=== PATIENT | male | born 1980 | race Caucasian/White ===

== ENCOUNTER 2019-09-18 11:02 | Emergency (ER) | payer BC, SELFPAY ==
[2019-09-18 11:04] VITALS: BP 137/79; PULSE 79; PULSE 89; RESP 17; RESP 18; TEMP 36.8; O2SAT 100; O2SAT 98; BMI 27.1
--- NOTE | 2019-09-18 11:06 | NURSING ---
NO OLD EKGS
--- NOTE | 2019-09-18 11:18 | EKG12_ITS ---
Test Reason : PALPS Blood Pressure : / mmHG Vent. Rate : 079 BPM Atrial Rate : 079 BPM P-R Int : 146 ms QRS Dur : 092 ms QT Int : 360 ms P-R-T Axes : 058 043 031 degrees QTc Int : 412 ms Normal sinus rhythm with sinus arrhythmia Normal ECG Reconfirmed by DEONNA HERNANDEZ, GERRY ([id number]), publishing editor ASIA CALLAWAY ([id number] on 09/20/2019 9:38:52 AM Referred By: ELVIA Confirmed By:GERRY YING MD
--- NOTE | 2019-09-18 11:18 | ED.VIS.GEN ---
History of Present Illness Chief Complaint: Palpitations Informant: Patient Onset: Today Narrative: Patient presents to the emergency department with near syncopal-like feelings. Patient states that he started Lexapro 3 days ago. He states that today he had an energy drink followed by 3 cups of coffee. States he was sitting at work when he began to feel like he may pass out. States he felt discomfort in his chest. He went to the bathroom and states his eyes were dilated. He felt very shaky. He ate a sandwich and felt a little better. He does note that he has had some occasional muscle cramps in his feet and hamstrings. He is unsure if this is the caffeine, stress, the Lexapro, or other. Lexapro was started by Dr. Rodriguez his PCP. He notes he wore a Holter monitor in the past and was diagnosed with a sinus arrhythmia. Past Medical History - Allergies and Home Meds Allergies/Adverse Reactions: Allergies No Known Allergies Allergy (Verified 09/18/19 11:03) Primary Care Physician: Tejinder Rodriguez MD [Primary Care Provider] - Smoking Status: Never smoker Review of Systems General: Denies: Chills, Fever, Sweats Eyes: Denies: Visual changes - bilaterally, Diplopia ENT: Denies: Rhinorrhea, Sore throat Cardiovascular: Reports: Palpitations, - - Near syncopal. Denies: Chest pain Respiratory: Denies: Dyspnea, Cough, Dyspnea on exertion Gastrointestinal: Denies: Abdominal pain, Nausea, Vomiting, Diarrhea, Melena, Hematochezia Genitourinary: Denies: Dysuria, Hematuria, Frequency Musculoskeletal: Denies: Back pain, Extremity Pain Skin: Denies: Rash, Wounds Neurological: Denies: Headache, Weakness, Numbness Psych: Reports: Anxiety Physical Exam Vital Signs/Narrative: Vital Signs Temp Pulse Resp BP Pulse Ox 09/18/19 11:04 98.2 F 79 18 137/79 H 98 Inital Vital Signs reviewed: Yes General: Well nourished, Well developed, No Acute Distress Head: Normocephalic, Atraumatic Eyes: Perrl, EOMI ENT: Moist mucous membranes, No rhinorrhea Neck: Supple, Nontender Cardiovascular: Regular rate, Regular rhythm, No murmurs Respiratory: No distress, CTA bilaterally, Chest nontender Abdomen: Soft, Nontender, Nondistended, Normal bowel sounds Back: Nontender, Normal Inspection Extremities: Nontender, No edema Skin: Normal color, No rash Neurological: Alert, Oriented x3, Cranial nerves II-XII grossly intact, Normal Strength, Normal Sensation Psychological: - - Patient is mildly anxious Diagnostic/Tx/Re-eval - Medical Decision Making Patient had an increase in his symptoms but no abnormal findings on the monitor were noted. His EKG is a sinus rhythm with sinus arrhythmia at a rate of 79. Chest x-ray shows a normal mediastinal silhouette. Basic labs including magnesium and troponin were normal. Patient will be discharged home with supportive care avoidance of caffeine will be stressed. Would also suggest that he continue the Lexapro but if he continues to have symptoms would talk to his doctor about discontinuing it. Patient is being discharged under pandemic conditions under declared global, national and state disaster activation, with limited medical resources, patient, community understands this. Results discussed in layman terms to patient satisfaction all questions answered in layman's terms. Patient understands importance of follow-up care as directed. The patient has been instructed to return to the ED immediately if new symptoms, problems, or questions occur. We mutually agreed with the plan of disposition. The patient understands that they may call or return any questions or concerns at any time. ED Disposition - Plan for ED Patient: Disposition: Home or Assisted Living Diagnosis: Near syncope, Medication side effect Instructions: ED Near-Fainting Uncertain Cause, ED Palpitations Referrals: Tejinder Rodriguez MD [Primary Care Provider] - 3-5 Days if not improving
--- NOTE | 2019-09-18 11:29 | RAD_ITS ---
STUDY: X-RAY CHEST REASON FOR EXAM: Male, 39 years old. PT C/O PALPITATIONS AND FEELING LIKE HE WAS GOING TO PASS OUT [employer]. PT STATES and quot;I DON''T KNOW IF I AM HAVING TOO MUCH CAFFEINE OR IF I HAD A PANIC ATTACK and quot; TECHNIQUE: Single AP portable view of the chest. COMPARISON: None. FINDINGS: The lungs are clear and expanded. There is no demonstrated pleural abnormality. Normal size heart. Normal mediastinum and neto. Normal visualized pulmonary arteries. Normal visualized aortic arch and descending thoracic aorta. Normal visualized thoracic spine. Normal visualized ribs, clavicles, and shoulders. There is no demonstrated abnormality of the visualized soft tissue structures of the upper abdomen. RAD/Chest 1 View (Portable) IMPRESSION: Normal x-ray examination of the chest. Electronically Signed: Lake Hackett MD at 12:11 EDT Tel , Service support ,
[2019-09-18 11:35] LABS: Absolute Neutrophil Count 4.7 X10^3/uL (2.0-7.7); Basophil# 0.05 X10^3/uL; Basophil% 0.8 % (0-1); Eosinophil# 0.11 X10^3/uL; Eosinophils% 1.7 % (0-5); Hematocrit 43.8 % (40-54); Hemoglobin 15.4 g/dL (13.0-16.5); Lymphocyte % 18.1 % (19-41); Mean Corp Hgb Conc 35.2 g/dL (32-36); Mean Corpuscular Hgb 31.5 pg (27.0-32.0); Mean Corpuscular Volume 89.6 fL (80-94); Mean Platelet Vol. 9.7 fl (6.2-12.0); Monocyte# 0.59 X10^3/uL; Monocyte% 8.9 % (0-10); NRBC Flagged by Analyzer 0 % (0-5); Neutrophil # 4.66 X10^3/uL (2.7-7.7); Platelet Count 221 K/mm3 (150-450); RBC Distribution Width CV 12.3 % (11.6-14.6); RBC Distribution Width SD 40.7 fl (35.1-43.9); Red Blood Count 4.89 M/mm3 (4.6-6.2); White Blood Count 6.6 K/mm3 (4.4-11.0)
[2019-09-18 11:59] LABS: Anion Gap 3 (5-15); BUN 13 mg/dL (7-18); BUN/Creat Ratio 12.4 RATIO (10-20); Calcium,Total 9.2 mg/dL (8.5-10.1); Chloride 108 mmol/L (98-107); Creatinine, Serum 1.05 mg/dL (0.70-1.30); EST Glomerular Filtration Rate 85 mL/min (>60); Est Glom Filt Rate - Afr Amer 102 mL/min (>60); Estimated Creatinine Clearance 99.46 ml/min; Glucose 117 mg/dL (74-106); Magnesium 1.9 mg/dL (1.6-2.6); Potassium 4.1 mmol/L (3.5-5.1); Sodium Level 139 mmol/L (136-145)
[2019-09-18 12:24] VITALS: BP 132/74; PULSE 78; RESP 16; O2SAT 98
== END 2019-09-18 12:26 | disposition home or self-care (01) ==
PROVIDERS: Emergency Provider Emergency Medicine; PCP Family Medicine
DX: R55 Syncope and collapse (principal); T43.225A Adverse effect of selective serotonin reuptake inhibitors, initial encounter; Y92.9 Unspecified place or not applicable; R00.2 Palpitations; F41.9 Anxiety disorder, unspecified; Z79.899 Other long term (current) drug therapy
CPT/HCPCS: 71045; 80048; 83735; 84484; 85025; 93005; 99284; A4216

== ENCOUNTER → 2020-10-03 16:01 | Outpatient (CLI) | payer BC, SELFPAY ==
--- NOTE | 2020-10-03 16:05 | RAD_ITS ---
INDICATION: SHORTNESS OF BREATH EXAMINATION/TECHNIQUE: X-RAY - XR Chest 2 Views COMPARISON: 09/18/2019. FINDINGS: The lungs are clear. The cardiomediastinal silhouette is unremarkable. No pleural effusion or pneumothorax. No acute osseous abnormalities. RAD/Chest PA and Lateral IMPRESSION: No acute radiographic abnormalities. Electronically Signed: Baudilio Card MD at 20:05 EDT Tel , Service support ,
== END ==
LOC: MTLAB 16:03 → LAB.FUTURE 16:36
PROVIDERS: PCP Family Medicine; Referring Provider Family Medicine; Visit Provider Family Medicine
DX: R06.02 Shortness of breath (principal); F10.20 Alcohol dependence, uncomplicated; F32.9 Major depressive disorder, single episode, unspecified; F41.9 Anxiety disorder, unspecified
CPT/HCPCS: 71046

== ENCOUNTER → 2020-10-04 07:13 | Outpatient (CLI) | payer BC, SELFPAY ==
[2020-10-04 07:41] LABS: Absolute Lymphocyte Count 1.56 X10^3/uL (0.83-4.51); Absolute Neutrophil Count 4.3 X10^3/uL (2.0-7.7); Basophil# 0.05 X10^3/uL; Basophil% 0.7 % (0-1); Eosinophil# 0.29 X10^3/uL; Eosinophils% 4.1 % (0-5); Hematocrit 44.8 % (40-54); Hemoglobin 15.5 g/dL (13.0-16.5); Lymphocyte # 1.56 X10^3/ul (0.83-4.51); Lymphocyte % 22.1 % (19-41); Mean Corp Hgb Conc 34.6 g/dL (32-36); Mean Corpuscular Hgb 31.4 pg (27.0-32.0); Mean Corpuscular Volume 90.7 fL (80-94); Mean Platelet Vol. 10.4 fl (6.2-12.0); Monocyte# 0.85 X10^3/uL; Monocyte% 12.1 % (0-10); NRBC Flagged by Analyzer 0 % (0-5); Neutrophil # 4.27 X10^3/uL (2.7-7.7); Neutrophil % 60.6 % (47-70); Platelet Count 227 K/mm3 (150-450); RBC Distribution Width CV 12.1 % (11.6-14.6); RBC Distribution Width SD 40.1 fl (35.1-43.9); Red Blood Count 4.94 M/mm3 (4.6-6.2); White Blood Count 7.1 K/mm3 (4.4-11.0)
[2020-10-04 08:20] LABS: ALB/GLOB Ratio 1.2 RATIO (0.9-2.4); AST(SGOT) 23 U/L (15-37); Alanine Aminotransfer ALT/SGPT 41 U/L (16-61); Albumin, Serum 4.1 g/dL (3.2-5.0); Alkaline Phosphatase 76 U/L (45-117); Anion Gap 4 (5-15); BUN 8 mg/dL (7-18); BUN/Creat Ratio 7.5 RATIO (10-20); Calcium,Total 9.3 mg/dL (8.5-10.1); Chloride 107 mmol/L (98-107); Creatinine, Serum 1.06 mg/dL (0.70-1.30); EST Glomerular Filtration Rate 83 mL/min (>60); Est Glom Filt Rate - Afr Amer 101 mL/min (>60); Globulin 3.5 g/dL (2.2-4.2); Glucose 100 mg/dL (74-106); Potassium 4.5 mmol/L (3.5-5.1); Protein, Total 7.6 g/dL (6.4-8.2); Sodium Level 140 mmol/L (136-145); Thyroid Stim Hormone (TSH) 2.82 uIU/mL (0.358-3.74)
[2020-10-06 09:39] LABS: Vitamin B12 423 pg/mL (211-911)
[2020-10-11 07:26] LABS: Vitamin B1, Thiamine 140.5 nmol/L (66.5-200.0)
== END ==
PROVIDERS: PCP Family Medicine; Referring Provider Family Medicine; Visit Provider Family Medicine
DX: F10.20 Alcohol dependence, uncomplicated (principal); R06.02 Shortness of breath; F32.9 Major depressive disorder, single episode, unspecified; F41.9 Anxiety disorder, unspecified
CPT/HCPCS: 36415; 80053; 82607; 82746; 84425; 84443; 85025

== ENCOUNTER 2020-10-06 08:09 | Emergency (ER) | payer BC, SELFPAY ==
[2020-10-06 08:12] VITALS: BP 153/94; PULSE 62; RESP 14; TEMP 35.7; O2SAT 99; BMI 28.7
--- NOTE | 2020-10-06 09:58 | ED.VIS.GEN ---
History of Present Illness Chief Complaint: Anxiety Informant: Patient Narrative: 51-year-old male with history of anxiety presenting for worsening anxiety over the last month. He states he has a few anxiety attacks a day. He recently saw Dr. To and had lab work drawn which he states was normal. He states he also had a normal EKG and chest x-ray. He started on Zoloft but he does not know the dose of it. He supposed to increase from half a pill this week to 1 whole pill next week. He has been doing this for 3 days. He is also started on propanolol which he states is 80 mg daily he believes. He states he has been on Zoloft before but has been off it for some time. Today he felt as if he was having a panic attack while he was at work. He did call his primary care physician and obtain his lab work and imaging. He then felt he needed to be seen in the ED. Patient does admit to drinking 6-10 beers per day and sometimes whiskey. He states that his primary care physician told him to wean down slowly. He states at this point he has trouble even drinking it due to anxiety. He states that he does not eat much secondary to anxiety. 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 He denies chest pain. He states that when he has anxiety he does feel somewhat short of breath but this has been going on for over a month. Past Medical History - Allergies and Home Meds Allergies/Adverse Reactions: Allergies No Known Allergies Allergy (Verified 10/06/20 08:12) Primary Care Physician: Hi To MD [Primary Care Provider] - Past Medical History: - - Anxiety Surgical History: noncontributory Lives: Spouse/ Significant Other Smoking Status: Former smoker Alcohol: Heavy - 6-10 beers per day Drugs: None Review of Systems General: Denies: Chills, Fever, Sweats Eyes: Denies: Visual changes - bilaterally, Diplopia ENT: Denies: Rhinorrhea, Sore throat Cardiovascular: Reports: Heart racing. Denies: Chest pain, Palpitations Respiratory: Reports: Dyspnea. Denies: Cough, Sputum Gastrointestinal: Denies: Abdominal pain, Nausea, Vomiting Genitourinary: Denies: Dysuria, Hematuria Musculoskeletal: Denies: Myalgias, Arthralgias Skin: Denies: Rash, Abscess Neurological: Denies: Headache, Weakness Psych: Reports: Anxiety. Denies: Depression, Suicidal thoughts, Suicidal ideations Endocrine: Denies: Polyuria, Polydipsia Physical Exam Vital Signs/Narrative: Vital Signs Temp Pulse Resp BP Pulse Ox 10/06/20 08:12 96.2 F L 62 14 153/94 H 99 Inital Vital Signs reviewed: Yes General: Well nourished, No Acute Distress Head: Normocephalic, Atraumatic Eyes: Perrl, EOMI ENT: Moist mucous membranes, No rhinorrhea Cardiovascular: Regular rate, Regular rhythm Respiratory: No distress, CTA bilaterally Abdomen: Soft, Nontender, Nondistended Extremities: Nontender, No edema Skin: Normal color, No rash. Negative for: Cyanosis, Diaphoresis Neurological: Alert, Oriented x3, Cranial nerves II-XII grossly intact Psychological: Normal affect, Normal Mood Diagnostic/Tx/Re-eval - Medical Decision Making 40-year-old male with history of anxiety which has been worsening over the last month. He started on Zoloft outpatient and is taking half doses currently for this week and will go to full dose next week. Patient is still having some breakthrough anxiety. He did call his primary care office today however his physician was out. He then came to the emergency room for evaluation. He states that he just had lab work drawn and I did review this it was drawn at [place] and it was all normal including CBC, CMP, TSH. He had a chest x-ray which showed no acute cardiopulmonary process. I did also speak with the office of his primary care and they stated that he had a normal EKG done in office. After discussion with the on-call physician he recommended giving Xanax 0.5 mg twice daily as needed to help him with breakthrough anxiety until his medication is more therapeutic. I also scheduled him an appointment at 10:10 AM tomorrow. He is given return precautions. Patient stable for discharge at this time. Impression: 1. Anxiety ED Disposition - Plan for ED Patient: Disposition: Home or Assisted Living Instructions: ED Panic Attack Prescriptions: ALPRAZolam [Xanax] 0.5 mg PO BID #12 tab Prescription Printed Referrals: Hi To MD [Primary Care Provider] -
[2020-10-06] MEDS: ALPRAZolam 0.5 MG Tablet PO (10:49)
== END 2020-10-06 10:51 | disposition home or self-care (01) ==
PROVIDERS: Emergency Provider Student in an Organized Health Care Education/Training Program; PCP Family Medicine
DX: F41.9 Anxiety disorder, unspecified (principal); Z79.899 Other long term (current) drug therapy; Z87.891 Personal history of nicotine dependence
CPT/HCPCS: 99283

== ENCOUNTER → 2021-01-02 | Outpatient (CLI) | payer OTHER, SELFPAY ==
[2021-01-06 21:31] LABS: Fats, Neutral Normal (.); Fats, Total Normal (.)
== END | disposition home or self-care (01) ==
PROVIDERS: PCP Family Medicine; Referring Provider Family Medicine; Visit Provider Family Medicine
DX: R19.7 Diarrhea, unspecified (principal)
CPT/HCPCS: 82705; 83630; 87177; 87209; 87493; 87506

== ENCOUNTER 2021-04-05 19:30 | Inpatient (IN) | payer OTHER, SELFPAY ==
[2021-04-05 19:30] VITALS: BP 126/97; PULSE 113; RESP 18; TEMP 35.8; O2SAT 97; BMI 29.4
--- NOTE | 2021-04-05 20:09 | EX.ED.DYSGE1 ---
HPI History of Present Illness Chief Complaint: ETOH Intox Informant: patient Narrative Narrative: 40-year-old male presents the emergency department requesting detox from alcohol. He tells me that he drinks between 3 and 6 25 ounce beers per day. He states he usually has these after work. However lately he has started drinking in the mornings. Patient states when he is not drinking he feels anxious and shaky. In the past 2 years this has become his pattern. He states that the last hour or so of the night he typically gets into an argument with his and he does not remember this in the morning. He denies any legal issues. He denies any alcohol related issues at work. He is treated for anxiety depression through his PCP and is on sertraline and buspirone. Patient states that he spoke with a counselor couple days ago and they recommended he come here for inpatient detox. Patient states that he has been drinking this evening. There is a family history of alcoholism in his father. [facility] Medical History Alcohol abuse Anxiety Depression Panic attacks Home Medications buspirone 10 mg PO DAILY 04/05/21 [History Last Taken 04/05/21] sertraline 100 mg PO DAILY 04/05/21 [History Last Taken 04/05/21] Allergy/AdvReac Type Severity Reaction Status Date / Time No Known Allergies Allergy Verified 04/05/21 19:32 Social History (Updated 04/05/21 @ 20:[address] Joshua Smith DO) Smoking Status: Former smoker alcohol intake: current alcohol intake frequency: 3 or more drinks per day [facility] ED Constitutional Constitutional ED: Denies chills or weight loss Eyes Eyes: Denies change in vision or diplopia ENT ENT ED: Denies ear pain, rhinorrhea or sore throat Cardiovascular Cardiovascular: Denies chest pain, orthopnea, palpitations or racing heartbeat Respiratory/Chest Respiratory/Chest: Denies cough, dyspnea or orthopnea Gastrointestinal Gastrointestinal: Denies abdominal pain, diarrhea, nausea or vomiting Genitourinary Genitourinary ED: Denies dysuria, hematuria or urinary frequency Musculoskeletal Musculoskeletal: Denies arthralgias or myalgias Integumentary Denies abscess or rash Neurologic Neurologic: Denies headache(s) or weakness Psychiatric Psychiatric: Reports anxiety; Denies depression, suicidal ideation or suicidal thoughts Endocrine Endocrinology: Denies polydipsia, polyphagia or polyuria Allergic/Immunologic Allergic/Immunologic ED: Denies mouth swelling, tongue swelling or urticaria EXAM Physical Exam Const Vital Signs: 04/05/21 19:30 Temperature 96.4 F L Temperature Source Temporal Pulse Rate 113 H Respiratory Rate 18 Blood Pressure 126/97 H Blood Pressure Mean 106 Pulse Ox 97 Oxygen Delivery Method Room Air Positive well nourished and well developed General Appearance ED: well developed HEENT Reports normocephalic, head/scalp atraumatic, TM's clear and moist mucous membranes Negative for trauma Tympanic Membrane ED: Yes TM's clear Eyes PERRL and EOMs intact bilaterally Neck no lymphadenopathy, supple and no JVD Resp normal respiratory effort and clear to auscultation bilaterally Cardio regular rate and no murmurs Rate: tachycardic GI normal to inspection, nondistended, normoactive bowel sounds and non-tender Palpation: soft Back/Spine no CVA tenderness and normal ROM Extremity normal to inspection General Extremety ED: Negative for edema General Extremity: Negative for edema Neuro oriented x3 and CN's II-XII intact bilaterally Sensorium / Orientation: alert Motor Exam: strength 5/5 throughout Psych Psych Narrative: Patient does have a bit of inappropriate affect smiling when discussing serious topics. He does appear under the influence of alcohol Mood & Affect: Negative for depressed or tearful Skin no rashes or lesions noted and no wounds MDM MDM MDM Narrative Medical decision making narrative: We will obtain medical screening labs. If the patient agrees to the rules of the program that I will speak with the hospitalist regarding admission Discharge Plan Dx/Rx/DC Orders Clinical Impression: Alcohol intoxication, Alcohol abuse Disposition Disposition: Acute Care [facility]
[2021-04-05 21:54] LABS: Absolute Neutrophil Count 4.1 X10^3/uL (2.0-7.7); Basophil# 0.05 X10^3/uL; Basophil% 0.7 % (0-1); Eosinophils% 4.2 % (0-5); Hematocrit 42.3 % (40-54); Hemoglobin 15.2 g/dL (13.0-16.5); Lymphocyte % 26.6 % (19-41); Mean Corp Hgb Conc 35.9 g/dL (32-36); Mean Corpuscular Hgb 31.4 pg (27.0-32.0); Mean Corpuscular Volume 87.4 fL (80-94); Mean Platelet Vol. 9.7 fl (6.2-12.0); Monocyte# 0.71 X10^3/uL; NRBC Flagged by Analyzer 0 % (0-5); Neutrophil # 4.12 X10^3/uL (2.7-7.7); Neutrophil % 57.8 % (47-70); Platelet Count 207 K/mm3 (150-450); RBC Distribution Width CV 12.4 % (11.6-14.6); RBC Distribution Width SD 39.2 fl (35.1-43.9); Red Blood Count 4.84 M/mm3 (4.6-6.2); White Blood Count 7.1 K/mm3 (4.4-11.0)
[2021-04-05 22:00] LABS: International Normalized Ratio 0.9; Prothrombin Time (Protime)PT. 11.6 SECONDS (11.7-14.9)
[2021-04-05 22:07] LABS: AST(SGOT) 28 U/L (15-37); Alanine Aminotransfer ALT/SGPT 41 U/L (16-61); Albumin, Serum 3.9 g/dL (3.2-5.0); Alkaline Phosphatase 109 U/L (45-117); Anion Gap 9 (5-15); BUN 15 mg/dL (7-18); Calcium,Total 8.6 mg/dL (8.5-10.1); Chloride 109 mmol/L (98-107); EST Glomerular Filtration Rate 89 mL/min (>60); Est Glom Filt Rate - Afr Amer 107 mL/min (>60); Estimated Creatinine Clearance 103.42 ml/min; Globulin 3.8 g/dL (2.2-4.2); Glucose 111 mg/dL (74-106); Potassium 3.8 mmol/L (3.5-5.1); Protein, Total 7.7 g/dL (6.4-8.2); Sodium Level 141 mmol/L (136-145)
--- NOTE | 2021-04-05 22:08 | HP.PCM.HOS_ITS ---
HPI - General General Date of Admission: 04/05/21 Date of Service: 04/05/21 Chief Complaint: EtOH abuse, requesting detoxification HPI Narrative The patient is a 40 y/o M w/ PMHx: Former tobacco use, Anxiety and Depression/Panic attacks, EtOH abuse drinking routinely 3-6-25 ounce beers daily with last prior to presentation who presents to the [facility] ED on 04/05/21 w/ noted acute EtOH withdrawal with tremors, agitation, tactile disturbances with self attempts to reduce his beer intake prompting ED presentation. He notes currently feeling improved as drank a beer prior to arrival. He notes difficulties with his spouse and marriage secondary to his EtOH intake and desire to obtain sober status. He did present to [facility] who referred him to the ED for evaluation and treatment. Work-up in the ED included T 96.4, heart rate 113, BP 126/97, respiratory rate 18, 97% on room air, CBC with WC 7.1, hemoglobin 15.2, platelet 207 without marked shift, coags with PT 11.6, INR 0.9, CMP with chloride 109, glucose 111 otherwise not marked appearing, ethyl alcohol level pending upon admission. [facility] Medical History (Updated 04/05/21 @ 22:[address] Marley Gusman MD) Alcohol abuse Anxiety Depression Former tobacco use Panic attacks Home Medications buspirone 10 mg PO DAILY 04/05/21 [History Last Taken 04/05/21] sertraline 100 mg PO DAILY 04/05/21 [History Last Taken 04/05/21] Allergy/AdvReac Type Severity Reaction Status Date / Time No Known Allergies Allergy Verified 04/05/21 19:32 Family History (Updated 04/05/21 @ 22:[address] Marley Gusman MD) Mother Anxiety and depression Father Diabetes Surgical History (Updated 04/05/21 @ 22:[address] Marley Gusman MD) History of facial surgery Social History (Updated 04/05/21 @ 22:[address] Marley Gusman MD) household members: spouse and family Smoking Status: Former smoker how long ago did patient quit smoking: Smoked 3-5 years in his 30s, 1 ppd. alcohol intake: current alcohol intake frequency: 3 or more drinks per day details: 3-6, 25 ounce beers daily. substance use type: does not use ROS ROS Narrative Admission Review of Systems: CONSTITUTIONAL: No weight loss, fever, chills, + weakness or fatigue. HEENT: Eyes: No visual loss, blurred vision, double vision or yellow sclerae. Ears, Nose, Throat: No hearing loss, sneezing, congestion, runny nose or sore throat. SKIN: No rash or itching, lesions, wounds. CARDIOVASCULAR: No chest pain, chest pressure or chest discomfort, palpitations, edema, orthopnea, syncopal events. RESPIRATORY: No shortness of breath, cough or sputum, wheezing, hemoptysis. GASTROINTESTINAL: No anorexia, nausea, vomiting or diarrhea, abdominal pain, melena, BRBPR. GENITOURINARY: No dysuria, frequency, urgency or retention. NEUROLOGICAL: + Tremors, tactile disturbances, agitation. No headache, dizziness, syncope, paralysis, ataxia, numbness or tingling in the extremities, focal weakness, change in bowel or bladder control, seizure. MUSCULOSKELETAL: No muscle, back pain, joint pain or stiffness. HEMATOLOGIC: No anemia, bleeding or bruising. LYMPHATICS: No enlarged nodes. No history of splenectomy. PSYCHIATRIC: + history of depression or anxiety. ENDOCRINOLOGIC: No reports of sweating, cold or heat intolerance. No polyuria or polydipsia. ALLERGIES: No history of asthma, hives, eczema or rhinitis. Vital Signs Vital Signs Vital Signs: 04/05/21 19:30 Temperature 96.4 F L Temperature Source Temporal Pulse Rate 113 H Respiratory Rate 18 Blood Pressure 126/97 H Blood Pressure Mean 106 Pulse Ox 97 Oxygen Delivery Method Room Air Weight Weight: 205 lb Body Mass Index (BMI) 29.4 Physical Exam Narrative Physical Examination: General: Awake, alert, oriented x 3 and cooperative, seated upright in the ED bed, fatigued appearing. Skin: Normal color, normal turgor, no icterus, no cyanosis. HEENT: AT/NC, EOMI, PERRLA, mildly dry MM, no carotid bruits or JVD noted. Lungs: Mildly diminished, greater bases, appropriate effort, no rales, ronchi or wheezing. Heart: Tachycardic with regular rhythm; no gallop, rub audible. Abdomen: Soft, NTTP, ND, normal BS, no marked HSM. Extremities: No cyanosis, clubbing, or edema. Neurological: Patient awake, alert, oriented as noted, cognitive function intact although patient mildly fatigued and sedate; pupils equally reactive to light and accommodation, cranial nerves II-XII grossly normal, moving all 4 extremities, no focal deficits, strength appears mildly global decreased, patient mildly sedate, recent beer intake thus tremors have subsided currently. Psychiatric: Affect appears mildly flat, no acute evidence of depressive or anxiety feelings. Results Lab / Micro Data Result Diagrams: 04/05/21 21:15 04/05/21 21:15 Labs: Laboratory Results - last 24 hr 04/05/21 21:15: WBC 7.1, RBC 4.84, Hgb 15.2, Hct 42.3, MCV 87.4, MCH 31.4, MCHC 35.9, RDW Std Deviation 39.2, RDW Coeff of Shweta 12.4, Plt Count 207, MPV 9.7, Immature Gran % (Auto) 0.700, Neut % (Auto) 57.8, Lymph % (Auto) 26.6, Granite % (Auto) 10.0, Eos % (Auto) 4.2, Baso % (Auto) 0.7, Absolute Neuts (auto) 4.1, Absolute Lymphs (auto) 1.90, Nucleated RBC % 0 04/05/21 21:15: PT 11.6 L, INR 0.9 04/05/21 21:15: Sodium 141, Potassium 3.8, Chloride 109 H, Carbon Dioxide 23.0, Anion Gap 9, BUN 15, Creatinine 1.00, Estim Creat Clear Calc 103.42, Est GFR (MDRD) Af Amer 107, Est GFR (MDRD) Non-Af 89, BUN/Creatinine Ratio 15.0, Glucose 111 H, Calcium 8.6, Total Bilirubin 0.30, AST 28, ALT 41, Alkaline Phosphatase 109, Total Protein 7.7, Albumin 3.9, Globulin 3.8, Albumin/Globulin Ratio 1.0 Assessment & Plan Assessment/Plan (1) Alcohol abuse: PLAN: The patient is a 40 y/o M w/ PMHx: Former tobacco use, Anxiety and Depression/Panic attacks, EtOH abuse drinking routinely 3-6-25 ounce beers daily with last prior to presentation who presents to the [facility] ED on 04/05/21 w/ noted acute EtOH withdrawal with tremors, agitation, tactile disturbances with self attempts to reduce his beer intake prompting ED presentation. 1. EtOH Abuse with impending Acute EtOH Withdrawal: Will admit to [facility], routine labs obtained in the ED upon presentation, pending alcohol level upon presentation. Given interest in sobriety, will initiate and continue on protocol with taper course of Phenobarbital, scheduled gabapentin for seizure prophylaxis, as needed Catapres, Bentyl, Vistaril, IV fluids, IV antiemetics, Tylenol as needed for pain. Will consult Case management for assistance for transition to next level of rehabilitation care. Mag, phos pending. Maintain on CIWA protocol concurrently. 2. Anxiety and depression/panic attack history: We will continue patient home buspirone and sertraline regimen. 3. Former tobacco use: Encourage continued tobacco cessation. 4. DVT prophylaxis: Low risk, encourage ambulation. Charges/Coding Visit Charges Inpatient E&M: 01871 Init Hosp L2
[2021-04-05 22:34] LABS: Magnesium 2.2 mg/dL (1.6-2.6); Phosphorus 4.2 mg/dL (2.5-4.9)
[2021-04-05 23:00] VITALS: BP 126/97; PULSE 113; RESP 18; TEMP 35.8; O2SAT 97
[2021-04-05 23:09] LABS: Amphetamine Urine VISTA NEGATIVE (<1000 ng/mL); Barbiturate Urine VISTA NEGATIVE (< 200 ng/mL); Benzodiazepine Urine VISTA NEGATIVE (< 200 ng/mL); Cocaine Urine VISTA NEGATIVE (< 300 ng/mL); Ecstacy Urine VISTA NEGATIVE (< 500 ng/mL); Methadone Urine VISTA NEGATIVE (< 300 ng/mL); PCP Urine VISTA NEGATIVE (< 25 ng/mL); THC Urine VISTA NEGATIVE (< 50 ng/mL); Vista UDS pH Range 5
[2021-04-05 23:22] VITALS: PULSE 80; BMI 29.9
[2021-04-05 23:39] VITALS: BP 129/76; PULSE 76; RESP 16; TEMP 36.6; O2SAT 99
[2021-04-06] MEDS: 0.9% Saline Lock 10 ML Syringe IV (00:18)
[2021-04-06] MEDS: Lactated Ringers 1,000 ML 125 ML IV (00:18)
[2021-04-06 00:38] VITALS: O2SAT 99
[2021-04-06 03:57] VITALS: BP 129/68; PULSE 93; RESP 16; TEMP 36.8; O2SAT 99
[2021-04-06] MEDS: hydrOXYzine PAM 25 MG Capsule 50 MG PO ×3 (04:06→20:07)
--- NOTE | 2021-04-06 07:36 | PCS.PANDOC ---
PANDEMIC DOCUMENTATION INITIATED: Date: 01/26/2021 Time: 190
[2021-04-06 08:10] VITALS: BP 141/91; PULSE 91; RESP 18; TEMP 36.6; O2SAT 99
[2021-04-06] MEDS: busPIRone 5 MG Tablet 10 MG PO (08:10)
[2021-04-06] MEDS: Folic Acid 1 MG Tablet PO (08:11)
[2021-04-06] MEDS: Thiamine Hydrochloride 100 MG Tablet PO (08:11)
[2021-04-06] MEDS: Sertraline 100 MG Tablet PO (08:11)
[2021-04-06 11:28] VITALS: BP 141/91; PULSE 90; RESP 18; TEMP 37.2; O2SAT 98
[2021-04-06] MEDS: Phenobarbital 32.4 MG Tablet 64.8 MG PO ×3 (11:31→20:07)
--- NOTE | 2021-04-06 12:58 | PN.HOSP_ITS ---
Subjective Subjective Patient seen and examined. He has been managed for acute alcohol withdrawal. He had no active complaints and review of systems otherwise negative. Objective Data Objective Data Vital Signs: Vital Signs Temp Pulse Resp BP Pulse Ox 99.0 F 90 18 141/91 H 98 04/06/21 11:28 04/06/21 11:28 04/06/21 11:28 04/06/21 11:28 04/06/21 11:28 Oxygen Delivery Method Room Air Weight: 208 lb 12.444 oz Body Mass Index (BMI) 29.9 Intake & Output: Intake and Output for Last 24 Hours 04/04/21 04/05/21 04/06/21 23:59 23:59 23:59 Intake Total 983.33 / 983.33 Balance 983.33 / 983.33 Lab / Micro Data Result Diagrams: 04/05/21 21:15 04/05/21 21:15 Labs: Laboratory Results - last 24 hr 04/05/21 21:15: WBC 7.1, RBC 4.84, Hgb 15.2, Hct 42.3, MCV 87.4, MCH 31.4, MCHC 35.9, RDW Std Deviation 39.2, RDW Coeff of Shweta 12.4, Plt Count 207, MPV 9.7, Immature Gran % (Auto) 0.700, Neut % (Auto) 57.8, Lymph % (Auto) 26.6, Dundy % (Auto) 10.0, Eos % (Auto) 4.2, Baso % (Auto) 0.7, Absolute Neuts (auto) 4.1, Absolute Lymphs (auto) 1.90, Nucleated RBC % 0 04/05/21 21:15: PT 11.6 L, INR 0.9 04/05/21 21:15: Sodium 141, Potassium 3.8, Chloride 109 H, Carbon Dioxide 23.0, Anion Gap 9, BUN 15, Creatinine 1.00, Estim Creat Clear Calc 103.42, Est GFR (MDRD) Af Amer 107, Est GFR (MDRD) Non-Af 89, BUN/Creatinine Ratio 15.0, Glucose 111 H, Calcium 8.6, Total Bilirubin 0.30, AST 28, ALT 41, Alkaline Phosphatase 109, Total Protein 7.7, Albumin 3.9, Globulin 3.8, Albumin/Globulin Ratio 1.0 04/05/21 21:15: Ethyl Alcohol 197.0 04/05/21 21:15: Phosphorus 4.2, Magnesium 2.2 04/05/21 22:35: Urine Opiates Screen NEGATIVE, Urine Methadone Screen NEGATIVE, Ur Barbiturates Screen NEGATIVE, Ur Phencyclidine Scrn NEGATIVE, Ur Amphetamines Screen NEGATIVE, U Methamphetamin-MDMA NEGATIVE, U Benzodiazepines Scrn NEGATIVE, Urine Cocaine Screen NEGATIVE, U Cannabinoids Screen NEGATIVE, Ur Drug Screen Comment Physical Exam Const alert, oriented x3 and no apparent distress Exam Limitations: no limitations HEENT head/scalp atraumatic and moist oral mucous membranes Head and Scalp: normocephalic Eyes PERRL and EOMs intact bilaterally Neck no lymphadenopathy Resp normal respiratory effort, no retractions, no use of accessory muscles and clear to auscultation bilaterally Cardio regular rate, regular rhythm, S1 normal heart sound, S2 normal heart sound and no murmurs GI normal to inspection, nondistended, normoactive bowel sounds, soft to palpation, non-tender and non-distended Extremity normal to inspection, full ROM and no clubbing, cyanosis or edema Peripheral Pulses: Yes pulses 2+ throughout Skin no rashes or lesions noted Neuro oriented x3, CN's II-XII intact bilaterally and moves all extremities Sensorium / Orientation: awake and alert Psych affect normal Assessment & Plan Assessment/Plan (1) Alcohol intoxication: (2) Alcohol withdrawal: PLAN: #Acute alcohol withdrawal * on alcohol withdrawal protocol with phenobarbital * monitor CIWA score * multivite, folic acid and thiamine #Depression: on buspirone and sertraline DVT prophylaxis: low risk, encourage to ambulate. Charges/Coding Visit Charges Inpatient E&M: 09643 Subs Hosp L2
--- NOTE | 2021-04-06 14:37 | ADDICTION ---
TW met with Pt to complete ASAM, AUDIT, MSE, and SUZETTE. Pt was agreeable, pleasant, and answered all questions asked. Pt was previously engaged with [facility] and want to return to his therapist there. Pt reported feelings/symptoms of anxiety and wanting to work on that as well as his substance abuse in recovery. Pt stated he has an appointment on Tuesday04/08/21 at 2:30PM with his therapist. TW reported she would work with nursing staff to determine d/c date and time and if it was after scheduled appointment, TW will reschedule. No transportation needs noted. D/c Plan will be finalized once appt time is finalized.
[2021-04-06 15:49] VITALS: BP 117/63; PULSE 91; RESP 18; TEMP 37.2; O2SAT 99
[2021-04-06] MEDS: Gabapentin 300 MG Capsule PO (15:53)
[2021-04-06 19:57] VITALS: BP 133/85; PULSE 76; RESP 16; TEMP 36.6; O2SAT 100
[2021-04-07] VITALS: BP 122/81; PULSE 70; RESP 16; TEMP 36.5; O2SAT 97
[2021-04-07] MEDS: Phenobarbital 32.4 MG Tablet 64.8 MG PO ×7 (00:06→23:27)
[2021-04-07] MEDS: hydrOXYzine PAM 25 MG Capsule 50 MG PO ×4 (00:06→16:57)
[2021-04-07] MEDS: 0.9% Saline Lock 10 ML Syringe IV (00:06)
[2021-04-07 04:39] VITALS: BP 113/76; PULSE 68; RESP 16; TEMP 36.7; O2SAT 99
[2021-04-07 08:38] VITALS: BP 122/84; PULSE 73; RESP 18; TEMP 36.4; O2SAT 99
[2021-04-07] MEDS: Folic Acid 1 MG Tablet PO (08:43)
[2021-04-07] MEDS: busPIRone 5 MG Tablet 10 MG PO (08:43)
[2021-04-07] MEDS: Thiamine Hydrochloride 100 MG Tablet PO (08:43)
[2021-04-07] MEDS: Sertraline 100 MG Tablet PO (08:44)
[2021-04-07 12:49] VITALS: BP 127/68; PULSE 93; RESP 18; O2SAT 99
[2021-04-07] MEDS: Gabapentin 300 MG Capsule PO (12:53)
[2021-04-07 16:54] VITALS: BP 112/60; PULSE 75; RESP 18; TEMP 36.3; O2SAT 99
[2021-04-07 19:25] VITALS: BP 123/78; PULSE 78; RESP 18; TEMP 36.9; O2SAT 96
--- NOTE | 2021-04-07 19:42 | PCM.PN.HOSP ---
Subjective Subjective Patient was seen and examined today, he denies any anxiety or nervousness at this time, he denies any sedation with his present medications. Patient states he plans to do an outpatient detox program when he is released from the hospital. Objective Data Objective Data Vital Signs: Vital Signs Temp Pulse Resp BP Pulse Ox 98.5 F 78 18 123/78 H 96 04/07/21 19:25 04/07/21 19:25 04/07/21 19:25 04/07/21 19:25 04/07/21 19:25 Oxygen Delivery Method Room Air Weight: 94.7 kg Body Mass Index (BMI) 29.9 Intake & Output: Intake and Output for Last 24 Hours 04/05/21 04/06/21 04/07/21 23:59 23:59 23:59 Intake Total 983.33 / 983.33 Balance 983.33 / 983.33 Lab / Micro Data Result Diagrams: 04/05/21 21:15 04/05/21 21:15 Physical Exam Const alert, oriented x3, no apparent distress and healthy appearing General Appearance: cooperative, well kempt and well developed Orientation / Consciousness: awake, oriented to person, oriented to place and oriented to time HEENT normocephalic, head/scalp atraumatic and moist oral mucous membranes Head and Scalp: normocephalic Eyes PERRL, EOMs intact bilaterally and conjunctivae normal Neck nuchal rigidity, supple, no JVD, thyroid normal and no carotid bruits General: trachea midline Resp normal respiratory effort, no retractions, no use of accessory muscles and clear to auscultation bilaterally Auscultation: Negative for rales, rhonchi or wheezes Cardio regular rate, regular rhythm, no murmurs, no rub and no gallops GI normal to inspection, nondistended, normoactive bowel sounds, soft to palpation, non-tender and non-distended Extremity no clubbing, cyanosis or edema Skin no rashes or lesions noted General Skin Exam: no breakdown Neuro oriented x3, CN's II-XII intact bilaterally, no focal motor deficits and no sensory deficits noted Sensorium / Orientation: awake and alert Speech: speech normal Psych thought process normal and affect normal Assessment & Plan Assessment/Plan (1) Alcohol withdrawal: PLAN: 1. Acute alcohol withdrawal-patient is remain on his present medications #2 chronic alcoholism Charges/Coding Visit Charges Inpatient E&M: 33588 Subs Hosp L2
[2021-04-08] MEDS: Phenobarbital 32.4 MG Tablet 64.8 MG PO ×5 (03:48→19:46)
[2021-04-08 03:51] VITALS: BP 126/64; PULSE 70; RESP 18; TEMP 36.6; O2SAT 98
[2021-04-08 07:58] VITALS: O2SAT 95
[2021-04-08 08:00] VITALS: BP 116/75; PULSE 70; RESP 14; TEMP 36.6; O2SAT 98
[2021-04-08] MEDS: Gabapentin 300 MG Capsule PO ×2 (09:17→16:44)
[2021-04-08] MEDS: Dicyclomine 10 MG Capsule 20 MG PO (09:18)
[2021-04-08] MEDS: Sertraline 100 MG Tablet PO (09:18)
[2021-04-08] MEDS: Thiamine Hydrochloride 100 MG Tablet PO (09:18)
[2021-04-08] MEDS: busPIRone 5 MG Tablet 10 MG PO (09:18)
[2021-04-08] MEDS: Folic Acid 1 MG Tablet PO (09:18)
[2021-04-08] MEDS: hydrOXYzine PAM 25 MG Capsule 50 MG PO ×2 (12:19→19:50)
[2021-04-08 16:41] VITALS: BP 112/69; PULSE 72; RESP 14; TEMP 36.8; O2SAT 98
--- NOTE | 2021-04-08 18:19 | PCM.PN.HOSP ---
Subjective Subjective Patient was seen and examined today, he has a little bit of anxiety but for the most part he is doing well, he does not complain of any muscle pain, nausea, or headache. Patient will be following up with 180 as an outpatient when he is discharged from the hospital. Patient continues to be on a phenobarb taper. Objective Data Objective Data Vital Signs: Vital Signs Temp Pulse Resp BP Pulse Ox 98.3 F 72 14 112/69 98 04/08/21 16:41 04/08/21 16:41 04/08/21 16:41 04/08/21 16:41 04/08/21 16:41 Oxygen Delivery Method Room Air Weight: 94.7 kg Body Mass Index (BMI) 29.9 Intake & Output: Intake and Output for Last 24 Hours 04/06/21 04/07/21 04/08/21 23:59 23:59 23:59 Intake Total 983.33 / 983.33 Balance 983.33 / 983.33 Lab / Micro Data Result Diagrams: 04/05/21 21:15 04/05/21 21:15 Physical Exam Const alert, oriented x3, no apparent distress and healthy appearing General Appearance: cooperative, well kempt and well developed Orientation / Consciousness: awake, oriented to person, oriented to place and oriented to time HEENT normocephalic, head/scalp atraumatic and moist oral mucous membranes Head and Scalp: normocephalic Eyes PERRL, EOMs intact bilaterally and conjunctivae normal Neck nuchal rigidity, supple, no JVD, thyroid normal and no carotid bruits General: trachea midline Resp normal respiratory effort and clear to auscultation bilaterally Auscultation: Negative for rales, rhonchi or wheezes Cardio regular rate, regular rhythm, S1 normal heart sound, S2 normal heart sound, no murmurs, no rub and no gallops GI normal to inspection, nondistended, normoactive bowel sounds, soft to palpation, non-tender and non-distended Extremity normal to inspection and no clubbing, cyanosis or edema Skin no rashes or lesions noted, no wounds and skin turgor normal General Skin Exam: no breakdown Neuro oriented x3, CN's II-XII intact bilaterally, no focal motor deficits and no sensory deficits noted Sensorium / Orientation: awake and alert Speech: speech normal Psych thought process normal and affect normal Assessment & Plan Assessment/Plan (1) Alcohol withdrawal: PLAN: 1. Acute alcohol withdrawal-patient is remain on his present medications, I will review his phenobarb taper and I may decide to cut down on his phenobarbital dosage further. #2 chronic alcoholism Charges/Coding Visit Charges Inpatient E&M: 42893 Subs Hosp L2
[2021-04-08 19:51] VITALS: BP 127/64; PULSE 95; RESP 18; TEMP 36.7; O2SAT 98
[2021-04-09] MEDS: Phenobarbital 32.4 MG Tablet 64.8 MG PO ×3 (01:37→15:20)
[2021-04-09 01:40] VITALS: BP 113/56; PULSE 71; RESP 18; TEMP 36.6; O2SAT 99
[2021-04-09 08:50] VITALS: O2SAT 98
[2021-04-09] MEDS: Thiamine Hydrochloride 100 MG Tablet PO (09:08)
[2021-04-09] MEDS: Folic Acid 1 MG Tablet PO (09:09)
[2021-04-09] MEDS: hydrOXYzine PAM 25 MG Capsule 50 MG PO ×2 (09:09→15:20)
[2021-04-09 10:43] VITALS: BP 111/70; PULSE 84; RESP 14; TEMP 36.6; O2SAT 98
[2021-04-09] MEDS: busPIRone 5 MG Tablet 10 MG PO (10:54)
[2021-04-09] MEDS: Sertraline 100 MG Tablet PO (10:54)
[2021-04-09] MEDS: Gabapentin 300 MG Capsule PO ×2 (10:54→18:53)
--- NOTE | 2021-04-09 14:51 | PCM.DC ---
Discharge Instructions Diet Discharge Diet: No restrictions Activity Discharge Activity: Return to Normal Activity Weight Bearing Status: Full weight bearing Follow Up Care Test Results: Test results from this visit will be discussed in further detail at your follow-up appointment, if applicable. Discharge Plan Admission Admit Date/Time: 04/05/21 22:08 Primary Reason for Your Visit: alcohol detox Attending Provider: Tejinder Ruiz Primary Care Provider: Hi To Instructions Additional Instructions / Restrictions: Follow-up with 180 as an outpatient Discharge Orders/Prescriptions Prescriptions: Continued sertraline 100 mg tablet 100 mg PO DAILY RF: 0 buspirone 10 mg tablet 10 mg PO DAILY RF: 0 Referrals / Follow Up: Hi To MD [Primary Care Provider] - Disposition Disposition (needs filled in before D/C Order can be placed): Home, Self Care
[2021-04-09 15:16] VITALS: BP 122/79; PULSE 74; RESP 14; TEMP 36.6; O2SAT 97
[2021-04-09] MEDS: Ondansetron 8 MG Tablet PO (15:25)
--- NOTE | 2021-04-09 18:59 | DS.PCM_ITS ---
Providers Date of Admission: 04/05/21 Date of Discharge: 04/09/21 Primary Care Physician: Dr. Hi To MD Reason For Visit: ETOH DETOX Diagnosis Discharge Diagnosis (1) Alcohol withdrawal: Status: Acute Code(s): F10.239 - Alcohol dependence with withdrawal, unspecified Plan: 1. Acute alcohol withdrawal #2 chronic alcoholism #3 chronic anxiety Medications at Discharge Home Medications buspirone 10 mg PO DAILY 04/05/21 sertraline 100 mg PO DAILY 04/05/21 Hospital Course Operations None Procedures None Summary of Care Provided Minutes Spent on Discharge: 31 Hospital Course: This 40-year-old white male was seen in the emergency room requesting services for detox from alcoholism. Patient admitted to drinking between 3 and 6 24 ounce beers per day. Labs performed in the emergency room showed his ethyl alcohol level be 197. Patient's tox screen was otherwise negative. Patient was admitted to [place] [address], orders were placed using the [facility] detox order set, he was seen in consultation by viscose department worker, patient had no serious alcohol withdrawal symptoms during his hospital stay. On 04/08/2021, patient was seen and examined: On examination he appeared in good health and spirits. Vital signs as documented. Skin warm and dry and without overt rashes. Neck without JVD, neck was supple, trachea midline, thyroid was normal. Lungs clear bilaterally, normal air movement was noted. Heart exam notable for regular rhythm, normal sounds and absence of murmurs, rubs or gallops. Abdomen unremarkable and without evidence of organomegaly, masses, or abdominal aortic enlargement. Bowel sounds are present, abdomen is not distended. Extremities nonedematous, no cyanosis was noted, no clubbing was noted. Neuro: Cranial nerves II through XII are grossly intact, no focal motor deficits were noted, sensation to light touch and pinprick intact, motor exam 5/5 throughout. Psych: Patient is alert and oriented x3, he does not appear anxious or depressed, he does not appear agitated. Patient was discharged to home on 04/08/2021, he was to follow-up with 180 as an outpatient Weight / BMI Weight Weight: 94.7 kg Body Mass Index (BMI) 29.9 ABG / Lab / Microbiology Data Result Diagrams: 04/05/21 21:15 04/05/21 21:15 D/C Instructions Discharge Diet: No restrictions Weight Bearing Status: Full weight bearing Meaningful Use Info Meaningful Use Diagnoses (Choose all that apply): None applicable Discharge Plan Admission Admit Date/Time: 04/05/21 22:08 Primary Reason for Your Visit: alcohol detox Attending Provider: Tejinder Ruiz Primary Care Provider: Hi To Instructions Additional Instructions / Restrictions: Follow-up with 180 as an outpatient Discharge Orders/Prescriptions Prescriptions: Continued sertraline 100 mg tablet 100 mg PO DAILY RF: 0 buspirone 10 mg tablet 10 mg PO DAILY RF: 0 Referrals / Follow Up: Hi To MD [Primary Care Provider] - Disposition Disposition (needs filled in before D/C Order can be placed): Home, Self Care Charges/Coding Visit Charges Inpatient E&M: 87516 Disch Hosp
== END 2021-04-09 19:40 | disposition home or self-care (01) | DRG 897 ==
LOC: ED 20:19 → MS3 04-06 02:05
PROVIDERS: Admitting Provider Family Medicine; Emergency Provider Emergency Medicine; PCP Family Medicine; Visit Provider Internal Medicine
DX: F10.229 Alcohol dependence with intoxication, unspecified (principal); F10.239 Alcohol dependence with withdrawal, unspecified; F41.0 Panic disorder [episodic paroxysmal anxiety]; F32.A Depression, unspecified; F41.9 Anxiety disorder, unspecified; Z79.899 Other long term (current) drug therapy; Z87.891 Personal history of nicotine dependence
CPT/HCPCS: 80053; 80307; 82077; 83735; 84100; 85025; 85610; 99284; J7120; A4216

== ENCOUNTER 2021-06-03 15:36 | Emergency (ER) | payer OTHER, SELFPAY ==
[2021-06-03 15:37] VITALS: BP 159/96; PULSE 123; RESP 16; TEMP 36.4; O2SAT 97; BMI 31.2
[2021-06-03 15:48] LABS: Bacteria 0 SEEN /hpf (None Seen); Mucous, Urine 0 SEEN /hpf (<or=2+); Red Blood Cells-Urine 0 SEEN /hpf (0-5); Squamous Epithelial Cells - UA 0 SEEN /hpf (0-5); White Blood Cells 0 SEEN /hpf (0-5)
[2021-06-03 15:53] LABS: Color, Urine Yellow (Yellow); Glucose, Dipstick Normal (Normal); Ketone-Dipstick Negative (Negative); Leukocyte Esterase-Dipstick Negative /ul (Negative); Nitrite-Dipstick Negative (Negative); Occult Blood-Urine Negative /ul (Negative); Protein-Dipstick Negative (Negative); Specific Gravity, Urine 1.015 (1.002-1.030); Urine Bilirubin Dipstick Negative (Negative); Urine Clarity Clear (Clear); Urine Urobilinogen Normal (Normal)
--- NOTE | 2021-06-03 16:09 | US_ITS ---
STUDY: ABDOMINAL ULTRASOUND - RIGHT UPPER QUADRANT REASON FOR VISIT: Male, 40 years old PAIN TECHNIQUE: Ultrasound evaluation of the right upper quadrant was performed with real-time and static rolon-scale imaging. TECHNICAL QUALITY: Adequate. COMPARISON: None. FINDINGS: Liver: The liver measures 15.8 cm. There is normal echogenicity of the liver. The bile ducts are within normal limits. There is hepatic color flow. The direction of portal flow is hepatopetal. There is no demonstrated mass lesion. Gallbladder: There is a contracted gallbladder. The gallbladder wall measures 2 mm. There is a negative sonographic Brewer''s sign. There is no pericholecystic fluid. There are gallbladder polyps. Common Bile Duct (C.B.D.): The common bile duct measures 5 mm. Pancreas: Normal size of the head, body and tail of the pancreas. There is normal echogenicity of the pancreas. There is no demonstrated pancreatic mass or cyst. Right Kidney: Normal size of the right kidney. The right kidney measures 11.3 cm. Normal renal cortex. The right cortex measures 1.5 cm. There is no demonstrated renal mass or cyst. There is no right hydronephrosis. US/Gallbladder IMPRESSION: Cholesterolosis. Electronically Signed: Lake Hackett MD at 17:09 EST Tel , Service support ,
--- NOTE | 2021-06-03 16:10 | EDS_ITS ---
HPI HPI - GI History of Present Illness Chief Complaint: Abd Pain Informant: patient Abdominal Pain/Flank Pain Onset: Days Context: Gradual Onset Timing: Intermittent Quality: Aching Location: RUQ Current Severity: Mild Maximum Severity: Mild Worsened by: Nothing Relieved by: Nothing; Not Relieved By Antacids, Food and Remaining Still Nausea/Vomiting/Emesis GI Symptom: Negative for Nausea Diarrhea/Melena/Hematochezia GI Symptom: Negative for Diarrhea Associated Symptoms Associated Symptoms: Negative for Dysuria, Frequency and Hematuria Narrative Narrative: 32-year-old male drinks alcohol daily. He went through alcohol detox in March. States he did have an intermittent right upper quadrant abdominal pain last several days worse today. Denies any nausea, vomiting or diarrhea. No melena or fever. No prior abdominal surgeries. Has never had pancreatitis. He has no history of hepatitis. He still has his gallbladder and his appendix. States he is urinating and moving his bowels normally. He is never had any abdominal surgeries. Patient he denies any history of ulcer, nor any pancreatitis nor any alcoholic hepatitis.. Prior similar symptoms: No Recent Illness/Hospitalization: No PFSH PFSH Medical History Alcohol abuse Alcohol abuse Anxiety Asthma Chronic pain Depression Former smoker Former tobacco use Irregular heart beat Kidney stones Panic attacks Home Medications buspirone 10 mg PO DAILY 04/05/21 [History Last Taken 04/05/21 05:30] sertraline 100 mg PO DAILY 04/05/21 [History Last Taken 04/05/21 05:30] hydroxyzine HCl 50 mg PO DAILY 06/03/21 [History Last Taken Unknown] Allergy/AdvReac Type Severity Reaction Status Date / Time No Known Allergies Allergy Verified 06/03/21 15:37 Family History Mother Anxiety and depression Father Diabetes Surgical History History of facial surgery Social History household members: spouse and family Smoking Status: Former smoker how long ago did patient quit smoking: Smoked 3-5 years in his 30s, 1 ppd. alcohol intake: current alcohol intake frequency: 3 or more drinks per day details: 3-6, 25 ounce beers daily. substance use type: does not use ROS ROS ED ROS Narrative Denies any recent illness. Review of Systems ROS Unobtainable: Denies due to encephalopathy Constitutional Constitutional ED: Denies fever(s) ENT ENT ED: Denies ear pain Cardiovascular Cardiovascular: Denies chest pain or racing heartbeat Respiratory/Chest Respiratory/Chest: Denies cough or dyspnea Gastrointestinal Gastrointestinal: Reports abdominal pain; Denies constipation, diarrhea, melena, nausea or vomiting Genitourinary Genitourinary ED: Denies dysuria or hematuria Musculoskeletal Musculoskeletal: Denies myalgias Integumentary Denies rash Neurologic Neurologic: Denies headache(s) Psychiatric Psychiatric: Denies depression Endocrine Endocrinology: Denies polyuria Hematologic/Lymphatic Hematologic/Lymphatic: Denies easy bruising Allergic/Immunologic Allergic/Immunologic ED: Denies urticaria EXAM Physical Exam Narrative Exam Narrative: 40-year-old male no acute distress vital signs stable afebrile. H EENT exam unremarkable. Neck nontender no JVD. No lymphadenopathy. Lungs clear to auscultation bilaterally. Heart regular rhythm rate about 120 no murmur. Abdomen soft nondistended normal bowel sounds minimal right upper quadr ant tenderness. No Brewer sign. No right lower quadrant or McBurney's point tenderness. No left-sided tenderness. No obstruction. Normal bowel sounds soft. No mass. No pulsatile mass. Moving all 4 extremities. Nontender no edema. Back nontender. Neurologically is awake alert. Const Vital Signs: 06/03/21 15:37 Temperature 97.5 F L Temperature Source Temporal Pulse Rate 123 H Respiratory Rate 16 Blood Pressure 159/96 H Blood Pressure Mean 117 Pulse Ox 97 Oxygen Delivery Method Room Air Positive well nourished and well developed; Negative for obese, cachectic, contractures or unkempt General Appearance ED: well developed and NAD; Negative for unkempt, cachectic or contractures Nutritional Appearance: Negative for cachectic or obese Psych Appearance: Negative for unkempt MDM MDM MDM Narrative Medical decision making narrative: 40-year-old male history of alcohol abuse. No prior abdominal surgeries. Complaining of right upper quadrant discomfort. Exam benign. Will undergo labs and a ultrasound of his right upper quadrant gallbladder and liver. Currently does not need any medications. Patient states he was feeling anxious and was given a milligram of Ativan p.o. He was also given a GI cocktail Protonix for his discomfort. Repeat exam patient is doing well at 5:45 PM. Abdomen is benign. He and I went over all his test results. He will be discharged home with outpatient follow-up with his primary care physician. Lab Data Attestation: I reviewed the patient's lab results. Lab results narrative: Urinalysis is normal. Chemistries unremarkable. Glucose 122. Liver enzymes normal. Lipase normal 134. CBC shows a white count of 7. Hemoglobin 14. Ultrasound of his gallbladder shows no acute process that was contracted. Read by the radiologist. Labs: Laboratory Results - last 24 hr 06/03/21 06/03/21 06/03/21 15:42 16:10 16:10 WBC Cancelled Corrected WBC Cancelled RBC Cancelled Hgb Cancelled Hct Cancelled MCV Cancelled MCH Cancelled MCHC Cancelled RDW Std Deviation Cancelled RDW Coeff of Shweta Cancelled Plt Count Cancelled MPV Cancelled Immature Gran % (Auto) Cancelled Neut % (Auto) Cancelled Lymph % (Auto) Cancelled [place] % (Auto) Cancelled Eos % (Auto) Cancelled Baso % (Auto) Cancelled Absolute Neuts (auto) Cancelled Absolute Lymphs (auto) Cancelled Total Counted Cancelled Neutrophils % (Manual) Cancelled Band Neutrophils % Cancelled Lymphocytes % (Manual) Cancelled Monocytes % (Manual) Cancelled Eosinophils % (Manual) Cancelled Basophils % (Manual) Cancelled Metamyelocytes % Cancelled Myelocytes % Cancelled Promyelocytes % Cancelled Blast Cells % Cancelled Plasma Cell % (Manual) Cancelled Other Cells % Cancelled Nucleated RBC % Cancelled Nucleated RBCs/100 WBC Cancelled Differential Comment Cancelled Diff Path Review Cancelled Hypersegmented Neuts Cancelled Atypical Lymphocytes Cancelled Reactive Lymphocytes Cancelled Smudge Cells Cancelled Toxic Granulation Cancelled Toxic Vacuolation Cancelled Dohle Bodies Cancelled Noemi Rods Cancelled Platelet Estimate Cancelled Plt Morphology Comment Cancelled RBC Morphology Cancelled Polychromasia Cancelled Hypochromasia Cancelled Poikilocytosis Cancelled Basophilic Stippling Cancelled Anisocytosis Cancelled Microcytosis Cancelled Macrocytosis Cancelled Spherocytes Cancelled Sickle Cells Cancelled Target Cells Cancelled Tear Drop Cells Cancelled Ovalocytes Cancelled Stomatocytes Cancelled Garcia-Sausal Bodies Cancelled [place] Cells Cancelled Bite Cells Cancelled Crenated Cell Cancelled Acanthocytes (Spur) Cancelled Rouleaux Cancelled Schistocytes Cancelled Sodium 140 Potassium 4.2 Chloride 109 H Carbon Dioxide 24.0 Anion Gap 7 BUN 19 H Creatinine 0.99 Estim Creat Clear Calc 104.46 Est GFR (MDRD) Af Amer 108 Est GFR (MDRD) Non-Af 89 BUN/Creatinine Ratio 19.1 Glucose 122 H Calcium 9.1 Total Bilirubin 0.50 AST 26 ALT 38 Alkaline Phosphatase 83 Total Protein 7.9 Albumin 3.9 Globulin 4.0 Albumin/Globulin Ratio 1.0 Lipase 134 Urine Color Yellow Urine Clarity Clear Urine pH 6.0 Ur Specific [place] 1.015 Urine Protein Negative Urine Glucose (UA) Normal Urine Ketones Negative Urine Occult Blood Negative Urine Nitrite Negative Urine Bilirubin Negative Urine Urobilinogen Normal Ur Leukocyte Esterase Negative Urine RBC 0 SEEN Urine WBC 0 SEEN Ur Squamous Epith Cells 0 SEEN Urine Bacteria 0 SEEN Urine Mucus 0 SEEN 06/03/21 16:10 WBC 7.7 Corrected WBC RBC 4.84 Hgb 14.7 Hct 41.5 MCV 85.7 MCH 30.4 MCHC 35.4 RDW Std Deviation 38.2 RDW Coeff of Shweta 12.3 Plt Count 257 MPV 9.7 Immature Gran % (Auto) 1.000 H Neut % (Auto) 70.3 H Lymph % (Auto) 17.5 L [place] % (Auto) 8.4 Eos % (Auto) 2.0 Baso % (Auto) 0.8 Absolute Neuts (auto) 5.4 Absolute Lymphs (auto) 1.34 Total Counted Neutrophils % (Manual) Band Neutrophils % Lymphocytes % (Manual) Monocytes % (Manual) Eosinophils % (Manual) Basophils % (Manual) Metamyelocytes % Myelocytes % Promyelocytes % Blast Cells % Plasma Cell % (Manual) Other Cells % Nucleated RBC % 0 Nucleated RBCs/100 WBC Differential Comment Diff Path Review Hypersegmented Neuts Atypical Lymphocytes Reactive Lymphocytes Smudge Cells Toxic Granulation Toxic Vacuolation Dohle Bodies Noemi Rods Platelet Estimate Plt Morphology Comment RBC Morphology Polychromasia Hypochromasia Poikilocytosis Basophilic Stippling Anisocytosis Microcytosis Macrocytosis Spherocytes Sickle Cells Target Cells Tear Drop Cells Ovalocytes Stomatocytes Garcia-Sausal Bodies [place] Cells Bite Cells Crenated Cell Acanthocytes (Spur) Rouleaux Schistocytes Sodium Potassium Chloride Carbon Dioxide Anion Gap BUN Creatinine Estim Creat Clear Calc Est GFR (MDRD) Af Amer Est GFR (MDRD) Non-Af BUN/Creatinine Ratio Glucose Calcium Total Bilirubin AST ALT Alkaline Phosphatase Total Protein Albumin Globulin Albumin/Globulin Ratio Lipase Urine Color Urine Clarity Urine pH Ur Specific [place] Urine Protein Urine Glucose (UA) Urine Ketones Urine Occult Blood Urine Nitrite Urine Bilirubin Urine Urobilinogen Ur Leukocyte Esterase Urine RBC Urine WBC Ur Squamous Epith Cells Urine Bacteria Urine Mucus Radiography Diagnostic Testing: Clinical Impression(s) from Imaging Studies Gallbladder Ultrasound 06/03/21 16:09 IMPRESSION: Cholesterolosis. Electronically Signed: [place] MD at 17:09 EST Tel , Service support , Discharge Plan Triage Chief Complaint: Abd Pain ED Provider: Fernando Li Dx/Rx/DC Orders Clinical Impression: Abdominal pain in male Instructions: Abdominal Pain Prescriptions: No Action sertraline 100 mg tablet 100 mg PO DAILY RF: 0 buspirone 10 mg tablet 10 mg PO DAILY RF: 0 hydroxyzine HCl 50 mg tablet 50 mg PO DAILY RF: 0 Primary Care Provider: Hi To Referrals: Hi To MD [Primary Care Provider] - 1-2 Weeks Activity Restrictions/Additional Instructions: Labs and ultrasound today for gallbladder were unremarkable. Renal no specific cause for her discomfort. This could potentially still be her gallbladder if it continues to have the pain you may need something called a HIDA scan which they can do as an outpatient. Follow-up with your primary care physician if not improving for further evaluation. Disposition Disposition: Home, Self Care
[2021-06-03] MEDS: Pantoprazole Sodium 40 MG Tablet PO (16:21)
[2021-06-03] MEDS: LORazepam 1 MG Tablet PO (16:21)
[2021-06-03] MEDS: Mag Hydrox/Al Hydrox/Simeth 30 ML UDC PO (16:22)
[2021-06-03 16:27] LABS: Absolute Lymphocyte Count 1.34 X10^3/uL (0.83-4.51); Absolute Neutrophil Count 5.4 X10^3/uL (2.0-7.7); Basophil# 0.06 X10^3/uL; Basophil% 0.8 % (0-1); Eosinophil# 0.15 X10^3/uL; Hematocrit 41.5 % (40-54); Hemoglobin 14.7 g/dL (13.0-16.5); Lymphocyte # 1.34 X10^3/ul (0.83-4.51); Lymphocyte % 17.5 % (19-41); Mean Corp Hgb Conc 35.4 g/dL (32-36); Mean Corpuscular Hgb 30.4 pg (27.0-32.0); Mean Corpuscular Volume 85.7 fL (80-94); Mean Platelet Vol. 9.7 fl (6.2-12.0); Monocyte# 0.64 X10^3/uL; Monocyte% 8.4 % (0-10); NRBC Flagged by Analyzer 0 % (0-5); Neutrophil # 5.39 X10^3/uL (2.7-7.7); Neutrophil % 70.3 % (47-70); Platelet Count 257 K/mm3 (150-450); RBC Distribution Width CV 12.3 % (11.6-14.6); RBC Distribution Width SD 38.2 fl (35.1-43.9); Red Blood Count 4.84 M/mm3 (4.6-6.2); White Blood Count 7.7 K/mm3 (4.4-11.0)
[2021-06-03 17:15] LABS: AST(SGOT) 26 U/L (15-37); Alanine Aminotransfer ALT/SGPT 38 U/L (16-61); Albumin, Serum 3.9 g/dL (3.2-5.0); Alkaline Phosphatase 83 U/L (45-117); Anion Gap 7 (5-15); BUN 19 mg/dL (7-18); BUN/Creat Ratio 19.1 RATIO (10-20); Calcium,Total 9.1 mg/dL (8.5-10.1); Chloride 109 mmol/L (98-107); Creatinine, Serum 0.99 mg/dL (0.70-1.30); EST Glomerular Filtration Rate 89 mL/min (>60); Est Glom Filt Rate - Afr Amer 108 mL/min (>60); Estimated Creatinine Clearance 104.46 ml/min; Glucose 122 mg/dL (74-106); Lipase 134 U/L (73-393); Potassium 4.2 mmol/L (3.5-5.1); Protein, Total 7.9 g/dL (6.4-8.2); Sodium Level 140 mmol/L (136-145)
== END 2021-06-03 18:01 | disposition home or self-care (01) ==
PROVIDERS: Emergency Provider Emergency Medicine; PCP Family Medicine
DX: R10.11 Right upper quadrant pain (principal); G89.29 Other chronic pain; J45.909 Unspecified asthma, uncomplicated; F10.11 Alcohol abuse, in remission; F32.A Depression, unspecified; F41.9 Anxiety disorder, unspecified; Z79.899 Other long term (current) drug therapy; Z87.891 Personal history of nicotine dependence
CPT/HCPCS: 76705; 80053; 81001; 83690; 85025; 99284

== ENCOUNTER 2021-06-17 21:02 | Inpatient (IN) | payer OTHER, SELFPAY ==
[2021-06-17 21:02] VITALS: BP 133/97; PULSE 88; RESP 18; TEMP 36.3; O2SAT 98; BMI 31.2
[2021-06-17 21:20] VITALS: RESP 20
--- NOTE | 2021-06-17 21:33 | EX.ED.SAOD ---
HPI History of Present Illness Chief Complaint: Substance Abuse Informant: patient Onset/Context/Timing Onset: Month(s) Context: Gradual Onset Timing: Continuous Current Severity: Mild Maximum Severity: Mild Narrative Narrative: 32-year-old male history of alcohol abuse, depression and kidney stones. States the only time he 0 been detox was in March of last year. He started drinking heavily again and drinks 3 to 7, 24 ounce beers a day. Denies any recent illness. He is just requesting to go through detox again. Denies any drug use. Prior similar symptoms: Yes Recent Illness/Hospitalization: No PFSH PFS Medical History Alcohol abuse Alcohol abuse Anxiety Asthma Chronic pain Depression Former smoker Former tobacco use Irregular heart beat Kidney stones Panic attacks Home Medications sertraline 150 mg PO DAILY 04/05/21 [History Last Taken 04/05/21 05:30] hydroxyzine HCl 50 mg PO DAILY 06/03/21 [History Last Taken Unknown] Allergy/AdvReac Type Severity Reaction Status Date / Time No Known Allergies Allergy Verified 06/03/21 15:37 Family History Mother Anxiety and depression Father Diabetes Surgical History History of facial surgery Social History household members: spouse and family Smoking Status: Former smoker how long ago did patient quit smoking: Smoked 3-5 years in his 30s, 1 ppd. alcohol intake: current alcohol intake frequency: 3 or more drinks per day details: 3-6, 25 ounce beers daily. substance use type: does not use ROS ROS ED ROS Narrative Denies. Review of Systems ROS Unobtainable: Denies due to encephalopathy Constitutional Constitutional ED: Denies fever(s) Eyes Eyes: Denies change in vision ENT ENT ED: Denies ear pain Cardiovascular Cardiovascular: Denies chest pain Respiratory/Chest Respiratory/Chest: Denies cough or dyspnea Gastrointestinal Gastrointestinal: Denies abdominal pain, diarrhea, nausea or vomiting Genitourinary Genitourinary ED: Denies dysuria Musculoskeletal Musculoskeletal: Denies myalgias Integumentary Denies rash Neurologic Neurologic: Denies headache(s) Psychiatric Psychiatric: Denies depression Endocrine Endocrinology: Denies polyuria Hematologic/Lymphatic Hematologic/Lymphatic: Denies easy bruising Allergic/Immunologic Allergic/Immunologic ED: Denies urticaria EXAM Physical Exam Narrative Exam Narrative: 32-year-old male no acute distress vital signs stable afebrile. Exam benign. Lungs clear. Heart regular rhythm. Abdomen soft nontender. He is awake and alert no focal motor deficits. Cooperative. Const Vital Signs: 06/17/21 21:02 06/17/21 21:20 Temperature 97.4 F L Temperature Source Temporal Pulse Rate 88 Respiratory Rate 18 20 H Blood Pressure 133/97 H Blood Pressure Mean 109 Pulse Ox 98 Positive well nourished and well developed; Negative for obese, cachectic, contractures or unkempt General Appearance ED: well developed and NAD; Negative for unkempt, cachectic, contractures or pallor Nutritional Appearance: Negative for cachectic or obese HEENT Reports moist mucous membranes atraumatic; Negative for trauma or tenderness Eyes PERRL and EOMs intact bilaterally Neck no lymphadenopathy, supple and no JVD Thyroid: Negative for tender Lymph Lymphatic: no lymphadenopathy noted; Negative for lymphadenopathy Chest Wall inspection of chest normal and palpation of chest normal Resp normal respiratory effort and clear to auscultation bilaterally Auscultation: Negative for rales, rhonchi, wheezes or other Cardio regular rate, regular rhythm, S1 normal heart sound, S2 normal heart sound and no murmurs GI soft to palpation, non-tender, non-distended and no masses Inspection: Negative for abdominal distention Palpation: Negative for tender, guarding or rigid Back/Spine no CVA tenderness General Back: Negative for CVA tenderness Extremity General Extremety ED: Negative for edema or tenderness General Extremity: Negative for edema Neuro oriented x3 Sensorium / Orientation: alert, oriented to person, oriented to place and oriented to time; Negative for confused, lethargic or stuporous Motor Exam: strength 5/5 throughout Psych mental status grossly normal and thought process normal Appearance: Negative for unkempt Skin General Skin Exam: Negative for jaundice or pallor Lesions: no lesions Rashes: no rashes MDM MDM MDM Narrative Medical decision making narrative: 40-year-old male history of alcohol abuse requesting detox. Exam benign. Of already spoken to the hospitalist he will be admitted for detox. Discharge Plan Triage Chief Complaint: Substance Abuse ED Provider: Fernando Li Dx/Rx/DC Orders Clinical Impression: Alcohol abuse, Admitted to alcohol detoxification center Prescriptions: No Action sertraline 100 mg tablet 150 mg PO DAILY RF: 0 hydroxyzine HCl 50 mg tablet 50 mg PO DAILY RF: 0 Primary Care Provider: Hi To Referrals: Hi To MD [Primary Care Provider] - Disposition Disposition: Acute Care Hospital [facility]
--- NOTE | 2021-06-17 21:38 | HP.PCM.HOS_ITS ---
HPI - General HPI Narrative GARTH MENG, is a 40 M with a significant history of former smoker; panic attacks; depression, and anxiety on SSRI and hydroxyzine; and alcoholism who presents to the emergency department to help with detoxification from alcohol. Reportedly he drinks about 3 to 7 of 24 ounces of beer per day. Last time he drank was about an hour ago. He has been drinking heavily for the past 2 years. He denies any aixa withdrawal symptoms at this time. Last time he went through detoxification was in March 2021 and that was at our hospital ([facility] Medical History Alcohol abuse Alcohol abuse Anxiety Asthma Chronic pain Depression Former smoker Former tobacco use Irregular heart beat Kidney stones Panic attacks Home Medications sertraline 150 mg PO DAILY 04/05/21 [History Last Taken 04/05/21 05:30] hydroxyzine HCl 50 mg PO DAILY 06/03/21 [History Last Taken Unknown] Allergy/AdvReac Type Severity Reaction Status Date / Time No Known Allergies Allergy Verified 06/03/21 15:37 Family History Mother Anxiety and depression Father Diabetes Surgical History History of facial surgery Social History household members: spouse and family Smoking Status: Former smoker how long ago did patient quit smoking: Smoked 3-5 years in his 30s, 1 ppd. alcohol intake: current alcohol intake frequency: 3 or more drinks per day details: 3-6, 25 ounce beers daily. substance use type: does not use ROS ROS Narrative Constitutional: Denies fever, chills, fatigue, anorexia and change in weight Eyes: Denies blurry vision, change in eye color, change in vision, discharge from eye(s), double vision, erythema, eye pain, loss of vision or other HEENT: Denies abnormal hearing, dysphagia, ear pain, epistaxis, headache(s), hearing loss, nasal congestion, nasal discharge, post nasal drip, sinus pressure, sore throat or other Cardiovascular: Denies chest pain or palpitations. Denies dyspnea on exertion, orthopnea and paroxysmal nocturnal dyspnea Respiratory/Chest: Denies cough, excessive phlegm production, shortness of breath with exertion and wheezing Gastrointestinal: Denies abdominal pain, coffee ground emesis, constipation, diarrhea, dyspepsia, hematemesis, hematochezia, loose stools, melena, nausea, vomiting or other Genitourinary: Denies burning urination, difficulty urinating, dysuria, hematuria, nocturia, urinary frequency, urinary hesitancy, urinary incontinence, urinary urgency or other Musculoskeletal: Denies arthralgias, back pain, joint pain, joint stiffness, joint swelling, myalgias, neck pain or other Neurologic: Denies abnormal gait, abnormal speech, confusion, disequilibrium, dizziness, focal weakness, headache(s), numbness, paresthesias, seizure-like activity, seizures, syncope, tingling, tremor(s) or other Psychiatric: Denies anxiety, depression, homicidal ideation, suicidal ideation or other Endocrinology: Denies change in body appearance, cold intolerance, excessive sweating, heat intolerance, polydipsia, polyuria or other Hematologic/Lymphatic: Denies anemia, easy bleeding, easy bruising, lymphadenopathy or other Integumentary: Denies rashes Allergic/Immunologic: Denies rhinitis, hives, eczema, asthma or other Vital Signs Vital Signs Vital Signs: 06/17/21 21:02 06/17/21 21:20 Temperature 97.4 F L Temperature Source Temporal Pulse Rate 88 Respiratory Rate 18 20 H Blood Pressure 133/97 H Blood Pressure Mean 109 Pulse Ox 98 Weight Weight: 98.883 kg Body Mass Index (BMI) 31.2 Physical Exam Narrative Physical exam: General: Well-nourished, well-developed. Head: Normocephalic, atraumatic, no tenderness Eyes: PERRLA, EOMI ENT, no trauma, moist mucous membranes, no rhinorrhea Neck: Nontender, full range of motion, no spinal tenderness, deformities, step- off CVS: Regular rate and rhythm. S1-S2 present. No murmur, gallop or rub. Respiratory : clear to auscultation bilaterally, chest wall nontender, no wheezing Abdomen: Soft, nontender, nondistended, normal bowel sounds, no masses : Deferred Back: Nontender, no CVA tenderness, no midline spinal tenderness, deformities, step-offs Extremities: Nontender full range of motion, no trauma Skin: Normal color, no trauma, abrasions Neuro: Alert, oriented, cranial nerves II through XII grossly intact. Psychiatry: Normal mood. Normal affect. Not depressed. Not anxious. Assessment & Plan Assessment/Plan (1) Desire for detoxification: (2) Alcohol abuse: (3) Admitted to alcohol detoxification center: PLAN: Alcohol dependence and desire for detoxification Patient be started on phenobarbital and other adjunctive medications: Gabapentin as needed; dicyclomine as needed; Vistaril as needed; Imodium as needed; trazodone as needed; Zofran as needed; scheduled thiamine; and schedule folic acid. Monitor CIWA score Elevated blood pressure diagnosis of hypertension Trend blood pressures at this time. DVT prophylaxis Low risk Encourage to ambulate Charges/Coding Visit Charges Inpatient E&M: 80900 Init Hosp L2
[2021-06-17 21:39] VITALS: BP 133/97; PULSE 88; RESP 20; TEMP 36.3; O2SAT 98
--- NOTE | 2021-06-17 22:01 | CM.ED ---
SOCIAL WORK Reason for Consult: Substance abuse-requesting detox from alcohol Patient admitted to [facility] for alcohol detox. Treatment Navigator updated. Addiction Therapist, Agueda galo assessment tomorrow. Plan: [facility]rea, NOTE SPECIALIST, HAND CLERICAL VERIFIER
--- NOTE | 2021-06-17 22:27 | ED.RN ---
Blood in urine in lab waiting orders.
[2021-06-17 22:44] VITALS: BMI 30.3
[2021-06-17 23:02] VITALS: PULSE 79; RESP 18; O2SAT 99
[2021-06-17 23:13] VITALS: BP 123/76; PULSE 80; RESP 18; TEMP 36.4; O2SAT 99
[2021-06-17] MEDS: Phenobarbital 32.4 MG Tablet PO (23:22)
[2021-06-18 02:00] VITALS: BP 111/71; PULSE 93; RESP 14; TEMP 36.4; O2SAT 98
[2021-06-18] MEDS: Phenobarbital 32.4 MG Tablet PO ×6 (03:13→23:33)
[2021-06-18 06:26] VITALS: BP 112/79; PULSE 83; RESP 16; TEMP 36.8; O2SAT 96
[2021-06-18] MEDS: Ondansetron 8 MG Tablet PO (06:32)
[2021-06-18] MEDS: Sertraline 50 MG Tablet 150 MG PO (07:49)
[2021-06-18] MEDS: hydrOXYzine PAM 25 MG Capsule 50 MG PO ×2 (07:49→13:43)
[2021-06-18] MEDS: Folic Acid 1 MG Tablet PO (07:49)
[2021-06-18] MEDS: Thiamine Hydrochloride 100 MG Tablet PO (07:49)
[2021-06-18 07:51] VITALS: BP 131/74; PULSE 94; RESP 16; TEMP 36.8; O2SAT 96; O2SAT 97
--- NOTE | 2021-06-18 11:22 | PCM.PN.HOSP ---
Subjective Subjective Follow-up for acute alcohol withdrawal: Patient was seen and examined. He complains of feeling anxious and tremulous. He was medicated this morning. No acute events overnight. Objective Data Objective Data Vital Signs: Vital Signs Temp Pulse Resp BP Pulse Ox 98.3 F 94 16 131/74 H 97 06/18/21 07:51 06/18/21 07:51 06/18/21 07:51 06/18/21 07:51 06/18/21 07:51 Oxygen Delivery Method Room Air Weight: 95.9 kg Body Mass Index (BMI) 30.3 Intake & Output: Intake and Output for Last 24 Hours 06/16/21 06/17/21 06/18/21 23:59 23:59 23:59 Intake Total 240 / 240 Balance 240 / 240 Physical Exam Narrative Physical exam: General: Alert, Oriented x3, Cooperative, No apparent distress, Well developed HEENT: Atraumatic Oral: Moist Mucosa Neck: Supple Lungs: Clear to auscultation Cardiovascular: HS I+II, regular, no murmurs Abdomen: Bowel Sounds Present, Soft, Non Tender Extremities: No edema Assessment & Plan Assessment/Plan (1) Desire for detoxification: (2) Alcohol abuse: (3) Admitted to alcohol detoxification center: PLAN: 1. Acute alcohol withdrawal, improving Last CIWA score was 4 Continue on phenobarb taper and alcohol withdrawal protocol Continue on folic acid, multivitamin, thiamine 2. Elevated blood pressure without diagnosis of hypertension Blood pressures are controlled Continue to monitor 3. DVT prophylaxis?Lovenox, encourage ambulates Charges/Coding Visit Charges Inpatient E&M: 79819 Subs Hosp L2
[2021-06-18 13:35] VITALS: BP 119/73; PULSE 89; RESP 16; TEMP 36.7; O2SAT 96
[2021-06-18] MEDS: Gabapentin 300 MG Capsule PO (13:43)
--- NOTE | 2021-06-18 16:01 | ADDICTION ---
This underwriter mortgage loan met with PT to conduct ASAM, MSE, AUDIT assessments and to plan for d/c. PT A+Ox4 and participated actively. All assessments completed, faxed to [facility] and placed in PT's chart. PT plans to f/u with individual counselor at [facility] for follow-up counseling services. PT did not indicate a need for transportation post d/c from [facility].
[2021-06-18 18:39] VITALS: BP 139/76; PULSE 88; RESP 18; TEMP 36.6; O2SAT 95
--- NOTE | 2021-06-18 19:47 | PCS.PANDOC ---
PANDEMIC DOCUMENTATION INITIATED: Date: 01/26/2021 Time: 190
[2021-06-18 20:35] VITALS: BP 137/75; PULSE 84; RESP 18; TEMP 36.1; O2SAT 99
[2021-06-19 03:29] VITALS: BP 132/88; PULSE 65; RESP 18; TEMP 36.5; O2SAT 100
[2021-06-19] MEDS: Phenobarbital 32.4 MG Tablet PO ×6 (03:32→22:48)
[2021-06-19] MEDS: Folic Acid 1 MG Tablet PO (07:18)
[2021-06-19] MEDS: Thiamine Hydrochloride 100 MG Tablet PO (07:18)
--- NOTE | 2021-06-19 08:27 | NURSING ---
AWAKE, RESTING IN BED, DENIES NEEDS
[2021-06-19] MEDS: hydrOXYzine PAM 25 MG Capsule 50 MG PO ×2 (08:51→22:55)
[2021-06-19 08:59] VITALS: BP 131/76; PULSE 88; RESP 16; TEMP 36.4; O2SAT 97
[2021-06-19 09:52] VITALS: O2SAT 97
[2021-06-19] MEDS: Sertraline 50 MG Tablet 150 MG PO (10:23)
--- NOTE | 2021-06-19 11:24 | ADDICTION ---
This worker met with pt to discuss discharge planning and relapse prevention.
--- NOTE | 2021-06-19 11:52 | PCM.PN.HOSP ---
Subjective Subjective Follow-up for acute alcohol withdrawal: Patient was seen and examined. He denies any new complaints. No acute events overnight. Objective Data Objective Data Vital Signs: Vital Signs Temp Pulse Resp BP Pulse Ox 97.6 F L 88 16 131/76 H 97 06/19/21 08:59 06/19/21 08:59 06/19/21 08:59 06/19/21 08:59 06/19/21 09:52 Oxygen Delivery Method Room Air Weight: 95.9 kg Body Mass Index (BMI) 30.3 Intake & Output: Intake and Output for Last 24 Hours 06/17/21 06/18/21 06/19/21 23:59 23:59 23:59 Intake Total 2189 Balance 2189 Physical Exam Narrative Physical exam: General: Alert, Oriented x3, Cooperative, No apparent distress, Well developed HEENT: Atraumatic Oral: Moist Mucosa Neck: Supple Lungs: Clear to auscultation Cardiovascular: HS I+II, regular, no murmurs Abdomen: Bowel Sounds Present, Soft, Non Tender Extremities: No edema Assessment & Plan Assessment/Plan (1) Desire for detoxification: (2) Alcohol abuse: (3) Admitted to alcohol detoxification center: PLAN: 1. Acute alcohol withdrawal, improving Last CIWA score was 0 Continue on phenobarb taper and alcohol withdrawal protocol Continue on folic acid, multivitamin, thiamine 2. Elevated blood pressure without diagnosis of hypertension Blood pressures are controlled Continue to monitor 3. DVT prophylaxis?Lovenox, encourage ambulates Charges/Coding Visit Charges Inpatient E&M: 51460 Subs Hosp L2
[2021-06-19 13:33] VITALS: BP 143/74; PULSE 91; RESP 16; TEMP 36.6; O2SAT 97
[2021-06-19 22:57] VITALS: BP 127/68; PULSE 77; RESP 16; TEMP 36.6; O2SAT 99
[2021-06-20] MEDS: Phenobarbital 32.4 MG Tablet PO ×4 (03:37→18:34)
[2021-06-20 03:41] VITALS: BP 113/72; PULSE 68; RESP 16; TEMP 36.4; O2SAT 98
[2021-06-20 08:40] VITALS: BP 123/68; PULSE 79; RESP 16; TEMP 36.6; O2SAT 100
[2021-06-20] MEDS: Thiamine Hydrochloride 100 MG Tablet PO (08:47)
[2021-06-20] MEDS: hydrOXYzine PAM 25 MG Capsule 50 MG PO ×2 (08:47→19:41)
[2021-06-20] MEDS: Folic Acid 1 MG Tablet PO (08:47)
[2021-06-20] MEDS: Sertraline 50 MG Tablet 150 MG PO (08:48)
--- NOTE | 2021-06-20 10:08 | PCM.PN.HOSP ---
Subjective Subjective Follow-up for acute alcohol withdrawal: Patient was seen and examined. He complains of slight anxiety. No acute events overnight. Rest of ROS is negative Objective Data Objective Data Vital Signs: Vital Signs Temp Pulse Resp BP Pulse Ox 97.9 F 79 16 123/68 H 100 06/20/21 08:40 06/20/21 08:40 06/20/21 08:40 06/20/21 08:40 06/20/21 08:40 Oxygen Delivery Method Room Air Weight: 95.9 kg Body Mass Index (BMI) 30.3 Intake & Output: Intake and Output for Last 24 Hours 06/18/21 06/19/21 06/20/21 23:59 23:59 23:59 Intake Total 2189 Balance 2189 Physical Exam Narrative Physical exam: General: Alert, Oriented x3, Cooperative, No apparent distress, Well developed HEENT: Atraumatic Oral: Moist Mucosa Neck: Supple Lungs: Clear to auscultation Cardiovascular: HS I+II, regular, no murmurs Abdomen: Bowel Sounds Present, Soft, Non Tender Extremities: No edema Assessment & Plan Assessment/Plan (1) Desire for detoxification: (2) Alcohol abuse: (3) Admitted to alcohol detoxification center: PLAN: 1. Acute alcohol withdrawal, improving Last CIWA score was 5 Continue on phenobarb taper and alcohol withdrawal protocol Continue on folic acid, multivitamin, thiamine 2. Elevated blood pressure without diagnosis of hypertension Blood pressures are controlled Continue to monitor 3. DVT prophylaxis?Lovenox, encourage ambulation Charges/Coding Visit Charges Inpatient E&M: 65632 Subs Hosp L2
[2021-06-20 12:35] VITALS: BP 134/75; PULSE 98; RESP 16; TEMP 36.6; O2SAT 100
[2021-06-20] MEDS: Gabapentin 300 MG Capsule PO (12:36)
[2021-06-20 18:33] VITALS: BP 137/74; PULSE 87; RESP 14; TEMP 36.8; O2SAT 98
[2021-06-20 20:15] VITALS: BP 129/78; PULSE 81; RESP 16; TEMP 36.8; O2SAT 96
[2021-06-21] MEDS: Phenobarbital 32.4 MG Tablet PO ×3 (01:23→12:27)
[2021-06-21 02:15] VITALS: BP 136/85; PULSE 87; RESP 16; TEMP 36.8; O2SAT 97
[2021-06-21] MEDS: hydrOXYzine PAM 25 MG Capsule 50 MG PO (06:55)
[2021-06-21 09:09] VITALS: O2SAT 97
[2021-06-21 09:27] VITALS: BP 137/85; PULSE 72; RESP 16; TEMP 37.1; O2SAT 99
[2021-06-21] MEDS: Folic Acid 1 MG Tablet PO (09:40)
[2021-06-21] MEDS: Thiamine Hydrochloride 100 MG Tablet PO (09:40)
[2021-06-21] MEDS: Sertraline 50 MG Tablet 150 MG PO (09:40)
--- NOTE | 2021-06-21 10:02 | ADDICTION ---
TW checked in with pt to offer supportive counseling and assess needs. PT stated he would f/u with Ami upon release and TW encouraged him to reach out to peer support, Jamir, if needed before appt. Nursing staff alerted TW that pt would be released today.
--- NOTE | 2021-06-21 10:17 | PCM.DC ---
Discharge Instructions Diet Discharge Diet: No restrictions Activity Discharge Activity: Return to Normal Activity Follow Up Care Test Results: Test results from this visit will be discussed in further detail at your follow-up appointment, if applicable. Discharge Plan Admission Admit Date/Time: 06/17/21 21:33 Primary Reason for Your Visit: Acute acute alcohol withdrawal, last CIWA score was 0, continue on phenobar Attending Provider: Stella Harper Primary Care Provider: Hi To Instructions Additional Instructions / Restrictions: You are strongly advised to avoid alcohol or use of any illicit drug. Avoid smoking. Follow-up with your outpatient rehab program as scheduled. Discharge Orders/Prescriptions Prescriptions: Continued sertraline 100 mg tablet 150 mg PO DAILY RF: 0 hydroxyzine HCl 50 mg tablet 50 mg PO DAILY PRN PRN (Reason: Anxiety) RF: 0 Referrals / Follow Up: Hi To MD [Primary Care Provider] - Within 2 Weeks Disposition Disposition (needs filled in before D/C Order can be placed): Home, Self Care
--- NOTE | 2021-06-21 10:17 | PCM.DC.SUM ---
Providers Date of Admission: 06/17/21 Date of Discharge: 06/21/21 Primary Care Physician: Dr. Hi To MD Reason For Visit: DESIRE FOR ALCOHOL DETOXIFICATION Diagnosis Discharge Diagnosis (1) Desire for detoxification: Status: Acute (2) Alcohol abuse: Status: Acute Code(s): F10.10 - Alcohol abuse, uncomplicated (3) Admitted to alcohol detoxification center: Status: Acute Medications at Discharge Home Medications sertraline 150 mg PO DAILY 04/05/21 hydroxyzine HCl 50 mg PO DAILY PRN PRN 06/03/21 Hospital Course Operations None Procedures None Summary of Care Provided Minutes Spent on Discharge: 25 Hospital Course: 40-year-old male with past medical history of anxiety/depression who comes to the hospital requesting medical stabilization from acute alcohol withdrawal. Patient admits to drinking 3 to 724 ounce beers a day. This has been ongoing for over 2 years. He has a history of alcohol detox. He was admitted to the [facility] floor emanation the phenobarbital withdrawal protocol. Patient continued to improve. There were no acute hospital events. He was seen by the venetian blind worker. He will follow-up with 180 in the outpatient. Physical Exam Narrative Physical exam: General: Alert, Oriented x3, Cooperative, No apparent distress, Well developed HEENT: Atraumatic Oral: Moist Mucosa Neck: Supple Lungs: Clear to auscultation Cardiovascular: HS I+II, regular, no murmurs Abdomen: Bowel Sounds Present, Soft, Non Tender Extremities: No edema Weight / BMI Weight Weight: 95.9 kg Body Mass Index (BMI) 30.3 D/C Instructions Discharge Diet: No restrictions Meaningful Use Info Meaningful Use Diagnoses (Choose all that apply): None applicable Discharge Plan Admission Admit Date/Time: 06/17/21 21:33 Primary Reason for Your Visit: Acute acute alcohol withdrawal, last CIWA score was 0, continue on phenobar Attending Provider: Stella Harper Primary Care Provider: Hi To Instructions Additional Instructions / Restrictions: You are strongly advised to avoid alcohol or use of any illicit drug. Avoid smoking. Follow-up with your outpatient rehab program as scheduled. Discharge Orders/Prescriptions Prescriptions: Continued sertraline 100 mg tablet 150 mg PO DAILY RF: 0 hydroxyzine HCl 50 mg tablet 50 mg PO DAILY PRN PRN (Reason: Anxiety) RF: 0 Referrals / Follow Up: Hi To MD [Primary Care Provider] - Within 2 Weeks Disposition Disposition (needs filled in before D/C Order can be placed): Home, Self Care Charges/Coding Visit Charges Inpatient E&M: 36518 Disch Hosp
[2021-06-21 12:20] VITALS: BP 119/73; PULSE 85; RESP 16; TEMP 36.7; O2SAT 96
[2021-06-21] MEDS: Gabapentin 300 MG Capsule PO (12:27)
== END 2021-06-21 13:12 | disposition home or self-care (01) | DRG 897 ==
LOC: ED 21:51 → MS2 21:53
PROVIDERS: Admitting Provider Hospitalist; Emergency Provider Emergency Medicine; PCP Family Medicine; Visit Provider Internal Medicine
DX: F10.239 Alcohol dependence with withdrawal, unspecified (principal); F32.A Depression, unspecified; F41.9 Anxiety disorder, unspecified; R03.0 Elevated blood-pressure reading, without diagnosis of hypertension; Z87.442 Personal history of urinary calculi; Z87.891 Personal history of nicotine dependence; Y90.9 Presence of alcohol in blood, level not specified
CPT/HCPCS: 99284; A4216

== ENCOUNTER → 2022-03-04 | Outpatient (CLI) | payer OTHER, SELFPAY ==
--- NOTE | 2022-03-04 09:30 | US_ITS ---
STUDY: ABDOMINAL ULTRASOUND - RIGHT UPPER QUADRANT REASON FOR VISIT: Male, 41 years old PAIN RUQ, -- VOMITED LAST NIGHT BILE AND coffee-ground. TECHNIQUE: Ultrasound evaluation of the right upper quadrant was performed with real-time and static rolon-scale imaging. TECHNICAL QUALITY: Adequate. COMPARISON: 06/03/2021 FINDINGS: Liver: The liver measures 16.2 cm. There is normal echogenicity of the liver. The bile ducts are within normal limits. There is hepatic color flow. The direction of portal flow is hepatopetal. There is no demonstrated mass lesion. Gallbladder: Normal distended gallbladder. The gallbladder wall measures 1.6 mm. There is a negative sonographic Brewer''s sign. There is no pericholecystic fluid. There is a stable 4.2 mm gallbladder polyp. Common Bile Duct (C.B.D.): The common bile duct measures 4.4 mm. Pancreas: Normal size of the head, body and tail of the pancreas. There is normal echogenicity of the pancreas. There is no demonstrated pancreatic mass or cyst. Right Kidney: Normal size of the right kidney. The right kidney measures 11.2 cm in length. Normal renal cortex. There is no demonstrated renal mass or cyst. There is no right hydronephrosis. US/Abdomen Limited IMPRESSION: Stable gallbladder polyp. Electronically Signed: Milady Boggs MD at 11:54 EDT ,
== END | disposition home or self-care (01) ==
PROVIDERS: PCP Family Medicine; Referring Provider Family Medicine; Visit Provider Family Medicine
DX: R10.11 Right upper quadrant pain (principal)
CPT/HCPCS: 76705

== ENCOUNTER → 2024-03-06 | Outpatient (CLI) | payer OTHER, SELFPAY ==
--- NOTE | 2024-03-06 07:49 | US_ITS ---
STUDY: ABDOMINAL ULTRASOUND - RIGHT UPPER QUADRANT REASON FOR VISIT: Male, 43 years old . 2 week history of right upper quadrant pain. TECHNIQUE: Ultrasound evaluation of the right upper quadrant was performed with real-time and static rolon-scale imaging. TECHNICAL QUALITY: Adequate. COMPARISON: Comparison is made with prior study March 04, 2022. FINDINGS: Liver: The liver measures 15.1 cm. There is normal echogenicity of the liver. The bile ducts are within normal limits. There is hepatic color flow. The direction of portal flow is hepatopetal. There is no demonstrated mass lesion. Gallbladder: Normal distended gallbladder. The gallbladder wall measures 2.1 mm. There is a negative sonographic Brewer''s sign. There is no pericholecystic fluid. There are no gallstones. 2 gallbladder polyps are seen. The larger measures 4 mm x 4 mm x 4 mm. Small amount of sludge is seen in the gallbladder lumen. Common Bile Duct (C.B.D.): The common bile duct measures 4.4 mm. Pancreas: Normal size of the head, body and tail of the pancreas. There is normal echogenicity of the pancreas. There is no demonstrated pancreatic mass or cyst. Right Kidney: Normal size of the right kidney. The right kidney measures 11.1 cm x 5.6 x 5.3 cm. Normal renal cortex. The right cortex measures 1.3 cm. There is no demonstrated renal mass or cyst. There is no right hydronephrosis. US/Abdomen Limited IMPRESSION: There are 2 small gallbladder polyps and sludge in the gallbladder lumen. Electronically Signed: Jf Hernandez MD at 11:11 EDT ,
== END | disposition home or self-care (01) ==
LOC: US 07:48
PROVIDERS: PCP Family Medicine; Referring Provider Family Medicine; Visit Provider Family Medicine
DX: R10.11 Right upper quadrant pain (principal)
CPT/HCPCS: 76705

== ENCOUNTER 2024-05-22 07:07 | Day surgery (SDC) | payer OTHER, SELFPAY ==
[2024-05-22] VITALS (7 sets, daily range): BP systolic 103–119; BP diastolic 72–79; PULSE 76–94; RESP 16; TEMP 36.1–37.3; O2SAT 98–100; BMI 28.5
--- NOTE | 2024-05-22 07:45 | PRE.ANES_ITS ---
ASA Classification* ASA Classification ASA Classification: 2 Assessment & Plan Anesthesia* Anesthesia Assessment Anesthesia Assessment: Discussed sedation and/or anesthesia options, risks, benefits, and alternatives with patient/parents/legal guardian/POA. Questions invited. The patient/parents/legal guardian/POA seems to understand and agrees to proceed with anesthesia plan. Reviewed the physical assessment, medical history, allergy history and patient home medications list prior to surgery/procedure/anesthetic and documented any changes. Performed airway and anesthesia risk assessments. Anesthesia Type Anesthesia Type: MAC History Source History Obtained from:: Patient and Chart Anesthesia Focused Assessment* Temperature: 97 F Pulse Rate: 87 Blood Pressure: 116/79 Respiratory Rate: 16 Pulse Ox: 99 Oxygen Delivery Method: Room Air Airway Assessment Mouth opens: >3 cm Mallampati Score: I Teeth Condition: Intact Neck Range of motion (ROM): Full ROM Focused Labs Anesthesia Preop lab: CBC WBC 7.7 K/mm3 (4.4-11.0) 06/03/21 16:10 RBC 4.84 M/mm3 (4.6-6.2) 06/03/21 16:10 Hgb 14.7 g/dL (13.0-16.5) 06/03/21 16:10 Hct 41.5 % (40-54) 06/03/21 16:10 Plt Count 257 K/mm3 (150-450) 06/03/21 16:10 CHEMISTRY Potassium 4.2 mmol/L (3.5-5.1) 06/03/21 16:10 Sodium 140 mmol/L (136-145) 06/03/21 16:10 Magnesium 2.2 mg/dL (1.6-2.6) 04/05/21 21:15 Phosphorus 4.2 mg/dL (2.5-4.9) 04/05/21 21:15 BUN 19 mg/dL (7-18) H 06/03/21 16:10 Creatinine 0.99 mg/dL (0.70-1.30) 06/03/21 16:10 Glucose 122 mg/dL (74-106) H 06/03/21 16:10 TSH 2.82 uIU/mL (0.358-3.74) 10/04/20 07:22 COAG PT 11.6 SECONDS (11.7-14.9) L 04/05/21 21:15 Pre-Assessment Diagnosis/Proposed Procedure Planned Operative Procedure(s): EGD Anesthesia History 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 When Was Last Pacemaker Check QUESTION #4 FULL TEXT: You/Your Family Experience fever (hyperthermia) with Anesthesia Last Oral Intake Last Oral intake: Last Oral Intake NPO since 00:00 05/22/24 07:24 Meds taken in AM with sips of water? 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 Female No 05/17/24 10:46 HX of Motion Sickness No 05/17/24 10:46 HX of N/V After Surgery No 05/17/24 10:46 Non-Smoker Yes 05/17/24 10:46 Duration of Surgery greater No 05/17/24 10:46 than 60 minutes Number of Risk Factors 1 05/17/24 10:46 PONV Score Low Risk 05/17/24 10:46 Height & Weight Height & Weight: Anesthesia: Height & Weight Height 5 ft 10 in 05/22/24 07:24 Weight: 90.265 kg 05/22/24 07:24 Body Mass Index (BMI) 28.5 05/22/24 07:24 Respiratory Assessment Respiratory Assessment - 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 Has anyone observed you stop No 05/17/24 10:46 breathing during sleep? STOP Results Negative 05/17/24 10:46 QUESTION #5 FULL TEXT : Do you snore loudly (louder than talking or can be h eard through closed doors)? 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 Specify any problems Hx of Preganancy in last 3 N/A 05/17/24 10:46 Months Nurse Filling Out Transfusion [id number] 05/17/24 10:46 & Questions: Date: 05/17/24 05/17/24 10:46 Time: 10:50 05/17/24 10:46 Patient unable to answer at this time (ie. 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: /Reproductive Hx- open hearth furnace operator helper Hx Now Gestational Age (in weeks): EDC: Hx Hx Para Hx Section SAB PFSH Medical History Back pain Smoker Hemorrhoids Acid reflux Abdominal pain Chronic pain Kidney stones Former smoker Asthma Irregular heart beat Former tobacco use Alcohol abuse Alcohol abuse Panic attacks Depression Anxiety Home Medications ?Medication ?Instructions ?Recorded ?Last Taken ?Type omeprazole 20 mg capsule,delayed 20 mg PO QDAY 04/18/24 Unknown History release Allergy/AdvReac Type Severity Reaction Status Date / Time No Known Allergies Allergy Verified 05/22/24 07:23 Family History Mother Anxiety and depression Father Diabetes Surgical History History of facial surgery Social History household members: spouse and family Smoking Status: Current every day smoker tobacco type: cigarettes how long ago did patient quit smoking: Smoked 3-5 years in his 30s, 1 ppd. alcohol intake: former year quit: 1 details: 3-6, 25 ounce beers daily. substance use type: does not use Review of Systems (Anesthesia) ROS Narrative System reviewed and no additional complaints, except as documented.
--- NOTE | 2024-05-22 08:00 | EGD_PTH ---
PATIENT: GARTH MENG LOC: EN U#:[id number] AGE/SX: 43/M ROOM: RE05/22/[address]: Dr. Herman Simms MD : 1980 BED: DIS: 05/22/2024 SPEC #: [id number] RECD: 05/22/24 11:14 STATUS: JULEE BRIANNA #: [id number] ASHLEY: 05/22/24 08:[address]: Herman Simms DEPT: SURGICAL PATHOLOGY RECD BY: Nathaly Valencia ENTERED: 05/22/24 12:09 SP TYPE: EGD BIOPSY RUI DR: Dr. Hi To MD Tissues: Gastric mucous membrane Procedures: Surgery Specimen Level IV HEADER OPERATION: EGD biopsy PRE-OP DIAGNOSIS: Abdominal pain TISSUE SUBMITTED: Gastric antrum biopsy MICROSCOPIC DIAGNOSIS Gastric antrum, biopsy: Chronic gastritis. See comment. Chau 05/23/2024 COMMENT The results of immunohistochemistry for Helicobacter pylori will be reported separately ([id number]). MICROSCOPIC DESCRIPTION Slides are reviewed. GROSS DESCRIPTION Received in fixative is one container labeled with the patient's name and designated Gastric antrum biopsy. The specimen consists of two irregular fragments of light jenkins soft tissue that in aggregate measure 0.6 x 0.3 x 0.1 cm. The specimen is totally submitted in one cassette. 05/22/2024 TC:3 CPT:27725
--- NOTE | 2024-05-22 08:00 | IMM_PTH ---
PATIENT: GARTH MENG LOC: [facility] U#:[id number] AGE/SX: 43/M ROOM: RE05/22/[address]: Dr. Herman Simms MD : 1980 BED: DIS: 05/22/2024 SPEC #: [id number] RECD: 05/22/24 11:54 STATUS: JULEE REQ #: [id number] ASHLEY: 05/22/24 08:[address]: Herman Simms DEPT: IMMUNOHISTOCHEMISTRY RECD BY: Maldonado Yanes ENTERED: 05/22/24 11:55 SP TYPE: IMMUNO OTHR DR: Dr. Hi To MD Tissues: Gastric mucous membrane Procedures: H Pylori (initial) PHYSICIAN & INSTITUTION [place] [address] SPECIMEN INFORMATION: Tissue Source: Gastric antrum biopsy Clinical Info: Abdominal pain Specimen Number: [id number] CPT code: 90683 METHODOLOGY: Deparaffinized sections of prefer/formalin-fixed tissue or PAP/DQ stained slides are incubated with monoclonal/polyclonal antibodies/oligonucleotide probes. Localization is made via biotin free immunoperoxidase method. Appropriate controls are performed and reacted as expected. Results on target cell population are indicated in the following table: RESULTS: ANTIBODY / CLONE RESULT H Pylori (polyclonal) negative These tests were developed and their performance characteristics determined by [facility]. They may not have been cleared or approved by the U.S. Food and Drug Administration. The FDA has determined that such clearance or approval is not necessary. The above immunohistochemical/dualISH markers are ordered and reviewed by the Pathologist. INTERPRETATION: Gastric antrum, biopsy: Negative for Helicobacter pylori organisms. 05/23/2024
--- NOTE | 2024-05-22 08:12 | HP.PCM_ITS ---
History and Physical Date of Admission: 05/22/24 Intake Vital Signs 06/17/2221:44 04/18/2414:58 Height 5 ft 10 in 5 ft 10 in Weight: 192 lb BMI 27.5 BP 132/72 H Blood Pressure Location Rt brachial Position Sitting Respiration 18 Pulse 80 Pulse Source Monitor Temp 97.9 F Temp Source Temporal Pulse Oximetry (%) 100 Oxygen Delivery Method room air Intake Visit Reasons: DYSPEPSIA Chief Complaint: Dyspepsia Is patient in pain?: Yes (intermitted RUQ pain) Allergies No Known Allergies Allergy (Verified 04/18/24 14:59) Medications ?Medication ?Instructions ?Recorded ?Confirmed ?Type omeprazole 20 mg capsule,delayed 20 mg PO QDAY 04/18/24 04/18/24 History release [facility] Medical History (Updated 04/18/24 @ 15:[address] Herman Simms MD) Hemorrhoids Acid reflux Abdominal pain Chronic pain Kidney stones Former smoker Asthma Irregular heart beat Former tobacco use Alcohol abuse Alcohol abuse Panic attacks Depression Anxiety Surgical History History of facial surgery Family History Mother Anxiety and depressionFather Diabetes Social History (Updated 04/18/24 @ 14:58 by Kimberly Yanes LPN) household members: spouse and family Smoking Status: Former smoker how long ago did patient quit smoking: Smoked 3-5 years in his 30s, 1 ppd. alcohol intake: former year quit: 1 details: 3-6, 25 ounce beers daily. substance use type: does not use HPI HPI HPI: Patient is a 43-year-old male here for epigastric pain. He says the pain also radiates under his right ribs. Patient does have an ultrasound that shows sludge and polyps in his gallbladder. The patient is here because he believes he has a stomach ulcer. He was started on a PPI by his primary care physician which did help and when he ran out his pain came back. Patient does not descri be nausea or vomiting and says that it does not always happen after eating and sometimes the eating makes it feel better. He says has been going on for about a year. ROS General General: No weight change, appetite, fatigue, colon cancer, breast cancer or weakness HEENT HEENT: No difficulty swallowing, eye injury, eye surgery, swollen glands or hoarseness Endo Endocrine: No thyroid disease, diabetes mellitus, thyroid cancer, Hair loss, heat intolerance or cold intolerance Skin Skin: No rash or changing moles Musc Musculoskeletal: No back problems, arthritis, rheumatoid arthritis, gout or joint pain Cardio Cardiovascular: No murmur, pacemaker, heart disease, atrial fibrillation, high blood pressure, heart attack, heart stent, palpitations, shortness of breat with exertion or chest pain Psych Psychiatric: Yes anxiety; No depression or hearing voices Resp Respiratory: No shortness of breath, No sleep apnea, No cough, No COPD, No asthma, No emphysema and No wheezing Gastro Gastrointestinal: Yes abdominal pain, No nausea or vomiting, No diarrhea, No constipation, No blood in stool, Yes acid reflux, Yes hemorrhoids, No ulcers, No gallbladder problem and No black,tarry stools Angel Hematologic: No blood thinners, No blood disorders, No bleeding, No anemia and No blood clots Neuro Neurologic: No numbness, No tingling and No weakness Exam Const General: cooperative Orientation: alert and oriented x3 HENMT Head: normal to inspection Neck Neck: normal visual inspection and full ROM Chest Chest palpation & inspection: normal inspection of the chest Resp Effort & Inspection: normal respiratory effort Auscultation: clear to auscultation bilaterally Cardio Rate: regular rate Rhythm: regular rhythm GI Inspection: non-distended Palpation: soft and nontender Skin General: no rashes or lesions noted Neuro General: patient alert and patient oriented x3 Extrem General: full ROM Psych Appearance: grossly normal Mental Status: mental status grossly normal Assessment and Plan Assessment and Plan (1) Abdominal pain: Status: Acute Qualifiers: Abdominal location: epigastric Qualified Code(s): R10.13 - Epigastric pain Plan: Patient is having epigastric pain which may be due to ulcer or gastritis. I will perform an EGD to evaluate. If EGD is normal I would recommend laparoscopic cholecystectomy. I explained endoscopy in detail to the patient. I explained the risks including but not limited to stroke or heart attack with anesthesia, perforation of the GI tract, bleeding, infection. I explained that any of these could necessitate further emergency surgery. The patient understands and all questions were answered sufficiently. The patient wishes to proceed with procedure. Herman Simms MD Pager: [facility] [address] [place] [address], [address] [place] [address] Office: I have examined the patient and the H&P has been reviewed. There are no clinical changes since date of exam.
--- NOTE | 2024-05-22 08:29 | OP.CCLET_ITS ---
05/22/2024 Hi To [address] [place] [address] Re : Upper GI endoscopy procedure for Isra Tang Dear Dr. To This procedure was performed on Wednesday, May 22, 2024. My impressions and recommendations are as follows: Impressions : - Normal esophagus. - Normal stomach. - Normal examined duodenum. - Biopsies were taken with a cold forceps for Helicobacter pylori testing. Recommendations : - Discharge patient to home. - Resume previous diet. - Continue present medications. - Return to my office at appointment to be scheduled. My findings are described in the full procedure note, which is enclosed. If I can be of further assistance, please feel free to contact me at Doctor phone number(s): , Work: . Sincerely, Herman Simms MD 05/22/2024 8:29:11 AM This report has been signed electronically.
--- NOTE | 2024-05-22 08:29 | OP.EGD_ITS ---
Patient Name: Isra Tang Procedure Date: 05/22/2024 8:15 AM Date of : 1980 Age: 43 Procedure: Upper GI endoscopy Indications: Epigastric abdominal pain Providers: Herman Simms MD Referring MD: Hi To Medicines: Propofol per Anesthesia Patient Profile: This is a 43 year old male. Refer to note in patient chart for documentation of history and physical. Complications: No immediate complications. Estimated blood loss: Minimal. Procedure: Pre-Anesthesia Assessment: - Prior to the procedure, a History and Physical was performed, and patient medications and allergies were reviewed. The patient's tolerance of previous anesthesia was also reviewed. The risks and benefits of the procedure and the sedation options and risks were discussed with the patient. All questions were answered, and informed consent was obtained. Prior Anticoagulants: The patient has taken no anticoagulant or antiplatelet agents. After reviewing the risks and benefits, the patient was deemed in satisfactory condition to undergo the procedure. After obtaining informed consent, the endoscope was passed under direct vision. Throughout the procedure, the patient's blood pressure, pulse, and oxygen saturations were monitored continuously. The Endoscope was introduced through the mouth, and advanced to the third part of duodenum. The upper GI endoscopy was accomplished without difficulty. The patient tolerated the procedure well. Scope In: 8:20:40 AM Scope Out: 8:23:08 AM Total Procedure Duration Time 0 hours 2 minutes 28 seconds Findings: The esophagus was normal. The stomach was normal. The examined duodenum was normal. Biopsies were taken with a cold forceps in the gastric antrum for Helicobacter pylori testing. Impression: - Normal esophagus. - Normal stomach. - Normal examined duodenum. - Biopsies were taken with a cold forceps for Helicobacter pylori testing. Recommendation: - Discharge patient to home. - Resume previous diet. - Continue present medications. - Return to my office at appointment to be scheduled. Procedure Code(s): --- Professional --- 95790, Esophagogastroduodenoscopy, flexible, transoral; with biopsy, single or multiple Diagnosis Code(s): --- Professional --- R10.13, Epigastric pain CPT copyright 2021 [employer]. All rights reserved. The codes documented in this report are preliminary and upon information coder review may be revised to meet current compliance requirements. Herman Simms MD 05/22/2024 8:29:11 AM This report has been signed electronically. Number of Addenda: 0 Note Initiated On: 05/22/2024 8:15 AM
--- NOTE | 2024-05-22 09:14 | PCM.POST.ANE ---
Anesthesia: Postop Eval I Current Vital Signs Temperature: 99.1 F Pulse Rate: 76 Blood Pressure: 119/78 Respiratory Rate: 16 Pulse Ox: 99 Assessment Airway patent: Yes Spontaneous unlabored respirations: Yes nausea: No Vomiting: No Anesthesia Complication: No Fluid Hydration Crystalloid volume administer (ml): 10 Total IV fluid infused: 10 Progress Note Anesthesia document: Postop Eval 1 completed: Yes
--- NOTE | 2024-05-22 09:15 | PCM.POSTANE2 ---
Anesthesia Postop Eval I Sum Postop Eval Completion status Anesthesia document: Postop Eval 1 completed: Yes Anesthesia Postop Eval I Summary Anesthesia Postop Eval I Summary: Anesthesia Postop Eval I: Assessment Summary Airway patent Yes 05/22/24 09:15 Spontaneous unlabored Yes 05/22/24 09:15 respirations Mental status nausea No 05/22/24 09:15 Vomiting No 05/22/24 09:15 Anesthesia Postop Eval I: Fluid Summary Crystalloid volume administer 10 05/22/24 09:15 (ml) Colloids volume administered ( ml) Blood Product volume administered (ml) Total IV fluid infused 10 05/22/24 09:15 Anesthesia Postop Eval I: Summary Notes Anesthesia Complication No 05/22/24 09:15 Anesthesia Complication Comment: Post-operative progress note Anesthesia: Postop Eval II Evaluation Mental status: Awake Pain Level: 0 nausea: No Vomiting: No
== END 2024-05-22 08:53 | disposition home or self-care (01) ==
LOC: EN 07:08 → AC 07:09
PROVIDERS: PCP Family Medicine; Referring Provider Family Medicine; Visit Provider Surgery
PROC: 0DJ08ZZ Inspection of Upper Intestinal Tract, Via Natural or Artificial Opening Endoscopic (ICD-10-PCS; CPT 43235; principal; 2024-05-22 07:55)
DX: K29.50 Unspecified chronic gastritis without bleeding (principal); Z87.891 Personal history of nicotine dependence; Z79.899 Other long term (current) drug therapy; K21.9 Gastro-esophageal reflux disease without esophagitis; J45.909 Unspecified asthma, uncomplicated
CPT/HCPCS: 43239; 88305; 88342; A4216

== ENCOUNTER 2025-02-25 10:34 | Day surgery (SDC) | payer OTHER, SELFPAY ==
--- NOTE | 2025-02-19 16:26 | PAT.ANE_ITS ---
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 When Was Last Pacemaker Check QUESTION #4 FULL TEXT: You/Your Family Experience fever (hyperthermia) with Anesthesia Last Oral Intake Last Oral intake: Last Oral Intake NPO since Meds taken in AM with sips of water? 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 - environmental scientists: PONV - environmental scientists Female No 02/19/25 14:10 HX of Motion Sickness No 02/19/25 14:10 HX of N/V After Surgery No 02/19/25 14:10 Non-Smoker Yes 02/19/25 14:10 Duration of Surgery greater Yes 02/19/25 14:10 than 60 minutes Number of Risk Factors 2 02/19/25 14:10 PONV Score Moderate Risk 02/19/25 14:10 Height & Weight Height & Weight: Anesthesia: Height & Weight Height 5 ft 10 in 02/15/25 13:05 Respiratory Assessment Respiratory Assessment - environmental scientists: Respiratory Tract Infection Hx - environmental scientists Hx Respiratory Tract Infection No 02/19/25 14:10 STOP Sleep Apnea STOP Sleep Apnea - environmental scientists: STOP Sleep Apnea - environmental scientists Hx Hypertension No 02/19/25 14:10 Hx Sleep Apnea No 02/19/25 14:10 CPAP BIPAP Do you snore loudly (louder Yes 02/19/25 14:10 than talking or can be heard Do you often feel tired/ No 02/19/25 14:10 fatigued/ sleepy during daytime? Has anyone observed you stop Yes 02/19/25 14:10 breathing during sleep? STOP Results Positive 02/19/25 14:10 QUESTION #5 FULL TEXT : Do you snore loudly (louder than talking or can be heard through closed doors)? 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 Specify any problems Hx of Preganancy in last 3 N/A 02/19/25 14:10 Months Nurse Filling Out Transfusion [email or web address] 02/19/25 14:10 & Questions: Date: 02/19/25 02/19/25 14:10 Time: 14:12 02/19/25 14:10 Patient unable to answer at this time (ie. confused, unrespo /Reproduction History /Reproductive History - environmental scientists: /Reproductive Hx- environmental scientists Hx Now Gestational Age (in weeks): EDC: Hx Hx Para Hx Section SAB Active Medications Active Medications: Current Medications Generic Name Dose Route Start Last Admin Trade Name Freq PRN Reason Stop Dose Admin Indocyanine Green 3.75 mg/ N/A 1.5 mls @ 999 mls/hr 02/25/25 12:00 IV 02/25/25 12:01 PREOP ONE [facility] Medical History Back pain Smoker Hemorrhoids Acid reflux Abdominal pain Chronic pain Kidney stones Former smoker Asthma Irregular heart beat Former tobacco use Alcohol abuse Alcohol abuse Panic attacks Depression Anxiety Home Medications ?Medication ?Instructions ?Recorded ?Last Taken ?Type NK 02/19/25 Unknown History Allergy/AdvReac Type Severity Reaction Status Date / Time No Known Allergies Allergy Verified 02/19/25 14:09 Family History Mother Anxiety and depression Father Diabetes Surgical History History of facial surgery Social History (Updated 02/15/25 @ 13:05 by Ella C Siders) household members: spouse and family Smoking Status: Current every day smoker tobacco type: smokeless tobacco how long ago did patient quit smoking: Smoked 3-5 years in his 30s, 1 ppd. alcohol intake: former year quit: 1 details: 3-6, 25 ounce beers daily. substance use type: does not use Audit: Pertinent Findings Pertinent Findings EKG Perinent findings: 09/18/2019. Normal sinus rhythm with sinus arrhythmia. Recommendation Anesthesia Recommendation Anesthesia recommendation: OPTIMIZED for anesthesia
[2025-02-25] VITALS (10 sets, daily range): BP systolic 113–126; BP diastolic 67–107; PULSE 53–77; RESP 16–18; TEMP 36.3–36.7; O2SAT 98–100; BMI 27.8
[2025-02-25] MEDS: INDOCYANINE GREEN 3.75 MG in Syringe 1.5 ML 999 MG IV (11:21)
[2025-02-25] MEDS: Lactated Ringers 1,000 ML 15 ML IV (11:21)
--- NOTE | 2025-02-25 11:25 | PCM.PRE.AN2 ---
ASA Classification* ASA Classification ASA Classification: 2 Assessment & Plan Anesthesia* Anesthesia Assessment Anesthesia Assessment: Discussed sedation and/or anesthesia options, risks, benefits, and alternatives with patient/parents/legal guardian/POA. Questions invited. The patient/parents/legal guardian/POA seems to understand and agrees to proceed with anesthesia plan. Reviewed the physical assessment, medical history, allergy history and patient home medications list prior to surgery/procedure/anesthetic and documented any changes. Performed airway and anesthesia risk assessments. Anesthesia Type Anesthesia Type: General Anesthesia Focused Assessment* Temperature: 97.3 F Pulse Rate: 53 Blood Pressure: 116/67 Respiratory Rate: 16 Pulse Ox: 99 Airway Assessment Mouth opens: >3 cm Mallampati Score: II Labs Anesthesia Preop lab: CBC WBC 7.7 K/mm3 (4.4-11.0) 06/03/21 16:10 06/03/21 RBC 4.84 M/mm3 (4.6-6.2) 06/03/21 16:10 06/03/21 Hgb 14.7 g/dL (13.0-16.5) 06/03/21 16:10 06/03/21 Hct 41.5 % (40-54) 06/03/21 16:10 06/03/21 Plt Count 257 K/mm3 (150-450) 06/03/21 16:10 06/03/21 CHEMISTRY Potassium 4.2 mmol/L (3.5-5.1) 06/03/21 16:10 06/03/21 Sodium 140 mmol/L (136-145) 06/03/21 16:10 06/03/21 Magnesium 2.2 mg/dL (1.6-2.6) 04/05/21 21:15 04/05/21 Phosphorus 4.2 mg/dL (2.5-4.9) 04/05/21 21:15 04/05/21 BUN 19 mg/dL (7-18) H 06/03/21 16:10 06/03/21 Creatinine 0.99 mg/dL (0.70-1.30) 06/03/21 16:10 06/03/21 Glucose 122 mg/dL (74-106) H 06/03/21 16:10 06/03/21 TSH 2.82 uIU/mL (0.358-3.74) 10/04/20 07:22 10/04/20 COAG PT 11.6 SECONDS (11.7-14.9) L 04/05/21 21:15 04/05/21 Pre-Assessment Diagnosis/Proposed Procedure Planned Operative Procedure(s): ROBOTIC CHOLECYSTECTOMY Anesthesia History 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 When Was Last Pacemaker Check QUESTION #4 FULL TEXT: You/Your Family Experience fever (hyperthermia) with Anesthesia Last Oral Intake Last Oral intake: Last Oral Intake NPO since 22:00 02/25/25 11:14 Meds taken in AM with sips of water? 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 Female No 02/19/25 14:10 HX of Motion Sickness No 02/19/25 14:10 HX of N/V After Surgery No 02/19/25 14:10 Non-Smoker Yes 02/19/25 14:10 Duration of Surgery greater Yes 02/19/25 14:10 than 60 minutes Number of Risk Factors 2 02/19/25 14:10 PONV Score Moderate Risk 02/19/25 14:10 Height & Weight Height & Weight: Anesthesia: Height & Weight Height 5 ft 10 in 02/25/25 11:14 Weight: 87.8 kg 02/25/25 11:14 Body Mass Index (BMI) 27.8 02/25/25 11:14 Respiratory Assessment Respiratory Assessment - folding machine operator: Respiratory Tract Infection Hx - folding machine operator Hx Respiratory Tract Infection No 02/19/25 14:10 STOP Sleep Apnea STOP Sleep Apnea - folding machine operator: STOP Sleep Apnea - folding machine operator Hx Hypertension No 02/19/25 14:10 Hx Sleep Apnea No 02/19/25 14:10 CPAP BIPAP Do you snore loudly (louder Yes 02/19/25 14:10 than talking or can be heard Do you often feel tired/ No 02/19/25 14:10 fatigued/ sleepy during daytime? Has anyone observed you stop Yes 02/19/25 14:10 breathing during sleep? STOP Results Positive 02/19/25 14:10 QUESTION #5 FULL TEXT : Do you snore loudly (louder than talking or can be heard through closed doors)? 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 Specify any problems Hx of Preganancy in last 3 N/A 02/19/25 14:10 Months Nurse Filling Out Transfusion [email or web address] 02/19/25 14:10 & Questions: Date: 02/19/25 02/19/25 14:10 Time: 14:12 02/19/25 14:10 Patient unable to answer at this time (ie. confused, unrespo /Reproduction History /Reproductive History - folding machine operator: /Reproductive Hx- folding machine operator Hx Now Gestational Age (in weeks): EDC: Hx Hx Para Hx Section SAB Active Medications Active Medications: Current Medications Generic Name Dose Route Start Last Admin Trade Name Freq PRN Reason Stop Dose Admin Indocyanine Green 3.75 mg/ N/A 1.5 mls @ 999 mls/hr 02/25/25 12:00 02/25/25 11:21 IV 02/25/25 12:01 999 mls/hr PREOP ONE Administration Cefotetan Disodium 2 gm/ 100 mls @ 200 mls/hr 02/25/25 12:45 Sodium Chloride IV 02/25/25 13:14 INTRAOP ONE Lactated Ringer's 1,000 mls @ 15 mls/hr 02/25/25 11:15 02/25/25 11:21 IV 15 mls/hr .Q48H VIVIANA Administration PFSH Medical History Back pain Smoker Hemorrhoids Acid reflux Abdominal pain Chronic pain Kidney stones Former smoker Asthma Irregular heart beat Former tobacco use Alcohol abuse Panic attacks Depression Anxiety Home Medications ?Medication ?Instructions ?Recorded ?Last Taken ?Type NK 02/19/25 Unknown History Allergy/AdvReac Type Severity Reaction Status Date / Time No Known Allergies Allergy Verified 02/25/25 11:13 Family History Mother Anxiety and depression Father Diabetes Surgical History History of facial surgery Social History household members: spouse and family Smoking Status: Current every day smoker tobacco type: smokeless tobacco how long ago did patient quit smoking: Smoked 3-5 years in his 30s, 1 ppd. alcohol intake: former year quit: 1 details: 3-6, 25 ounce beers daily. substance use type: does not use Review of Systems (Anesthesia) ROS Narrative System reviewed and no additional complaints, except as documented.
--- NOTE | 2025-02-25 11:26 | EKG12_ITS ---
Test Reason : PREOP Blood Pressure : */* mmHG Vent. Rate : 61 BPM Atrial Rate : 61 BPM P-R Int : 160 ms QRS Dur : 90 ms QT Int : 384 ms P-R-T Axes : 53 25 38 degrees QTcB Int : 386 ms Normal sinus rhythm with sinus arrhythmia Normal ECG When compared with ECG of 18-Sep-2019 11:19, No significant change was found Confirmed by Mason Smiley ([id number]), non linear editor ENMANUEL ACHARYA ([id number]) on 02/26/2025 5:48:55 AM Referred By: Herman Simms Confirmed By: Mason Smiley
--- NOTE | 2025-02-25 11:54 | HP.PCM_ITS ---
History and Physical Date of Admission: 02/25/25 Intake Vital Signs 05/22/2407:24 02/15/2513:05 Height 5 ft 10 in 5 ft 10 in Weight: 198 lb BMI 28.4 BP 138/84 H Blood Pressure Location Rt brachial Position Sitting Respiration 18 Intake Visit Reasons: Gallbladder problems Chief Complaint: gallbladder problems Drum Maker Required: No Is patient in pain?: No Allergies No Known Allergies Allergy (Verified 02/15/25 13:05) Have you fallen in the past year?: No PFSH Medical History Back pain Smoker Hemorrhoids Acid reflux Abdominal pain Chronic pain Kidney stones Former smoker Asthma Irregular heart beat Former tobacco use Alcohol abuse Alcohol abuse Panic attacks Depression Anxiety Surgical History History of facial surgery Family History Mother Anxiety and depressionFather Diabetes Social History (Updated 02/15/25 @ 13:05 by Ella France) household members: spouse and family Smoking Status: Former smoker (Patient did not smoke today.) how long ago did patient quit smoking: Smoked 3-5 years in his 30s, 1 ppd. alcohol intake: former year quit: 1 details: 3-6, 25 ounce beers daily. substance use type: does not use HPI HPI HPI: Patient is a 44-year-old male here with right upper quadrant pain. He reports the pain is dull but is constant. He said that the pain he was having before has improved but he still has aching in the right upper quadrant that does not go away. He would like his gallbladder removed as there is sludge in it. Current symptoms: Denies constipation Associated symptoms: Denies constipation or diarrhea ROS General General: No weight change, appetite, fatigue, colon cancer, breast cancer or weakness HEENT HEENT: No difficulty swallowing, eye injury, eye surgery, swollen glands or hoarseness Endo Endocrine: No thyroid disease, diabetes mellitus, thyroid cancer, Hair loss, heat intolerance or cold intolerance Skin Skin: No rash or changing moles Musc Musculoskeletal: No back problems, arthritis, rheumatoid arthritis, gout or joint pain Cardio Cardiovascular: No murmur, pacemaker, heart disease, atrial fibrillation, high blood pressure, heart attack, heart stent, palpitations, shortness of breath with exertion or chest pain Psych Psychiatric: Yes anxiety; No depression or hearing voices Resp Respiratory: No shortness of breath, No sleep apnea, No cough, No COPD, No asthma, No emphysema and No wheezing Gastro Gastrointestinal: Yes abdominal pain, No nausea or vomiting, No diarrhea, No constipation, No blood in stool, Yes acid reflux, Yes hemorrhoids, No ulcers, No gallbladder problem and No black,tarry stools Angel Hematologic: No blood thinners, No blood disorders, No bleeding, No anemia and No blood clots Neuro Neurologic: No numbness, No tingling and No weakness Exam Const General: cooperative Orientation: alert and oriented x3 HENMT Head: normal to inspection Neck Neck: normal visual inspection and full ROM Chest Chest palpation & inspection: normal inspection of the chest Resp Effort & Inspection: normal respiratory effort Auscultation: clear to auscultation bilaterally Cardio Rate: regular rate Rhythm: regular rhythm GI Inspection: non-distended Palpation: soft and nontender Skin General: no rashes or lesions noted Neuro General: patient alert and patient oriented x3 Extrem General: full ROM Psych Appearance: grossly normal Mental Status: mental status grossly normal Assessment and Plan Assessment and Plan (1) Gallbladder sludge: Status: Acute (2) Abdominal pain: Status: Acute Qualifiers: Abdominal location: right upper quadrant Qualified Code(s): R10.11 - Right upper quadrant pain Plan The patient is still having right upper quadrant pain despite PPIs. The patient had an ultrasound of his gallbladder that showed polyps as well as sludge. I discussed robotic assisted laparoscopic cholecystectomy with him. I discussed the procedure in detail with the patient. I discussed the risks, benefits, and alternatives of the procedure. I discussed the risks including but not limited to bleeding, infection, injury to surrounding organs such as the liver, bile duct, bowels. I did discuss the possibility of having to convert to an open procedure as well as the possibility that if any injuries occurred this may necessitate further surgery at a tertiary care center. Herman Simms MD Pager: [facility] [address] [place] [address], [address] [place] [address] Office: I have examined the patient and the H&P has been reviewed. There are no clinical changes since date of exam.
[2025-02-25] MEDS: Midazolam 2 MG/2 ML Syringe IV (12:39)
--- NOTE | 2025-02-25 12:45 | GALL_PTH ---
PATIENT: GARTH MENG LOC: [facility] [place] U#:[id number] AGE/SX: 44/M ROOM: RE02/25/[address]: Dr. Herman Simms MD : 1980 BED: DIS: 02/25/2025 SPEC #: [id number] RECD: 02/25/25 15:14 STATUS: JULEE REED #: [id number] ASHLEY: 02/25/25 12:[address]: Herman Simms DEPT: SURGICAL PATHOLOGY RECD BY: Maldonado Yanes ENTERED: 02/26/25 14:11 SP TYPE: ELOY FABIAN DR: Dr. Hi To MD Tissues: A - Gallbladder, NOS Procedures: Surgery Specimen Level III HEADER OPERATION: Laparoscopic robotic cholecystectomy PRE-OP DIAGNOSIS: Gallbladder sludge, abdominal pain TISSUE SUBMITTED: A- Gallbladder MICROSCOPIC DIAGNOSIS A. Gallbladder, laparoscopic robotic cholecystectomy: - Polypoid cholesterolosis. MICROSCOPIC DESCRIPTION Slides are reviewed. GROSS DESCRIPTION A. Received in formalin labeled with the patient's name and date of . Designated as gallbladder is a 7.9 x 3.0 x 2.9 cm green, shaggy and distended gallbladder with attached patent cystic duct (inked black, shaved). A lymph node is not present. Opening reveals dark green tenacious bile devoid of choleliths. The mucosa is dark green and granular with a maximum wall thickness of 0.2 cm; there are approximately 5 cholesterol polyps, 0.1 cm to 0.2 cm. Cholesterolosis is present. Machine Filler sections are submitted in 1 cassette. [place] 02/26/2025 CPT:[id number]
[2025-02-25] MEDS: fentaNYL 100 MCG/2 ML Ampul IV (12:46)
[2025-02-25] MEDS: Lidocaine 1% (5 ml sdv) 5 ML Vial IV (12:46)
[2025-02-25] MEDS: Lactated Ringers 1,000 ML 1000 ML IV (13:15)
[2025-02-25] MEDS: Ketorolac 30 MG/ML Syringe IV (13:35)
--- NOTE | 2025-02-25 13:35 | PCM.OPRPT ---
Operative Report (Standard) Operative Information Date of Procedure: 02/25/25 Pre-Operative Diagnosis: Gallbladder sludge Post-Operative Diagnosis: Same Surgery/Procedure Performed: Robotic assisted laparoscopic cholecystectomy security delivery specialist: Yes Consumer Lending Manager: Stacy Tesfaye Tasks completed by machine operator assistant: Opening & closing Type of Anesthesia: General/Regional RN Documented Start/Stop Times: Operation Date: 02/25/25 12:45 Case Time Into Pre-Op 02/25/25 11:00 Out of Pre-Op 02/25/25 12:32 Anesthesia Start 02/25/25 12:39 Into Room 02/25/25 12:39 Procedure Start 02/25/25 12:57 Procedure Start Time: 12:57 Procedure Stop Time: 13:40 Select all DRAINS/GRAFTS/IMPLANTS that apply: None Estimated Blood Loss: 5 Specimen collected: Yes Description of specimen(s) removed: Gallbladder Description of surgery: Patient was brought back to the operating room and general anesthesia was induced. The abdomen was prepped and draped in usual sterile fashion. A midline incision was made superior to the umbilicus and the fascia was grasped and elevated. Veress needle was placed into the abdomen and a drop test was performed. The abdomen was then insufflated to 15 mmHg. The needle was removed and a port was placed. The camera was placed through the port and it was inspected for injuries and there were none from entry. Next under direct visualization an 8 mm port was placed in the right upper quadrant and two 8 mm ports in the left upper quadrant and the patient was placed in steep reverse Trendelenburg. The robot was docked. The gallbladder was grasped and retracted cephalad. The fundus was grasped and retracted laterally. The peritoneum was stripped from the gallbladder. The cystic duct was identified with the assistance of ICG. It was dissected free. The cystic artery was dissected free as well. Clips were placed on both and they were divided. Next the gallbladder was taken off of the gallbladder fossa using electrocautery hook. There was good hemostasis and no leaking bile. Next the gallbladder was placed into a bag and removed. The robot was undocked and the ports were removed and the air was allowed to desufflate from the abdomen. The incisions were injected with local anesthetic and closed with interrupted 4-0 Monocryl sutures. Steri-Strips and bandages were applied. Patient was awoken and taken to PACU in stable condition and tolerated the procedure well. Surgical Findings: None Complications Complications: No Admit VTE Documentation VTE Mechan Device Prophylaxis: SCD's
--- NOTE | 2025-02-25 13:38 | DCINST_ITS ---
Discharge Instructions Procedure Gallbladder Diet Discharge Diet: Light diet - advance as tolerated Activity Discharge Activity: May Not Drive (for 2-3 days or while taking narcotic pain medications.) and - (Do not drive, work heavy equipment or sign legal documents for 24 hours.) May shower in (days): 1 Lifting Restrictions: 20 lbs for 2 weeks Additional Activity Instructions:: Pain medication may cause nausea. You should typically eat light foods as you take your pain medications. Pain medication may also cause constipation. If this is a problem for you, please discuss with your doctor. Alternate ibuprofen and Tylenol for pain control, oxycodone for breakthrough pain Dressing / Incision Call your doctor if your incision/area has: Continuous Slow Oozing, Sudden Increased Bleeding, Increased Pain/ Swelling, Increased Redness and Foul Smelling Discharge Call your doctor if you observe: Fever of 101 or Higher Suture Line Care: Avoid Pulling/Pushing and Avoid Pinching/Bending Remove Dressing in: 2 days Cleanse incision/area with: Soap & Water Additional Dressing/Incision Instructions:: Leave operative bandaids on for 2 days. When you remove dressing, leave Steri-Strips on until your follow-up appointment, or until the Steri-Strips fall off on their own. Follow Up Care Please Follow Up With: Herman Simms MD When: Please call to schedule 2 week follow up appointment. [phone] Test Results: Test results from this visit will be discussed in further detail at your follow- up appointment, if applicable. Discharge Plan Admission Attending Provider: Herman Simms Primary Care Provider: Hi To Instructions Print Language: Icelandic Discharge Orders/Prescriptions Prescriptions: New oxycodone 5 mg Tablet 5 - 10 mg PO Q4H PRN PRN (Reason: Pain Score 4-10) 5 Days Qty: 14 0RF Referrals / Follow Up: Hi To MD [Primary Care Provider] - Disposition Disposition (needs filled in before D/C Order can be placed): Home, Self Care
--- NOTE | 2025-02-25 14:21 | PCM.POST.ANE ---
Anesthesia: Postop Eval I Current Vital Signs Temperature: 97.4 F Pulse Rate: 77 Blood Pressure: 126/107 Respiratory Rate: 16 Pulse Ox: 99 Oxygen Delivery Method: Room Air Assessment Airway patent: Yes Spontaneous unlabored respirations: Yes Mental status: Awake nausea: No Vomiting: No Anesthesia Complication: No Fluid Hydration Crystalloid volume administer (ml): 900 Total IV fluid infused: 900 Progress Note Anesthesia document: Postop Eval 1 completed: Yes
--- NOTE | 2025-02-25 14:50 | POSTOPAN2_ITS ---
Anesthesia Postop Eval I Sum Postop Eval Completion status Anesthesia document: Postop Eval 1 completed: Yes Anesthesia Postop Eval I Summary Anesthesia Postop Eval I Summary: Anesthesia Postop Eval I: Assessment Summary Airway patent Yes 02/25/25 14:23 MARKETING PLANNING MANAGER.TDOB Spontaneous unlabored Yes 02/25/25 14:23 MARKETING PLANNING MANAGER.TDOB respirations Mental status Awake 02/25/25 14:23 MARKETING PLANNING MANAGER.TDOB nausea No 02/25/25 14:23 MARKETING PLANNING MANAGER.TDOB Vomiting No 02/25/25 14:23 MARKETING PLANNING MANAGER.TDOB Anesthesia Postop Eval I: Fluid Summary Crystalloid volume administer 900 02/25/25 14:23 MARKETING PLANNING MANAGER.TDOB (ml) Colloids volume administered ( ml) Blood Product volume administered (ml) Total IV fluid infused 900 02/25/25 14:23 MARKETING PLANNING MANAGER.TDOB Anesthesia Postop Eval I: Summary Notes Anesthesia Complication No 02/25/25 14:23 MARKETING PLANNING MANAGER.TDOB Anesthesia Complication Comment: Post-operative progress note Anesthesia: Postop Eval II Evaluation Mental status: Awake Pain Level: 2 nausea: Yes Vomiting: No
--- NOTE | 2025-02-25 14:50 | PCM.POSTANE2 ---
Anesthesia Postop Eval I Sum Postop Eval Completion status Anesthesia document: Postop Eval 1 completed: Yes Anesthesia Postop Eval I Summary Anesthesia Postop Eval I Summary: Anesthesia Postop Eval I: Assessment Summary Airway patent Yes 02/25/25 14:23 MACHINE SPREADER.TDOB Spontaneous unlabored Yes 02/25/25 14:23 MACHINE SPREADER.TDOB respirations Mental status Awake 02/25/25 14:23 MACHINE SPREADER.TDOB nausea No 02/25/25 14:23 MACHINE SPREADER.TDOB Vomiting No 02/25/25 14:23 MACHINE SPREADER.TDOB Anesthesia Postop Eval I: Fluid Summary Crystalloid volume administer 900 02/25/25 14:23 MACHINE SPREADER.TDOB (ml) Colloids volume administered ( ml) Blood Product volume administered (ml) Total IV fluid infused 900 02/25/25 14:23 MACHINE SPREADER.TDOB Anesthesia Postop Eval I: Summary Notes Anesthesia Complication No 02/25/25 14:23 MACHINE SPREADER.TDOB Anesthesia Complication Comment: Post-operative progress note Anesthesia: Postop Eval II Evaluation Mental status: Awake Pain Level: 2 nausea: Yes Vomiting: No
--- OUTSIDE RECORDS SUMMARY | 2025-02-25 20:16 | XMS RPT_ITS | CCD ---
Author Organization [facility] Care Team Providers Care Mill Dresser Name Role Phone PHYSICIAN, NOT RECORDED Primary Care Physician U rand PEOPLES MD., DR. COLBY Attending Unavaila ble PHYSICIAN, NOT RECORDED Primary Care Unavaila ble PHYSICIAN, NOT RECORDED Primary Care Unavaila ble PAUL THOMPSON Attending Unavailable Michael HERNANDEZ, Tejinder Leone Primary Care Provider Yousuf HERNANDEZ, Dany Basurto Primary Care Provider DANY ASH Referring Unavailable DANY ASH Primary Care Unavailable Dr. Dany Ash MD Primary Care Provider Dr. Dany Ash MD Referring Provider Dr. Herman Simms MD Attending Provider [phone] Dany Ash Primary Care Unavailable Dany Ash Attending Unavailable Dany Ash Referring Unavailable Herman Simms Attending Unavailable Dany Ash Referring Unavailable Dany Ash Primary Care Unavailable Herman Simms Consulting Unavailable Herman Simms Attending Unavailable Dany Ash Referring Unavailable Dany Ash Primary Care Unavailable Herman Simms Attending Unavailable Dany Ash Primary Care Unavailable Dany Ash Primary Care Unavailable Herman Simms Attending Unavailable Dany Ash Referring Unavailable Dany Ash Primary Care Unavailable Herman Simms Attending Unavailable Dany Ash Referring Unavailable Dr. Herman Simms MD Referring Provider [phone] Dr. Herman Simms MD Other Provider Allergies Allergy Classification Reported Allergen(s) Allergy Type Date of Onset Reaction(s) Facility (5 sources) Seasonal allergy; Translations: [SEASONAL ALLERGIES] Propensity to adverse reactions 01-27-2010 [facility] Medications Current Medications Medication Drug Class(es) Dates Sig (Normalized) Sig (Original) escitalopram 10 mg oral tablet (4 sources) Serotonin Reuptake Inhibitor Start: 09-14-2019 take 1 tablet by mouth once daily escitalopram oxalate (LEXAPRO) 10 mg tablet Indications: Mixed anxiety and depressive disorder Take 1 tablet by mouth once daily. 30 tablet 5 09/14/2019 Active Comment on above: Take 1 tablet by simon once daily. omeprazole 40 mg delayed release oral capsule (4 sources) Proton Pump Inhibitor Start: 03-22-2022 take 1 capsule by mouth once daily omeprazole (PRILOSEC) 40 mg capsule Take 40 mg by mouth once daily. 03/22/2022 Active Comment on above: Take 40 mg by mouth once daily. oxyCODONE hydrochloride 5 mg oral tablet (1 source) Opioid Agonist Start: 02-25-2025 take 5-10 mg by mouth every four hours as needed for pain Oxycodone 5 mg Tablet Active 5 - 10 mg PO EVERY 4 HOURS NEEDED as needed for Pain Score 4-10 14 5 0 February 25, 2025 Sludge in gallbladder Other specified diseases of gallbladder sertraline 100 mg oral tablet (6 sources) Serotonin Reuptake Inhibitor Start: 03-26-2022 sertraline (ZOLOFT) 100 mg tablet 03/26/2022 Active Start: 04-05-2021 End: 04-18-2024 Sertraline 100 mg tablet Dis continued 150 mg PO DAILY April 05, 2021 12:00am April 18, 2024 3:59pm anxiety sucralfate 1000 mg oral tablet (4 sources) Aluminum Complex Start: 03-22-2022 take 1 tablet by mouth four times daily sucralfate (CARAFATE) 1 gram tablet Take 1 g by mouth four times daily. 03/22/2022 Active Comment on above: Take 1 g by mouth fo ur times daily. Completed/Discontinued Medications Medication Drug Class(es) Dates Sig (Normalized) Sig (Original) hydrOXYzine hydrochloride 50 mg oral tablet (2 sources) Antihistamine Start: 06-03-2021 End: 04-18-2024 take 1 tablet by mouth once daily as needed for anxiety Hydroxyzine Hcl 50 mg tablet Discontinued 50 mg PO DAILY NEEDED as needed for Anxiety June 03, 2021 1:00am April 18, 2024 3:59pm Omeprazole 20 mg capsule,delayed release(DR/EC) (2 sources) Start: 04-18-2024 End: 02-15-2025 take 1 capsule by mouth once daily Omeprazole 20 mg capsule,delayed release(DR/EC) Discontinued 20 mg PO daily April 18, 2024 1:00am February 15, 2025 1:05pm Problems Active Problems Problem Classification Problem Date Documented Date Episodic/Chronic Abdominal pain (9 sources) Right lower quadrant pain; Translations: [Right lower quadrant pain] Onset: 07-28-2016 Resolved: 07-28-2016 07-28-2016 Episodic Alcohol-related disorders (6 sources) Moderate alcohol dependence; Translations: [Alcohol abuse] 11-11-2020 Chronic Alcohol-related disorders (2 sources) Alcohol intoxication; Translations: [Alcohol use, unspecified with intoxication, unspecified] 04-17-2021 Episodic Anxiety disorders (6 sources) Generalized anxiety disorder; Translations: [Mixed anxiety and depressive disorder] Onset: 01-27-2010 11-11-2020 Chronic Biliary tract disease (3 sources) Gallbladder problem; Translations: [Disease of gallbladder, unspecified] 02-15-2025 Episodic Complications of surgical procedures or medical care (2 sources) Drug therapy finding; Translations: [Unspecified adverse effect of drug or medicament, initial encounter] 09-19-2019 Episodic Esophageal disorders (2 sources) Gastroesophageal reflux disease; Translations: [Gastro-esophageal reflux disease without esophagitis] 04-18-2024 Chronic Gastritis and duodenitis (1 source) Gastritis; Translations: [Gastritis, unspecified, without bleeding] Onset: 03-03-2022 Episodic Genitourinary symptoms and ill-defined conditions (2 sources) Blood in urine; Translations: [Hematuria, unspecified] Onset: 04-30-2021 Episodic Hemorrhoids (2 sources) Hemorrhoids; Translations: [Unspecified hemorrhoids] 04-18-2024 Episodic Immunizations and screening for infectious disease (1 source) Suspected disease caused by 2019-nCoV; Translations: [Suspected COVID-19 virus infection] Episodic Mood disorders (2 sources) Recurrent major depressive episodes, moderate 11-11-2020 Chronic Other upper respiratory disease (4 sources) Allergic rhinitis; Translations: [Allergic rhinitis, unspecified] Onset: 12-25-2010 12-25-2010 Chronic Residual codes; unclassified (1 source) Problem situation; Translations: [Other problems related to lifestyle] Onset: 03-03-2022 Episodic Syncope (2 sources) Near syncope; Translations: [Syncope and collapse] 09-19-2019 Episodic Past or Other Problems Problem Classification Problem Date Documented Da te Episodic/Chronic Gastrointestinal hemorrhage (2 sources) Gastrointestinal hemorrhage; Translations: [Hemorrhage of anus and rectum] Onset: 7 Resolved: 7 07-28-2016 Episodic Spondylosis; intervertebral disc disorders; other back problems (4 sources) Neck pain; Translations: [Cervicalgia] Onset: 2 03-03-2012 Episodic Unclassified (2 sources) Readiness finding 06-29-2021 Unclassified (2 sources) Admitted to alcohol detoxification center 06-29-2021 Results Test Name Value Interpretation Reference Range Facility MR/PATLynette 02-19-2025 MR/PAT.[facility] Medical Records Department [address] [place] [address] PAT - Anesthesia 02/19/25 1626 MR#: [id number] Acct: [id number] Name: ISRA MENG Rep #: [id number] : 1980 44 From: Babar Watkins MD PCP: Dr. Dany Ash MD Status:PRE [facility] Y Race: C Location: [facility] Pre-Assessment Diagnosis/Proposed Procedure Planned Operative Procedure(s): ROBOTIC CHOLECYSTECTOMY Anesthesia History Anesthesia History - federal mediation commissioner: Anesthesia History - federal mediation commissioner Hx Hospitalization No 02/19/25 14:10 Any Problems With Anesthesia No 02/19/25 14:10 Cholinesterase deficiency No 02/19/25 14:10 You/Your Family Experience No 02/19/25 14:10 fever (hyperthermia) with Relationship Recent Exposure to Contagious No 05/22/24 07:24 Disease Does patient have nerve No 02/19/25 14:10 stimulator Patient instructed to have device shut off --Does patient have Pacemaker or ICD? When Was Last Pacemaker Check QUESTION #4 FULL TEXT: You/Your Family Experience fever (hyperthermia) with Anesthesia Last Oral Intake Last Oral intake: Last Oral Intake NPO since Meds taken in AM with sips of water? 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 - federal mediation commissioner: PONV - federal mediation commissioner Female No 02/19/25 14:10 HX of Motion Sickness No 02/19/25 14:10 HX of N/V After Surgery No 02/19/25 14:10 Non-Smoker Yes 02/19/25 14:10 Duration of Surgery greater Yes 02/19/25 14:10 than 60 minutes Number of Risk Factors 2 02/19/25 14:10 PONV Score Moderate Risk 02/19/25 14:10 Height Weight Height Weight: Anesthesia: Height Weight Height 5 ft 10 in 02/15/25 13:05 Respiratory Assessment Respiratory Assessment - federal mediation commissioner: Respiratory Tract Infection Hx - federal mediation commissioner Hx Respiratory Tract Infection No 02/19/25 14:10 STOP Sleep Apnea STOP Sleep Apnea - federal mediation commissioner: STOP Sleep Apnea - federal mediation commissioner Hx Hypertension No 02/19/25 14:10 Hx Sleep Apnea No 02/19/25 14:10 CPAP BIPAP Do you snore loudly (louder Yes 02/19/25 14:10 than talking or can be heard Do you often feel tired/ No 02/19/25 14:10 fatigued/ sleepy during daytime? Has anyone observed you stop Yes 02/19/25 14:10 breathing during sleep? STOP Results Positive 02/19/25 14:10 QUESTION #5 FULL TEXT : Do you snore loudly (louder than talking or can be heard through closed doors)? Tobacco Use History Tobacco Use History - federal mediation commissioner: Tobacco Use History - federal mediation commissioner Tobacco Use Smoking Status Current every day smoker 02/19/25 14:10 Hx Tobacco Use Yes 02/19/25 14:10 Years Smoking Packs Smoked per Day Smoking Cessation Date was within the last 15 years Hx Smoking Cessation Date Hx Smoking Cessation Counseling Hematologic Medial History Hematologic Hx - federal mediation commissioner: Hematologic Medical Hx - clinical operations consultant Hx of Blood Transfusion No 02/19/25 14:10 Hx of Transfusion in last 3 No 02/19/25 14:10 Months Date of Last Transfusion (if within last 3 months) Ever experience any problems No 02/19/25 14:10 with transfusion(s)? Specify any problems Hx of Preganancy in last 3 N/A 02/19/25 14:10 Months Nurse Filling Out Transfusion CPOWERS2 02/19/25 14:10 Questions: Date: 02/19/25 02/19/25 14:10 Time: 14:12 02/19/25 14:10 Patient unable to answer at this time (ie. confused, unrespo /Reproduction History /Reproductive History - federal mediation commissioner: /Reproductive Hx- federal mediation commissioner Hx Now Gestational Age (in weeks): EDC: Hx Hx Para Hx Section SAB Active Medications Active Medications: Current Medications Generic Name Dose Route Start Last Admin Trade Name Freq PRN Reason Stop Dose Admin Indocyanine Green 3.75 mg/ N/A 1.5 mls @ 999 mls/hr 02/25/25 12:00 IV 02/25/25 12:01 PREOP ONE [facility] Medical History Back pain Smoker Hemorrhoids Acid reflux Abdominal pain Chronic pain Kidney stones Former smoker Asthma Irregular heart beat Former tobacco use Alcohol abuse Alcohol abuse Panic attacks Depression Anxiety Home Medications ???Medication ???Instructions ???Recorded ???Last Taken ???Type NK 02/19/25 Unknown History Allergy/AdvReac Type Severity Reaction Status Date / Time No Known Allergies Allergy Verified 02/19/25 14:09 Family History Mother Anxiety and depression Father Diabetes Surgical History Hi (more content not included)... Normal [facility] Surgery Visit Reporton 02-15 Surgery Visit Report [facility] [address] [place] [address]. [address] [place] [address] OFFICE VISIT Date of Service: 02/15/25 MR#: [id number] Acct: [id number] Name: ISRA MENG Rep #: [id number] : 1980 Provider: Dr. Herman finley MD Age/Sex: 44/M Location: [facility] Status: Signed Intake Vital Signs 05/22/24 07:24 02/15/25 13:05 Height 5 ft 10 in 5 ft 10 in Weight: 198 lb BMI 28.4 BP 138/84 H Blood Pressure Location Rt brachial Position Sitting Respiration 18 Intake Visit Reasons: Gallbladder problems Chief Complaint: gallbladder problems Nurse First Assist Required: No Is patient in pain?: No Allergies No Known Allergies Allergy (Verified 02/15/25 13:05) Have you fallen in the past year?: No PFSH Medical History Back pain Smoker Hemorrhoids Acid reflux Abdominal pain Chronic pain Kidney stones Former smoker Asthma Irregular heart beat Former tobacco use Alcohol abuse Alcohol abuse Panic attacks Depression Anxiety Surgical History History of facial surgery Family History Mother Anxiety and depression Father Diabetes Social History (Updated 02/15/25 @ 13:05 by Ella France) household members: spouse and family Smoking Status: Former smoker (Patient did not smoke today.) how long ago did patient quit smoking: Smoked 3-5 years in his 30s, 1 ppd. alcohol intake: former year quit: 1 details: 3-6, 25 ounce beers daily. substance use type: does not use HPI HPI HPI: Patient is a 44-year-old male here with right upper quadrant pain. He reports the pain is dull but is constant. He said that the pain he was having before has improved but he still has aching in the right upper quadrant that does not go away. He would like his gallbladder removed as there is sludge in it. Current symptoms: Denies constipation Associated symptoms: Denies constipation or diarrhea ROS General General: No weight change, appetite, fatigue, colon cancer, breast cancer or weakness HEENT HEENT: No difficulty swallowing, eye injury, eye surgery, swollen glands or hoarseness Endo Endocrine: No thyroid disease, diabetes mellitus, thyroid cancer, Hair loss, heat intolerance or cold intolerance Skin Skin: No rash or changing moles Musc Musculoskeletal: No back problems, arthritis, rheumatoid arthritis, gout or joint pain Cardio Cardiovascular: No murmur, pacemaker, heart disease, atrial fibrillation, high blood pressure, heart attack, heart stent, palpitations, shortness of breath with exertion or chest pain Psych Psychiatric: Yes anxiety; No depression or hearing voices Resp Respiratory: No shortness of breath, No sleep apnea, No cough, No COPD, No asthma, No emphysema and No wheezing Gastro Gastrointestinal: Yes abdominal pain, No nausea or vomiting, No diarrhea, No constipation, No blood in stool, Yes acid reflux, Yes hemorrhoids, No ulcers, No gallbladder problem and No black,tarry stools Angel Hematologic: No blood thinners, No blood disorders, No bleeding, No anemia and No blood clots Neuro Neurologic: No numbness, No tingling and No weakness Exam Const General: cooperative Orientation: alert and oriented x3 HENMT Head: normal to inspection Neck Neck: normal visual inspection and full ROM Chest Chest palpation inspection: normal inspection of the chest Resp Effort Inspection: normal respiratory effort Auscultation: clear to auscultation bilaterally Cardio Rate: regular rate Rhythm: regular rhythm GI Inspection: non-distended Palpation: soft and nontender Skin General: no rashes or lesions noted Neuro General: patient alert and patient oriented x3 Extrem General: full ROM Psych Appearance: grossly normal Mental Status: mental status grossly normal Assessment and Plan Assessment and Plan (1) Gallbladder sludge: Status: Acute (2) Abdominal pain: Status: Acute Qualifiers: Abdominal location: right upper quadrant Qualified Code(s): R10.11 - Right upper quadrant pain Plan The patient is still having right upper quadrant pain despite PPIs. The patient had an ultrasound of his gallbladder that showed polyps as well as sludge. I discussed robotic assisted laparoscopic cholecystectomy with him. I discussed the procedure in detail with the patient. I discussed the risks, benefits, and alternatives of the procedure. I discussed the risks including but not limited to bleeding, infection, injury to surrounding organs such as the liver, bile duct, bowels. I did discuss the possibility of having to convert to an open procedure as well as the possibility that if any injuries occurred this may necessitate further (more content not included)... Normal [facility] Bacteria Ur Culton 5 Bacteria identified Cx Nom (U) ORGANISM ID: 1 <10,000 CFU/ml Normal urogenital beny Normal [facility] Comment on above: Performed By: #### 6 30-4 #### [facility] CLIA [id number] [address] [place] [address] [place] CNOVon 08-16-2024 CNOV Office Visit (UCWSTR ) ISRA MENG ([id number]) 1980 M Date Time Provider Department 08/16/24 4:00 PM [facility] During your visit today, we recorded the following information about you: Temperature Pulse Respiration Blood pressure 97.5 degrees 70/minute 20/minute 131/73 Weight 91 kg Katlyn Tsai APRN.ARMATURE INSPECTOR 08/16/2024 4:12 PM Signed [facility] Subjective Isra Meng is a 43 year old male. Nontoxic-appearing male presents urgent care requesting MRSA testing. States found out his had MRSA on a polyp that was removed from her cervix. Concerned about possible MRSA. Denies any symptoms. Denies any pain. No testicular pain scrotal swelling dysuria urgency epididymis pain penile drainage. Past medical history prescription medications allergies reviewed. No fevers. .Patient presents with: MRSA concerns: States his , had polyp removed which had mrsa on it, he is concerned for possible, mrsa, PAST MEDICAL HISTORY Diagnosis Date Allergic rhinitis, cause unspecified Allergic rhinitis Anxiety Back pain Unspecified asthma(493.90) As child PAST SURGICAL HISTORY Procedure Laterality Date COLONOSCOPY FLX DX W/COLLJ SPEC WHEN PFRMD N/A 07/28/2016 MAC PAST SURGICAL HISTORY OF 2004 skull fracture ALLERGIES Seasonal Allergies MEDICATIONS omeprazole (PRILOSEC) 40 mg capsule Take 40 mg by mouth once daily. (Patient not taking: Reported on 08/16/2024) sertraline (ZOLOFT) 100 mg tablet (Patient not taking: Reported on 08/16/2024) sucralfate (CARAFATE) 1 gram tablet Take 1 g by mouth four times daily. (Patient not taking: Reported on 08/16/2024) escitalopram oxalate (LEXAPRO) 10 mg tablet Take 1 tablet by mouth once daily. (Patient not taking: Reported on 04/10/2022) FAMILY HISTORY Problem Relation Age of Onset Psychiatry Mother Depression Psychiatry Father Anxiety Diabetes Maternal Grandfather GI Paternal Grandmother Cirrhosis Social History Tobacco Use Smoking status: Former Smokeless tobacco: Former Types: Chew Vaping Use Vaping status: Former Substance Use Topics Alcohol use: Yes Comment: social, 2-3 beers/night Drug use: No Patient presents with: MRSA concerns: States his , had polyp removed which had mrsa on it, he is concerned for possible, mrsa, HPI Review of Systems Constitutional: Negative for appetite change, chills, diaphoresis, fatigue and fever. Gastrointestinal: Negative for abdominal pain, diarrhea, nausea and vomiting. Genitourinary: Negative for decreased urine volume, dysuria, enuresis, flank pain, genital sores, hematuria, penile discharge, penile pain, penile swelling, scrotal swelling, testicular pain and urgency. Objective BP 131/73 Pulse 70 Temp 36.4 ?C (97.5 ?F) Resp 20 Wt 91 kg (200 lb 9.9 oz) SpO2 99% BMI 28.79 kg/m? Physical Exam Constitutional: Appearance: Normal appearance. He is normal weight. HENT: Head: Normocephalic. Eyes: Conjunctiva/sclera: Conjunctivae normal. Cardiovascular: Rate and Rhythm: Normal rate. Pulmonary: Effort: Pulmonary effort is normal. Abdominal: Tenderness: There is no abdominal tenderness. There is no right CVA tenderness, left CVA tenderness, guarding or rebound. Genitourinary: Comments: Deferred exam Musculoskeletal: Cervical back: Normal range of motion. Skin: Findings: No rash. Neurological: General: No focal deficit present. Mental Status: He is alert and oriented to person, place, and time. Mental status is at baseline. ASSESSMENT/PLAN: 1. Urinary frequency - ICD9: 788.41, ICD10: R35.0 - UA DIP, URINE (POC) - BACTERIAL CULTURE, URINE Asymptomatic. Deferred exam. Urine dip negative. Treat according to culture results. If symptoms do develop will follow-up with PCP. Patient was educated on supportive therapies. Patient will follow up with primary care provider as needed. Patient was instructed to immediately proceed to emergency room for any new, worsening, or symptoms lasting longer than anticipated. The patient's clinical presentation is otherwise unremarkable at this time. Based on exam and clinical finding, the patient is stable for discharge. Plan of care was discussed with patient. Patient verbalizes understanding and agrees to plan of care. This note was generated using Virtustream software. It may contain errors in wording, punctuation, or spelling. Katlyn Tsai APRN.ARMATURE INSPECTOR [facility] Procedures Referring Provider: DANY ASH [[id number]] Allergies As of Date: 08/16/2024 Noted Allergy Reaction SEASONAL ALLERGIES 01/27/2010 Date Reviewed: 08/16/2024 Reviewed by: Katlyn Tsai APRN.ARMATURE INSPECTOR - Fully Assessed Reason for Visit: MRSA concerns [Other] Cmt: States his , had polyp removed which had mrsa on it, he is concerned for possible, mrsa, Primary Visit Diagnosis:Urinary freq (more content not included)... Normal [facility] UA DIP, URINE (POC)on 2024 BILIRUBIN UA (POCT) Negative Negative [facility] CLARITY UA (POCT) Clear [facility] COLOR UA (POCT) Yellow [facility] GLUCOSE UA (POCT) Negative Negative mg/dL [facility] Hemoglobin Ql (U) Negative Negative [facility] KETONE UA (POCT) Negative Negative mg/dL [facility] LEUKOCYTES UA (POCT) Negative Negative [facility] NITRITE UA (POCT) Negative Negative [facility] PH UA (POCT) 5.5 4.5 - 8.0 [facility] Protein Ql (U) Negative Negative mg/dL [facility] SPECIFIC GRAVITY UA (POCT) 1.01 1.005 - 1.030 [facility] UROBILINOGEN UA (POCT) 0.2 Normal E.U./dL [facility] Location:[facility], [address] [place] [address], [id number] [place] [address] POINT OF CARE [facility] EGD Reporton 05-22-2024 EGD Report [facility] Medical Records Department [address] [place] [address] EGD Report MR#: [id number] Acct: [id number] Name: ISRA MENG Rep #: [id number] : 1980 43 From: Herman Simms MD PCP: Dr. Dany Ash MD Status:[facility] Patient Name: Isra Meng Procedure Date: 05/22/2024 8:15 AM Date of : 1980 Age: 43 Procedure: Upper GI endoscopy Indications: Epigastric abdominal pain Providers: Herman Simms MD Referring MD: Dany Ash Medicines: Propofol per Anesthesia Patient Profile: This is a 43 year old male. Refer to note in patient chart for documentation of history and physical. Complications: No immediate complications. Estimated blood loss: Minimal. Procedure: Pre-Anesthesia Assessment: - Prior to the procedure, a History and Physical was performed, and patient medications and allergies were reviewed. The patient's tolerance of previous anesthesia was also reviewed. The risks and benefits of the procedure and the sedation options and risks were discussed with the patient. All questions were answered, and informed consent was obtained. Prior Anticoagulants: The patient has taken no anticoagulant or antiplatelet agents. After reviewing the risks and benefits, the patient was deemed in satisfactory condition to undergo the procedure. After obtaining informed consent, the endoscope was passed under direct vision. Throughout the procedure, the patient's blood pressure, pulse, and oxygen saturations were monitored continuously. The Endoscope was introduced through the mouth, and advanced to the third part of duodenum. The upper GI endoscopy was accomplished without difficulty. The patient tolerated the procedure well. Scope In: 8:20:40 AM Scope Out: 8:23:08 AM Total Procedure Duration Time 0 hours 2 minutes 28 seconds Findings: The esophagus was normal. The stomach was normal. The examined duodenum was normal. Biopsies were taken with a cold forceps in the gastric antrum for Helicobacter pylori testing. Impression: - Normal esophagus. - Normal stomach. - Normal examined duodenum. - Biopsies were taken with a cold forceps for Helicobacter pylori testing. Recommendation: - Discharge patient to home. - Resume previous diet. - Continue present medications. - Return to my office at appointment to be scheduled. Procedure Code(s): --- Professional --- 46038, Esophagogastroduodenosc opy, flexible, transoral; with biopsy, single or multiple Diagnosis Code(s): --- Professional --- R10.13, Epigastric pain CPT copyright 2021 [employer]. All rights reserved. The codes documented in this report are preliminary and upon educational speech language clinician review may be revised to meet current compliance requirements. Herman Simms MD 05/22/2024 8:29:11 AM This report has been signed electronically. Number of Addenda: 0 Note Initiated On: 05/22/2024 8:15 AM 05/22/2429 Date Herman Luciano Signature: Date (if indicated) CC: Dr. Herman Simms MD; Dr. Dany Ash MD Date Dictated: 05/22/24814 Date Transcribed: Cinder Block Maker: DEVON Signed Normal [facility] H Pylori (initial)on 024 H Pylori (initial) --- Patient Age/Sex Location Account Attending Physician ISRA MENG/M EN [id number] Dr. Herman Simms MD Specimen: [id number] Received: 05/22/24 Status: JULEE Atkins Num: [id number] Spec Type: IMMUNO Subm Dr: Dr. Herman Simms MD PHYSICIAN INSTITUTION [address], [place] [address] SPECIMEN INFORMATION: Tissue Source: Gastric antrum biopsy Clinical Info: Abdominal pain Specimen Number: [id number] CPT code: 14693 METHODOLOGY: Deparaffinized sections of prefer/formalin-fixed tissue or PAP/DQ stained slides are incubated with monoclonal/polyclonal antibodies/oligonucleot chasity probes. Localization is made via biotin free immunoperoxidase method. Appropriate controls are performed and reacted as expected. Results on target cell population are indicated in the following table: RESULTS: ANTIBODY / CLONE RESULT H Pylori (polyclonal) negative These tests were developed and their performance characteristics determined by [facility]. They may not have been cleared or approved by the U.S. Food and Drug Administration. The FDA has determined that such clearance or approval is not necessary. The above immunohistochemical/ochoa Zaid markers are ordered and reviewed by the Pathologist. INTERPRETATION: Gastric antrum, biopsy: Negative for Helicobacter pylori organisms. AM. 05/23/2024 Signed (signature on file) Dr. Denny Prado, 05/23/24 1334 Normal [facility] Comment on above: Performed By: #### P H.PYLORI #### [facility] [address] [place], [place], [id number] MR/POSTOP.Rina 05-22-2024 MR/POSTOP.[facility] Medical Records Department [facility] [place] [address] Anesthesia Postop Eval I 05/22/24 0914 MR#: [id number] Acct: [id number] Name: ISRA MENG Rep #: [id number] : 1980 43 From: Medhat Luciano MD PCP: Dr. Dany Ash MD Status:DEP [facility] Y Race: C Location: EN Anesthesia: Postop Eval I Current Vital Signs Temperature: 99.1 F Pulse Rate: 76 Blood Pressure: 119/78 Respiratory Rate: 16 Pulse Ox: 99 Assessment Airway patent: Yes Spontaneous unlabored respirations: Yes nausea: No Vomiting: No Anesthesia Complication: No Fluid Hydration Crystalloid volume administer (ml): 10 Total IV fluid infused: 10 Progress Note Anesthesia document: Postop Eval 1 completed: Yes 05/22/24914 Date Medhat Luciano MD Cosigner Signature: Date CC: Signed Normal [facility] MR/[id number] 05-22-2024 [facility] Medical Records Department [address] [place] [address] Anesthesia Postop Eval II 05/22/24914 MR#: [id number] Acct: [id number] Name: ISRA MENG Erendira Rep #: [id number] : 1980 43 From: Medhat Luciano MD PCP: Dr. Dany Ash MD Status:[facility] Y Race: C Location: EN Anesthesia Postop Eval I Sum Postop Eval Completion status Anesthesia document: Postop Eval 1 completed: Yes Anesthesia Postop Eval I Summary Anesthesia Postop Eval I Summary: Anesthesia Postop Eval I: Assessment Summary Airway patent Yes 05/22/24 09:15 Spontaneous unlabored Yes 05/22/24 09:15 respirations Mental status nausea No 05/22/24 09:15 Vomiting No 05/22/24 09:15 Anesthesia Postop Eval I: Fluid Summary Crystalloid volume administer 10 05/22/24 09:15 (ml) Colloids volume administered ( ml) Blood Product volume administered (ml) Total IV fluid infused 05/22/24 09:15 Anesthesia Postop Eval I: Summary Notes Anesthesia Complication No 05/22/24 09:15 Anesthesia Complication Comment: Post-operative progress note Anesthesia: Postop Eval II Evaluation Mental status: Awake Pain Level: 0 nausea: No Vomiting: No 05/22/24914 Date Medhat Fernandez Signature: Date CC: Signed Normal [facility] Surgery Specimen Level Josemanuel 05-22-2024 Surgery Specimen Level IV Patient Age/Sex Location Account Attending Physician ISRA MENG 43/M EN [id number] Dr. Herman Simms MD Specimen: [id number] Received: 05/22/24 Status: JULEE Atkins Num: [id number] Spec Type: EGD BIOPSY Subm Dr: Dr. Herman Simms MD HEADER OPERATION: EGD biopsy PRE-OP DIAGNOSIS: Abdominal pain TISSUE SUBMITTED: Gastric antrum biopsy MICROSCOPIC DIAGNOSIS Gastric antrum, biopsy: Chronic gastritis. See comment. AM. 05/23/2024 COMMENT The results of immunohistochemistry for Helicobacter pylori will be reported separately ([id number]). MICROSCOPIC DESCRIPTION Slides are reviewed. GROSS DESCRIPTION Received in fixative is one container labeled with the patient's name and designated Gastric antrum biopsy. The specimen consists of two irregular fragments of light jenkins soft tissue that in aggregate measure 0.6 x 0.3 x 0.1 cm. The specimen is totally submitted in one cassette. AM. 05/22/2024 TC:3 CPT:39062 Patient Age/Sex Location Account Attending Physician ISRA MENG/M EN [id number] Dr. Herman Simms MD Signed (signature on file) Dr. Denny Prado DO 05/23/24 1257 Normal [facility] Comment on above: Performed By: #### P SUIV #### [facility] [address] [place], [place], [address] Surgery Visit Reporton 04-18 Surgery Visit Report [facility] [address] [place] [address]. [address] [place] [address] OFFICE VISIT Date of Service: 04/18/24 MR#: [id number] Acct: [id number] Name: ISRA MENG Erendira Rep #: [id number] : 1980 Provider: Dr. Herman finley MD Age/Sex: 43/M Location: [facility] Status: Signed Intake Vital Signs 06/17/21 22:44 04/18/24 14:58 Height 5 ft 10 in 5 ft 10 in Weight: 192 lb BMI 27.5 BP 132/72 H Blood Pressure Location Rt brachial Position Sitting Respiration 18 Pulse 80 Pulse Source Monitor Temp 97.9 F Temp Source Temporal Pulse Oximetry (%) 100 Oxygen Delivery Method room air Intake Visit Reasons: DYSPEPSIA Chief Complaint: Dyspepsia Is patient in pain?: Yes (intermitted RUQ pain) Allergies No Known Allergies Allergy (Verified 04/18/24 14:59) Medications ???Medication ???Instructions ???Recorded ???Confirmed ???Type omeprazole 20 mg capsule,delayed 20 mg PO QDAY 04/18/24 04/18/24 History release [facility] Medical History (Updated 04/18/24 @ 15:[address] Herman Simms MD) Hemorrhoids Acid reflux Abdominal pain Chronic pain Kidney stones Former smoker Asthma Irregular heart beat Former tobacco use Alcohol abuse Alcohol abuse Panic attacks Depression Anxiety Surgical History History of facial surgery Family History Mother Anxiety and depression Father Diabetes Social History (Updated 04/18/24 @ 14:58 by Kimberly Yanes LPN) household members: spouse and family Smoking Status: Former smoker how long ago did patient quit smoking: Smoked 3-5 years in his 30s, 1 ppd. alcohol intake: former year quit: 1 details: 3-6, 25 ounce beers daily. substance use type: does not use HPI HPI HPI: Patient is a 43-year-old male here for epigastric pain. He says the pain also radiates under his right ribs. Patient does have an ultrasound that shows sludge and polyps in his gallbladder. The patient is here because he believes he has a stomach ulcer. He was started on a PPI by his primary care physician which did help and when he ran out his pain came back. Patient does not describe nausea or vomiting and says that it does not always happen after eating and sometimes the eating makes it feel better. He says has been going on for about a year. ROS General General: No weight change, appetite, fatigue, colon cancer, breast cancer or weakness HEENT HEENT: No difficulty swallowing, eye injury, eye surgery, swollen glands or hoarseness Endo Endocrine: No thyroid disease, diabetes mellitus, thyroid cancer, Hair loss, heat intolerance or cold intolerance Skin Skin: No rash or changing moles Musc Musculoskeletal: No back problems, arthritis, rheumatoid arthritis, gout or joint pain Cardio Cardiovascular: No murmur, pacemaker, heart disease, atrial fibrillation, high blood pressure, heart attack, heart stent, palpitations, shortness of breat with exertion or chest pain Psych Psychiatric: Yes anxiety; No depression or hearing voices Resp Respiratory: No shortness of breath, No sleep apnea, No cough, No COPD, No asthma, No emphysema and No wheezing Gastro Gastrointestinal: Yes abdominal pain, No nausea or vomiting, No diarrhea, No constipation, No blood in stool, Yes acid reflux, Yes hemorrhoids, No ulcers, No gallbladder problem and No black,tarry stools Angel Hematologic: No blood thinners, No blood disorders, No bleeding, No anemia and No blood clots Neuro Neurologic: No numbness, No tingling and No weakness Exam Const General: cooperative Orientation: alert and oriented x3 HENMT Head: normal to inspection Neck Neck: normal visual inspection and full ROM Chest Chest palpation inspection: normal inspection of the chest Resp Effort Inspection: normal respiratory effort Auscultation: clear to auscultation bilaterally Cardio Rate: regular rate Rhythm: regular rhythm GI Inspection: non-distended Palpation: soft and nontender Skin General: no rashes or lesions noted Neuro General: patient alert and patient oriented x3 Extrem General: full ROM Psych Appearance: grossly normal Mental Status: mental status grossly normal Assessment and Plan Assessment and Plan (1) Abdominal pain: Status: Acute Qualifiers: Abdominal location: epigastric Qualified Code(s): R10.13 - Epigastric pain Plan: Patient is having epigastric pain which may be due to ulcer or gastritis. I will perform an EGD to evaluate. If EGD is normal I would recommend laparoscopic cholecystectomy. I explained endoscopy in detail to the patient. I explained the risks including but not limited to stroke or heart attack with anesthesia, perf (more content not included)... Normal [facility] Abdomen Limitedon 03-06-2024 Abdomen Limited [facility] Imaging Services [address] [place] [address] Abdomen Limited MR#: [id number] Acct: [id number] Name: ISRA MENG Rep #: [id number] : 1980 M 43 From: Jf olivera MD PCP: Dr. Dany Ash MD Status: REG [facility] Study: Abdomen Limited Date of Exam: 03/06/24 Exam# [id number] Ordering [place]: [place] [id number] STUDY: ABDOMINAL ULTRASOUND - RIGHT UPPER QUADRANT REASON FOR VISIT: Male, 43 years old . 2 week history of right upper quadrant pain. TECHNIQUE: Ultrasound evaluation of the right upper quadrant was performed with real-time and static rolon-scale imaging. TECHNICAL QUALITY: Adequate. COMPARISON: Comparison is made with prior study March 04, 2022. FINDINGS: Liver: The liver measures 15.1 cm. There is normal echogenicity of the liver. The bile ducts are within normal limits. There is hepatic color flow. The direction of portal flow is hepatopetal. There is no demonstrated mass lesion. Gallbladder: Normal distended gallbladder. The gallbladder wall measures 2.1 mm. There is a negative sonographic Brewer''s sign. There is no pericholecystic fluid. There are no gallstones. 2 gallbladder polyps are seen. The larger measures 4 mm x 4 mm x 4 mm. Small amount of sludge is seen in the gallbladder lumen. Common Bile Duct (C.B.D.): The common bile duct measures 4.4 mm. Pancreas: Normal size of the head, body and tail of the pancreas. There is normal echogenicity of the pancreas. There is no demonstrated pancreatic mass or cyst. Right Kidney: Normal size of the right kidney. The right kidney measures 11.1 cm x 5.6 x 5.3 cm. Normal renal cortex. The right cortex measures 1.3 cm. There is no demonstrated renal mass or cyst. There is no right hydronephrosis. US/Abdomen Limited IMPRESSION: There are 2 small gallbladder polyps and sludge in the gallbladder lumen. Electronically Signed: Jf Hernandez MD at 11:11 EDT , CC: Dr. Dany Ash MD Cinder Block Maker: Signed Normal [facility] XR Knee - left 4 Viewson IMPRESSION: No radiographic evidence of acute osseous injury Cinder Block Maker: [facility] STERLINGJo Ann Transcribe Date/Time: Jun 30 2022 11:06A Dictated by : BRAD MEMBRENO MD This examination was interpreted and the report reviewed and electronically signed by: BRAD MEMBRENO MD on Jun 30 2022 11:07AM EST DIVISION OF RADIOLOGY * * *Final Report* * * DATE OF EXAM: Jun 30 2022 11:03AM WOX [id number] - XR KNEE 4V AP/PA BOTH+LAT/PATTY LT / PROCEDURE REASON: Knee injuries, left, initial encounter * * * * Physician Interpretation * * * * TITLE: XR KNEE 4V AP/PA BOTH+LAT/PATTY LT CLINICAL INDICATION: Knee injury TECHNIQUE: AP/PA/merchant radiographs of both knees and lateral radiograph of the left knee COMPARISON: None FINDINGS: Left knee: Trace fluid in the left suprapatellar joint space. No acute fracture or dislocation identified. Joint spaces preserved. Right knee: No acute fracture or dislocation. Joint spaces preserved. DIVISION OF RADIOLOGY Provider, [facility] - 06/30/2022 * * *Final Report* * * DATE OF EXAM: Jun 30 2022 11:03AM WOX 5202 - XR KNEE 4V AP/PA BOTH+LAT/PATTY LT / PROCEDURE REASON: Knee injuries, left, initial encounter * * * * Physician Interpretation * * * * TITLE: XR KNEE 4V AP/PA BOTH+LAT/PATTY LT CLINICAL INDICATION: Knee injury TECHNIQUE: AP/PA/merchant radiographs of both knees and lateral radiograph of the left knee COMPARISON: None FINDINGS: Left knee: Trace fluid in the left suprapatellar joint space. No acute fracture or dislocation identified. Joint spaces preserved. Right knee: No acute fracture or dislocation. Joint spaces preserved. IMPRESSION IMPRESSION: No radiographic evidence of acute osseous injury Cinder Block Maker: [facility] ST[facility]LINGJo Ann Transcribe Date/Time: Jun 30 2022 11:06A Dictated by : BRAD MEMBRENO MD This examination was interpreted and the report reviewed and electronically signed by: BRAD MEMBRENO MD on Jun 30 2022 11:07AM EST [facility] Radiology Study observation (narrative) [facility] XR Knee - left 4 ViewsOrdere d By: [facility] Provider on 06-30-2022 [facility] .Auto Diffon 03-03-2022 Basophil, Absolute 0.1 10 3/mcL Normal 0.0-0.2 [facility] ([place]) Comment on above: Performed By: #### L IP, CMP, GFR #### [address] [address] Basophils/100 WBC (Bld) 0.6 % Normal 0.0-2.5 [facility] ([place]) Comment on above: Performed By: #### L IP, CMP, GFR #### [address] [address] Eosinophil, Absolute 0.3 10 3/mcL Normal 0.0-0.4 [facility] ([place]) Comment on above: Performed By: #### L IP, CMP, GFR #### [address] [address] Eosinophils/100 WBC (Bld) 3.2 % Normal 0.0-7.0 [facility] ([place]) Comment on above: Performed By: #### L IP, CMP, GFR #### [address] [address] Lymphocyte, Absolute 1.6 10 3/mcL Normal 0.8-3.9 [facility] ([place]) Comment on above: Performed By: #### L IP, CMP, GFR #### [address] [address] Lymphocytes/100 WBC (Bld) 19.8 % Normal 10.0-50.0 [facility] ([place]) Comment on above: Performed By: #### L IP, CMP, GFR #### [address] [address] Monocyte, Absolute 0.5 10 3/mcL Normal 0.2-1.0 [facility] ([place]) Comment on above: Performed By: #### L IP, CMP, GFR #### [address] [address] Monocytes/100 WBC (Bld) 6.1 % Normal 1.7-13.0 [facility] ([place]) Comment on above: Performed By: #### L IP, CMP, GFR #### [address] [address] Neutrophils/100 WBC (Bld) 70.3 % Normal 37.0-80.0 [facility] ([place]) Comment on above: Performed By: #### L IP, CMP, GFR #### [address] [address] .GFRon 03-03-2022 GFR Non- 95 ml/min/1.73sqm Normal [facility] ([place]) Comment on above: Result Comment: GFR Population mean for , Non- Americans Ages 20-29 = 116 mL/min/1.73 sq.m. Ages 30-39 = 107 mL/min/1.73 sq.m. Ages 40-49 = 99 mL/min/1.73 sq.m. Ages 50-59 = 93 mL/min/1.73 sq.m. Ages 60-69 = 85 mL/min/1.73 sq.m. Ages 70+ = 75 mL/min/1.73 sq.m. Chronic Kidney Disease: Less than 60 mL/min/1.73 square meters End Stage Renal Disease: Less than 15 mL/min/1.73 square meters Performed By: #### L IP, CMP, GFR #### [address] [address] GFR 115 ml/min/1.73sqm Normal [facility] ([place]) Comment on above: Result Comment: GFR Population mean for , Non- Americans Ages 20-29 = 116 mL/min/1.73 sq.m. Ages 30-39 = 107 mL/min/1.73 sq.m. Ages 40-49 = 99 mL/min/1.73 sq.m. Ages 50-59 = 93 mL/min/1.73 sq.m. Ages 60-69 = 85 mL/min/1.73 sq.m. Ages 70+ = 75 mL/min/1.73 sq.m. Chronic Kidney Disease: Less than 60 mL/min/1.73 square meters End Stage Renal Disease: Less than 15 mL/min/1.73 square meters Performed By: #### L IP, CMP, GFR #### [place] [address] .MDWon 03-03-2022 Monocyte Distribution Width 15.07 Normal 0.00-20.00 [facility] ([place]) Comment on above: Result Comment: For ED adult patients suspected of sepsis, MDW<=20.0 does not rule out sepsis or risk of sepsis Performed By: #### L IP, CMP, GFR #### [place] [address] .NEUABSon 03-03-2022 Neutrophil, Absolute 5.8 10 3/mcL Normal 2.9-6.2 [facility] ([place]) Comment on above: Performed By: #### L IP, CMP, GFR #### [place] [address] CBCon 03-03-2022 Erythrocyte distribution width (RBC) [Ratio] 13.4 % Normal 11.5-14.5 [facility] ([place]) Comment on above: Performed By: #### L IP, CMP, GFR #### [place] [address] Hematocrit (Bld) [Volume fraction] 42.3 % Normal 42.0-52.0 [facility] ([place]) Comment on above: Performed By: #### L IP, CMP, GFR #### [place] [address] Hgb 15.0 G/dL Normal 14.0-18.0 [facility] ([place]) Comment on above: Performed By: #### L IP, CMP, GFR #### [place] [address] MCH (RBC) [Entitic mass] 30.9 pg Normal 27.0-31.2 [facility] ([place]) Comment on above: Performed By: #### L IP, CMP, GFR #### [place] [address] MCHC 35.5 G/dL High 31.8-35.4 [facility] ([place]) Comment on above: Performed By: #### L IP, CMP, GFR #### [address] [address] MCV (RBC) [Entitic vol] 87.2 fL Normal 80.0-94.0 [facility] ([place]) Comment on above: Performed By: #### L IP, CMP, GFR #### [address] [address] Platelet 193 10 3/mcL Normal 130-400 [facility] ([place]) Comment on above: Performed By: #### L IP, CMP, GFR #### [address] [address] Platelet mean volume (Bld) [Entitic vol] 7.8 fL Normal 7.4-10.4 [facility] ([place]) Comment on above: Performed By: #### L IP, CMP, GFR #### [address] [address] RBC 4.85 10 6/mcL Normal 4.04-6.13 [facility] ([place]) Comment on above: Performed By: #### L IP, CMP, GFR #### [address] [address] WBC 8.2 10 3/mcL Normal 4.6-10.8 [facility] ([place]) Comment on above: Performed By: #### L IP, CMP, GFR #### [address] [address] CMPon 03-03-2022 Albumin Level 4.2 G/dL Normal 3.5-5.0 [facility] ([place]) Comment on above: Performed By: #### L IP, CMP, GFR #### [address] [address] Albumin/Globulin [Mass ratio] 1.3 {ratio} Normal 1.1-2.5 [facility] ([place]) Comment on above: Performed By: #### L IP, CMP, GFR #### [address] [address] ALP [Catalytic activity/Vol] 67 U/L Normal 40-135 [facility] ([place]) Comment on above: Performed By: #### L IP, CMP, GFR #### [address] [address] ALT [Catalytic activity/Vol] 32 U/L Normal 16-63 [facility] ([place]) Comment on above: Performed By: #### L IP, CMP, GFR #### [address] [address] AST [Catalytic activity/Vol] 21 U/L Normal 10-40 [facility] ([place]) Comment on above: Performed By: #### L IP, CMP, GFR #### [address] [address] Bili Total 0.4 mg/dL Normal 0.2-1.0 [facility] ([place]) Comment on above: Result Comment: Use of this assay is not recommended for patients undergoing treatment with eltrombopag due to the potential for falsely elevated results. Performed By: #### L IP, CMP, GFR #### [address] [address] BUN/Creatinine Ratio 11 ratio Normal 7-27 [facility] ([place]) Comment on above: Performed By: #### L IP, CMP, GFR #### [address] [address] Calcium [Mass/Vol] 8.6 mg/dL Normal 8.4-10.2 [facility] ([place]) Comment on above: Performed By: #### L IP, CMP, GFR #### [address] [address] Chloride [Moles/Vol] 101 mmol/L Normal 98-107 [facility] ([place]) Comment on above: Performed By: #### L IP, CMP, GFR #### [address] [address] CO2 [Moles/Vol] 25 mmol/L Normal 22-29 [facility] ([place]) Comment on above: Performed By: #### L IP, CMP, GFR #### [address] [address] Creatinine [Mass/Vol] 0.89 mg/dL Normal 0.70-1.30 [facility] ([place]) Comment on above: Performed By: #### L IP, CMP, GFR #### [address] [address] Electrolyte Balance 12.0 mEq/L Normal 4.0-15.0 [facility] ([place]) Comment on above: Performed By: #### L IP, CMP, GFR #### [address] [address] Globulin 3.2 G/dL Normal [facility] ([place]) Comment on above: Performed By: #### L IP, CMP, GFR #### [address] [address] Glucose [Mass/Vol] 84 mg/dL Normal 70-105 [facility] ([place]) Comment on above: Performed By: #### L IP, CMP, GFR #### [address] [address] Potassium [Moles/Vol] 3.8 mmol/L Normal 3.5-5.1 [facility] ([place]) Comment on above: Performed By: #### L IP, CMP, GFR #### [address] [address] Sodium [Moles/Vol] 138 mmol/L Normal 136-145 [facility] ([place]) Comment on above: Performed By: #### L IP, CMP, GFR #### [address] [address] Total Protein 7.4 G/dL Normal 6.4-8.2 [facility] ([place]) Comment on above: Performed By: #### L IP, CMP, GFR #### [address] [address] Urea nitrogen [Mass/Vol] 10 mg/dL Normal 7-18 [facility] ([place]) Comment on above: Performed By: #### L IP, CMP, GFR #### [place] [address] LABORATORYOrdered By: Wade Rodrigues on 03-03-2022 Albumin BCP dye [Mass/Vol] 4.2 G/dL Invalid Interpretation Code 3.5 - 5.0 G/dL AO ADM SS Albumin/Globulin [Mass ratio] 1.3 {ratio} Invalid Interpretation Code 1.1 - 2.5 ratio AO ADM SS ALP [Catalytic activity/Vol] 67 U/L Invalid Interpretation Code 40 - 135 U/L AO ADM SS ALT With P-5'-P [Catalytic activity/Vol] 32 U/L Invalid Interpretation Code 16 - 63 U/L AO ADM SS AST With P-5'-P [Catalytic activity/Vol] 21 U/L Invalid Interpretation Code 10 - 40 U/L AO ADM SS Bilirubin [Mass/Vol] 0.4 mg/dL Invalid Interpretation Code 0.2 - 1.0 mg/dL AO ADM SS Calcium [Mass/Vol] 8.6 mg/dL Invalid Interpretation Code 8.4 - 10.2 mg/dL AO ADM SS Chloride [Moles/Vol] 101 mmol/L Invalid Interpretation Code 98 - 107 mmol/L AO ADM SS CO2 [Moles/Vol] 25 mmol/L Invalid Interpretation Code 22 - 29 mmol/L AO ADM SS Creatinine [Mass/Vol] 0.89 mg/dL Invalid Interpretation Code 0.70 - 1.30 mg/dL AO ADM SS Electrolyte Balance 12.0 mEq/L Invalid Interpretation Code 4.0 - 15.0 mEq/L AO ADM SS Globulin 3.2 G/dL Invalid Interpretation Code AO ADM SS Glucose [Mass/Vol] 84 mg/dL Invalid Interpretation Code 70 - 105 mg/dL AO ADM SS Lipase [Catalytic activity/Vol] 144 U/L Invalid Interpretation Code 73 - 393 U/L AO ADM SS Potassium [Moles/Vol] 3.8 mmol/L Invalid Interpretation Code 3.5 - 5.1 mmol/L AO ADM SS Protein [Mass/Vol] 7.4 G/dL Invalid Interpretation Code 6.4 - 8.2 G/dL AO ADM SS Sodium [Moles/Vol] 138 mmol/L Invalid Interpretation Code 136 - 145 mmol/L AO ADM SS Urea nitrogen [Mass/Vol] 10 mg/dL Invalid Interpretation Code 7 - 18 mg/dL AO ADM SS Urea nitrogen/Creatinine [Mass ratio] 11 ratio Invalid Interpretation Code 7 - 27 ratio AO ADM SS LABORATORYOrdered By: Maria Dolores Quinones on 03-03-2022 Basophil, Absolute 0.1 103/mcL Invalid Interpretation Code 0.0 - 0.2 10^3/mcL AO Workflow SS Basophils/100 WBC (Bld) 0.6 % Invalid Interpretation Code 0.0 - 2.5 % AO Workflow SS Eosinophil, Absolute 0.3 103/mcL Invalid Interpretation Code 0.0 - 0.4 10^3/mcL AO Workflow SS Eosinophils/100 WBC (Bld) 3.2 % Invalid Interpretation Code 0.0 - 7.0 % AO Workflow SS Erythrocyte distribution width (RBC) [Ratio] 13.4 % Invalid Interpretation Code 11.5 - 14.5 % AO Workflow SS Hematocrit (Bld) [Volume fraction] 42.3 % Invalid Interpretation Code 42.0 - 52.0 % AO Workflow SS Hemoglobin (Bld) [Mass/Vol] 15.0 G/dL Invalid Interpretation Code 14.0 - 18.0 G/dL AO Workflow SS Lymphocyte, Absolute 1.6 103/mcL Invalid Interpretation Code 0.8 - 3.9 10^3/mcL AO Workflow SS Lymphocytes/100 WBC (Bld) 19.8 % Invalid Interpretation Code 10.0 - 50.0 % AO Workflow SS MCH (RBC) [Entitic mass] 30.9 pg Invalid Interpretation Code 27.0 - 31.2 pg AO Workflow SS MCHC 35.5 G/dL Invalid Interpretation Code 31.8 - 35.4 G/dL AO Workflow SS MCV (RBC) [Entitic vol] 87.2 fL Invalid Interpretation Code 80.0 - 94.0 fL AO Workflow SS Monocyte distribution width Auto (Bld) [Entitic vol] 15.07 Invalid Interpretation Code 0.00 - 20.00 AO Workflow SS Comment on above: Result Comment: For ED adult patients suspected of sepsis, MDW<=20.0 does not rule out sepsis or risk of sepsis Monocyte, Absolute 0.5 103/mcL Invalid Interpretation Code 0.2 - 1.0 10^3/mcL AO Workflow SS Monocytes/100 WBC (Bld) 6.1 % Invalid Interpretation Code 1.7 - 13.0 % AO Workflow SS Neutrophil, Absolute 5.8 103/mcL Invalid Interpretation Code 2.9 - 6.2 10^3/mcL AO Workflow SS Neutrophils/100 WBC (Bld) 70.3 % Invalid Interpretation Code 37.0 - 80.0 % AO Workflow SS Platelet mean volume (Bld) [Entitic vol] 7.8 fL Invalid Interpretation Code 7.4 - 10.4 fL AO Workflow SS Platelets (Bld) [#/Vol] 193 103/mcL Invalid Interpretation Code 130 - 400 10^3/mcL AO Workflow SS RBC (Bld) [#/Vol] 4.85 106/mcL Invalid Interpretation Code 4.04 - 6.13 10^6/mcL AO Workflow SS WBC (Bld) [#/Vol] 8.2 103/mcL Invalid Interpretation Code 4.6 - 10.8 10^3/mcL AO Workflow SS LABORATORYOrdered By: SYSTEM SYSTEM on 03-03-2022 GFR 115 ml/min/1.73sqm Invalid Interpretation Code AO Chemistry S GFR Non- 95 ml/min/1.73sqm Invalid Interpretation Code AO Chemistry S LIPon 03-03-2022 Lipase Level 144 U/L Normal 73-393 [facility] ([place]) Comment on above: Performed By: #### L IP, CMP, GFR #### [address] [address] .Urinalysis Microscopic (AO) on 04-30-2021 UA RBC 5-10 Abnormal None Seen [facility] ([place]) Comment on above: Performed By: #### U A, UAMICAO #### [address] [address] UA Squam Epithelial None Seen Normal None Seen [facility] ([place]) Comment on above: Performed By: #### U A, UAMICAO #### [address] [address] UA WBC None Seen Normal None Seen [facility] ([place]) Comment on above: Performed By: #### U A, UAMICAO #### [address] [address] LABORATORYOrdered By: Liv Wan on 04-30-2021 Appearance (U) Clear (04/30/21 5:53 PM) Invalid Interpretation Code Clear AO Auto Urine SS Bilirubin Ql (U) Negative (04/30/21 5:53 PM) Invalid Interpretation Code Negative AO Auto Urine SS Color (U) Yellow (04/30/21 5:53 PM) Invalid Interpretation Code AO Auto Urine SS Glucose Test strip (U) [Mass/Vol] Negative Invalid Interpretation Code Negativemg/d L AO Auto Urine SS Hemoglobin Auto test strip (U) [Mass/Vol] Moderate *ABN* (04/30/21 5:53 PM) Invalid Interpretation Code Negative AO Auto Urine SS Ketones Ql (U) Negative Invalid Interpretation Code Negativemg/d L AO Auto Urine SS UA Leuk Est Negative (04/30/21 5:53 PM) Invalid Interpretation Code Negative AO Auto Urine SS UA Nitrite Negative (04/30/21 5:53 PM) Invalid Interpretation Code Negative AO Auto Urine SS UA pH 5.5 (04/30/21 5:53 PM) Invalid Interpretation Code 5.0 - 8.0 AO Auto Urine SS UA Protein Negative Invalid Interpretation Code Negativemg/d L AO Auto Urine SS UA RBC 5-10 /HPF Invalid Interpretation Code None Seen/HPF AO Auto Urine SS UA Spec Grav 1.015 (04/30/21 5:53 PM) Invalid Interpretation Code 1.015-1.025 AO Auto Urine SS UA Specimen Type Clean Catch (04/30/21 5:53 PM) Invalid Interpretation Code AO Auto Urine SS UA Squam Epithelial None Seen /HPF Invalid Interpretation Code None Seen/HPF AO Auto Urine SS UA Urobilinogen 0.2 E.U./dL Invalid Interpretation Code 0.2-1.0E.U./ dL AO Auto Urine SS WBC LM.HPF (Urine sed) [#/Area] None Seen /HPF Invalid Interpretation Code None Seen/HPF AO Auto Urine SS UAon 04-30-2021 Color (U) Yellow Normal [facility] ([place]) Comment on above: Performed By: #### U A, UAMICAO #### [address] [address] Glucose (U) [Mass/Vol] Negative Normal Negative [facility] ([place]) Comment on above: Performed By: #### U A, UAMICAO #### [address] [address] Ketones Ql (U) Negative Normal Negative [facility] ([place]) Comment on above: Performed By: #### U A, UAMICAO #### [place] [address] UA Appear Clear Normal Clear [facility] ([place]) Comment on above: Performed By: #### U A, UAMICAO #### [address] [address] UA Blood Moderate Abnormal Negative [facility] ([place]) Comment on above: Performed By: #### U A, UAMICAO #### [place] [address] UA Leuk Est Negative Normal Negative [facility] ([place]) Comment on above: Performed By: #### U A, UAMICAO #### [place] [address] UA Nitrite Negative Normal Negative [facility] ([place]) Comment on above: Performed By: #### U A, UAMICAO #### [place] [address] UA pH 5.5 Normal 5.0 - 8.0 [facility] ([place]) Comment on above: Performed By: #### U A, UAMICAO #### [place] [address] UA Protein Negative Normal Negative [facility] ([place]) Comment on above: Performed By: #### U A, UAMICAO #### [place] [address] UA Spec Grav 1.015 Normal 1.015-1.025 [facility] ([place]) Comment on above: Performed By: #### U A, UAMICAO #### [place] [address] UA Specimen Type Clean Catch Normal [facility] ([place]) Comment on above: Performed By: #### U A, UAMICAO #### [place] [address] UA Urobilinogen 0.2 E.U./dL Normal 0.2-1.0 [facility] ([place]) Comment on above: Performed By: #### U A, UAMICAO #### [address] [place], [place] [address] Urobilinogen (U) [Mass/Vol] Negative Normal Negative [facility] ([place]) Comment on above: Performed By: #### U A, UAMICAO #### [address] [place], [place] [address] Vital Signs Date Time Vital Sign Value Performing Clinician Facility 02-25-2025 15:26-0400 Body temperature 97.9 [degF] Dr. Dany Ash MD Work Phone: 8(340)881-180665 [place] [address] 02-25-2025 15:26-0400 Diastolic blood pressure 77 mm[Hg] Dr. Dany Ash MD Work Phone: 0(752)200-234365 [place] [address] 02-25-2025 15:26-0400 Heart rate 56 /min Dr. Dany Ash MD Work Phone: 8(643)482-409565 [place] [address] 02-25-2025 15:26-0400 Respiratory rate 16 /min Dr. Dany Ash MD Work Phone: 8(481)464-834265 [place] [address] 02-25-2025 15:26-0400 SaO2% (BldA) [Mass fraction] 100 % Dr. Dany Ash MD Work Phone: 7(685)817-724565 [place] [address] 02-25-2025 15:26-0400 Systolic blood pressure 116 mm[Hg] Dr. Dany Ash MD Work Phone: 1(860)467-438234 [place] [address] 02-25-2025 11:14-0400 Body height 177.[address] Dany Ash MD Work Phone: 1(657)942-396965 [place] [address] 02-25-2025 11:14-0400 Body mass index (BMI) [Ratio] 27.8 kg/m2 Dr. Dany Ash MD Work Phone: 5(996)682-149534 [place] [address] 02-25-2025 11:14-0400 Body weight 87.[address] Dany Ash MD Work Phone: 0(146)197-273734 [place] [address] 02-15-2025 13:05-0400 Body height 177.[address] Dany Ash MD Work Phone: [facility] 02-15-2025 13:05-0400 Body mass index (BMI) [Ratio] 28.4 kg/m2 Dr. Dany Ash MD Work Phone: [facility] 02-15-2025 13:05-0400 Body weight 89.[address] Dany Ash MD Work Phone: [facility] 02-15-2025 13:05-0400 Diastolic blood pressure 84 mm[Hg] Dr. Dany Ash MD Work Phone: [facility] 02-15-2025 13:05-0400 Respiratory rate 18 /min Dr. Dany Ash MD Work Phone: [facility] 02-15-2025 13:05-0400 Systolic blood pressure 138 mm[Hg] Dr. Dany Ash MD Work Phone: [facility] 08-16-2024 15:53-0500 Body mass index (BMI) [Ratio] 28.79 kg/m2 [facility]TER.ARMATURE INSPECTOR Work Phone: [facility] 08-16-2024 15:53-0500 Body temperature 97.5 [degF] [facility] [employer]YCL[employer] SORTER.ARMATURE INSPECTOR Work Phone: [facility] 08-16-2024 15:53-0500 Body weight 91 kg [facility] [employer]TER.ARMATURE INSPECTOR Work Phone: [facility] 08-16-2024 15:53-0500 Diastolic blood pressure 73 mm[Hg] [facility] [employer] SORTER.ARMATURE INSPECTOR Work Phone: [facility] 08-16-2024 15:53-0500 Heart rate 70 /min [facility] [employer] S[employer]TER.ARMATURE INSPECTOR Work Phone: [facility] 08-16-2024 15:53-0500 Respiratory rate 20 /min [facility] [employer] S[employer]TER.ARMATURE INSPECTOR Work Phone: [facility] 08-16-2024 15:53-0500 SaO2% (BldA) [Mass fraction] 99 % Katlyn Tsai [employer] SORTER.ARMATURE INSPECTOR Work Phone: [facility] 08-16-2024 15:53-0500 Systolic blood pressure 131 mm[Hg] Katlyn Tsai [employer] SORTER.ARMATURE INSPECTOR Work Phone: [facility] 04-10-2022 12:24-0400 Body temperature 98.29 [degF] Josse Jordin [employer] SORTER.ARMATURE INSPECTOR Work Phone: [facility] 04-10-2022 12:24-0400 Body weight 98.7 kg Josse Brenner [employer]S SORTER.ARMATURE INSPECTOR Work Phone: [facility] 04-10-2022 12:24-0400 Diastolic blood pressure 82 mm[Hg] Josse Jordin [employer]S SORTER.ARMATURE INSPECTOR Work Phone: [facility] 04-10-2022 12:24-0400 Heart rate 92 /min Josse Jordin [employer] SORTER.ARMATURE INSPECTOR Work Phone: [facility] 04-10-2022 12:24-0400 Respiratory rate 16 /min Josse Brenner [employer] SORTER.ARMATURE INSPECTOR Work Phone: [facility] 04-10-2022 12:24-0400 SaO2% (BldA) [Mass fraction] 97 % Josse Jordin [employer] SORTER.ARMATURE INSPECTOR Work Phone: [facility] 04-10-2022 12:24-0400 Systolic blood pressure 124 mm[Hg] Josse Jordin [employer] SORTER.ARMATURE INSPECTOR Work Phone: [facility] 03-03-2022 17:55-0400 Body height 177.8 cm PAUL THOMPSON DO [facility] 03-03-2022 17:55-0400 Body temperature 98.78 [degF] PAUL THOMPSON DO [facility] 03-03-2022 17:55-0400 Body weight 95.5 kg PAUL THOMPSON DO [facility] 03-03-2022 17:55-0400 Diastolic blood pressure 86 mm[Hg] PAUL FROMMELT DO [facility] 03-03-2022 17:55-0400 Heart rate 108 /min PAUL FROMMELT DO [facility] 03-03-2022 17:55-0400 Mean blood pressure 100 mm[Hg] PAUL FROMMELT DO [facility] 03-03-2022 17:55-0400 Respiratory rate 22 /min PAUL RICHARDST DO [facility] 03-03-2022 17:55-0400 Systolic blood pressure 129 mm[Hg] PAUL RICHARDST DO [facility] 04-30-2021 17:48-0500 Body temperature 98.42 [degF] DR EARNESTINE PEOPLES MD [facility] 04-30-2021 17:48-0500 Diastolic blood pressure 83 mm[Hg] DR EARNESTINE PEOPLES MD [facility] 04-30-2021 17:48-0500 Heart rate 99 /min DR EARNESTINE PEOPLES MD [facility] 04-30-2021 17:48-0500 Mean blood pressure 98 mm[Hg] DR EARNESTINE PEOPLES MD [facility] 04-30-2021 17:48-0500 Respiratory rate 16 /min DR EARNESTINE PEOPLES MD [facility] 04-30-2021 17:48-0500 Systolic blood pressure 129 mm[Hg] DR EARNESTINE PEOPLES MD [facility] Encounters Encounter Date Encounter Type Care Provider Facility Start: 02-25-2025 ambulatory Herman Domingo lity:[facility] Start: 02-25-2025 Non-patient / Non-visit Dr. Karol Simms MD -[facility] Start: 02-25-2025 End: 02-25-2025 Admission to same day surgery center Dr. Herman Simms [facility] Start: 02-25-2025 End: 02-25-[address] Dany Ash MD Work Phone: [facility] Start: 02-15-2025 End: 02-15-[address] eHrman Simms MD -[facility] Work Phone: Start: 02-15-2025 End: 02-15-[address] Dany Ash MD Work Phone: -[facility] Start: 08-16-2024 End: 08-16-2024 ambulatory DANY ASH Facility:[facility] Start: 08-16-2024 End: 08-16-2024 Office outpatient visit 15 minutes Katlyn Tsai APRN.CNP Work Phone: [facility] Comment on above: Urinary frequency (P rimary Dx) Start: 05-22-2024 ambulatory Herman Domingo lity:[facility] Start: 05-22-2024 End: 05-22-2024 ambulatory Dany Ash Facility:[facility] Start: 04-18-2024 End: 04-18-2024 ambulatory [facility] Facility:[facility] Start: 03-06-2024 End: 03-06-2024 ambulatory [facility] Facility:[facility] Start: 06-30-2022 End: 06-30-2022 Subsequent hospital visit by physician [facility] Work Phone: Radiology Comment on above: Knee injuries, left, initial encounter [S89.92XA] Start: 04-11-2022 Telephone encounter Hermelinda Boudreaux ARMATURE INSPECTOR Work Phone: [facility] Comment on above: Results Start: 04-10-2022 End: 04-10-2022 Patient encounter procedure Josse Brenner APRN.ARMATURE INSPECTOR Work Phone: [facility] Comment on above: Suspected COVID-19 v irus infection (Primary Dx) Start: 03-03-2022 End: 03-03-2022 Emergency department patient visit NOT RECORDED PHYSICIAN Facility:[facility] Start: 03-03-2022 End: 03-03-2022 Emergency department patient visit PAUL THOMPSON [facility] Start: 04-30-2021 End: 04-30-2021 Emergency department patient visit DR. EARNESTINE PEOPLES MD. Facility:[facility] Start: 04-30-2021 End: 04-30-2021 Emergency department patient visit DR EARNESTINE PEOPLES MD [facility] Procedures Date Procedure Procedure Detail Performing Clinician Start: 02-25-[address] Dany Ash MD Work Phone: Start: 08-16-2024 Urnls dip stick/tabl et rgnt auto w/o microscopy Katlyn Tsai APRN.ARMATURE INSPECTOR Work Phone: Start: 06-30-2022 Radiologic exam knee complete 4/more views Josse Brenner APRN.ARMATURE INSPECTOR Work Phone: Start: 07-28-2016 Colonoscopy Josse rai APRN.ARMATURE INSPECTOR Work Phone: Start: 05-28-2011 Lipid 1996 panel - S melinda or Plasma Xr [place] Work Phone: Face structure (body structure) DR EARNESTINE PEOPLES MD Plan of Treatment Date Care Activity Detail Author Start: 09-16-2027 FECAL OCCULT BLOOD FECAL OCCULT BLOO D [facility] Start: 09-16-2027 Screening for malign ant neoplasm of colon Fecal Occult Blood [facility] Start: 07-28-2026 Colonoscopy COLONOSCOPY [facility] Start: 07-28-2026 COLORECTAL CANCER SCREENING COLORECTAL CANCER SCREENING [facility] Start: 07-28-2026 Screening for malign ant neoplasm of colon [facility] Start: 06-30-2026 Urine microalbumin profile [facility] Start: 02-25-2025 Patient discharge [facility] Start: 02-12-2024 Covid-19 Vaccine ( season) Covid-19 Vaccine ( season) [facility] Start: 02-12-2024 Influenza vaccination Influenza Vacc ine (#1) [facility] Start: 02-11-2022 Influenza vaccination INFLUENZA (#1) [facility] Start: 04-25-2021 COVID-19 VACCINE (3 - Booster for Moderna series) COVID-19 VACCINE (3 - Booster for Moderna series) [facility] Start: 2017 Lipid panel Lipid Screening [facility] Start: 2017 LIPID SCREEN LIPID SCREEN [facility] Start: 2001 Hepatitis B Vaccine (1 of 3 - 19+ 3-dose series) Hepatitis B Vaccine (1 of 3 - 19+ 3-dose series) [facility] Start: 2000 HEPATITIS C SCREENING HEPATITIS C [facility] Start: 2000 Hepatitis C screening Hepatitis C [facility] Start: 2000 HIV SCREENING HIV SCREENING [facility] Start: 2000 HIV screening HIV Screening [facility] Start: 1982 HEPATITIS B (1 of 3 - 3-dose series) HEPATITIS B (1 of 3 - 3-dose series) [facility] Bacteria identified in Urine by Culture BACTERIAL CULTURE, URINE Microbiology Routine Urinary frequency Ordered: 08/16/2024 [facility] Work Phone: Comment on above: Ordered: 08/16/2024 Influenza virus A an d B RNA and SARS-CoV-2 (COVID-19) N gene panel - Respiratory specimen by DANIEL with probe detection COVID WITH FLUA+B, ROUTINE Microbiology Routine Suspected COVID-19 virus infection Ordered: 04/10/2022 [facility] Work Phone: Comment on above: Ordered: 04/10/2022 Immunizations Immunization Date Immunization Notes Care Provider Orlando lewis 02-26-2021 Covid (Moderna) Dr. Dany gaxiola MD Work Phone: [facility] 01-25-2021 uGrpreet (Moderna) Dr. Dany gaxiola MD Work Phone: [facility] 06-30-2016 pneumococcal polysaccharide vaccine, 23 valent Josse Brenner RECYCLABLE [employer]ERIALS SORTER.[facility] Work Phone: [facility] 06-30-2016 tetanus toxoid, redu jacqui diphtheria toxoid, and acellular pertussis vaccine, adsorbed Josse King [employer] S[employer].[facility] Work Phone: [facility] 06-30-2016 influenza virus vacc ine, unspecified formulation Xr [place] Work Phone: [facility] 05-25-2011 influenza virus vacc ine, unspecified formulation Josse Jordin RECYCLABLE [employer]ERIALS SORTER.[facility] Work Phone: [facility] Work Phone: 03-16-2006 diphtheria and tetan us toxoids, adsorbed for pediatric use Josse Jordin RECYCLABLE [employer]ERIALS SORTER.[facility] Work Phone: [facility] Work Phone: Payers Date Payer Category Payer Private Health Insurance [facility] [id number] 2024 Private Health Insurance [id number] 2024 Self-pay 2024 Unknown [id number] 2021 Unknown [employer] PPO [id number] 2021-Present [phone] [address] [place] [address] PPO [id number] 2021 Unknown [id number] 1980 Unknown [id number] 1980 Unknown [id number] Unknown [id number] Unknown [id number] Unknown [id number] Unknown [id number] Unknown [id number] Unknown [id number] Unknown [id number] Social History Date Type Detail Facility Start: 10-16-2020 End: 02-15-2025 Ex-smoker (finding) [facility] Start: 1980 Sex Assigned At Male A [facility] History of tobacco use Current smoker [facility] Start: 04-10-2022 Tobacco use and exposure Former smokeless tobacco user [facility] History of tobacco use Chews Tobacco [facility] Start: 04-10-2022 End: 08-16-2024 Alcohol intake Current drinker of alcohol (finding) [facility] Start: 1980 Sex Assigned At Not on file [facility] Start: 05-18-2020 End: 06-30-2022 History of Social function [facility] Start: 05-18-2020 End: 06-30-2022 Tobacco use panel [facility] National Score (1-100), lower number is lower risk Not on file [facility] Start: 10-06-2020 Alcohol Alcohol [facility] Start: 10-06-2020 Drugs Drugs [facility] Start: 10-06-2020 Lives Lives [facility] Start: 09-18-2019 Tobacco Use Tobacco Use [facility] Start: 02-19-2025 Tobacco smoking stat us NHIS Smokes tobacco daily (finding) [facility] Goals Date Patient Goal Desired Activity /State Functional Status Date Assessment Result Facility 03-03-2022 Functional Status Assistive Device None [facility] 03-03-2022 Functional Status Room check performed [facility] 10-30-2014 Are you deaf, or do you have serious difficulty hearing No 10/30/2014 3:18 PM EDT Madelyn Moreland Ma [facility] 10-30-2014 Are you blind, or do you have serious difficulty seeing, even when wearing glasses No 10/30/2014 3:18 PM EDT Madelyn Moreland Ma No [facility] 10-30-2014 Do you have serious difficulty walking or climbing stairs No 10/30/2014 3:18 PM Madelyn Marsh Ma [facility] 10-30-2014 Do you have difficul ty dressing or bathing No 10/30/2014 3:18 PM Madelyn Marsh Ma [facility] 10-30-2014 Because of a physica l, mental, or emotional condition, do you have difficulty doing errands alone such as visiting a physician's office or shopping No 10/30/2014 3:18 PM EDT Madelyn Moreland Ma [facility] Mental Status Date Assessment Result Facility 02-25-2025 Cognitive function Level Of Cons ciousness Follows Commands;Drowsy [facility] Work Phone: 02-25-2025 Cognitive function Voice/Name [facility] Work Phone: 03-03-2022 Mental Status Orientation Oriented x 4 [facility] 03-03-2022 Mental Status [facility] 10-30-2014 Because of a physica l, mental, or emotional condition, do you have serious difficulty concentrating, remembering, or making decisions No 10/30/2014 3:18 PM EDT Aniceto PurcellMadelyn No [facility] Clinical Notes 07-28-2016 to 02-25-2025 Note Date & Type Note Facility 02-25-2025 Consult note [facility] 02-25-2025 Discharge summary Note Date/Time February 25, 2025 1:40pm [facility] Medical Records Department [address] [place] [address] Instructions for Home/Discharge Instructions 02/25/25 1338 MR#: [id number] Acct: [id number] Name: ISRA MENG Rep #:[id number] : 1980 44 From: Herman garcia MD PCP: Dr. Dany Ash MD Status:RE G SDC Discharge Instructions Procedure Gallbladder Diet Discharge Diet: Light diet - advance as tolerated Activity Discharge Activity: May Not Drive (for 2-3 days or while taking narcotic pain medications.) and - (Do not drive, work heavy equipment or sign legal documents for 24 hours.) May shower in (days): 1 Lifting Restrictions: 20 lbs for 2 weeks Additional Activity Instructions:: Pain medication may cause nausea. You should typically eat light foods as you take your pain medications. Pain medication may also cause constipation. If this is a problem for you, please discuss with your doctor. Alternate ibuprofen and Tylenol for pain control, oxycodone for breakthrough pain Dressing / Incision Call your doctor if your incision/area has: Continuous Slow Oozing, Sudden Increased Bleeding, Increased Pain/ Swelling, Increased Redness and Foul Smelling Discharge Call your doctor if you observe: Fever of 101 or Higher Suture Line Care: Avoid Pulling/Pushing and Avoid Pinching/Bending Remove Dressing in: 2 days Cleanse incision/area with: Soap & Water Additional Dressing/Incision Instructions:: Leave operative bandaids on for 2 days. When you remove dressing, leave Steri-Strips on until your follow-up appointment, or until the Steri-Strips fall off on their own. Follow Up Care Please Follow Up With: Herman Simms MD When: Please call to schedule 2 week follow up appointment. [phone] Test Results: Test results from this visit will be discussed in further detail at your follow-up appointment, if applicable. Discharge Plan Admission Attending Provider: Herman Simms Primary Care Provider: Dany Ash Instructions Print Language: Hebrew Discharge Orders/Prescriptions Prescriptions: New oxycodone 5 mg Tablet 5 - 10 mg PO Q4H PRN PRN (Reason: Pain Score 4-10) 5 Days Qty: 14 0RF Referrals / Follow Up: Dany Ash MD [Primary Care Provider] - Disposition Disposition (needs filled in before D/C Order can be placed): Home, Self Care 02/25/25 1340<Electronically signed by Herman Simms MD>Herman Simms MD CC: Dr. Dany Ash MD ~ Signed [facility] Work Phone: [phone] 950-477409-15-2025 History and physical note [facility] Medical Records Department [address] [place] [id number] History & Physical Exam 02/25/25 1154 MR#: [id number] Acct: [id number] Name: ISRA MENG Rep #:[id number] : 1980 44 From: Herman garcia MD PCP: Dr. Dany Ash MD Status:[facility] Location: [place] [address] History and Physical Date of Admission: 02/25/25 Intake Vital Signs 05/22/2407:24 02/15/2513:05 Height 5 ft 10 in 5 ft 10 in Weight: 198 lb BMI 28.4 BP 138/84 H Blood Pressure Location Rt brachial Position Sitting Respiration 18 Intake Visit Reasons: Gallbladder problems Chief Complaint: gallbladder problems Nurse First Assist Required: No Is patient in pain?: No Allergies No Known Allergies Allergy (Verified 02/15/25 13:05) Have you fallen in the past year?: No PFSH Medical History Back pain Smoker Hemorrhoids Acid reflux Abdominal pain Chronic pain Kidney stones Former smoker Asthma Irregular heart beat Former tobacco use Alcohol abuse Alcohol abuse Panic attacks Depression Anxiety Surgical History History of facial surgery Family History Mother Anxiety and depressionFather Diabetes Social History (Updated 02/15/25 @ 13:05 by Ella France) household members: spouse and family Smoking Status: Former smoker (Patient did not smoke today.) how long ago did patient quit smoking: Smoked 3-5 years in his 30s, 1 ppd. alcohol intake: former year quit: 1 details: 3-6, 25 ounce beers daily. substance use type: does not use HPI HPI HPI: Patient is a 44-year-old male here with right upper quadrant pain. He reports the pain is dull but is constant. He said that the pain he was having before has improved but he still has aching in the right upper quadrant that does not go away. He would like his gallbladder removed as there is sludgein it. Current symptoms: Denies constipation Associated symptoms: Denies constipation or diarrhea ROS General General: No weight change, appetite, fatigue, colon cancer, breast cancer or weakness HEENT HEENT: No difficulty swallowing, eye injury, eye surgery, swollen glands or hoarseness Endo Endocrine: No thyroid disease, diabetes mellitus, thyroid cancer, Hair loss, heat intolerance or cold intolerance Skin Skin: No rash or changing moles Musc Musculoskeletal: No back problems, arthritis, rheumatoid arthritis, gout or joint pain Cardio Cardiovascular: No murmur, pacemaker, heart disease, atrial fibrillation, high blood pressure, heart attack, heart stent, palpitations, shortness of breath with exertion or chest pain Psych Psychiatric: Yes anxiety; No depression or hearing voices Resp Respiratory: No shortness of breath, No sleep apnea, No cough, No COPD, No asthma, No emphysema andNo wheezing Gastro Gastrointestinal: Yes abdominal pain, No nausea or vomiting, No diarrhea, No constipation, No bloodin stool, Yes acid reflux, Yes hemorrhoids, No ulcers, Nogallbladder problem and No black,tarry stools Angel Hematologic: No blood thinners, No blood disorders, No bleeding, No anemia and No blood clots Neuro Neurologic: No numbness, No tingling and No weakness Exam Const General: cooperative Orientation: alert and oriented x3 HENMT Head: normal to inspection Neck Neck: normal visual inspection and full ROM Chest Chest palpation & inspection: normal inspection of the chest Resp Effort & Inspection: normal respiratory effort Auscultation: clear to auscultation bilaterally Cardio Rate: regular rate Rhythm: regular rhythm GI Inspection: non-distended Palpation: soft and nontender Skin General: no rashes or lesions noted Neuro General: patient alert and patient oriented x3 Extrem General: full ROM Psych Appearance: grossly normal Mental Status: mental status grossly normal Assessment and Plan Assessment and Plan (1) Gallbladder sludge: Status: Acute (2) Abdominal pain: Status: Acute Qualifiers: Abdominal location: right upper quadrant Qualified Code(s): R10.11 - Right upper quadrant pain Plan The patient is still having right upper quadrant pain despite PPIs. The patienthad an ultrasound ofhis gallbladder that showed polyps as well as sludge. I discussed robotic assisted laparoscopic cholecystectomy with him. I discussed the procedure in detail with the patient. I discussed the risks, benefits, and alternatives of the procedure. I discussed the risks including but not limited to bleeding, infection, injury to surrounding organs such as theliver, bile duct, bowels. I did discuss the possibility of havingto convert allison open procedure as well as the possibility that if any injuries occurred this may necessitate further surgery at a tertiary care center. Herman Simms MD Pager: [facility] [address] [place] [address], [address] [place] [address] Office: I have examined the patient and the H&P has been reviewed. There are no clinicalchanges since date of exam. 02/25/25 1154 Cosigner Signature (if applicable): CC: Dr. Herman Simms MD; Dr. Dany Ash MD~ Signed [facility]2025 Consult note [facility] Medical Records Department [address] [place] [address] Anesthesia Postop Eval II 02/25/25 1450 MR#: [id number] Acct: [id number] Name: ISRA MENG Rep #:[id number] : 1980 44 From: Medhat Luciano MD PCP: Dr. Dany Ash MD Status:RE G SD Y Race: C Location: [place] [address]- Anesthesia Postop Eval I Sum Postop Eval Completion status Anesthesia document: Postop Eval 1 completed: Yes Anesthesia Postop Eval I Summary Anesthesia Postop Eval I Summary: Anesthesia Postop Eval I: Assessment Summary Airway patent Yes 02/25/25 14:23 TECHNICAL SUPPORT MANAGER.TDOB Spontaneous unlabored Yes 02/25/25 14:23 TECHNICAL SUPPORT MANAGER.TDOB respirations Mental status Awake 02/25/25 14:23 TECHNICAL SUPPORT MANAGER.TDOB nausea No 02/25/25 14:23 TECHNICAL SUPPORT MANAGER.TDOB Vomiting No 02/25/25 14:23 TECHNICAL SUPPORT MANAGER.TDOB Anesthesia Postop Eval I: Fluid Summary Crystalloid volume administer 900 02/25/25 14:23 TECHNICAL SUPPORT MANAGER.TDOB (ml) Colloids volume administered ( ml) Blood Product volume administered (ml) Total IV fluid infused 900 02/25/25 14:23 TECHNICAL SUPPORT MANAGER.TDOB Anesthesia Postop Eval I: Summary Notes Anesthesia Complication No 02/25/25 14:23 TECHNICAL SUPPORT MANAGER.TDOB Anesthesia Complication Comment: Post-operative progress note Anesthesia: Postop Eval II Evaluation Mental status: Awake Pain Level: 2 nausea: Yes Vomiting: No 02/25/25 1451 > Date _ Medhat Bradleyignricci Signature: Date CC: ~ Signed [facility]2025 Consult note [facility] Medical Records Department [address] [place] [address] Anesthesia Postop Eval I 02/25/25 1421 MR#: [id number] Acct: [id number] Name: ISRA MENG Rep #:[id number] : 1980 44 From: Sunita Weaver PCP: Dr. Dany Ash MD Status:RE G [facility] Y Race: C Location: [place] [address] Anesthesia: Postop Eval I Current Vital Signs Temperature: 97.4 F Pulse Rate: 77 Blood Pressure: 126/107 Respiratory Rate: 16 Pulse Ox: 99 Oxygen Delivery Method: Room Air Assessment Airway patent: Yes Spontaneous unlabored respirations: Yes Mental status: Awake nausea: No Vomiting: No Anesthesia Complication: No Fluid Hydration Crystalloid volume administer (ml): 900 Total IV fluid infused: 900 Progress Note Anesthesia document: Postop Eval 1 completed: Yes 02/25/25 1423 RNA> Date _ Sunita Dobos TECHNICAL SUPPORT MANAGER Cosigner Signature: Date CC: ~ Signed [facility]2025 History and physical note Author Herman Simms [facility] Note Date/Time February 25, 2025 3:40pm [facility] Medical Records Department [address] [place] [address] History & Physical Exam 02/25/25 1154 MR#: [id number] Acct: [id number] Name: ISRA MENG Rep #:[id number] : 1980 44 From: Herman garcia MD PCP: Dr. Dany Ash MD Status:[facility] Location: [place] [address] History and Physical Date of Admission: 02/25/25 Intake Vital Signs 05/22/2407:24 02/15/2513:05 Height 5 ft 10 in 5 ft 10 in Weight: 198 lb BMI 28.4 BP 138/84 H Blood Pressure Location Rt brachial Position Sitting Respiration 18 Intake Visit Reasons: Gallbladder problems Chief Complaint: gallbladder problems Nurse First Assist Required: No Is patient in pain?: No Allergies No Known Allergies Allergy (Verified 02/15/25 13:05) Have you fallen in the past year?: No PFSH Medical History Back pain Smoker Hemorrhoids Acid reflux Abdominal pain Chronic pain Kidney stones Former smoker Asthma Irregular heart beat Former tobacco use Alcohol abuse Alcohol abuse Panic attacks Depression Anxiety Surgical History History of facial surgery Family History Mother Anxiety and depressionFather Diabetes Social History (Updated 02/15/25 @ 13:05 by Ella France) household members: spouse and family Smoking Status: Former smoker (Patient did not smoke today.) how long ago did patient quit smoking: Smoked 3-5 years in his 30s, 1 ppd. alcohol intake: former year quit: 1 details: 3-6, 25 ounce beers daily. substance use type: does not use HPI HPI HPI: Patient is a 44-year-old male here with right upper quadrant pain. He reports the pain is dull but is constant. He said that the pain he was having before has improved but he still has aching in the right upper quadrant that does not go away. He would like his gallbladder removed as there is sludge in it. Current symptoms: Denies constipation Associated symptoms: Denies constipation or diarrhea ROS General General: No weight change, appetite, fatigue, colon cancer, breast cancer or weakness HEENT HEENT: No difficulty swallowing, eye injury, eye surgery, swollen glands or hoarseness Endo Endocrine: No thyroid disease, diabetes mellitus, thyroid cancer, Hair loss, heat intolerance or cold intolerance Skin Skin: No rash or changing moles Musc Musculoskeletal: No back problems, arthritis, rheumatoid arthritis, gout or joint pain Cardio Cardiovascular: No murmur, pacemaker, heart disease, atrial fibrillation, high blood pressure, heart attack, heart stent, palpitations, shortness of breath with exertion or chest pain Psych Psychiatric: Yes anxiety; No depression or hearing voices Resp Respiratory: No shortness of breath, No sleep apnea, No cough, No COPD, No asthma, No emphysema and No wheezing Gastro Gastrointestinal: Yes abdominal pain, No nausea or vomiting, No diarrhea, No constipation, No blood in stool, Yes acid reflux, Yes hemorrhoids, No ulcers, Nogallbladder problem and No black,tarry stools Angel Hematologic: No blood thinners, No blood disorders, No bleeding, No anemia and No blood clots Neuro Neurologic: No numbness, No tingling and No weakness Exam Const General: cooperative Orientation: alert and oriented x3 HENMT Head: normal to inspection Neck Neck: normal visual inspection and full ROM Chest Chest palpation & inspection: normal inspection of the chest Resp Effort & Inspection: normal respiratory effort Auscultation: clear to auscultation bilaterally Cardio Rate: regular rate Rhythm: regular rhythm GI Inspection: non-distended Palpation: soft and nontender Skin General: no rashes or lesions noted Neuro General: patient alert and patient oriented x3 Extrem General: full ROM Psych Appearance: grossly normal Mental Status: mental status grossly normal Assessment and Plan Assessment and Plan (1) Gallbladder sludge: Status: Acute (2) Abdominal pain: Status: Acute Qualifiers: Abdominal location: right upper quadrant Qualified Code(s): R10.11 - Right upper quadrant pain Plan The patient is still having right upper quadrant pain despite PPIs. The patienthad an ultrasound of his gallbladder that showed polyps as well as sludge. I discussed robotic assisted laparoscopic cholecystectomy with him. I discussed the procedure in detail with the patient. I discussed the risks, benefits, and alternatives of the procedure. I discussed the risks including but not limited to bleeding, infection, injury to surrounding organs such as theliver, bile duct, bowels. I did discuss the possibility of having to convert allison open procedure as well as the possibility that if any injuries occurred this may necessitate further surgery at a tertiary care center. Herman Simms MD Pager: [facility] [address] [place] [address], [address] [place] [address] Office: I have examined the patient and the H&P has been reviewed. There are no clinicalchanges since date of exam. 02/25/25 1158 <Electronically signed by Herman Simms MD> Cosigner Signature (if applicable): CC: Dr. Herman Simms MD; Dr. Dany Ash MD~ Signed [facility] Work Phone: [phone] 180-634409-15-2025 Discharge summary [facility] Medical Records Department [address] [place] [address] Instructions for Home/Discharge Instructions 02/25/25 1338 MR#: [id number] Acct: [id number] Name: ISRA MENG Rep #:[id number] : 1980 44 From: Herman garcia MD PCP: Dr. Dany Ash MD Status:RE G [facility] Discharge Instructions Procedure Gallbladder Diet Discharge Diet: Light diet - advance as tolerated Activity Discharge Activity: May Not Drive (for 2-3 days or while taking narcotic pain medications.) and - (Do not drive, work heavy equipment or sign legal documents for 24 hours.) May shower in (days): 1 Lifting Restrictions: 20 lbs for 2 weeks Additional Activity Instructions:: Pain medication may cause nausea. You should typically eat lightfoods as you take your pain medications. Pain medication may also cause constipation. If this is a problem for you, please discuss with yourdoctor. Alternate ibuprofen and Tylenol for pain control, oxycodone for breakthrough pain Dressing / Incision Call your doctor if your incision/area has: Continuous Slow Oozing, Sudden Increased Bleeding, Increased Pain/ Swelling, Increased Redness and Foul Smelling Discharge Call your doctor if you observe: Fever of 101 or Higher Suture Line Care: Avoid Pulling/Pushing and Avoid Pinching/Bending Remove Dressing in: 2 days Cleanse incision/area with: Soap & Water Additional Dressing/Incision Instructions:: Leave operative bandaids on for 2 days. When you removedressing, leave Steri-Strips on until your follow-up appointment, or until the Steri-Strips fall off on their own. Follow Up Care Please Follow Up With: Herman Simms MD When: Please call to schedule 2 week follow up appointment. [phone] Test Results: Test results from this visit will be discussed in further detail at your follow- up appointment, if applicable. Discharge Plan Admission Attending Provider: Herman Simms Primary Care Provider: Dany Ash Instructions Print Language: Hebrew Discharge Orders/Prescriptions Prescriptions: New oxycodone 5 mg Tablet 5 - 10 mg PO Q4H PRN PRN (Reason: Pain Score 4-10) 5 Days Qty: 14 0RF Referrals / Follow Up: Dany Ash MD [Primary Care Provider] - Disposition Disposition (needs filled in before D/C Order can be placed): Home, Self Care 02/25/25 1340Herman Simms MD CC: Dr. Dany Ash MD ~ Signed [facility]2025 Procedure note [facility] Medical Records Department [address] [place] [address] Operative Report 02/25/25 1335 MR#: [id number] Acct: [id number] Name: ISRA MENG Rep #:[id number] : 1980 44 From: Herman garcia MD PCP: Dr. Dany Ash MD Status:[facility] Location: [place] [address] Operative Report (Standard) Operative Information Date of Procedure: 02/25/25 Pre-Operative Diagnosis: Gallbladder sludge Post-Operative Diagnosis: Same Surgery/Procedure Performed: Robotic assisted laparoscopic cholecystectomy calliope player: Yes Car Record Clerk: Stacy Tesfaye Tasks completed by first dyer: Opening & closing Type of Anesthesia: General/Regional RN Documented Start/Stop Times: Operation Date: 02/25/25 12:45 Case Time Into Pre-Op 02/25/25 11:00 Out of Pre-Op 02/25/25 12:32 Anesthesia Start 02/25/25 12:39 Into Room 02/25/25 12:39 Procedure Start 02/25/25 12:57 Procedure Start Time: 12:57 Procedure Stop Time: 13:40 Select all DRAINS/GRAFTS/IMPLANTS that apply: None Estimated Blood Loss: 5 Specimen collected: Yes Description of specimen(s) removed: Gallbladder Description of surgery: Patient was brought back to the operating room and general anesthesia was induced. The abdomen was prepped and draped in usual sterile fashion. A midline incision was made superior to the umbilicus and the fascia was grasped and elevated. Veress needle was placed into the abdomen and a drop test was performed. The abdomen was then insufflated to 15 mmHg. The needle was removedand a port was placed. The camera was placed through the port and it was inspected for injuries and there were none fromentry. Next under direct visualization an 8 mm port was placed in the right upper quadrant and two 8 mm ports in the left upper quadrant and the patient was placed in steep reverse Trendelenburg. Therobot was docked. The gallbladder was grasped and retractedcephalad. The fundus was grasped and retracted laterally. The peritoneum was stripped from the gallbladder. The cystic duct was identified wi th the assistance of ICG. It was dissected free. The cystic artery was dissected freeas well. Clipswere placed on both and they were divided. Next the gallbladderwas taken off of the gallbladder fossa using electrocautery hook. There was good hemostasis and no leaking bile. Next the gallbladder was placed into a bagand removed. The robot was undocked and the ports were removed and the air was allowed to desufflate from the abdomen. The incisions were injected with local anesthetic and closed with interrupted 4-0 Monocryl sutures. Steri-Strips and bandages were applied. Patient was awoken andtaken to PACU in stable conditionand tolerated the procedure well. Surgical Findings: None Complications Complications: No Admit VTE Documentation VTE Mechan Device Prophylaxis: SCD's 02/25/25 1337 Cosigner Signature (if applicable): CC: Dr. Herman Simms MD; Dr. Dany Ash MD~ Signed [facility]2025 Consult note Author Medhat janneth [facility] Note Date/Time February 25, 2025 3:40pm [facility] Medical Records Department [address] [place] [address] Pre-Anesthesia Evaluation 02/25/25 1125 MR#: [id number] Acct: [id number] Name: ISRA MENG Rep #:[id number] : 1980 44 From: Medhat Luciano MD PCP: Dr. Dany Ash MD Status:RE G [facility] Y Race: C Location: [place] [address] ASA Classification* ASA Classification ASA Classification: 2 Assessment & Plan Anesthesia* Anesthesia Assessment Anesthesia Assessment: Discussed sedation and/or anesthesia options, risks, benefits, and alternatives with patient/parents/legal guardian/POA. Questions invited. The patient/parents/legal guardian/POA seems to understand and agrees to proceedwith anesthesia plan. Reviewed the physical assessment, medical history, allergy history and patient home medications list prior to surgery/procedure/anesthetic and documented any changes. Performed airway and anesthesia risk assessments. Anesthesia Type Anesthesia Type: General Anesthesia Focused Assessment* Temperature: 97.3 F Pulse Rate: 53 Blood Pressure: 116/67 Respiratory Rate: 16 Pulse Ox: 99 Airway Assessment Mouth opens: >3 cm Mallampati Score: II Labs Anesthesia Preop lab: CBC WBC 7.7 K/mm3 (4.4-11.0) 06/03/21 16:10 06/03/21 RBC 4.84 M/mm3 (4.6-6.2) 06/03/21 16:10 06/03/21 Hgb 14.7 g/dL (13.0-16.5) 06/03/21 16:10 06/03/21 Hct 41.5 % (40-54) 06/03/21 16:10 06/03/21 Plt Count 257 K/mm3 (150-450) 06/03/21 16:10 06/03/21 CHEMISTRY Potassium 4.2 mmol/L (3.5-5.1) 06/03/21 16:10 06/03/21 Sodium 140 mmol/L (136-145) 06/03/21 16:10 06/03/21 Magnesium 2.2 mg/dL (1.6-2.6) 04/05/21 21:15 04/05/21 Phosphorus 4.2 mg/dL (2.5-4.9) 04/05/21 21:15 04/05/21 BUN 19 mg/dL (7-18) H 06/03/21 16:10 06/03/21 Creatinine 0.99 mg/dL (0.70-1.30) 06/03/21 16:10 06/03/21 Glucose 122 mg/dL (74-106) H 06/03/21 16:10 06/03/21 TSH 2.82 uIU/mL (0.358-3.74) 10/04/20 07:22 COAG PT 11.6 SECONDS (11.7-14.9) L 04/05/21 21:15 03/14 10/01 Pre-Assessment Diagnosis/Proposed Procedure Planned Operative Procedure(s): ROBOTIC CHOLECYSTECTOMY Anesthesia History Anesthesia History - federal mediation commissioner: Anesthesia History - federal mediation commissioner Hx Hospitalization No 02/19/25 14:10 Any Problems With Anesthesia No 02/19/25 14:10 Cholinesterase deficiency No 02/19/25 14:10 You/Your Family Experience No 02/19/25 14:10 fever (hyperthermia) with Relationship Recent Exposure to Contagious No 02/25/25 11:14 Disease Does patient have nerve No 02/19/25 14:10 stimulator Patient instructed to have device shut off --Does patient have Pacemaker No 02/25/25 11:14 or ICD? When Was Last Pacemaker Check QUESTION #4 FULL TEXT: You/Your Family Experience fever (hyperthermia) with Anesthesia Last Oral Intake Last Oral intake: Last Oral Intake NPO since 22:00 02/25/25 11:14 Meds taken in AM with sips of water? 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 - federal mediation commissioner: PONV - federal mediation commissioner Female No 02/19/25 14:10 HX of Motion Sickness No 02/19/25 14:10 HX of N/V After Surgery No 02/19/25 14:10 Non-Smoker Yes 02/19/25 14:10 Duration of Surgery greater Yes 02/19/25 14:10 than 60 minutes Number of Risk Factors 2 02/19/25 14:10 PONV Score Moderate Risk 02/19/25 14:10 Height & Weight Height & Weight: Anesthesia: Height & Weight Height 5 ft 10 in 02/25/25 11:14 Weight: 87.8 kg 02/25/25 11:14 Body Mass Index (BMI) 27.8 02/25/25 11:14 Respiratory Assessment Respiratory Assessment - federal mediation commissioner: Respiratory Tract Infection Hx - federal mediation commissioner Hx Respiratory Tract Infection No 02/19/25 14:10 STOP Sleep Apnea STOP Sleep Apnea - federal mediation commissioner: STOP Sleep Apnea - federal mediation commissioner Hx Hypertension No 02/19/25 14:10 Hx Sleep Apnea No 02/19/25 14:10 CPAP BIPAP Do you snore loudly (louder Yes 02/19/25 14:10 than talking or can be heard Do you often feel tired/ No 02/19/25 14:10 fatigued/ sleepy during daytime? Has anyone observed you stop Yes 02/19/25 14:10 breathing during sleep? STOP Results Positive 02/19/25 14:10 QUESTION #5 FULL TEXT : Do you snore loudly (louder than talking or can be heard through closed doors)? Tobacco Use History Tobacco Use History - federal mediation commissioner: Tobacco Use History - federal mediation commissioner Tobacco Use Smoking Status Current every day smoker 02/19/25 14:10 Hx Tobacco Use Yes 02/19/25 14:10 Years Smoking Packs Smoked per Day Smoking Cessation Date was within the last 15 years Hx Smoking Cessation Date Hx Smoking Cessation Counseling Hematologic Medial History Hematologic Hx - federal mediation commissioner: Hematologic Medical Hx - clinical operations consultant Hx of Blood Transfusion No 02/19/25 14:10 Hx of Transfusion in last 3 No 02/19/25 14:10 Months Date of Last Transfusion (if within last 3 months) Ever experience any problems No 02/19/25 14:10 with transfusion(s)? Specify any problems Hx of Preganancy in last 3 N/A 02/19/25 14:10 Months Nurse Filling Out Transfusion [email or web address] 02/19/25 14:10 & Questions: Date: 02/19/25 02/19/25 14:10 Time: 14:12 02/19/25 14:10 Patient unable to answer at this time (ie. confused, unrespo /Reproduction History /Reproductive History - federal mediation commissioner: /Reproductive Hx- federal mediation commissioner Hx Now Gestational Age (in weeks): EDC: Hx Hx Para Hx Section SAB Active Medications Active Medications: Current Medications Generic Name Dose Route Start Last Admin Trade Name Freq PRN Reason Stop Dose Admin Indocyanine Green 3.75 mg/ N/A 1.5 mls @ 999 mls/hr 02/25/25 12:00 02/25/25 11:21 IV 02/25/25 12:01 999 mls/hr PREOP ONE Administration Cefotetan Disodium 2 gm/ 100 mls @ 200 mls/hr 02/25/25 12:45 Sodium Chloride IV 02/25/25 13:14 INTRAOP ONE Lactated Ringer's 1,000 mls @ 15 mls/hr 02/25/25 11:15 02/25/25 11:21 IV 15 mls/hr .Q48H VIVIANA Administration PFSH Medical History Back pain Smoker Hemorrhoids Acid reflux Abdominal pain Chronic pain Kidney stones Former smoker Asthma Irregular heart beat Former tobacco use Alcohol abuse Panic attacks Depression Anxiety Home Medications ?Medication ?Instructions ?Recorded ?Last Taken ?Type NK 02/19/25 Unknown History Allergy/AdvReac Type Severity Reaction Status Date / Time No Known Allergies Allergy Verified 02/25/25 11:13 Family History Mother Anxiety and depression Father Diabetes Surgical History History of facial surgery Social History household members: spouse and family Smoking Status: Current every day smoker tobacco type: smokeless tobacco how long ago did patient quit smoking: Smoked 3-5 years in his 30s, 1 ppd. alcohol intake: former year quit: 1 details: 3-6, 25 ounce beers daily. substance use type: does not use Review of Systems (Anesthesia) ROS Narrative System reviewed and no additional complaints, except as documented. 02/25/25 1125 <Electronically signed by Medhat Luciano MD > Date _ Medhat Luciano MD Cosigner Signature: Date CC: ~ Signed [facility] Work Phone: 1(134) 330-717709-05-2025 Evaluation note* Diagnosis Onset Date Resolution Status Admit Date Abdominal pain acute February 15, 2025 12:49pm Gallbladder sludge acute Septem 2024 12:49pm [facility] Work Phone: 1(877) 555-471503-06-2025 NoteHNO ID: [id number] Author: KATLYN TSAI APRN.[facility] Service: ? Author Type: Nurse Practitioner Type: Progress Notes Filed: 08/16/2024 16:12 Note Text: [facility] Subjective Isra Meng is a 43 year old male. Nontoxic-appearing male presents urgent care requesting MRSA testing. States found out his had MRSA on a polyp that was removed from her cervix. Concerned about possible MRSA. Denies any symptoms. Denies any pain. No testicular pain scrotal swelling dysuria urgency epididymis pain penile drainage. Past medical history prescription medications allergies reviewed. No fevers. .Patient presents with: MRSA concerns: States his , had polyp removed which had mrsa on it, he is concerned for possible, mrsa, PAST MEDICAL HISTORY Diagnosis Date Allergic rhinitis, cause unspecified Allergic rhinitis Anxiety Back pain Unspecified asthma(493.90) As child PAST SURGICAL HISTORY Procedure Laterality Date COLONOSCOPY FLX DX W/COLLJ SPEC WHEN PFRMD N/A 07/28/2016 MAC PAST SURGICAL HISTORY OF 2004 skull fracture ALLERGIES Seasonal Allergies MEDICATIONS omeprazole (PRILOSEC) 40 mg capsule Take 40 mg by mouth once daily. (Patient not taking: Reported on 08/16/2024) sertraline (ZOLOFT) 100 mg tablet (Patient not taking: Reported on 08/16/2024) sucralfate (CARAFATE) 1 gram tablet Take 1 g by mouth four times daily. (Patient not taking: Reported on 08/16/2024) escitalopram oxalate (LEXAPRO) 10 mg tablet Take 1 tablet by mouth once daily. (Patient not taking: Reported on 04/10/2022) FAMILY HISTORY Problem Relation Age of Onset Psychiatry Mother Depression Psychiatry Father Anxiety Diabetes Maternal Grandfather GI Paternal Grandmother Cirrhosis Social History Tobacco Use Smoking status: Former Smokeless tobacco: Former Types: Chew Vaping Use Vaping status: Former Substance Use Topics Alcohol use: Yes Comment: social, 2-3 beers/night Drug use: No Patient presents with: MRSA concerns: States his , had polyp removed which had mrsa on it, he is concerned for possible, mrsa, HPI Review of Systems Constitutional: Negative for appetite change, chills, diaphoresis, fatigue and fever. Gastrointestinal: Negative for abdominal pain, diarrhea, nausea and vomiting. Genitourinary: Negative for decreased urine volume, dysuria, enuresis, flank pain, genital sores, hematuria, penile discharge, penile pain, penile swelling, scrotal swelling, testicular pain and urgency. Objective BP 131/73 Pulse 70 Temp 36.4 ?C (97.5 ?F) Resp 20 Wt 91 kg (200 lb 9.9 oz) SpO2 99% BMI 28.79 kg/m? Physical Exam Constitutional: Appearance: Normal appearance. He is normal weight. HENT: Head: Normocephalic. Eyes: Conjunctiva/sclera: Conjunctivae normal. Cardiovascular: Rate and Rhythm: Normal rate. Pulmonary: Effort: Pulmonary effort is normal. Abdominal: Tenderness: There is no abdominal tenderness. There is no right CVA tenderness, left CVA tenderness, guarding or rebound. Genitourinary: Comments: Deferred exam Musculoskeletal: Cervical back: Normal range of motion. Skin: Findings: No rash. Neurological: General: No focal deficit present. Mental Status: He is alert and oriented to person, place, and time. Mental status is at baseline. ASSESSMENT/PLAN: 1. Urinary frequency - ICD9: 788.41, ICD10: R35.0 - UA DIP, URINE (POC) - BACTERIAL CULTURE, URINE Asymptomatic. Deferred exam. Urine dip negative. Treat according to culture results. If symptoms do develop will follow-up with PCP. Patient was educated on supportive therapies. Patient will follow up with primary care provider as needed. Patient was instructed to immediately proceed to emergency room for any new, worsening, or symptoms lasting longer than anticipated. The patient's clinical presentation is otherwise unremarkable at this time. Based on exam and clinical finding, the patient is stable for discharge. Plan of care was discussed with patient. Patient verbalizes understanding and agrees to plan of care. This note was generated using Virtustream software. It may contain errors in wording, punctuation, or spelling. Katlyn Tsai APRN.ARMATURE INSPECTOR [facility] History of Present illness Narrative* Katlyn Tsai APRN.KIKO - 08/16/2024 3:52 PM EST [facility] Subjective Isra Meng is a 43 year old male. Nontoxic-appearing male presents urgent care requesting MRSA testing. States found out his hadMRSA on a polyp that was removed from her cervix. Concerned about possible MRSA. Denies any symptoms. Denies any pain. No testicular pain scrotal swelling dysuria urgency epididymis pain penile draina ge. Past medical history prescription medications allergies reviewed. No fevers. .Patient presents with: MRSA concerns: States his , had polyp removed which had mrsa on it, he is concerned for possible, mrsa, PAST MEDICAL HISTORY Diagnosis Date Allergic rhinitis, cause unspecified Allergic rhinitis Anxiety Back pain Unspecified asthma(493.90) As child PAST SURGICAL HISTORY Procedure Laterality Date COLONOSCOPY FLX DX W/COLLJ SPEC WHEN PFRMD N/A 07/28/2016 MAC PAST SURGICAL HISTORY OF 2004 skull fracture ALLERGIES Seasonal Allergies MEDICATIONS omeprazole (PRILOSEC) 40 mg capsule Take 40 mg by mouth once daily. (Patient not taking: Reported on 08/16/2024) sertraline (ZOLOFT) 100 mg tablet (Patient not taking: Reported on 08/16/2024) sucralfate (CARAFATE) 1 gram tablet Take 1 g by mouth four times daily. (Patient not taking: Reported on 08/16/2024) escitalopram oxalate (LEXAPRO) 10 mg tablet Take 1 tablet by mouth once daily. (Patient not taking:Reported on 04/10/2022) FAMILY HISTORY Problem Relation Age of Onset Psychiatry Mother Depression Psychiatry Father Anxiety Diabetes Maternal Grandfather GI Paternal Grandmother Cirrhosis Social History Tobacco Use Smoking status: Former Smokeless tobacco: Former Types: Chew Vaping Use Vaping status: Former Substance Use Topics Alcohol use: Yes Comment: social, 2-3 beers/night Drug use: No Patient presents with: MRSA concerns: States his , had polyp removed which had mrsa on it, he is concerned for possible, mrsa, HPI Review of Systems Constitutional: Negative for appetite change, chills, diaphoresis, fatigue and fever. Gastrointestinal: Negative for abdominal pain, diarrhea, nausea and vomiting. Genitourinary: Negative for decreased urine volume, dysuria, enuresis, flank pain, genital sores, hematuria, penile discharge, penile pain, penile swelling, scrotal swelling, testicular pain and urgency. Objective BP 131/73 Pulse 70 Temp 36.4 C (97.5 F) Resp 20 Wt 91 kg (200 lb 9.9 oz) SpO2 99% BMI 28.79 kg/m Physical Exam Constitutional: Appearance: Normal appearance. He is normal weight. HENT: Head: Normocephalic. Eyes: Conjunctiva/sclera: Conjunctivae normal. Cardiovascular: Rate and Rhythm: Normal rate. Pulmonary: Effort: Pulmonary effort is normal. Abdominal: Tenderness: There is no abdominal tenderness. There is no right CVA tenderness, left CVA tenderness, guarding or rebound. Genitourinary: Comments: Deferred exam Musculoskeletal: Cervical back: Normal range of motion. Skin: Findings: No rash. Neurological: General: No focal deficit present. Mental Status: He is alert and oriented to person, place, and time. Mental status is at baseline. ASSESSMENT/PLAN: 1. Urinary frequency - ICD9: 788.41, ICD10: R35.0 - UA DIP, URINE (POC) - BACTERIAL CULTURE, URINE Asymptomatic. Deferred exam. Urine dip negative. Treat according to culture results. If symptomsdo develop will follow-up with PCP. Patient was educated on supportive therapies. Patient will follow up with primary care provider as needed. Patient was instructed to immediately proceed to emergency room for any new, worsening, or symptoms lasting longer than anticipated. The patient's clinical presentation is otherwise unremarkable at this time. Based on exam and clinical finding, the patient is stable for discharge. Plan of care was discussed with patient. Patient verbalizes understanding and agrees to plan of care. This note was generated using Virtustream software. It may contain errors in wording, punctuation, or spelling. Katlyn Tsai APRN.KIKO MDM Procedures documented in [facility]Bl[facility] Medical Records Department [address] [place] [address] History Physical Exam 05/22/24811 MR#: [id number] Acct: [id number] Name: ISRA MENG Rep #: [id number] : 1980 43 From: Herman Simms MD PCP: Dr. Dany Ash MD Status:[facility] Location: [place] [address] History and Physical Date of Admission: 05/22/24 Intake Vital Signs 06/17/2221:44 04/18/2414:58 Height 5 ft 10 in 5 ft 10 in Weight: 192 lb BMI 27.5 BP 132/72 H Blood Pressure Location Rt brachial Position Sitting Respiration 18 Pulse 80 Pulse Source Monitor Temp 97.9 F Temp Source Temporal Pulse Oximetry (%) 100 Oxygen Delivery Method room air Intake Visit Reasons: DYSPEPSIA Chief Complaint: Dyspepsia Is patient in pain?: Yes (intermitted RUQ pain) Allergies No Known Allergies Allergy (Verified 04/18/24 14:59) Medications ???Medication ???Instructions ???Recorded ???Confirmed ???Type omeprazole 20 mg capsule,delayed 20 mg PO QDAY 04/18/24 04/18/24 History release [facility] Medical History (Updated 04/18/24 @ 15:[address] Herman Simms MD) Hemorrhoids Acid reflux Abdominal pain Chronic pain Kidney stones Former smoker Asthma Irregular heart beat Former tobacco use Alcohol abuse Alcohol abuse Panic attacks Depression Anxiety Surgical History History of facial surgery Family History Mother Anxiety and depressionFather Diabetes Social History (Updated 04/18/24 @ 14:58 by Kimberly Yanes LPN) household members: spouse and family Smoking Status: Former smoker how long ago did patient quit smoking: Smoked 3-5 years in his 30s, 1 ppd. alcohol intake: former year quit: 1 details: 3-6, 25 ounce beers daily. substance use type: does not use HPI HPI HPI: Patient is a 43-year-old male here for epigastric pain. He says the pain also radiates under his right ribs. Patient does have an ultrasound that shows sludge and polyps in his gallbladder. The patient is here because he believes he has a stomach ulcer. He was started on a PPI by his primary care physician which did help and when he ran out his pain came back. Patient does not describe nausea or vomiting and says that it does not always happen after eating and sometimes the eating makes it feel better. He says has been going on for about a year. ROS General General: No weight change, appetite, fatigue, colon cancer, breast cancer or weakness HEENT HEENT: No difficulty swallowing, eye injury, eye surgery, swollen glands or hoarseness Endo Endocrine: No thyroid disease, diabetes mellitus, thyroid cancer, Hair loss, heat intolerance or cold intolerance Skin Skin: No rash or changing moles Musc Musculoskeletal: No back problems, arthritis, rheumatoid arthritis, gout or joint pain Cardio Cardiovascular: No murmur, pacemaker, heart disease, atrial fibrillation, high blood pressure, heart attack, heart stent, palpitations, shortness of breat with exertion or chest pain Psych Psychiatric: Yes anxiety; No depression or hearing voices Resp Respiratory: No shortness of breath, No sleep apnea, No cough, No COPD, No asthma, No emphysema and No wheezing Gastro Gastrointestinal: Yes abdominal pain, No nausea or vomiting, No diarrhea, No constipation, No blood in stool, Yes acid reflux, Yes hemorrhoids, No ulcers, No gallbladder problem and No black,tarry stools Angel Hematologic: No blood thinners, No blood disorders, No bleeding, No anemia and No blood clots Neuro Neurologic: No numbness, No tingling and No weakness Exam Const General: cooperative Orientation: alert and oriented x3 HENMT Head: normal to inspection Neck Neck: normal visual inspection and full ROM Chest Chest palpation inspection: normal inspection of the chest Resp Effort Inspection: normal respiratory effort Auscultation: clear to auscultation bilaterally Cardio Rate: regular rate Rhythm: regular rhythm GI Inspection: non-distended Palpation: soft and nontender Skin General: no rashes or lesions noted Neuro General: patient alert and patient oriented x3 Extrem General: full ROM Psych Appearance: grossly normal Mental Status: mental status grossly normal Assessment and Plan Assessment and Plan (1) Abdominal pain: Status: Acute Qualifiers: Abdominal location: epigastric Qualified Code(s): R10.13 - Epigastric pain Plan: Patient is having epigastric pain which may be due to ulcer or gastritis. I will perform an EGD to evaluate. If EGD is normal I would recommend laparoscopic cholecystectomy. I explained endoscopy in detail to the patient. I explained the risks including but not limited to stroke or heart attack wit (more content not included)...[facility]01-18-2023 History of Present illness Narrative* Uma Lainez RT(R) - 06/30/2022 10:50 AM EST Radiology Service Progress Note PATIENT NAME: Isra Meng DATE OF SERVICE: June 30, 2022 TIME: 10:52 AM PATIENT IDENTITY VERIFICATION COMPLETED USING TWO (2) IDENTIFIERS: Name and Date of confirmedby patient verbally. FALL SCREENING: Has the patient had 2 falls in the last year or 1 fall with injury or currently using an Ambulatory Assistive Device (Walker, Cane, Wheelchair, Crutches, etc.)? No PATIENT GENDER DATA: Male PATIENT RELEVANT IMPLANT DATA REVIEWED: Not Applicable RADIOLOGY DEPARTMENT: General X-ray: Exam(s) Completed: Lower Extremity X- Ray(s): Knee, AP / Lat / Tunne / Merchant Left and Wt. Bearing PERIPHERAL IV DATA: Not applicable SIGNED BY: RT Eugene(R) June 30, 2022 10:52 AM documented in this encounterBlanchard [facility]10-30-2022 Miscellaneous Notes* Telephone Encounter - Latasha Dey LPN - 04/11/2022 11:03 AM EDT Unable to reach patient but results were reviewed by him today at 8:35 am.Latasha Dey LPN * Telephone Encounter - Dorothy Jasso - 04/11/2022 8:19 AM EDT Unable to reach patient. Mailbox full/Mailbox not set up/ Number incorrect. Please try again later. Dorothy Jasso * Telephone Encounter - Hermelinda Boudreaux APRN.KIKO - 04/11/2022 8:06 AM EDT Patient was positive for COVID. Patient was negative for flu. Please notify patient to quarantine for 5 days from start of symptoms then mask for another 5 days. If symptoms are worsening follow-up with primary care. documented in this encounterBlanchard Valley [facility]10-29-[facility] History of Present illness Narrative* Josse Brenner APRN.ARMATURE INSPECTOR - 04/10/2022 12:46 PM EDT Subjective HPI HPI Isra Meng is a 41 year old male who presents today for CC of cough, congestion, st, h/a, fatigue. This started 4 days ago. Has tried otc mediaction at home. Symptoms are worsened by nothing. Risk factors positive with covid. .Patient presents with: Nasal Congestion: Congestion, runny nose, MONTIEL and fatigue x 4 days-exposed PAST MEDICAL HISTORY Diagnosis Date Allergic rhinitis, cause unspecified Allergic rhinitis Anxiety Back pain Unspecified asthma(493.90) As child PAST SURGICAL HISTORY Procedure Laterality Date COLONOSCOPY FLX DX W/COLLJ SPEC WHEN PFRMD N/A 07/28/2016 MAC PAST SURGICAL HISTORY OF 2004 skull fracture ALLERGIES Seasonal Allergies MEDICATIONS omeprazole (PRILOSEC) 40 mg capsule Take 40 mg by mouth once daily. sertraline (ZOLOFT) 100 mg tablet sucralfate (CARAFATE) 1 gram tablet Take 1 g by mouth four times daily. escitalopram oxalate (LEXAPRO) 10 mg tablet Take 1 tablet by mouth once daily. (Patient not taking:Reported on 04/10/2022) FAMILY HISTORY Problem Relation Age of Onset Psychiatry Mother Depression Psychiatry Father Anxiety Diabetes Maternal Grandfather GI Paternal Grandmother Cirrhosis Social History Tobacco Use Smoking status: Former Smokeless tobacco: Former Types: Chew Vaping Use Vaping Use: Former Substance Use Topics Alcohol use: Yes Comment: social, 2-3 beers/night Drug use: No Review of Systems Constitutional: Positive for malaise/fatigue. Negative for fever. HENT: Positive for congestion and sore throat. Negative for ear pain and nosebleeds. Respiratory: Positive for cough. Negative for shortness of breath and wheezing. Cardiovascular: Negative for chest pain. Gastrointestinal: Negative for diarrhea and vomiting. Musculoskeletal: Negative for neck pain. Skin: Negative for itching and rash. Objective Blood pressure 124/82, pulse 92, temperature 36.8 C (98.3 F), temperature source Tympanic, resp. rate 16, weight 98.7 kg (217 lb 9.6 oz), SpO2 97 %. Physical Exam Constitutional: General: He is not in acute distress. Appearance: He is not toxic-appearing or diaphoretic. HENT: Head: Normocephalic and atraumatic. Right Ear: Hearing, tympanic membrane, ear canal and external ear normal. Left Ear: Hearing, tympanic membrane, ear canal and external ear normal. Nose: Nose normal. Mouth/Throat: Pharynx: Uvula midline. No pharyngeal swelling, oropharyngeal exudate, posterior oropharyngeal erythema or uvula swelling. Eyes: General: Lids are normal. No scleral icterus. Right eye: No discharge. Left eye: No discharge. Conjunctiva/sclera: Conjunctivae normal. Pupils: Pupils are equal, round, and reactive to light. Neck: Trachea: Trachea normal. Cardiovascular: Rate and Rhythm: Normal rate and regular rhythm. Heart sounds: Normal heart sounds. Pulmonary: Effort: Pulmonary effort is normal. Breath sounds: Normal breath sounds. Musculoskeletal: Cervical back: Normal range of motion and neck supple. Lymphadenopathy: Cervical: No cervical adenopathy. Right cervical: No superficial cervical adenopathy. Left cervical: No superficial cervical adenopathy. Skin: Findings: No rash. Neurological: Mental Status: He is alert and oriented to person, place, and time. ASSESSMENT/PLAN: 1. Suspected COVID-19 virus infection - ICD9: V01.79, ICD10: Z20.822 Discussed quarantine, social distancing otc medications discussed Push fluids -If you experience chest pain/shortness of breath go to ER - COVID WITH FLUA+B, ROUTINE Agrees to plan Declines avs Josse Brenner APRN.KIKO documented in this encounterBlanchard Valley [facility]09-[facility] Hospital Discharge instructions Patient Education 03/03/2022 19:09:02 Signs of Addiction to Work (Workaholism) Signs of Addiction to Work (Workaholism) An addiction is a compulsion or need that controls your life. If you decide you are on the path to addiction to work, you can take action to change your behavior and find caring people to help you. Check your addiction level Perhaps you put in long hours at work to get ahead. Many people do. But if you're working more and more, and taking less time for other activities, it can lead to stress and anxiety and threaten yourrelationships. Read the following statements and check yes or no. Answering yes to 3 or more questions may be a sign that work is taking over your life. If you are concerned about your work habits, contact Workaholics Anonymous at www.workaholics-anonymous.org. Yes No ? ? Do you feel your work must be perfect? ? ? Do you often work evenings and weekends? ? ? Do you put off taking leisure time? ? ? When you re not at work, do you talk about it and think about it? ? ? Do you plan vacations that you later cancel because of work? ? ? Do you take work with you, even when you re on vacation? ? ? Does work keep you from spending time with family and friends? ? ? Do you prefer working to socializing? ? ? Do you feel proud that you don t take vacations? ? ? Have family and friends begun to complain that they don t see enough of you? ? ? Do you feel that you have too much to do and not enough time to do it in? ? ? Do you find you get burned out at work tired, unable to focus, anxious, and irritable? ? ? Do you prefer work to being home? [id number] [employer]. [address] [place] [address], [place] [address]. All rights reserved. This information is not intended as a substitute for professional medical care. Always follow yourgerman hospitalcare professional's instructions. 03/03/2022 19:08:59 Gastritis (Adult) Gastritis (Adult) Gastritis is inflammation and irritation of the stomach lining. You can have it for a short time (acute) or be long lasting (chronic). Infection with bacteria called H pylori most often causes gastritis. More than a third of people in the [place] have these bacteria in their bodies. In many cases, H pylori causes no problems or symptoms. In some people, though, the infection irritates the stomach lining and causes gastritis. H. pylori may be diagnosed through blood, stool, or breath tests, we well as through biopsy during an endoscopy. Other causes of stomach irritation include drinking alcohol, smoking or chewing tobacco, or taking pain-relieving medicines called NSAIDs (such as aspirin or ibuprofen). Certain drugs (such as cocaine) and immune conditions can also cause gastritis. Symptoms of gastritis can include: Belly pain or bloating Feeling full quickly Loss of appetite Nausea or vomiting Vomiting blood or having black stools Feeling more tired than usual An inflamed and irritated stomach lining is more likely to develop a sore called an ulcer. To help prevent this, gastritis should be treated. Home care If needed, our healthcare provider may prescribe medicines. If you have H pylori infection, treating it will likely relieve your symptoms. Other changes can help reduce stomach irritation and help itheal. If you have been prescribed medicines for H pylori infection, take them as directed. Take all of the medicine until it is finished or your healthcare provider tells you to stop, even if you feel better. Your healthcare provider may advise you not to take NSAIDs. If you take daily aspirin for your heart or other medical reasons, do not stop without talking to your healthcare provider first. Don't drink alcohol. Stop smoking. Smoking can irritate the stomach and delay healing. As much as possible, stay away from second hand smoke. Follow-up care Follow up with your healthcare provider, or as advised by our staff. You may need testing to check for inflammation or an ulcer. When to seek medical advice Call your healthcare provider for any of the following: Stomach pain that gets worse or moves to the lower right belly (appendix area) Chest pain that appears or gets worse, or spreads to the back, neck, shoulder, or arm Frequent vomiting (can t keep down liquids) Blood in the stool or vomit (red or black in color) Feeling weak or dizzy Shortness of breath Unexplained weight loss Fever of 100.4 F (38 C) or higher, or as directed by your healthcare provider [phone] [employer]. [address] [place] [address]. All rights reserved. This information is not intended as a substitute for professional medical care. Always follow yourhealthcare professional's instructions. Follow Up Care 03/03/2022 17:45:13 With:PHYSICIAN, NOT RECORDED Address:Unknown When:2-4 days [facility] 09-21-2022 Note Discharge Instructions Thank you for allowing [facility] to assist you with your healthcare needs. The following is importantdischarge information regarding your hospital visit. Diagnosis from Today's Visit Gastritis Alcohol user Heartburn or indigestion Vomiting What to Do Next Instructions from Your Care Team Use a liquid antacid such as Maalox or Mylanta oh 1 hour after each meal and an hour before bedtime. Discontinue any alcohol and caffeine ingestion immediately. Take omeprazole that you have been prescribed recently. No qualifying data available. Post Acute Orders No qualifying data available. You Need to Schedule the Following Appointments Follow Up with PHYSICIAN, NOT RECORDED When Within 2-4 days Allergies NKA Medications Please ask your primary doctor or pharmacist before taking any other medication not listed, including over the counter drugs, herbal medications, vitamins and or supplements as they may interact withyour home medications. What How Much When Instructions Last Dose Unchanged busPIRone (busPIRone 7.5 mg oral tablet) Unchanged cloNIDine (cloNIDine 0.1 mg oral tablet) 1 tab(s) by mouth Three (3) times a day as needed for Anxiety Unchanged hydrOXYzine (hydrOXYzine pamoate 100 mg oral capsule) Unchanged sertraline (sertraline 50 mg oral tablet) 1 tab(s) by mouth Once a day Unchanged traZODone (traZODone 100 mg oral tablet) 1-2 tab(s) by mouth Daily at bedtime as needed for Sleep Duration: 30 Days Please take this list to your next doctor s visit. Bring all medications you take, including over the counter medications, herbals and other supplements with you to your doctor s visit. Patients and families are reminded to discard old lists and to update any records with all medication providers or retail pharmacies. Education Materials Signs of Addiction to Work (Workaholism) An addiction is a compulsion or need that controls your life. If you decide you are on the path to addiction to work, you can take action to change your behavior and find caring people to help you. Check your addiction level Perhaps you put in long hours at work to get ahead. Many people do. But if you're working more and more, and taking less time for other activities, it can lead to stress and anxiety and threaten yourrelationships. Read the following statements and check yes or no. Answering yes to 3 or more questions may be a sign that work is taking over your life. If you are concerned about your work habits, contact Workaholics Anonymous at www.workaholics-anonymous.org. Yes No ? ? Do you feel your work must be perfect? ? ? Do you often work evenings and weekends? ? ? Do you put off taking leisure time? ? ? When you re not at work, do you talk about it and think about it? ? ? Do you plan vacations that you later cancel because of work? ? ? Do you take work with you, even when you re on vacation? ? ? Does work keep you from spending time with family and friends? ? ? Do you prefer working to socializing? ? ? Do you feel proud that you don t take vacations? ? ? Have family and friends begun to complain that they don t see enough of you? ? ? Do you feel that you have too much to do and not enough time to do it in? ? ? Do you find you get burned out at work tired, unable to focus, anxious, and irritable? ? ? Do you prefer work to being home? [phone] [employer]. [address] [place] [address], [place] [address]. All rights reserved. This information is not intended as a substitute for professional medical care. Always follow yourgerman hospitalcare professional's instructions. Gastritis (Adult) Gastritis is inflammation and irritation of the stomach lining. You can have it for a short time (acute) or be long lasting (chronic). Infection with bacteria called H pylori most often causes gastritis. More than a third of people in the [place] have these bacteria in their bodies. In many cases, H pylori causes no problems or symptoms. In some people, though, the infection irritates the stomach lining and causes gastritis. H. pylori may be diagnosed through blood, stool, or breath tests, we well as through biopsy during an endoscopy. Other causes of stomach irritation include drinking alcohol, smoking or chewing tobacco, or taking pain-relieving medicines called NSAIDs (such as aspirin or ibuprofen). Certain drugs (such as cocaine) and immune conditions can also cause gastritis. Symptoms of gastritis can include: Belly pain or bloating Feeling full quickly Loss of appetite Nausea or vomiting Vomiting blood or having black stools Feeling more tired than usual An inflamed and irritated stomach lining is more likely to develop a sore called an ulcer. To help prevent this, gastritis should be treated. Home care If needed, our healthcare provider may prescribe medicines. If you have H pylori infection, treating it will likely relieve your symptoms. Other changes can help reduce stomach irritation and help itheal. If you have been prescribed medicines for H pylori infection, take them as directed. Take all of the medicine until it is finished or your healthcare provider tells you to stop, even if you feel better. Your healthcare provider may advise you not to take NSAIDs. If you take daily aspirin for your heart or other medical reasons, do not stop without talking to your healthcare provider first. Don't drink alcohol. Stop smoking. Smoking can irritate the stomach and delay healing. As much as possible, stay away from second hand smoke. Follow-up care Follow up with your healthcare provider, or as advised by our staff. You may need testing to check for inflammation or an ulcer. When to seek medical advice Call your healthcare provider for any of the following: Stomach pain that gets worse or moves to the lower right belly (appendix area) Chest pain that appears or gets worse, or spreads to the back, neck, shoulder, or arm Frequent vomiting (can t keep down liquids) Blood in the stool or vomit (red or black in color) Feeling weak or dizzy Shortness of breath Unexplained weight loss Fever of 100.4 F (38 C) or higher, or as directed by your healthcare provider [phone] [employer]. [address] [place] [address], [place] [address]. All rights reserved. This information is not intended as a substitute for professional medical care. Always follow yourhealthcare professional's instructions. Additional Information VACCINATE! IT SAVES LIVES! Members of the community who have not yet received the COVID-19 vaccine and would like to receive it can visit one of [facility] vaccine clinics. There are many vaccine clinic locations within the [facility]. For locations and available times, please visit [email or web address]. It is important to note that some COVID mobile vaccine clinics are held outdoors and may be canceled in rainy orstormy conditions. To learn more about pediatric vaccinations (ages 5-11), we invite you to visit the [facility] webpage. https://www.CloudSponges.org/pages/7617-Qjmdq-Xwzxdgqymqn-Munusktsyl-Bmdss-Siu stions.htmlTo learn more about the COVID-19 vaccine, we invite you to visit the [employer] website for a list of frequently asked questions. [email or web address]/assets/Rnjihhii-ibr-Wmxwpwlz/hscix-Uafwwuz-Oachasmbrb _Asked-Questions.pdf [facility] Patient Portal Access Instructions: Stay connected with your healthcare team and access your personal medical information anytime with the [facility] Patient Portal. If you would like a full copy of your medical records please contact the [facility] Medical Records Department Tuesday through Tuesday between 8a.m. and 4:30p.m. Please follow the directions below to access the portal: 1.Access the email account you provided upon registration to the hospital.2.Look for an invitation email from [facility].3.Open the email and access the invitation link: Accept Invitation to [facility]4.Fill in the required chambers to create your account. Sign into www.[email or web address] with your username and password that you created in the above steps to stay up to date. You can then view a summary of results, a summary of your visits, and the ability to download your summaries to your computer or send the information securely to a physician. Remember that your healthcare information is confidential, so carefully consider who you will allow to register on the [facility] Patient Portal for access to your information. You can also access the [facility] Patient Portal on the [employer] zee. Simply click on Health Records under [employer] and then click on the [employer] logo. HOW TO SAFELY DISPOSE OF PRESCRIPTION MEDICATIONS Please use one of the following methods to safely dispose of your unused medications. 1.Use a drug disposal kit: the drug disposal pouch allows you to safely discard your old and unuseddrugs. Ask your nurse to give you one when you are discharged.2.Visit a local take-back location: Many local pharmacies and police departments have programs that collect old and unwanted prescriptiondrugs. Call your local pharmacy or go to http://Neoconix.Air[employer] Technology/7M6Fm3v to find one close to you.3.Make use of household items: Use cat litter or old coffee grounds to dispose medications if other options arenot available. Mix your drugs with these household products, seal them in an airtight container andthrow it into the garbage. Call [facility]: [phone] to be sure your drugs can be disposed of in this way. Some medicines may require a different approach.4.Never flush your medications down the toilet. IF YOU HAVE BEEN PRESCRIBED AN OPIOIDS FOR PAIN If you have been prescribed an opioid (such as hydrocodone, oxycodone or morphine), it is critical to understand the possible side effects and risks of opioid pain medications. Even when taken as directed, opioids can have several side effects including: Tolerance, meaning you might need to take more of a medication for the same pain relief. Nausea, vomiting and/or constipation. Sleepiness, dizziness, dry mouth, confusion, depression or itching. Physical dependence, meaning you have withdrawal symptoms when a medication is stopped ? this can develop within a few days. KNOW YOUR RESPONSIBILITIES It is important to know exactly how much and how often to take the opioid pain medications you are prescribed. Never take opioids in higher amounts or more often than prescribed. Do not combine opioids with alcohol or other drugs that cause drowsiness, such as benzodiazepines, also known as benzos,including diazepam and alprazolam, muscle relaxants or sleep aids. Never sell or share prescriptionopioids. This is illegal. Store opioids in a secure place and out of reach of others (including children, family, friends and visitors). The last page(s) of this document has been signed and retained as a CHART COPY Signatures Patient Education Materials Signs of Addiction to Work (Workaholism) Gastritis (Adult) Medication Leaflets My discharge plan and instructions have been reviewed and explained to me and I,ISRA MENG understand my current condition and have read and understand these discharge instructions. I have received a written copy of the plan/instructions. If I have questions, I am aware that I should contact my doctor. Patient/Insurance Healthcare Consultant Signature: Date/Time: Relationship to Patient: Witness Name/Signature: Date/Time: [facility]11-18-2021 Hospital Discharge instructions Patient Education 04/30/2021 18:10:55 Hematuria Blood in the Urine Blood in the urine (hematuria) has many possible causes. If it occurs after an injury (such as a car accident or fall), it is most often a sign of bruising to the kidney or bladder. Common causes of blood in the urine include urinary tract infections, kidney stones, inflammation, tumors, or certainother diseases of the kidney or bladder. Menstruation can cause blood to appear in the urine sample, although it is not coming from the urinary tract. If only a trace amount of blood is present, it will show up on the urine test, even though the urine may be yellow and not pink or red. This may occur with any of the above conditions, as well as heavy exercise or high fever. In this case, your doctor may want to repeat the urine test on another day. This will show if the blood is still present. If it is, then other tests can be done to find out t he cause. Home care Follow these home care guidelines: If your urine does not appear bloody (pink, brown or red) then you do not need to restrict your activity in any way. If you can see blood in your urine, rest and avoid heavy exertion until your next exam. Do not use aspirin, blood thinners, or anti-platelet or anti- inflammatory medicines. These include ibuprofen and naproxen. These thin the blood and may increase bleeding. Follow-up care Follow up with your healthcare provider, or as advised. If you were injured and had blood in your urine, you should have a repeat urine test in 1 to 2 days. Contact your doctor for this test. A radiologist will review any X-rays that were taken. You will be told of any new findings that mayaffect your care. When to seek medical advice Call your healthcare provider right away if any of these occur: Bright red blood or blood clots in the urine (if you did not have this before) Weakness, dizziness or fainting New groin, abdominal, or back pain Fever of 100.4 F (38 C) or higher, or as directed by your healthcare provider Repeated vomiting Bleeding from the nose or gums or easy bruising [id number] [employer]. [address] [place] [address]. All rights reserved. This information is not intended as a substitute for professional medical care. Always follow yourhealthcare professional's instructions. Follow Up Care 04/30/2021 17:01:31 With:NITESH ROJAS Address: [address] [place] [address] (1) When:2-4 days Comments:Drink plenty of fluids, return if severe pain fever or other concerning symptoms. If bleeding persists follow-up with urology. [facility] 02-15-2017 History of Past illness Narrative* Problem Noted Date Resolved Date Bright red rectal bleeding 07/28/201607/28 RLQ abdominal pain 07/28/2016 07/28/2016 documented as of this encounter (statuses as of 04/10/2022) [facility] of Past illness Narrative* Problem Noted Date Resolved Date Bright red rectal bleeding 07/28/201607/28 RLQ abdominal pain 07/28/2016 07/28/2016 documented as of this encounter (statuses as of 04/11/2022) [facility] note Author Sunita Dobos [facility] Note Date/Time February 25, 2025 2:23pm [facility] Medical Records Department [address] [place] [address] Anesthesia Postop Eval I 02/25/25 1421 MR#: [id number] Acct: [id number] Name: ISRA MENG Rep #:[id number] : 1980 44 From: Sunita Weaver PCP: Dr. Dany Ash MD Status:SONIDO ARECHIGA Y Race: C Location: [place] [address] Anesthesia: Postop Eval I Current Vital Signs Temperature: 97.4 F Pulse Rate: 77 Blood Pressure: 126/107 Respiratory Rate: 16 Pulse Ox: 99 Oxygen Delivery Method: Room Air Assessment Airway patent: Yes Spontaneous unlabored respirations: Yes Mental status: Awake nausea: No Vomiting: No Anesthesia Complication: No Fluid Hydration Crystalloid volume administer (ml): 900 Total IV fluid infused: 900 Progress Note Anesthesia document: Postop Eval 1 completed: Yes 02/25/251422 <Electronically signed by Sunita KWAN> Date _ Sunita Rivero TECHNICAL SUPPORT MANAGER Cosigner Signature: Date CC: ~ Signed [facility] Work Phone: Consult note Author Medhat Luciano [facility] Note Date/Time February 25, 2025 2:51pm [facility] Medical Records Department [address] [place] [address] Anesthesia Postop Eval II 02/25/25 1450 MR#: [id number] Acct: [id number] Name: ISRA MENG Rep #:[id number] : 1980 44 From: Medhat Luciano MD PCP: Dr. Dany Ash MD Status:SONIDO ARECHIGA Y Race: C Location: [place] [address] Anesthesia Postop Eval I Sum Postop Eval Completion status Anesthesia document: Postop Eval 1 completed: Yes Anesthesia Postop Eval I Summary Anesthesia Postop Eval I Summary: Anesthesia Postop Eval I: Assessment Summary Airway patent Yes 02/25/25 14:23 TECHNICAL SUPPORT MANAGER.TDOB Spontaneous unlabored Yes 02/25/25 14:23 TECHNICAL SUPPORT MANAGER.TDOB respirations Mental status Awake 02/25/25 14:23 TECHNICAL SUPPORT MANAGER.TDOB nausea No 02/25/25 14:23 TECHNICAL SUPPORT MANAGER.TDOB Vomiting No 02/25/25 14:23 TECHNICAL SUPPORT MANAGER.TDOB Anesthesia Postop Eval I: Fluid Summary Crystalloid volume administer 900 02/25/25 14:23 TECHNICAL SUPPORT MANAGER.TDOB (ml) Colloids volume administered ( ml) Blood Product volume administered (ml) Total IV fluid infused 900 02/25/25 14:23 TECHNICAL SUPPORT MANAGER.TDOB Anesthesia Postop Eval I: Summary Notes Anesthesia Complication No 02/25/25 14:23 TECHNICAL SUPPORT MANAGER.TDOB Anesthesia Complication Comment: Post-operative progress note Anesthesia: Postop Eval II Evaluation Mental status: Awake Pain Level: 2 nausea: Yes Vomiting: No 02/25/25 1451 <Electronically signed by Medhat Luciano MD > Date _ Medhat Luciano MD Cosigner Signature: Date CC: ~ Signed [facility] Work Phone: Evaluation + Plan note No data available for this section [facility] Evaluation note* Diagnosis Suspected COVID-19 virus infection- Primary documented in this encounter [facility] Urinary frequency- Primary documented in this encounter [facility] Diagnosis Onset Date Resolution Status Admit Date Gallbladder Problem noneactive Septe [facility] 2024 12:49pm [facility] Work Phone: Reason for referral (narrative)No reason for referral information availableCantil Medical Services Work Phone: Summary Purpose Family History Relationship Condition Age at Onset Recorded Date/T monique mother Anxiety and depression Unknown father Diabetes mellitus Unknown Advance Directives Advance Directive Response Recorded Date/ Time Do you have a Healthcare Power of Production Support Analyst? No February 19, 2025 2:10pm Health Concerns Infection Onset Date Last Indicated Resolved Time COVID-19 Confirmed 04/10/2022 04/10/2022 Chief Complaint and Reason for Visit Chief Complaint Admit Date Gallbladder problems February 15, 2025 12:49pm Reason for Visit Admit Date Gallbladder Problem February 15, 2025 12:49pm Chief Complaint Admit Date Gallbladder problems February 15, 2025 12:49pm Robotic Cholecystectomy February 25, 2025 10:34am Robotic Cholecystectomy February 25, 2025 11:54am Reason for Visit Admit Date Abdominal pain February 15, 2025 12:49pm Gallbladder sludge February 15, 2025 12:49pm Additional Source Comments Care Team (unrecognized sect ion and content) Care Team Personnel Name: PHYSICIAN, NOT RECORDED Member Role: Primary Care Physician (unrecognized sect ion and content) No Status Records FoundNo Status Records FoundNo Status Records Found INFORMATION SOURCE (unrecogn ized section and content) DATE CREATED AUTHOR 03/22/2022 [facility] ([place]) DATE CREATED AUTHOR AUTHOR'S ORGANIZ ATION 08/18/2024 [facility] DATE CREATED AUTHOR AUTHOR'S ORGANIZ ATION 02/24/2025 [facility] Source Comments (unrecognize d section and content) In the event this informatio n is protected by the Federal Confidentiality of Alcohol and Drug Abuse Patient Records regulations: The Federal rules restrict any use of the information to criminally investigate or prosecute any alcohol or drug abuse patient.[facility] the event this information is protected by the Federal Confidentiality of Alcohol and Drug Abuse Patient Records regulations: The Federal rules restrict any use of the information to criminally investigate or prosecute any alcohol or drug abuse patient.[facility] the event this information is protected by the Federal Confidentiality of Alcohol and Drug Abuse Patient Records regulations: The Federal rules restrict any use of the information to criminally investigate or prosecute any alcohol or drug abuse patient.[facility] HospitalIn the event this information is protected by the Federal Confidentiality of Alcohol and Drug Abuse Patient Records regulations: The Federal rules restrict any use of the information to criminally investigate or prosecute any alcohol or drug abuse patient.[facility] Reason for Visit (unrecogniz ed section and content) Reason Comments Nasal Congestion Congestion, runny no se, MONTIEL and fatigue x 4 days-exposed Reason Comments Results Specialty Diagnoses / Procedures Referred By Contac t Referred To Contact XR IMAGING Diagnoses Knee injuries, left, initial encounter Procedures XR KNEE GENERAL 4V AP BOTH/PA BOTH/LAT/MERC LEFT RADIOLOGIC EXAM KNEE COMPLETE 4/MORE VIEWS Josse Brenner APRN.ARMATURE INSPECTOR [address] [place] [address] [place] [address] Referral ID Status Reason Start Date Expiration Date V isits Requested Visits Authorized [id number] Closed Auto-Generate d Referral 06/30/2022 06/12/2023 1 1 Reason Comments MRSA concerns States his , had polyp removed which had mrsa on it, he is concerned for possible, mrsa, Specialty Diagnoses / Procedures Referred By Contac t Referred To Contact [facility] / [facility] Diagnoses wants tested for MRSA Procedures EST SAME DAY Dany Ash MD [address] [address] Phone: tel: fax: [facility] [address] [place] [address] Phone: tel: Referral ID Status Reason Start Date Expiration Date V isits Requested Visits Authorized [id number] Pending Review 08/16/2024 11/14/2024 1 1 Care Teams (unrecognized sec tion and content) Mill Dresser Relationship Specialty Start Date End Date Tejinder Rodriguez MD [address] [place], [place] [id number] PCP - General Family Medicine 12/25/10 Mill Dresser Relationship Specialty Start Date End Date Tejinder Rodriguez MD [address] [place], [place] [id number] PCP - General Family Medicine 12/25/10 [employer] Relationship Specialty Start Date End Date Dany Ash MD [address] [id number] PCP - General Family Medicine 06/30/22 [employer] Relationship Specialty Start Date End Date Dany Ash MD [address] [facility] [address] [id number] PCP - General Family Medicine 06/30/22 Team Status: Active Member Role/Relationship Status Dates Dr. Dany Ash MD Primary Care Provider Active Team Status: Inactive Member Role/Relationship Status Dates Dr. Dany Ash MD Primary Care Provider Active Start: February 15, 2025 End: February 15, 2025 Dr. Dany Ash MD Referring Provider Active Start: February 15, 2025 End: February 15, 2025 Dr. Herman Simms MD Attending Provider Active Start: February 15, 2025 End: February 15, 2025 Team Status: Inactive Member Role/Relationship Status Dates Dr. Dany Ash MD Primary Care Provider Active Start: February 25, 2025 End: February 25, 2025 Dr. Herman Simms MD Attending Provider Active Start: February 25, 2025 End: February 25, 2025 Dr. Herman Simms MD Referring Provider Active Start: February 25, 2025 End: February 25, 2025 Team Status: Active Member Role/Relationship Status Dates Dr. Dany Ash MD Primary Care Provider Active Start: February 25, 2025 Dr. Herman Simms MD Attending Provider Active Start: February 25, 2025 Dr. Herman Simms MD Referring Provider Active Start: February 25, 2025 Dr. Herman Simms MD Other Provider Active Start: February 25, 2025 Goals (unrecognized section and content) Goals may be documented in a n alternate section FOR RECORDS PERTAINING TO PATIENTS WHO ARE OR HAVE BEEN ENROLLED IN A CHEMICAL DEPENDENCY/SUBSTANCEABUSE PROGRAM, SOME INFORMATION MAY BE OMITTED. This clinical summary was aggregated from multiple sources. Caution should be exercised in using it in the provision of clinical care. This summary normalizes information from multiple sources, and as a consequence, information in this document may materially change the coding, format and clinical context of patient data. In addition, data may be omitted in some cases. CLINICAL DECISIONS SHOULD BE BASED ON THE PRIMARY CLINICAL RECORDS. [employer] provides no warranty or guarantee of the accuracy or completeness of information in this document.
== END 2025-02-25 15:40 | disposition home or self-care (01) ==
LOC: SDC 10:34 → AC 10:50
PROVIDERS: PCP Family Medicine; Referring Provider Surgery; Visit Provider Surgery
PROC: 0FT44ZZ Resection of Gallbladder, Percutaneous Endoscopic Approach (ICD-10-PCS; CPT 47562; principal; 2025-02-25 12:25)
DX: K82.4 Cholesterolosis of gallbladder (principal); K83.8 Other specified diseases of biliary tract; J45.909 Unspecified asthma, uncomplicated; K21.9 Gastro-esophageal reflux disease without esophagitis; F17.220 Nicotine dependence, chewing tobacco, uncomplicated
CPT/HCPCS: 47562; S2900; 00790; 88304; 93005; J2405

== ENCOUNTER → 2025-03-07 | Outpatient (CLI) | payer OTHER, SELFPAY ==
[2025-03-07 15:48] LABS: Hematocrit 42.0 % (40-54); Hemoglobin 15.1 g/dL (13.0-16.5); Immature Granulocytes Count 0.020 X10^3/uL (0.0-0.0); Mean Corp Hgb Conc 36.0 g/dL (32-36); Mean Corpuscular Volume 84.8 fL (80-94); Mean Platelet Vol. 9.9 fl (6.2-12.0); NRBC Flagged by Analyzer 0 % (0-5); Platelet Count 205 K/mm3 (150-450); RBC Distribution Width CV 11.9 % (11.6-14.6); RBC Distribution Width SD 36.5 fl (35.1-43.9); Red Blood Count 4.95 M/mm3 (4.6-6.2); White Blood Count 8.4 K/mm3 (4.4-11.0)
[2025-03-07 16:30] LABS: AST(SGOT) 39 U/L (<=37); Alanine Aminotransfer ALT/SGPT 213 U/L (<=46); Albumin, Serum 4.7 g/dL (3.5-5.0); Alkaline Phosphatase 119 U/L (40-129); Anion Gap 11 (5-15); BUN 17 mg/dL (4-19); BUN/Creat Ratio 20.2 RATIO (10-20); Calcium,Total 9.3 mg/dL (7.6-11.0); Carbon Dioxide 22.5 mmol/L (21.0-32.0); Chloride 106 mmol/L (98-108); Globulin 2.7 g/dL (2.2-4.2); Glucose 87 mg/dL (70-99); Lipase 106 U/L (13-75); Potassium 4.0 mmol/L (3.3-5.1)
[2025-03-07 23:38] LABS: Xtra Tube EP Lab EXTRA TUBE
== END | disposition home or self-care (01) ==
PROVIDERS: PCP Family Medicine; Referring Provider Physician Assistant; Visit Provider Physician Assistant
DX: R10.9 Unspecified abdominal pain (principal); Z90.49 Acquired absence of other specified parts of digestive tract
CPT/HCPCS: 36415; 80053; 83690; 85025

== ENCOUNTER → 2025-03-08 | Outpatient (CLI) | payer OTHER, SELFPAY ==
--- OUTSIDE RECORDS SUMMARY | 2025-03-08 17:20 | XMS RPT_ITS | CCD ---
Author Organization [facility] Care Team Providers Care Train Crew Member Name Role Phone PHYSICIAN, NOT RECORDED Primary Care Physician U rand PEOPLES MD., DR. COLBY Attending Unavaila ble PHYSICIAN, NOT RECORDED Primary Care Unavaila ble PHYSICIAN, NOT RECORDED Primary Care Unavaila ble PAUL THOMPSON Attending Unavailable Michael HERNANDEZ, Tejinder Leone Primary Care Provider [phone] Yousuf HERNANDEZ, Dany Basurto Primary Care Provider DANY ASH Referring Unavailable DANY ASH Primary Care Unavailable Yousuf HERNANDEZ, Dr. Dany Basurto Primary Care Provider [phone] Yousuf HERNANDEZ, Dr. Dany Basurto Referring Provider Mendez HERNANDEZ, Dr. Sutton Attending Provider [phone] Mendez HERNANDEZ, Dr. Sutton Referring Provider Mendez HERNANDEZ, Dr. Sutton Other Provider Dany Ash Referring Unavailable Dany Ash Primary Care Unavailable Herman Simms Attending Unavailable Dany Ash Primary Care Unavailable Dany Ash Referring Unavailable Herman Simms Attending Unavailable Herman Simms Attending Unavailable Dany Ash Primary Care Unavailable Dany Ash Referring Unavailable Herman Simms Referring Unavailable Dany Ash Primary Care Unavailable Herman Simms Attending Unavailable Dany Ash Primary Care Unavailable Herman Simms Consulting Unavailable Dany Ash Referring Unavailable Herman Simms Attending Unavailable Herman Simms Referring Unavailable Herman Simms Consulting Unavailable Herman Simms Attending Unavailable Dany Ash Primary Care Unavailable Allergies Allergy Classification Reported Allergen(s) Allergy Type Date of Onset Reaction(s) Facility (5 sources) Seasonal allergy; Translations: [SEASONAL ALLERGIES] Propensity to adverse reactions 01-27-2010 [facility] Medications Current Medications Medication Drug Class(es) Dates [...] Test Name Value Interpretation Reference Range Facility 12 Lead EKGon 02-25-2025 12 Lead EKG [facility] Cardiovascular Services [address] [place] [address] 12 Lead EKG 02/25/25 1109 MR#: [id number] Acct: [id number] Name: ISRA MENG Rep #: [id number] : 1980 44 From: Mason Smiley MD Attending Dr: Dr. Herman Simms MD Status: DEP [facility] Order[facility] Dr: Medhat Luciano MD Date: 02/25/25 Location: [facility] Sex: M C Admitted: Test Reason : PREOP Blood Pressure : */* mmHG Vent. Rate : 61 BPM Atrial Rate : 61 BPM P-R Int : 160 ms QRS Dur : 90 ms QT Int : 384 ms P-R-T Axes : 53 25 38 degrees QTcB Int : 386 ms Normal sinus rhythm with sinus arrhythmia Normal ECG When compared with ECG of 18-Sep-2019 11:19, No significant change was found Confirmed by Mason Smiley ([id number]), newspaper photo editor ENMANUEL ACHARYA ([id number]) on 02/26/2025 5:48:55 AM Referred By: Herman Simms Confirmed By: Mason Smiley 02/26/25 0548 Date Mason Smiley MD CC: Dr. Herman Simms MD; Dr. Medhat Luciano MD; Dr. Dany Ash MD Signed Normal [facility] Discharge Instructionon 02-11 Discharge Instruction [facility] Medical Records Department [address] [place] [address] Instructions for Home/Discharge Instructions 02/25/25 1338 MR#: [id number] Acct: [id number] Name: ISRA MENG Rep #: [id number] : 1980 44 From: Herman Simms MD PCP: Dr. Dany Ash MD Status:REG MDC Discharge Instructions Procedure Gallbladder Diet Discharge Diet: [...] in: 2 days Cleanse incision/area with: Soap Water Additional Dressing/Incision Instructions:: Leave operative bandaids on for 2 days. When you remove dressing, leave Steri-Strips on until your follow-up appointment, or until the Steri-Strips fall off on their own. Follow Up Care Please Follow Up With: Herman Simms MD When: Please call to schedule 2 week follow up appointment. [phone] Test Results: Test results from this visit will be discussed in further detail at your follow-up appointment, if applicable. Discharge Plan Admission Attending Provider: Herman Simms Primary Care Provider: Schinner,Dany E Instructions Print Language: Cameroonian Discharge Orders/Prescriptions Prescriptions: New oxycodone 5 mg Tablet 5 - 10 mg PO Q4H PRN PRN (Reason: Pain Score 4-10) 5 Days Qty: 14 0RF Referrals / Follow Up: Dany Ash MD [Primary Care Provider] - Disposition Disposition (needs filled in before D/C Order can be placed): Home, Self Care 02/25/25 1340 Herman Simms MD CC: Dr. Dany Ash MD Signed [facility] MR/POSTOP.ANE 02-25-2025 MR/POSTOP.[facility] Medical Records Department [address] [place] [address] Anesthesia Postop Eval I 02/25/25 142 MR#: [id number] Acct: [id number] Name: ISRA MENG Rep #: [id number] : 1980 44 From: Sunita Rivero CRNA PCP: Dr. Dany Ash MD Status:[facility] Y Race: C Location: [place] [address] Anesthesia: Postop Eval I Current Vital Signs [...] document: Postop Eval 1 completed: Yes 02/25/251422 Date Sunita Rivero EIGHT ARM OPERATOR Cosigner Signature: Date CC: Signed [facility] MR/[id number] 02-25-2025 MR/POST[address] Medical Records Department [address] [facility] [place] [address] Anesthesia Postop Eval II 02/25/25 1450 MR#: [id number] Acct: [id number] Name: ISRA MENG Rep #: [id number] : 1980 44 From: Medhat Luciano MD PCP: Dr. Dany Ash MD Status:REG SDC Y Race: C Location: [place] [address] Anesthesia Postop Eval I Sum Postop Eval Completion status Anesthesia document: Postop Eval 1 completed: Yes Anesthesia Postop Eval I Summary Anesthesia Postop Eval I Summary: Anesthesia Postop Eval I: Assessment Summary Airway patent Yes 02/25/25 14:23 EIGHT ARM OPERATOR.TDOB Spontaneous unlabored Yes 02/25/25 14:23 EIGHT ARM OPERATOR.TDOB respirations Mental status Awake 02/25/25 14:23 EIGHT ARM OPERATOR.TDOB nausea No 02/25/25 14:23 EIGHT ARM OPERATOR.TDOB Vomiting No 02/25/25 14:23 EIGHT ARM OPERATOR.TDOB Anesthesia Postop Eval I: Fluid Summary Crystalloid volume administer 900 02/25/25 14:23 EIGHT ARM OPERATOR.TDOB (ml) Colloids volume administered ( ml) Blood Product volume administered (ml) Total IV fluid infused 900 02/25/25 14:23 EIGHT ARM OPERATOR.TDOB Anesthesia Postop Eval I: Summary Notes Anesthesia Complication No 02/25/25 14:23 EIGHT ARM OPERATOR.TDOB Anesthesia Complication Comment: Post-operative progress note Anesthesia: Postop Eval II Evaluation Mental status: Awake Pain Level: 2 nausea: Yes Vomiting: No 02/25/25 1451 Date Medhat Luciano MD Cosigner Signature: Date CC: Signed Normal [facility] Operative Reporton 5 Operative Report [facility] Medical Records Department [address] [facility] [place] [address] Operative Report 02/25/25 1335 MR#: [id number] Acct: [id number] Name: ISRA MENG Rep #: [id number] : 1980 44 From: Herman Simms MD PCP: Dr. Dany Ash MD Status:[facility] Location: [address] Operative Report (Standard) Operative Information Date of Procedure: 02/25/25 Pre-Operative Diagnosis: Gallbladder sludge Post-Operative Diagnosis: Same Surgery/Procedure Performed: Robotic assisted laparoscopic cholecystectomy sales consultant residential manager: Yes Handtools Repairer: Stacy Tesfaye Tasks completed by publisher assistant: Opening closing Type of Anesthesia: General/Regional RN Documented [...] insufflated to 15 mmHg. The needle was removed and a port was placed. The camera was placed through the port and it was inspected for injuries and there were none from entry. Next under direct visualization an 8 mm port was placed in the right upper quadrant and two 8 mm ports in the left upper quadrant and the patient was placed in steep reverse Trendelenburg. The robot was docked. The gallbladder was grasped and retracted cephalad. The fundus was grasped and retracted laterally. The peritoneum was stripped from the gallbladder. The cystic duct was identified with the assistance of ICG. It was dissected free. The cystic artery was dissected free as well. Clips were placed on both and they were divided. Next the gallbladder was taken off of the gallbladder fossa using electrocautery hook. There was good hemostasis and no leaking bile. Next the gallbladder was placed into a bag and removed. The robot was undocked and the ports were removed and the air was allowed to desufflate from the abdomen. The incisions were injected with local anesthetic and closed with interrupted 4-0 Monocryl sutures. Steri-Strips and bandages were applied. Patient was awoken and taken to PACU in stable condition and tolerated the procedure well. Surgical Findings: None Complications Complications: No Admit VTE Documentation VTE Mechan Device Prophylaxis: SCD's 02/25/25 6768 Cosigner Signature (if applicable): CC: Dr. Herman Simms MD; Dr. Dany Ash MD Signed Normal [facility] Surgery Specimen Level IIIon 02-25-2025 Surgery Specimen Level III Patient Age/Sex Location Account Attending Physician ISRA MENG 44/M [facility] [id number] Dr. Herman Simms MD Specimen: [id number] Received: 02/25/25 Status: JULEE Atkins Num: [id number] Spec Type: ELOY Schaffer Dr: Dr. Herman Simms MD HEADER OPERATION: Laparoscopic robotic cholecystectomy PRE-OP DIAGNOSIS: Gallbladder sludge, abdominal pain TISSUE SUBMITTED: A- Gallbladder MICROSCOPIC DIAGNOSIS A. Gallbladder, laparoscopic robotic cholecystectomy: - Polypoid cholesterolosis. MICROSCOPIC DESCRIPTION Slides are reviewed. GROSS DESCRIPTION A. Received in formalin labeled with the patient's name and date of . Designated as gallbladder is a 7.9 x 3.0 x 2.9 cm green, shaggy and distended gallbladder with attached patent cystic duct (inked black, shaved). A lymph node is not present. Opening reveals dark green tenacious bile devoid of choleliths. The mucosa is dark green and granular with a maximum wall thickness of 0.2 cm; there are approximately 5 cholesterol polyps, 0.1 cm to 0.2 cm. Cholesterolosis is present. Stockroom Attendant sections are submitted in 1 cassette. OK 02/26/2025 CPT:93953 Patient Age/Sex Location Account Attending Physician ISRA MENG 44/M [facility] [id number] Dr. Herman Simms MD Signed (signature on file) Dr. Valorie Pena MD 02/28/25 1651 Normal [facility] Comment on above: Performed By: #### P SUIII #### [facility] [address] [place], [address] MR/PATLynette 02-19-2025 /PAT.[facility] Medical Records Department [address] [place] [address] PAT - Anesthesia 02/19/25 1626 MR#: [id number] Acct: [id number] Name: ISRA MENG Erendira Rep #: [id number] : 1980 44 From: Babar Watkins MD PCP: Dr. 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 History - forest examiner Hx Hospitalization No 02/19/25 14:10 Any Problems [...] take am of surgery PONV PONV - forest examiner: PONV - forest examiner Female No 02/19/25 14:10 HX of Motion [...] 02/15/25 13:05 Respiratory Assessment Respiratory Assessment - forest examiner: Respiratory Tract Infection Hx - forest examiner Hx Respiratory Tract Infection No 02/19/25 14:10 STOP Sleep Apnea STOP Sleep Apnea - forest examiner: STOP Sleep Apnea - forest examiner Hx Hypertension No 02/19/25 14:10 Hx Sleep [...] Tobacco Use History Tobacco Use History - forest examiner: Tobacco Use History - forest examiner Tobacco Use Smoking Status Current every day smoker 02/19/25 14:10 Hx Tobacco Use Yes 02/19/25 14:10 Years Smoking Packs Smoked per Day Smoking Cessation Date was within the last 15 years Hx Smoking Cessation Date Hx Smoking Cessation Counseling Hematologic Medial History Hematologic Hx - forest examiner: 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 Normal [facility] Surgery Visit Reporton 02-15 Surgery Visit Report [facility] [address] [place] [address] OFFICE VISIT Date of Service: 02/15/25 MR#: [id number] Acct: [id number] Name: ISRA MENG Rep #: [id number] : 1980 Provider: Dr. Herman finley MD Age/Sex: 44/M Location: [facility] Status: Signed Intake Vital Signs 05/22/24 07:24 02/15/25 13:05 Height 5 ft 10 in 5 ft 10 in Weight: 198 lb BMI 28.4 BP 138/84 H Blood Pressure Location Rt brachial Position Sitting Respiration 18 Intake Visit Reasons: Gallbladder problems Chief Complaint: gallbladder problems Chemical Packager Required: No Is patient in pain?: No [...] necessitate further (more content not included)... Normal [facility] Bacteria Ur Culton 5 Bacteria identified Cx Nom (U) ORGANISM ID: 1 <10,000 CFU/ml Normal urogenital beny Normal [facility] Comment on above: Performed By: #### 6 30-4 #### [facility] CLIA [id number] [address] [place] CNOVon 08-16-2024 CNOV Office Visit (UCWSTR ) ISRA MENG ([id number]) 1980 M Date Time Provider Department 08/16/24 4:00 PM [facility]THON[facility] During your visit today, we recorded the following information about you: Temperature Pulse Respiration Blood pressure 97.5 degrees 70/minute 20/minute 131/73 Weight 91 kg Anthony Tsai APRN.TELEGRAPH INSPECTOR 08/16/2024 4:12 PM Signed [facility] [...] of care. This note was generated using CiraNova software. It may contain errors in wording, punctuation, or spelling. Anthony Tsai APRN.TELEGRAPH INSPECTOR [facility] Procedures Referring Provider: DANY ASH [[id number]] Allergies As of Date: 08/16/2024 Noted Allergy Reaction SEASONAL ALLERGIES 01/27/2010 Date Reviewed: 08/16/2024 Reviewed by: Anthony Tsai APRN.TELEGRAPH INSPECTOR - Fully Assessed Reason for Visit: MRSA concerns [Other] Cmt: States his , had polyp removed which had mrsa on it, he is concerned for possible, mrsa, Primary Visit Diagnosis:Urinary freq (more content not included)... Normal [facility] UA DIP, URINE (POC)on 2024 BILIRUBIN UA (POCT) Negative Negative [facility] CLARITY UA (POCT) Clear [facility] COLOR UA (POCT) Yellow [facility] GLUCOSE UA (POCT) Negative Negative mg/dL [facility] Hemoglobin Ql (U) Negative [facility] KETONE UA (POCT) Negative Negative mg/dL [facility] LEUKOCYTES UA (POCT) Negative [facility] NITRITE UA (POCT) Negative Negative [facility] PH UA (POCT) 5.5 4.5 - 8.0 [facility] Protein Ql (U) Negative Negative mg/dL [facility] SPECIFIC GRAVITY UA (POCT) 1.01 1.005 - 1.030 [facility] UROBILINOGEN UA (POCT) 0.2 Normal E.U./dL [facility] Location:[facility], [address] [place], [address] [facility] POINT OF CARE [facility] EGD Reporton 05-22-2024 EGD Report [facility] Medical Records Department [address] [place] [address] EGD Report MR#: [id number] Acct: [id number] Name: ISRA MENG Rep #: [id number] : 1980 43 From: Herman Simms MD PCP: Dr. Dany Ash MD Status:REG [facility] Patient Name: Isra Meng Procedure Date: 05/22/2024 [...] be scheduled. Procedure Code(s): --- Professional --- 72335, Esophagogastroduodenosc opy, flexible, transoral; with biopsy, single or multiple Diagnosis Code(s): --- Professional --- R10.13, Epigastric pain CPT copyright 2021 [employer]. All rights reserved. The codes documented in this report are preliminary and upon senior operations manager review may be revised to meet current compliance requirements. Herman Simms MD 05/22/2024 8:29:11 AM This report has been signed electronically. Number of Addenda: 0 Note Initiated On: 05/22/2024 8:15 AM 05/22/24828 Date Herman Simms MD Cosigner Signature: Date (if indicated) CC: Dr. Heramn Simms MD; Dr. Dany Ash MD Date Dictated: 05/22/24814 Date Transcribed: Cardiac Technologist: AC Signed Normal [facility] H Pylori (initial)on H Pylori (initial) --- Patient Age/Sex Location Account Attending Physician ISRA MENG/M EN [id number] Dr. Herman Simms MD Specimen: [id number] Received: 05/22/24 Status: JULEE Atkins Num: [id number] Spec Type: IMMUNO Subm Dr: Dr. Herman Simms MD PHYSICIAN INSTITUTION [address] [address] SPECIMEN INFORMATION: Tissue Source: Gastric antrum biopsy Clinical Info: Abdominal pain Specimen Number: [id number] CPT code: 16443 METHODOLOGY: Deparaffinized sections of prefer/formalin-fixed tissue or PAP/DQ stained slides are incubated with monoclonal/polyclonal antibodies/oligonucleot chasity probes. Localization is made via biotin free immunoperoxidase method. Appropriate controls are performed and reacted as expected. Results on target cell population are indicated in the following table: RESULTS: ANTIBODY / CLONE RESULT H Pylori (polyclonal) negative These tests were developed and their performance characteristics determined by [facility]. They may not have been cleared or approved by the U.S. Food and Drug Administration. The FDA has determined that such clearance or approval is not necessary. The above immunohistochemical/ochoa Zaid markers are ordered and reviewed by the Pathologist. INTERPRETATION: Gastric antrum, biopsy: Negative for Helicobacter pylori organisms. AM. 05/23/2024 Signed (signature on file) Dr. Denny Prado, 05/23/24 1334 Normal [facility] Comment on above: Performed By: #### P H.PYLORI ####[facility] [id number] [facility] [place], [place], [address] MR/POSTOP.Rina 05-22-2024 MR/POSTOP.[facility] Medical Records Department [address] [place] [address] Anesthesia Postop Eval I 05/22/24913 MR#: [id number] Acct: [id number] Name: ISRA MENG Rep #: [id number] : 1980 43 From: Medhat Luciano MD PCP: Dr. Dany Ash MD Status:[facility] Y Race: C Location: EN Anesthesia: Postop [...] MD Cosigner Signature: Date CC: Signed Normal [facility] MR/[id number] [facility]-22-2024 [facility] Medical Records Department [address] [place] [address] Anesthesia Postop Eval II 05/22/24914 MR#: [id number] Acct: [id number] Name: ISRA MENG Rep #: [id number] : 1980 43 From: Medhat Luciano MD PCP: Dr. Dany Ash MD Status:[facility] Y Race: C Location: [place] Anesthesia Postop [...] volume administered (ml) Total IV fluid infused 10 05/22/24 09:15 Anesthesia Postop Eval I: Summary Notes Anesthesia Complication No 05/22/24 09:15 Anesthesia Complication Comment: Post-operative progress note Anesthesia: Postop Eval II Evaluation Mental status: Awake Pain Level: 0 nausea: No Vomiting: No 05/22/24914 Date Medhat Fernandez Signature: Date CC: Signed Normal [facility] Surgery Specimen Level Josemanuel 05-22-2024 Surgery Specimen Level IV Patient Age/Sex Location Account Attending Physician ISRA MENG/M EN [id number] Dr. Herman Simms MD Specimen: [id number] Received: 05/22/24 Status: JULEE Atkins Num: [id number] Spec Type: EGD BIOPSY Subm Dr: Dr. Herman Simms MD HEADER OPERATION: EGD biopsy PRE-OP DIAGNOSIS: Abdominal pain TISSUE SUBMITTED: Gastric antrum biopsy MICROSCOPIC DIAGNOSIS Gastric antrum, biopsy: Chronic gastritis. See comment. AM. 05/23/2024 COMMENT The results of immunohistochemistry for Helicobacter pylori will be reported separately ([id number]). MICROSCOPIC DESCRIPTION Slides are reviewed. GROSS DESCRIPTION Received in fixative is one container labeled with the patient's name and designated Gastric antrum biopsy. The specimen consists of two irregular fragments of light jenkins soft tissue that in aggregate measure 0.6 x 0.3 x 0.1 cm. The specimen is totally submitted in one cassette. AM. 05/22/2024 TC:3 CPT:60118 Patient Age/Sex Location Account Attending Physician YUSRAISRA Erendira 43/M EN [id number] Dr. Herman Simms MD Signed (signature on file) Dr. Denny Prado DO 05/23/24 1257 Normal [facility] Comment on above: Performed By: #### P SUIV ####[facility] [id number] [place], [place], [address] Surgery Visit Reporton 04-18 Surgery Visit Report [facility] [address] [place] [address] OFFICE VISIT Date of Service: 04/18/24 MR#: [id number] Acct: [id number] Name: ISRA MENG Rep #: [id number] : 1980 Provider: Dr. Herman finley MD Age/Sex: 43/M Location: [facility] Status: Signed Intake Vital Signs 06/17/21 22:44 [...] mg PO QDAY 04/18/24 04/18/24 History release PFSH Medical History (Updated 04/18/24 @ 15:26 by [...] General: cooperative Orientation: alert and oriented x3 HENFL Head: normal to inspection Neck Neck: normal [...] anesthesia, perf (more content not included)... Normal [facility] XR Knee - left 4 Viewson IMPRESSION: No radiographic evidence of acute osseous injury Cardiac Technologist: VIKAS Transcribe Date/Time: Jun 30 2022 11:06A Dictated [...] Joint spaces preserved. DIVISION OF RADIOLOGY Provider, [facility] - 06/30/2022 * * *Final Report* * [...] No radiographic evidence of acute osseous injury Cardiac Technologist: PSCB Transcribe Date/Time: Jun 30 2022 11:06A Dictated by : BRAD MEMBRENO MD This examination was interpreted and the report reviewed and electronically signed by: BRAD MEMBRENO MD on Jun 30 2022 11:07AM EST [facility] Radiology Study observation (narrative) [facility] XR Knee - left 4 ViewsOrdere d By: [facility] Provider on 06-30-2022 [facility] .Auto Diffon 03-03-2022 Basophil, Absolute 0.1 10 3/mcL Normal 0.0-0.2 [facility] ([place]) Comment on above: Performed By: #### L IP, CMP, GFR #### [address] [address] Basophils/100 WBC (Bld) 0.6 % Normal 0.0-2.5 [facility] ([place]) Comment on above: Performed By: #### L IP, CMP, GFR #### [address] [address] Eosinophil, Absolute 0.3 10 3/mcL Normal 0.0-0.4 [facility] ([place]) Comment on above: Performed By: #### L IP, CMP, GFR #### [address] [address] Eosinophils/100 WBC (Bld) 3.2 % Normal 0.0-7.0 [facility] ([place]) Comment on above: Performed By: #### L IP, CMP, GFR #### [address] [address] Lymphocyte, Absolute 1.6 10 3/mcL Normal 0.8-3.9 [facility] ([place]) Comment on above: Performed By: #### L IP, CMP, GFR #### [address] [address] Lymphocytes/100 WBC (Bld) 19.8 % Normal 10.0-50.0 [facility] ([place]) Comment on above: Performed By: #### L IP, CMP, GFR #### [address] [address] Monocyte, Absolute 0.5 10 3/mcL Normal 0.2-1.0 [facility] ([place]) Comment on above: Performed By: #### L IP, CMP, GFR #### [address] [address] Monocytes/100 WBC (Bld) 6.1 % Normal 1.7-13.0 [facility] ([place]) Comment on above: Performed By: #### L IP, CMP, GFR #### [address] [address] Neutrophils/100 WBC (Bld) 70.3 % Normal 37.0-80.0 [facility] ([place]) Comment on above: Performed By: #### L IP, CMP, GFR #### Cristofer [address] [address] .GFRon 03-03-2022 GFR Non- 95 ml/min/1.73sqm Normal [facility] ([place]) Comment on above: Result Comment: GFR Population [...] By: #### L IP, CMP, GFR #### Cristofer [address] [address] GFR 115 ml/min/1.73sqm Normal [facility] ([place]) Comment on above: Result Comment: GFR Population [...] By: #### L IP, CMP, GFR #### Cristofer [address] [address] .MDWon 03-03-2022 Monocyte Distribution Width 15.07 Normal 0.00-20.00 [facility] ([place]) Comment on above: Result Comment: For ED adult patients suspected of sepsis, MDW<=20.0 does not rule out sepsis or risk of sepsis Performed By: #### L IP, CMP, GFR #### [place] [address] .NEUABSon 03-03-2022 Neutrophil, Absolute 5.8 10 3/mcL Normal 2.9-6.2 [facility] ([place]) Comment on above: Performed By: #### L IP, CMP, GFR #### [place] [address] CBCon 03-03-2022 Erythrocyte distribution width (RBC) [Ratio] 13.4 % Normal 11.5-14.5 [facility] ([place] Comment on above: Performed By: #### L IP, CMP, GFR #### [place] [address] Hematocrit (Bld) [Volume fraction] 42.3 % Normal 42.0-52.0 [facility] ([place] Comment on above: Performed By: #### L IP, CMP, GFR #### [place] [address] Hgb 15.0 G/dL Normal 14.0-18.0 [facility] ([place] Comment on above: Performed By: #### L IP, CMP, GFR #### [place] [address] MCH (RBC) [Entitic mass] 30.9 pg Normal 27.0-31.2 [facility] ([place] Comment on above: Performed By: #### L IP, CMP, GFR #### [place] [address] MCHC 35.5 G/dL High 31.8-35.4 [facility] ([place] Comment on above: Performed By: #### L IP, CMP, GFR #### [place] [address] MCV (RBC) [Entitic vol] 87.2 fL Normal 80.0-94.0 [facility] ([place] Comment on above: Performed By: #### L IP, CMP, GFR #### [address] [address] Platelet 193 10 3/mcL Normal 130-400 [facility] ([place] Comment on above: Performed By: #### L IP, CMP, GFR #### [address] [address] Platelet mean volume (Bld) [Entitic vol] 7.8 fL Normal 7.4-10.4 [facility] ([place] Comment on above: Performed By: #### L IP, CMP, GFR #### [address] [address] RBC 4.85 10 6/mcL Normal 4.04-6.13 [facility] ([place] Comment on above: Performed By: #### L IP, CMP, GFR #### [address] [address] WBC 8.2 10 3/mcL Normal 4.6-10.8 [facility] ([place] Comment on above: Performed By: #### L IP, CMP, GFR #### [address] [address] CMPon 03-03-2022 Albumin Level 4.2 G/dL Normal 3.5-5.0 [facility] ([place] Comment on above: Performed By: #### L IP, CMP, GFR #### [address] [address] Albumin/Globulin [Mass ratio] 1.3 {ratio} Normal 1.1-2.5 [facility] ([place] Comment on above: Performed By: #### L IP, CMP, GFR #### [address] [address] ALP [Catalytic activity/Vol] 67 U/L Normal 40-135 [facility] ([place] Comment on above: Performed By: #### L IP, CMP, GFR #### [address] [address] ALT [Catalytic activity/Vol] 32 U/L Normal 16-63 [facility] ([place] Comment on above: Performed By: #### L IP, CMP, GFR #### [address] [address] AST [Catalytic activity/Vol] 21 U/L Normal 10-40 [facility] ([place] Comment on above: Performed By: #### L IP, CMP, GFR #### [address] [address] Bili Total 0.4 mg/dL Normal 0.2-1.0 [facility] ([place] Comment on above: Result Comment: Use of this assay is not recommended for patients undergoing treatment with eltrombopag due to the potential for falsely elevated results. Performed By: #### L IP, CMP, GFR #### [address] [address] BUN/Creatinine Ratio 11 ratio Normal 7-27 [facility] ([place]) Comment on above: Performed By: #### L IP, CMP, GFR #### [address] [address] Calcium [Mass/Vol] 8.6 mg/dL Normal 8.4-10.2 [facility] ([place]) Comment on above: Performed By: #### L IP, CMP, GFR #### [address] [address] Chloride [Moles/Vol] 101 mmol/L Normal 98-107 [facility] ([place] Comment on above: Performed By: #### L IP, CMP, GFR #### [address] [address] CO2 [Moles/Vol] 25 mmol/L Normal 22-29 [facility] ([place] Comment on above: Performed By: #### L IP, CMP, GFR #### [address] [address] Creatinine [Mass/Vol] 0.89 mg/dL Normal 0.70-1.30 [facility] ([place] Comment on above: Performed By: #### L IP, CMP, GFR #### [address] [address] Electrolyte Balance 12.0 mEq/L Normal 4.0-15.0 Counts include 234 beds at the [facility] ([place]) Comment on above: Performed By: #### L IP, CMP, GFR #### [address] [address] Globulin 3.2 G/dL Normal [facility] ([place] Comment on above: Performed By: #### L IP, CMP, GFR #### [address] [address] Glucose [Mass/Vol] 84 mg/dL Normal 70-105 [facility] ([place] Comment on above: Performed By: #### L IP, CMP, GFR #### [address] [address] Potassium [Moles/Vol] 3.8 mmol/L Normal 3.5-5.1 [facility] ([place] Comment on above: Performed By: #### L IP, CMP, GFR #### [address] [address] Sodium [Moles/Vol] 138 mmol/L Normal 136-145 [facility] ([place] Comment on above: Performed By: #### L IP, CMP, GFR #### [address] [address] Total Protein 7.4 G/dL Normal 6.4-8.2 [facility] ([place] Comment on above: Performed By: #### L IP, CMP, GFR #### [address] [address] Urea nitrogen [Mass/Vol] 10 mg/dL Normal 7-18 [facility] ([place] Comment on above: Performed By: #### L IP, CMP, GFR #### [address] [address] LABORATORYOrdered By: Wade Rodrigues on 03-03-2022 Albumin [...] 03-03-2022 Lipase Level 144 U/L Normal 73-393 [facility] ([place] Comment on above: Performed By: #### L IP, CMP, GFR #### [place] [address] .Urinalysis Microscopic (AO) on 04-30-2021 UA RBC 5-10 Abnormal None Seen [facility] ([place] Comment on above: Performed By: #### U A, UAMICAO #### [address] [address] UA Squam Epithelial None Seen Normal None Seen Counts include 234 beds at the [facility] [place] Comment on above: Performed By: #### U A, UAMICAO #### [address] [address] UA WBC None Seen Normal None Seen [facility] [place] Comment on above: Performed By: #### U A, UAMICAO #### [address] [address] LABORATORYOrdered By: Liv Wan on 04-30-2021 Appearance [...] SS UAon 04-30-2021 Color (U) Yellow Normal [facility] ([place] Comment on above: Performed By: #### U A, UAMICAO #### [address] [address] Glucose (U) [Mass/Vol] Negative Normal Negative [facility] ([place]) Comment on above: Performed By: #### U A, UAMICAO #### [address] [address] Ketones Ql (U) Negative Normal Negative [facility] ([place]) Comment on above: Performed By: #### U A, UAMICAO #### [address] [address] UA Appear Clear Normal Clear [facility] ([place] Comment on above: Performed By: #### U A, UAMICAO #### [address] [address] UA Blood Moderate Abnormal Negative [facility] ([place] Comment on above: Performed By: #### U A, UAMICAO #### [place] [address] UA Leuk Est Negative Normal Negative [facility] ([place] Comment on above: Performed By: #### U A, UAMICAO #### [place] [address] UA Nitrite Negative Normal Negative [facility] ([place] Comment on above: Performed By: #### U A, UAMICAO #### [place] [address] UA pH 5.5 Normal 5.0 - 8.0 [facility] ([place] Comment on above: Performed By: #### U A, UAMICAO #### [place] [address] UA Protein Negative Normal Negative [facility] ([place] Comment on above: Performed By: #### U A, UAMICAO #### [place] [address] UA Spec Grav 1.015 Normal 1.015-1.025 [facility] ([place] Comment on above: Performed By: #### U A, UAMICAO #### [place] [address] UA Specimen Type Clean Catch Normal [facility] [place] Comment on above: Performed By: #### U A, UAMICAO #### [place] [address] UA Urobilinogen 0.2 E.U./dL Normal 0.2-1.0 [facility] ([place] Comment on above: Performed By: #### U A, UAMICAO #### [place] [address] Urobilinogen (U) [Mass/Vol] Negative Normal Negative [facility] ([place] Comment on above: Performed By: #### U A, UAMICAO #### Cristofer [address] [address] Vital Signs Date Time Vital Sign Value Performing Clinician Facility 02-25-2025 15:26-0400 Body temperature 97.9 [degF] Dr. Dany Ash MD Work Phone: [facility] 02-25-2025 15:26-0400 Diastolic blood pressure 77 mm[Hg] Dr. Dany Ash MD Work Phone: [phone] [place] [address] 02-25-2025 15:26-0400 Heart rate 56 /min Dr. Dany Ash MD Work Phone: [phone] [place] [address] 02-25-2025 15:26-0400 Respiratory rate 16 /min Dr. Dany Ash MD Work Phone: [facility] 02-25-2025 15:26-0400 SaO2% (BldA) [Mass fraction] 100 % Dr. Dany Ash MD Work Phone: [facility] 02-25-2025 15:26-0400 Systolic blood pressure 116 mm[Hg] Dr. Dany Ash MD Work Phone: [facility] 02-25-2025 11:14-0400 Body height 177.[address] Dany Ash MD Work Phone: [facility] 02-25-2025 11:14-0400 Body mass index (BMI) [Ratio] 27.8 kg/m2 Dr. Dany Ash MD Work Phone: [facility] 02-25-2025 11:14-0400 Body weight 87.[address] Dany Ash MD Work Phone: [facility] 02-15-2025 13:05-0400 Body height 177.[address] Dany Ash MD Work Phone: [facility] 02-15-2025 13:05-0400 Body mass index (BMI) [Ratio] 28.4 kg/m2 Dr. Dany Ash MD Work Phone: [facility] 02-15-2025 13:05-0400 Body weight 89.[address] Dany Ash MD Work Phone: [facility] 02-15-2025 13:05-0400 Diastolic blood pressure 84 mm[Hg] Dr. Dany Ash MD Work Phone: [facility] 02-15-2025 13:05-0400 Respiratory rate 18 /min Dr. Dany Ash MD Work Phone: [facility] 02-15-2025 13:05-0400 Systolic blood pressure 138 mm[Hg] Dr. Dany Ash MD Work Phone: [facility] 08-16-2024 15:53-0500 Body mass index (BMI) [Ratio] 28.79 kg/m2 Anthony Tsai CONSUMER AFFAIRS DIRECTOR.TELEGRAPH INSPECTOR Work Phone: [facility] 08-16-2024 15:53-0500 Body temperature 97.5 [degF] Anthony Tsai CONSUMER AFFAIRS DIRECTOR.TELEGRAPH INSPECTOR Work Phone: [facility] 08-16-2024 15:53-0500 Body weight 91 kg Anthony Tsai CONSUMER AFFAIRS DIRECTOR.TELEGRAPH INSPECTOR Work Phone: [facility] 08-16-2024 15:53-0500 Diastolic blood pressure 73 mm[Hg] Anthony Tsai CONSUMER AFFAIRS DIRECTOR.TELEGRAPH INSPECTOR Work Phone: [facility] 08-16-2024 15:53-0500 Heart rate 70 /min Anthony Tsai CONSUMER AFFAIRS DIRECTOR.TELEGRAPH INSPECTOR Work Phone: [facility] 08-16-2024 15:53-0500 Respiratory rate 20 /min Anthony Tsai CONSUMER AFFAIRS DIRECTOR.TELEGRAPH INSPECTOR Work Phone: [facility] 08-16-2024 15:53-0500 SaO2% (BldA) [Mass fraction] 99 % Anthony Tsai CONSUMER AFFAIRS DIRECTOR.TELEGRAPH INSPECTOR Work Phone: [facility] 08-16-2024 15:53-0500 Systolic blood pressure 131 mm[Hg] Anthony Tsai CONSUMER AFFAIRS DIRECTOR.TELEGRAPH INSPECTOR Work Phone: [facility] 04-10-2022 12:24-0400 Body temperature 98.29 [degF] Josse King CONSUMER AFFAIRS DIRECTOR.TELEGRAPH INSPECTOR Work Phone: [facility] 04-10-2022 12:24-0400 Body weight 98.7 kg Josse Brenner CONSUMER AFFAIRS DIRECTOR.TELEGRAPH INSPECTOR Work Phone: [facility] 04-10-2022 12:24-0400 Diastolic blood pressure 82 mm[Hg] Josse Jordin CONSUMER AFFAIRS DIRECTOR.TELEGRAPH INSPECTOR Work Phone: [facility] 04-10-2022 12:24-0400 Heart rate 92 /min Josse Jordin CONSUMER AFFAIRS DIRECTOR.TELEGRAPH INSPECTOR Work Phone: [facility] 04-10-2022 12:24-0400 Respiratory rate 16 /min Josse King CONSUMER AFFAIRS DIRECTOR.TELEGRAPH INSPECTOR Work Phone: [facility] 04-10-2022 12:24-0400 SaO2% (BldA) [Mass fraction] 97 % Josse Brenner CONSUMER AFFAIRS DIRECTOR.TELEGRAPH INSPECTOR Work Phone: [facility] 04-10-2022 12:24-0400 Systolic blood pressure 124 mm[Hg] Josse Brenner CONSUMER AFFAIRS DIRECTOR.TELEGRAPH INSPECTOR Work Phone: [facility] 03-03-2022 17:55-0400 Body height 177.8 cm PAUL THOMPSON DO [facility] 03-03-2022 17:55-0400 Body temperature 98.78 [degF] PAUL THOMPSNO DO [facility] 03-03-2022 17:55-0400 Body weight 95.5 kg PAUL THOMPSON DO [facility] 03-03-2022 17:55-0400 Diastolic blood pressure 86 mm[Hg] PAUL THOMPSON DO [facility] 03-03-2022 17:55-0400 Heart rate 108 /min PAUL THOMPSON DO [facility] 03-03-2022 17:55-0400 Mean blood pressure 100 mm[Hg] PAUL THOMPSON DO [facility] 03-03-2022 17:55-0400 Respiratory rate 22 /min PAUL THOMPSON DO [facility] 03-03-2022 17:55-0400 Systolic blood pressure 129 mm[Hg] PAUL THOMPSON DO [facility] 04-30-2021 17:48-0500 Body temperature 98.42 [degF] DR EARNESTINE PEOPLES MD [facility] 04-30-2021 17:48-0500 Diastolic blood pressure 83 mm[Hg] DR EARNESTINE PEOPLES MD [facility] 04-30-2021 17:48-0500 Heart rate 99 /min DR EARNESTINE PEOPLES MD [facility] 04-30-2021 17:48-0500 Mean blood pressure 98 mm[Hg] DR EARNESTINE PEOPLES MD [facility] 04-30-2021 17:48-0500 Respiratory rate 16 /min DR EARNESTINE PEOPLES MD [facility] 04-30-2021 17:48-0500 Systolic blood pressure 129 mm[Hg] DR EARNESTINE PEOPLES MD [facility] Encounters Encounter Date Encounter Type Care Provider Facility Start: 02-25-2025 ambulatory Herman mckeony:[facility] Start: 02-25-2025 Non-patient / Non-visit Dr. Karol Simms MD -[facility] Start: 02-25-2025 End: 02-25-2025 Admission to same day surgery center Dr. Herman Simms [facility] Start: 02-25-2025 End: 02-25-[address] Dany Ash MD Work Phone: [facility] Start: 02-15-2025 End: 02-15-[address] Herman Simms MD -[facility] Work Phone: Start: 02-15-2025 End: 02-15-[address] Dany Ash MD Work Phone: -[facility] Start: 08-16-2024 End: 08-16-2024 ambulatory DANY ASH Facility:[facility] Start: 08-16-2024 End: 08-16-2024 Office outpatient visit 15 minutes Anthony Tsai APRN.TELEGRAPH INSPECTOR Work Phone: [facility] Comment on above: Urinary frequency (P rimary Dx) Start: 05-22-2024 ambulatory Dany Ash Facilit y:[facility] Start: 05-22-2024 End: 05-22-2024 ambulatory Dany Ash Facility:[facility] Start: 04-18-2024 End: 04-18-2024 ambulatory Herman Simms [facility] Start: 06-30-2022 End: 06-30-2022 Subsequent hospital visit by physician Xr [facility] Work Phone: Radiology Comment on above: Knee injuries, left, initial encounter [S89.92XA] Start: 04-11-2022 Telephone encounter Hermelinda Boudreaux APRN.TELEGRAPH INSPECTOR Work Phone: [facility] Comment on above: Results Start: 04-10-2022 End: 04-10-2022 Patient encounter procedure Josse Brenner APRN.TELEGRAPH INSPECTOR Work Phone: [facility] Comment on above: Suspected COVID-19 v irus infection (Primary Dx) Start: 03-03-2022 End: 03-03-2022 Emergency department patient visit NOT RECORDED PHYSICIAN Facility:[facility] Start: 03-03-2022 End: 03-03-2022 Emergency department patient visit PAUL THOMPSON DO [facility] Start: 04-30-2021 End: 04-30-2021 Emergency department patient visit DR. EARNESTINE PEOPLES MD. Facility:[facility] Start: 04-30-2021 End: 04-30-2021 Emergency department patient visit DR EARNESTINE PEOPLES MD [facility] Procedures Date Procedure Procedure Detail Performing Clinician Start: 02-25-[address] Dany Ash MD Work Phone: Start: 08-16-2024 Urnls dip stick/tabl et rgnt auto w/o microscopy Anthony Tsai CONSUMER AFFAIRS DIRECTOR.TELEGRAPH INSPECTOR Work Phone: Start: 06-30-2022 Radiologic exam knee complete 4/more views Josse Brenner CONSUMER AFFAIRS DIRECTOR.TELEGRAPH INSPECTOR Work Phone: Start: 07-28-2016 Colonoscopy Josse rai CONSUMER AFFAIRS DIRECTOR.TELEGRAPH INSPECTOR Work Phone: Start: 05-28-2011 Lipid 1996 panel - S melinda or Plasma [facility] [place] Work Phone: Face structure (body structure) DR EARNESTINE PEOPLES MD Plan of Treatment Date Care Activity Detail Author Start: 09-16-2027 FECAL OCCULT BLOOD FECAL OCCULT BLOO D [facility] Start: 09-16-2027 Screening for malign ant neoplasm of colon Fecal Occult Blood [facility] Start: 07-28-2026 Colonoscopy COLONOSCOPY [facility] Start: 07-28-2026 COLORECTAL CANCER SCREENING COLORECTAL CANCER SCREENING [facility] Start: 07-28-2026 Screening for malign ant neoplasm of colon [facility] Start: 06-30-2026 Urine microalbumin profile [facility] Start: [facility]-25-[facility]25 [facility] Start: 02-12-2024 Covid-19 Vaccine ( season) Covid-19 Vaccine ( season) [facility] Start: 02-12-2024 Influenza vaccination Influenza Vacc ine (#1) [facility] Start: 02-11-2022 Influenza vaccination INFLUENZA (#1) [facility] Start: 04-25-2021 COVID-19 VACCINE (3 - Booster for Moderna series) COVID-19 VACCINE (3 - Booster for Moderna series) [facility] Start: 2017 Lipid panel Lipid Screening [facility] Start: 2017 LIPID SCREEN LIPID SCREEN [facility] Start: 2001 Hepatitis B Vaccine (1 of 3 - 19+ 3-dose series) Hepatitis B Vaccine (1 of 3 - 19+ 3-dose series) [facility] Start: 2000 HEPATITIS C SCREENING HEPATITIS C [facility] Start: 2000 Hepatitis C screening Hepatitis C [facility] Start: 2000 HIV SCREENING HIV SCREENING [facility] Start: 2000 HIV screening HIV Screening [facility] Start: 1982 HEPATITIS B (1 of 3 - 3-dose series) HEPATITIS B (1 of 3 - 3-dose series) [facility] Bacteria identified in Urine by Culture BACTERIAL CULTURE, URINE Microbiology Routine Urinary frequency Ordered: 08/16/2024 [facility] Work Phone: Comment on above: Ordered: 08/16/2024 Influenza virus A an d B RNA and SARS-CoV-2 (COVID-19) N gene panel - Respiratory specimen by DANIEL with probe detection COVID WITH FLUA+B, ROUTINE Microbiology Routine Suspected COVID-19 virus infection Ordered: 04/10/2022 [facility] Work Phone: Comment on above: Ordered: 04/10/2022 Immunizations Immunization Date Immunization Notes Care Provider Fa cility 02-26-2021 Covid (Moderna) Dr. Dnay gaxiola MD Work Phone: [facility] 01-25-2021 Covid (Moderna) Dr. Dany gaxiola MD Work Phone: [facility] 06-30-2016 pneumococcal polysaccharide vaccine, 23 valent Josse Brenner CONSUMER AFFAIRS DIRECTOR.TELEGRAPH INSPECTOR Work Phone: [facility] 06-30-2016 tetanus toxoid, redu jacqui diphtheria toxoid, and acellular pertussis vaccine, adsorbed Josse Brenner CONSUMER AFFAIRS DIRECTOR.TELEGRAPH INSPECTOR Work Phone: [facility] 06-30-2016 influenza virus vacc ine, unspecified formulation [facility] [place] Work Phone: [facility] 05-25-2011 influenza virus vacc ine, unspecified formulation Josse Brenner CONSUMER AFFAIRS DIRECTOR.TELEGRAPH INSPECTOR Work Phone: [facility] Work Phone: 03-16-2006 diphtheria and tetan us toxoids, adsorbed for pediatric use Josse Brenner CONSUMER AFFAIRS DIRECTOR.TELEGRAPH INSPECTOR Work Phone: [facility] Work Phone: Payers Date Payer Category Payer Private Health Insurance [facility] [id number] 2024 Private Health Insurance [id number] 2024 Self-pay 2024 Unknown [id number] 2021 Unknown [employer] PPO [id number] 2021-Present [phone] [address] [place] [address] PPO [id number] 2021 Unknown [id number] 1982 Unknown [id number] 1982 Unknown [id number] Unknown [id number] Unknown [id number] Unknown [id number] Unknown [id number] Unknown [id number] Unknown [id number] Unknown [id number] Social History Date Type Detail Facility Start: 10-16-2020 End: 02-15-2025 Ex-smoker (finding) [facility] Start: 1980 Sex Assigned At Male A [facility] History of tobacco use Current smoker [facility] Start: 04-10-2022 Tobacco use and exposure Former smokeless tobacco user [facility] History of tobacco use Chews Tobacco [facility] Start: 04-10-2022 End: 08-16-2024 Alcohol intake Current drinker of alcohol (finding) [facility] Start: 1980 Sex Assigned At Not on file C [facility] Start: 05-18-2020 End: 06-30-2022 History of Social function [facility] Start: 05-18-2020 End: 06-30-2022 Tobacco use panel [facility] National Score (1-100), lower number is lower risk Not on file [facility] Start: 10-06-2020 Alcohol Alcohol [facility] Start: 10-06-2020 Drugs Drugs [facility] Start: 10-06-2020 Lives Lives [facility] Start: 09-18-2019 Tobacco Use Tobacco Use [facility] Start: 02-19-2025 Tobacco smoking stat us HIIS Smokes tobacco daily (finding) [facility] Goals Date Patient Goal Desired Activity /State Functional Status Date Assessment Result Facility 03-03-2022 Functional Status Assistive Device None A [facility] 03-03-2022 Functional Status Room check performed [facility]3] 10-30-2014 Are you deaf, or do you have serious difficulty hearing No 10/30/2014 3:18 PM EDMadelyn Spann Ma [facility] 10-30-2014 Are you blind, or do you have serious difficulty seeing, even when wearing glasses No 10/30/2014 3:18 PM Madelyn Marsh Ma No [facility] 10-30-2014 Do you have serious difficulty walking or climbing stairs No 10/30/2014 3:18 PM EDMadelyn Spann Ma [facility] 10-30-2014 Do you have difficul ty dressing or bathing No 10/30/2014 3:18 PM EDMadelyn Spann Ma [facility] 10-30-2014 Because of a physica l, mental, or emotional condition, do you have difficulty doing errands alone such as visiting a physician's office or shopping No 10/30/2014 3:18 PM EDMadelyn Spann Ma [facility] Mental Status Date Assessment Result Facility 02-25-2025 Cognitive function Level Of Cons ciousness Follows Commands;Drowsy [facility] Work Phone: 02-25-2025 Cognitive function Voice/Name [facility] Work Phone: 03-03-2022 Mental Status Orientation Oriented x 4 [facility]3] 03-03-2022 Mental Status [facility] 10-30-2014 Because of a physica l, mental, or emotional condition, do you have serious difficulty concentrating, remembering, or making decisions No 10/30/2014 3:18 PM EDT Madelyn Moreland Ma [facility] Clinical Notes 07-28-2016 to 02-25-2025 Note Date & Type Note Facility 02-25-2025 Consult note [facility] 02-25-2025 Discharge summary Note Date/Time February 25, 2025 1:40pm [facility] Medical Records Department [address] [place] [address] Instructions for Home/Discharge Instructions 02/25/25 1338 MR#: [id number] Acct: [id number] Name: ISRA MENG Rep #:[id number] : 1980 44 From: Herman garcia MD PCP: Dr. Dany Ash MD Status:RE [facility] Discharge Instructions Procedure Gallbladder Diet Discharge Diet: [...] to schedule 2 week follow up appointment. [phone] Test Results: Test results from this visit will be discussed in further detail at your follow-up appointment, if applicable. Discharge Plan Admission Attending Provider: Herman Simsm Primary Care Provider: Dany Ash Instructions Print Language: Cameroonian Discharge Orders/Prescriptions Prescriptions: New oxycodone 5 mg [...] CC: Dr. Dany Ash MD ~ Signed [facility] Work Phone: 1(473) 128-169209-15-2025 History and physical note [facility] Medical Records Department [address] [place] [address] History & Physical Exam 02/25/25 1154 MR#: [id number] Acct: [id number] Name: ISRA MENG Rep #:[id number] : 1980 44 From: Herman garcia MD PCP: Dr. Dany Ash MD Status:[facility] Location: [place] [address] History and Physical Date of Admission: 02/25/25 Intake Vital Signs 05/22/2407:24 02/15/2513:05 Height 5 ft 10 in 5 ft 10 in Weight: 198 lb BMI 28.4 BP 138/84 H Blood Pressure Location Rt brachial Position Sitting Respiration 18 Intake Visit Reasons: Gallbladder problems Chief Complaint: gallbladder problems Chemical Packager Required: No Is patient in pain?: No Allergies No Known Allergies Allergy (Verified 02/15/25 13:05) Have you fallen in the past year?: No [facility] History Back pain Smoker Hemorrhoids Acid [...] General: cooperative Orientation: alert and oriented x3 HENFL Head: normal to inspection Neck Neck: normal [...] care center. Herman Simms MD Pager: [facility] [address] [place] [address], [address] [place] [id number] Office: I have examined the patient and the H&P has been reviewed. There are no clinicalchanges since date of exam. 02/25/25 1154 Cosigner Signature (if applicable): CC: Dr. Herman Simms MD; Dr. Dany Ash MD~ Signed [facility]2025 Consult note [facility] Medical Records Department [address] [place], [place] [id number] Anesthesia Postop Eval II 02/25/25 1450 MR#: [id number] Acct: [id number] Name: ISRA MENG Rep #:[id number] : 1980 44 From: Medhat Luciano MD PCP: Dr. Dany Ash MD Status: [facility] [place] Race: C Location: [place] [address] Anesthesia Postop Eval I Sum Postop Eval Completion status Anesthesia document: Postop Eval 1 completed: Yes Anesthesia Postop Eval I Summary Anesthesia Postop Eval I Summary: Anesthesia Postop Eval I: Assessment Summary Airway patent Yes 02/25/25 14:23 EIGHT ARM OPERATOR.TDOB Spontaneous unlabored Yes 02/25/25 14:23 EIGHT ARM OPERATOR.TDOB respirations Mental status Awake 02/25/25 14:23 EIGHT ARM OPERATOR.TDOB nausea No 02/25/25 14:23 EIGHT ARM OPERATOR.TDOB Vomiting No 02/25/25 14:23 EIGHT ARM OPERATOR.TDOB Anesthesia Postop Eval I: Fluid Summary Crystalloid volume administer 900 02/25/25 14:23 EIGHT ARM OPERATOR.TDOB (ml) Colloids volume administered ( ml) Blood Product volume administered (ml) Total IV fluid infused 900 02/25/25 14:23 EIGHT ARM OPERATOR.TDOB Anesthesia Postop Eval I: Summary Notes Anesthesia Complication No 02/25/25 14:23 EIGHT ARM OPERATOR.TDOB Anesthesia Complication Comment: Post-operative progress note Anesthesia: Postop Eval II Evaluation Mental status: Awake Pain Level: 2 nausea: Yes Vomiting: No 02/25/25 1451 > Date _ Medhat Fernandez Signature: Date CC: ~ Signed [facility]2025 Consult note [facility] Medical Records Department [address] [place] [address] Anesthesia Postop Eval I 02/25/25 1421 MR#: [id number] Acct: [id number] Name: ISRA MENG Rep #:[id number] : 1980 44 From: Sunita Weaver PCP: Dr. Dany Ash MD Status:[facility] Y Race: C Location: [place] [address] Anesthesia: Postop Eval I Current Vital Signs [...] 02/25/25 1423 RNA> Date _ Sunita Dobos EIGHT ARM OPERATOR Cosigner Signature: Date CC: ~ Signed [facility]2025 History and physical note Author Herman Simms [facility] Note Date/Time February 25, 2025 3:40pm [facility] Medical Records Department [address] [place] [address] History & Physical Exam 02/25/25 1154 MR#: [id number] Acct: [id number] Name: ISRA MENG Rep #:[id number] : 1980 44 From: Herman garcia MD PCP: Dr. Dany Ash MD Status:[facility] Location: [place] [address] History and Physical Date of Admission: 02/25/25 Intake Vital Signs 05/22/2407:24 02/15/2513:05 Height 5 ft 10 in 5 ft 10 in Weight: 198 lb BMI 28.4 BP 138/84 H Blood Pressure Location Rt brachial Position Sitting Respiration 18 Intake Visit Reasons: Gallbladder problems Chief Complaint: gallbladder problems Chemical Packager Required: No Is patient in pain?: No Allergies No Known Allergies Allergy (Verified 02/15/25 13:05) Have you fallen in the past year?: No [facility] Medical History Back pain Smoker Hemorrhoids Acid [...] General: cooperative Orientation: alert and oriented x3 [facility] Head: normal to inspection Neck Neck: normal [...] care center. Herman Simms MD Pager: [facility] [address] [place] [address], [address] [place] [address] Office: I have examined the patient and the H&P has been reviewed. There are no clinicalchanges since date of exam. 02/25/25 1154 <Electronically signed by Herman Simms MD> Cosigner Signature (if applicable): CC: Dr. Herman Simms MD; Dr. Dany Ash MD~ Signed [facility] Work Phone: 1(391) 399-126809-15-2025 Discharge summary [facility] Medical Records Department [address] [place] [address] Instructions for Home/Discharge Instructions 02/25/25 1338 MR#: [id number] Acct: [id number] Name: ISRA MENG Rep #:[id number] : 1980 44 From: Herman garcia MD PCP: Dr. Dany Ash MD Status:[facility] Discharge Instructions Procedure Gallbladder Diet Discharge Diet: [...] to schedule 2 week follow up appointment. [phone] Test Results: Test results from this visit will be discussed in further detail at your follow- up appointment, if applicable. Discharge Plan Admission Attending Provider: Herman Simms Primary Care Provider: Dany Ash Instructions Print Language: Cameroonian Discharge Orders/Prescriptions Prescriptions: New oxycodone 5 mg Tablet 5 - 10 mg PO Q4H PRN PRN (Reason: Pain Score 4-10) 5 Days Qty: 14 0RF Referrals / Follow Up: Dany Ash MD [Primary Care Provider] - Disposition Disposition (needs filled in before D/C Order can be placed): Home, Self Care 02/25/25 1340Herman Simms MD CC: Dr. Dany Ash MD ~ Signed [facility]2025 Procedure note [facility] Medical Records Department [address] [place] [address] Operative Report 02/25/25 1335 MR#: [id number] Acct: [id number] Name: ISRA MENG Rep #:[id number] : 1980 44 From: Herman garcia MD PCP: Dr. Dany Ash MD Status:[facility] Location: [place] [address] Operative Report (Standard) Operative Information Date of Procedure: 02/25/25 Pre-Operative Diagnosis: Gallbladder sludge Post-Operative Diagnosis: Same Surgery/Procedure Performed: Robotic assisted laparoscopic cholecystectomy sales consultant residential manager: Yes Handtools Repairer: Tesfaye,Stacy Tasks completed by publisher assistant: Opening & closing Type of Anesthesia: General/Regional [...] Documentation VTE Mechan Device Prophylaxis: SCD's 02/25/25 2587 Cosigner Signature (if applicable): CC: Dr. Herman Simms MD; Dr. Dany Ash MD~ Signed [facility]2025 Consult note Author Medhat Luciano [facility] Note Date/Time February 25, 2025 3:40pm [facility] Medical Records Department [address] [place] [address] Pre-Anesthesia Evaluation 02/25/25 1125 MR#: [id number] Acct: [id number] Name: ISRA MENG Rep #:[id number] : 1980 44 From: Medhat Luciano MD PCP: Dr. 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 - forest examiner Hx Hospitalization No 02/19/25 14:10 Any Problems [...] take am of surgery PONV PONV - forest examiner: PONV - forest examiner Female No 02/19/25 14:10 HX of Motion [...] 02/25/25 11:14 Respiratory Assessment Respiratory Assessment - forest examiner: Respiratory Tract Infection Hx - forest examiner Hx Respiratory Tract Infection No 02/19/25 14:10 STOP Sleep Apnea STOP Sleep Apnea - forest examiner: STOP Sleep Apnea - forest examiner Hx Hypertension No 02/19/25 14:10 Hx Sleep [...] Tobacco Use History Tobacco Use History - forest examiner: Tobacco Use History - forest examiner Tobacco Use Smoking Status Current every day smoker 02/19/25 14:10 Hx Tobacco Use Yes 02/19/25 14:10 Years Smoking Packs Smoked per Day Smoking Cessation Date was within the last 15 years Hx Smoking Cessation Date Hx Smoking Cessation Counseling Hematologic Medial History Hematologic Hx - forest examiner: 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 Signature: Date CC: ~ Signed [facility] Work Phone: 1(895) 931-414509-15-2025 [facility] Medical Records Department [address] [place] [address] History Physical Exam 02/25/25 1154 MR#: [id number] Acct: [id number] Name: ISRA MENG Rep #: [id number] : 1980 44 From: Herman Simms MD PCP: Dr. Dany sAh MD Status:[facility] Location: [place] [address] History and Physical Date of Admission: 02/25/25 Intake Vital Signs 05/22/2407:24 02/15/2513:05 Height 5 ft 10 in 5 ft 10 in Weight: 198 lb BMI 28.4 BP 138/84 H Blood Pressure Location Rt brachial Position Sitting Respiration 18 Intake Visit Reasons: Gallbladder problems Chief Complaint: gallbladder problems Chemical Packager Required: No Is patient in pain?: No [...] General: cooperative Orientation: alert and oriented x3 HENFL Head: normal to inspection Neck Neck: normal [...] that if any injuries occurred this may n (more content not included)...[facility]09-05-2025 Evaluation note* Diagnosis Onset Date Resolution Status Admit Date Abdominal pain acute February 15, 2025 12:49pm Gallbladder sludge acute Septem 2024 12:49pm [facility] Work Phone: 1(955) 343-921803-06-2025 NoteHNO ID: [id number] Author: ANTHONY TSAI APRN.[facility] Service: ? Author Type: Nurse Practitioner Type: Progress Notes Filed: 08/16/2024 16:12 Note Text: [facility] Subjective Isra Meng is a 43 [...] of care. This note was generated using CiraNova software. It may contain errors in wording, punctuation, or spelling. Anthony Tsai APRN.TELEGRAPH INSPECTOR MDM ProceduresSum[facility] History of Present illness Narrative* Anthony Tsai APRN.KIKO - 08/16/2024 3:52 PM EST [...] of care. This note was generated using CiraNova software. It may contain errors in wording, punctuation, or spelling. Anthony Tsai APRN.TELEGRAPH INSPECTOR MDM Procedures documented in this encounterChildren[facility]12-10-2024 [facility] Medical Records Department [address] [place] [address] History Physical Exam 05/22/24 0812 MR#: [id number] Acct: [id number] Name: ISRA MENG Rep #: [id number] : 1980 43 From: Herman Simms MD PCP: Dr. Dany Ash MD Status:[facility] Location: [place] [address] History and Physical Date of Admission: 05/22/24 [...] mg PO QDAY 04/18/24 04/18/24 History release [facility] Medical History (Updated 04/18/24 @ 15:26 by [...] or heart attack wit (more content not included)...[facility]01-18-2023 History of Present illness Narrative* Uma [...] 30, 2022 10:52 AM documented in this encounterChildren[facility]10-30-2022 Miscellaneous Notes* Telephone Encounter - Latasha Dey [...] follow-up with primary care. documented in this encounterChildren'[facility]10-29-2022 History of Present illness Narrative* Josse Brenner APRN.TELEGRAPH INSPECTOR - 04/10/2022 12:46 PM EDT Subjective [...] avs Josse Brenner APRN.KIKO documented in this encounterChildren'[facility]09-21-2022 Hospital Discharge instructions Patient Education 03/03/2022 19:09:02 [...] Do you prefer work to being home? [phone] [employer]. [address] [place] [address], [place] [address]. All rights reserved. This information is not intended as a substitute for professional medical care. Always follow yourhealthcare professional's instructions. 03/03/2022 19:08:59 Gastritis (Adult) Gastritis (Adult) Gastritis is inflammation and irritation of the stomach lining. You can have it for a short time (acute) or be long lasting (chronic). Infection with bacteria called H pylori most often causes gastritis. More than a third of people in the have these bacteria in their bodies. In [...] or as directed by your healthcare provider [phone] [employer]. [address] [place] [address]. All rights reserved. This information is not intended as a substitute for professional medical care. Always follow yourhealthcare professional's instructions. Follow Up Care 03/03/2022 17:45:13 With:PHYSICIAN, NOT RECORDED Address:Unknown When:2-4 days [facility] 09-21-2022 Note Discharge Instructions Thank you for allowing [facility] to assist you with your healthcare needs. [...] Do you prefer work to being home? [phone] [employer]. [address] [place] [address], [place] [address]. All rights reserved. This information is not intended as a substitute for professional medical care. Always follow yourhealthcare professional's instructions. Gastritis (Adult) Gastritis is inflammation [...] or as directed by your healthcare provider [phone] [employer]. [address] [place] [address], [place] [address]. All rights reserved. This information is not intended as a substitute for professional medical care. Always follow yourhealthcare professional's instructions. Additional Information VACCINATE! IT SAVES LIVES! Members of the community who have not yet received the COVID-19 vaccine and would like to receive it can visit one of [facility] vaccine clinics. There are many vaccine clinic locations within the [facility]. For locations and available times, please visit [email or web address]. It is important to note that some COVID mobile vaccine clinics are held outdoors and may be canceled in rainy orstormy conditions. To learn more about pediatric vaccinations (ages 5-11), we invite you to visit the [facility] webpage. [email or web address]/[email or web address]-Yldup-Ldz stions.htmlTo learn more about the COVID-19 vaccine, we invite you to visit the [facility] website for a list of frequently asked questions. [email or web address] _[email or web address]-Questions.pdf [facility] Patient Portal Access Instructions: Stay connected with your healthcare team and access your personal medical information anytime with the [facility] Patient Portal. If you would like a full copy of your medical records please contact the [facility] Medical Records Department Tuesday through Tuesday between 8a.m. and 4:30p.m. Please follow the directions below to access the portal: 1.Access the email account you provided upon registration to the hospital.2.Look for an invitation email from [facility].3.Open the email and access the invitation link: Accept Invitation to [facility]4.Fill in the required chambers to create your account. Sign into [email or web address] with your username and password that you [...] you will allow to register on the [facility] Patient Portal for access to your information. You can also access the [facility] Patient Portal on the 24tidy zee. Simply click on Health Records under commercetools and then click on the [facility] logo. HOW TO SAFELY DISPOSE OF PRESCRIPTION [...] Call your local pharmacy or go to [email or web address] Univer/[email or web address] to find one close to you.3.Make use of household items: Use cat litter or old coffee grounds to dispose medications if other options arenot available. Mix your drugs with these household products, seal them in an airtight container andthrow it into the garbage. Call [facility]: [phone] to be sure your drugs can be [...] been reviewed and explained to me and YUSRA Varela BENJAMIN L understand my current condition and have read and understand these discharge instructions. I have received a written copy of the plan/instructions. If I have questions, I am aware that I should contact my doctor. Patient/Stockroom Attendant Signature: Date/Time: Relationship to Patient: Witness Name/Signature: Date/Time: [facility]11-18-2021 Hospital Discharge instructions Patient Education 04/30/2021 18:10:55 [...] the nose or gums or easy bruising [phone] [employer] [place] [address]. All rights reserved. This information is not intended as a substitute for professional medical care. Always follow yourhealthcare professional's instructions. Follow Up Care 04/30/2021 17:01:31 With:NITESH ROJAS Address: [address] [place] [address]- Business (1) When:2-4 days Comments:Drink plenty of fluids, return if severe pain fever or other concerning symptoms. If bleeding persists follow-up with urology. [facility] 02-15-2017 History of Past illness Narrative* Problem Noted Date Resolved Date Bright red rectal bleeding 07/28/201607/28 RLQ abdominal pain 07/28/2016 07/28/2016 documented as of this encounter (statuses as of 04/10/2022) [facility] History of Past illness Narrative* Problem Noted Date Resolved Date Bright red rectal bleeding 07/28/201607/28 RLQ abdominal pain 07/28/2016 07/28/2016 documented as of this encounter (statuses as of 04/11/2022) [facility] RehabilitationConsult note Author Sunita Rivero [facility] Note Date/Time February 25, 2025 2:23pm [facility] Medical Records Department [address] [place] [address] Anesthesia Postop Eval I 02/25/25 1421 MR#: [id number] Acct: [id number] Name: ISRA MENG Rep #:[id number] : 1980 44 From: Sunita Weaver PCP: Dr. Dany Ash MD Status:[facility] Y Race: C Location: [place] [address] Anesthesia: Postop Eval I Current Vital Signs [...] Postop Eval 1 completed: Yes 02/25/25 1423 <Electronically signed by Sunita Valentine RNA> Date _ Sunita Rivero EIGHT ARM OPERATOR Cosigner Signature: Date CC: ~ Signed [facility] Work Phone: Consult note Author Medhat janneth [facility] Note Date/Time February 25, 2025 2:51pm [facility] Medical Records Department [address] [place] [address] Anesthesia Postop Eval II 02/25/25 1450 MR#: [id number] Acct: [id number] Name: ISRA MENG Rep #:[id number] : 1980 44 From: Medhat Luciano MD PCP: Dr. Dany Ash MD Status:[facility] Y Race: C Location: [place] [address] Anesthesia Postop Eval I Sum Postop Eval Completion status Anesthesia document: Postop Eval 1 completed: Yes Anesthesia Postop Eval I Summary Anesthesia Postop Eval I Summary: Anesthesia Postop Eval I: Assessment Summary Airway patent Yes 02/25/25 14:23 EIGHT ARM OPERATOR.TDOB Spontaneous unlabored Yes 02/25/25 14:23 EIGHT ARM OPERATOR.TDOB respirations Mental status Awake 02/25/25 14:23 EIGHT ARM OPERATOR.TDOB nausea No 02/25/25 14:23 EIGHT ARM OPERATOR.TDOB Vomiting No 02/25/25 14:23 EIGHT ARM OPERATOR.TDOB Anesthesia Postop Eval I: Fluid Summary Crystalloid volume administer 900 02/25/25 14:23 EIGHT ARM OPERATOR.TDOB (ml) Colloids volume administered ( ml) Blood Product volume administered (ml) Total IV fluid infused 900 02/25/25 14:23 EIGHT ARM OPERATOR.TDOB Anesthesia Postop Eval I: Summary Notes Anesthesia Complication No 02/25/25 14:23 EIGHT ARM OPERATOR.TDOB Anesthesia Complication Comment: Post-operative progress note Anesthesia: Postop Eval II Evaluation Mental status: Awake Pain Level: 2 nausea: Yes Vomiting: No 02/25/25 1451 <Electronically signed by Medhat Luciano MD > Date _ Medhat Luciano MD Cosigner Signature: Date CC: ~ Signed [facility] Work Phone: Evaluation + Plan note No data available for this section [facility] Evaluation note* Diagnosis Suspected COVID-19 virus infection- Primary documented in this encounter [facility]* Diagnosis Urinary frequency- Primary documented in this encounter [facility] [place] [facility]* Diagnosis Onset Date Resolution Status Admit Date Gallbladder Problem noneactive Septe mb 2024 12:49pm [facility] Work Phone: Reason for referral (narrative)No reason for referral information availableHazel Hawkins Memorial Hospital Work Phone: Summary Purpose Family History No Family History Records Found Relationship Condition Age at Onset Recorded Date/T monique mother Anxiety and depression Unknown father Diabetes mellitus Unknown Advance Directives No Advanced Directives Records Found Advance Directive Response Recorded Date/ Time Do you have a Healthcare Power of Claims Support Specialist? No February 19, 2025 2:10pm Health Concerns [...] section and content) DATE CREATED AUTHOR 03/22/2022 [facility] ([place]) DATE CREATED AUTHOR AUTHOR'S ORGANIZ ATION 08/18/2024 [facility] DATE CREATED AUTHOR AUTHOR'S ORGANIZ ATION 03/07/2025 [facility] Source Comments (unrecognize d section and content) In the event this informatio n is protected by the Federal Confidentiality of Alcohol and Drug Abuse Patient Records regulations: The Federal rules restrict any use of the information to criminally investigate or prosecute any alcohol or drug abuse patient.[facility] RehabilitationIn the event this information is protected by the Federal Confidentiality of Alcohol and Drug Abuse Patient Records regulations: The Federal rules restrict any use of the information to criminally investigate or prosecute any alcohol or drug abuse patient.[facility] RehabilitationIn the event this information is protected by the Federal Confidentiality of Alcohol and Drug Abuse Patient Records regulations: The Federal rules restrict any use of the information to criminally investigate or prosecute any alcohol or drug abuse patient.[facility] RehabilitationIn the event this information is protected by the Federal Confidentiality of Alcohol and Drug Abuse Patient Records regulations: The Federal rules restrict any use of the information to criminally investigate or prosecute any alcohol or drug abuse patient.[facility] Reason for Visit (unrecogniz ed section and content) Reason Comments Nasal Congestion Congestion, runny no se, MONTIEL and fatigue x 4 days-exposed Reason Comments Results Specialty Diagnoses / Procedures Referred By Enrico t Referred To Contact XR IMAGING Diagnoses Knee injuries, left, initial encounter Procedures XR KNEE GENERAL 4V AP BOTH/PA BOTH/LAT/MERC LEFT RADIOLOGIC EXAM KNEE COMPLETE 4/MORE VIEWS Josse Brenner, [employer] DIRECTOR.TELEGRAPH INSPECTOR [address] [place] [address] [place] [address] Referral ID Status Reason Start Date Expiration Date V isits Requested Visits Authorized [id number] Closed Auto-Generate d Referral 06/30/2022 06/12/2023 1 1 Reason Comments MRSA concerns States his , had polyp removed which had mrsa on it, he is concerned for possible, mrsa, Specialty Diagnoses / Procedures Referred By Contac t Referred To Contact Internal Medicine / [facility] Diagnoses wants tested for MRSA Procedures EST SAME DAY Dany Ash MD [address] [address] Phone: tel: fax: [facility] [address] [place] [address] Phone: tel: Referral ID Status Reason Start Date Expiration Date V isits Requested Visits Authorized [id number] Pending Review 08/16/2024 11/14/2024 1 1 Care Teams (unrecognized sec tion and content) Train Crew Member Relationship Specialty Start Date End Date Tejinder Rodriguez MD [address] [place] [address] PCP - General Family Medicine 12/25/10 Train Crew Member Relationship Specialty Start Date End Date Tejinder Rodriguez MD [address] [place] [address] PCP - General Family Medicine 12/25/10 Train Crew Member Relationship Specialty Start Date End Date Dany Ash MD [address] [address] PCP - General Family Medicine 06/30/22 Train Crew Member Relationship Specialty Start Date End Date aDny Ash MD [address] [address] PCP - General Family Medicine 06/30/22 Team [...] BE BASED ON THE PRIMARY CLINICAL RECORDS. [facility]. provides no warranty or guarantee of the accuracy or completeness of information in this document.
--- NOTE | 2025-03-08 17:40 | CT_ITS ---
PROCEDURE: ABDOMEN/PELVIS WITH CONTRAST 03/08/2025 REASON FOR EXAM: ABDOMINAL PAIN/ELEVATED LABS TECHNIQUE: Procedure Code: [id number] Modality: CT Procedure: ABDOMEN/PELVIS WITH CONTRAST Coronal and Sagittal reconstruction series were provided. CONTRAST: Isovue 370 VOLUME: 100 mL One or more dose reduction techniques were used (e.g., Automated exposure control, adjustment of the mA and/or kV according to patient size, use of iterative reconstruction technique. RADIATION DOSE SUMMARY: CTDlvol: 9.97, 16.13 mGy DLP: 830.93 mGycm COMPARISON: US Abdomen Limited, 03/06/2024 FINDINGS: LUNG BASES: No basilar airspace consolidation or pleural effusion. LIVER: Unremarkable. GALLBLADDER: Status post cholecystectomy with mildly hyperdense ill-defined fluid in the gallbladder fossa. BILE DUCTS: No ductal dilation. PANCREAS: Unremarkable. SPLEEN: Unremarkable. ADRENAL GLANDS: Unremarkable. KIDNEYS: Unremarkable. The kidneys enhance symmetrically. No hydronephrosis or hydroureter. STOMACH AND BOWEL: Oral contrast has progressed to the sigmoid colon. No obstruction or perforation. No wall thickening. No CT evidence of colitis or acute diverticulitis. APPENDIX: Normal-appearing appendix. No CT evidence for appendicitis. RETRO/PERITONEUM: No free fluid. No free air. LYMPH NODES: No lymphadenopathy. PELVIC ORGANS: Unremarkable as visualized. VASCULATURE: No aortic aneurysm. ABDOMINAL WALL AND SOFT TISSUES: Tiny fat containing umbilical hernia. BONES: No fracture or suspicious osseous abnormality. Moderately severe L5-S1 degenerative disc disease. CT/Abdomen/Pelvis WITH Contrast IMPRESSION: Small volume of ill-defined complex fluid in the gallbladder fossa, likely post operative hematoma or seroma. Reading Location: [id number]
== END | disposition home or self-care (01) ==
LOC: CT 17:16
PROVIDERS: PCP Family Medicine; Referring Provider Surgery; Visit Provider Surgery
DX: R10.13 Epigastric pain (principal); Z90.49 Acquired absence of other specified parts of digestive tract
CPT/HCPCS: 74177; Q9967

== ENCOUNTER → 2025-03-13 | Outpatient (CLI) | payer OTHER, SELFPAY ==
[2025-03-13 09:12] LABS: AST(SGOT) 26 U/L (<=37); Alanine Aminotransfer ALT/SGPT 77 U/L (<=46); Albumin, Serum 4.8 g/dL (3.5-5.0); Alkaline Phosphatase 94 U/L (40-129); Bilirubin, Direct 0.32 mg/dL (0.00-0.30); Globulin 3.0 g/dL (2.2-4.2)
== END | disposition home or self-care (01) ==
PROVIDERS: PCP Family Medicine; Referring Provider Surgery; Visit Provider Surgery
DX: R10.13 Epigastric pain (principal); Z90.49 Acquired absence of other specified parts of digestive tract; R74.8 Abnormal levels of other serum enzymes
CPT/HCPCS: 36415; 80076

== ENCOUNTER 2025-05-08 15:45 | Emergency (ER) | payer OTHER, SELFPAY ==
[2025-05-08 15:46] VITALS: BP 140/100; PULSE 91; RESP 16; TEMP 36.3; O2SAT 100; BMI 27.5
--- NOTE | 2025-05-08 15:52 | ED.VIS.DYS ---
HPI History of Present Illness Chief Complaint: Shortness of Breath Narrative Narrative: Patient is a 44-year-old male presenting to the emergency department for shortness of breath and palpitations. Patient has a past medical history of alcohol abuse last drink was years ago, acid reflux, tobacco abuse uses about 5 nicotine pouches daily, elevated liver enzymes and status post cholecystectomy in February. He reports that has been diagnosed with anxiety and panic attacks. He is not on any current medication. He states his primary care doctor did start him on Zoloft few years ago but is no longer on this. States he is never seen a psychiatrist or therapist. He states that he has had symptoms of his anxiety which include shortness of breath, palpitations intermittently for the past few months. He was having the symptoms yesterday and went to [facility] and workup was negative. He then had the same episode today but had "fuzzy vision". He denies any double vision, loss of vision or headaches. He states that he was at work and felt very overwhelmed and describes the vision changes as bright and overwhelming. States that they are not present at time of evaluation. He denies chest pain, abdominal pain, nausea, vomiting. Denies any lower extremity edema. Denies any recent travel, hospitalizations or surgeries. Denies any history of DVT or PE. [facility] Medical History Elevated liver enzymes Back pain Smoker Hemorrhoids Acid reflux Abdominal pain Chronic pain Kidney stones Former smoker Asthma Irregular heart beat Former tobacco use Alcohol abuse Panic attacks Depression Anxiety Home Medications Medication Instructions Recorded Last Taken Type hydroxyzine HCl 25 mg tablet 25 mg PO BID PRN anxiety #14 tabs 05/08/25 Unknown Rx omeprazole 40 mg capsule,delayed 40 mg PO DAILY 05/08/25 05/08/25 History release Allergy/AdvReac Type Severity Reaction Status Date / Time No Known Allergies Allergy Verified 05/08/25 15:48 Family History Mother Anxiety and depression Father Diabetes Surgical History S/P cholecystectomy History of facial surgery Social History household members: spouse and family current occupational status: employed Smoking Status: Current every day smoker tobacco type: smokeless tobacco how long ago did patient quit smoking: Smoked 3-5 years in his 30s, 1 ppd. alcohol intake: former year quit: 1 details: 3-6, 25 ounce beers daily. substance use type: does not use ROS ROS ED ROS Narrative see HPI EXAM Physical Exam Narrative Exam Narrative: Vital signs: Reviewed General: Alert and oriented x 3. No acute distress. Anxious appearing, fidgeting frequently. HEENT: Head is normocephalic and atraumatic, sinuses nontender, pupils equal round and reactive. Nares are patent. Oropharynx and throat exams normal. Neck: Supple without lymphadenopathy nontender Cardiovascular: Regular rate and rhythm, no murmurs. No rubs or gallops. Normal S1 and S2 Respiratory: Clear to auscultation bilaterally. No wheezes, rales, rhonchi Abdominal: Soft and nontender. Normal bowel sounds. No guarding or rebound. Nonsurgical abdomen Extremities: No lower extremity edema. No tenderness. No bruising. Normal range of motion. Normal sensation. Skin: No rash or redness. Neurological: Cranial nerves II through XII are grossly intact. Normal strength and sensation. Normal cerebellar function The rest of the physical exam is unremarkable Const Vital Signs: 05/08/25 15:46 05/08/25 16:00 05/08/25 17:46 Temperature 97.3 F L Temperature Source Temporal Pulse Rate 91 80 Respiratory Rate 16 16 Respiratory Effort Normal Non-Labored Respiratory Depth Normal Respiratory Pattern Normal Blood Pressure 140/100 H 133/79 H Blood Pressure Mean 113 97 Pulse Ox 100 100 Oxygen Delivery Method Room Air Room Air 05/08/25 18:28 Temperature 97.9 F Temperature Source Pulse Rate 80 Respiratory Rate 16 Respiratory Effort Respiratory Depth Respiratory Pattern Blood Pressure 133/79 H Blood Pressure Mean 97 Pulse Ox 100 Oxygen Delivery Method MDM MDM MDM Narrative Medical decision making narrative: Patient is a 44-year-old male presenting to the emergency department for intermittent shortness of breath and palpitations. Patient was seen and examined. Vitals are stable. Patient resting in bed comfortably in no acute distress. He is fidgeting frequently and does appear anxious. Differential includes but is not limited to: ACS, pneumothorax, electrolyte imbalance, thyroid disturbance, anxiety, less likely PE. PERC negative. Patient was given Atarax here. Lab work, EKG and chest x-ray was obtained. EKG shows normal sinus rhythm with sinus arrhythmia. There are no ischemic changes. Chest x-ray was reviewed by myself, no opacities, pneumothorax or wide mediastinum. Radiology read in agreement. CBC with no leukocytosis and a normal hemoglobin. BMP with no significant normalities. Troponin within normal limits. Magnesium and TSH within normal limits. Patient updated on the negative lab and imaging findings. is now at bedside. She was also updated. I recommended that he decrease his caffeine and nicotine use which may be exacerbating his anxiety symptoms. I will prescribe him with a short course of Atarax to take as needed for anxiety. I recommended that he follow-up with his primary care doctor for further management and follow-up with a psychiatrist as well. They are agreeable. All questions answered. Patient discharged from the Emergency Department. I do not feel that the patient's evaluation reveals any acute reason for admission at this time. I instructed them to either follow-up with their primary care physician or promptly return to the Emergency Department for reevaluation should symptoms worsen or new symptoms develop. I explained what symptoms would indicate the need to return to the emergency department. Shared decision making was used. The patient voiced understanding of the treatment plan and is agreeable with it. Clinical impression heart palpitations Shortness of breath Anxiety History & Record Review Discussion w/independent historian: Patient Lab Data Attestation: I reviewed the patient's lab results. Labs: Laboratory Results - last 24 hr 05/08/25 16:17 WBC 6.8 RBC 4.96 Hgb 14.9 Hct 41.6 MCV 83.9 MCH 30.0 MCHC 35.8 RDW Std Deviation 36.4 RDW Coeff of Shweta 12.0 Plt Count 225 MPV 10.3 Immature Gran % (Auto) 0.300 Neut % (Auto) 62.0 Lymph % (Auto) 26.5 Tift % (Auto) 8.4 Eos % (Auto) 2.2 Baso % (Auto) 0.6 Absolute Neuts (auto) 4.2 Absolute Lymphs (auto) 1.81 Nucleated RBC % 0 Sodium 139 Potassium 3.9 Chloride 103 Carbon Dioxide 23.4 Anion Gap 12 BUN 18 Creatinine 1.01 Estim Creat Clear Calc 98.38 Est GFR (MDRD) Non-Af 95 BUN/Creatinine Ratio 17.7 Glucose 96 Calcium 9.6 Magnesium 2.2 Troponin T High Sens < 6 TSH 1.530 Radiography Chest X-Ray - ED: 2 View, Read by ED Physician, Normal, No Acute Disease and No Infiltrates Diagnostic Testing: Clinical Impression(s) from Imaging Studies Chest X-Ray 05/08/25 16:21 IMPRESSION: Lungs are moderately hyperinflated. Question of underlying chronic lung disease. No focal infiltrate is seen. No evidence of pulmonary edema. No pleural effusion or pneumothorax is noted. The cardiomediastinal silhouette is within the normal range. Mild thoracic spine degenerative changes are seen, along with the mild gentle thoracic dextroscoliosis. Reading Location: [address] Discharge Plan Triage Chief Complaint: Shortness of Breath ED Provider: January Valdez Dx/Rx/DC Orders Clinical Impression: Shortness of breath, Heart palpitations, Anxiety Instructions: ED Dyspnea, ED Heart Palpitations Prescriptions: New hydroxyzine HCl 25 mg tablet 25 mg PO BID PRN (Reason: anxiety) Qty: 14 0RF No Action omeprazole 40 mg capsule,delayed release(DR/EC) 40 mg PO DAILY Primary Care Provider: Hi To Referrals: Hi To MD [Primary Care Provider, Family Practice] - As soon as possible Activity Restrictions/Additional Instructions: Please try to decrease your nicotine pouch and caffeine use. Think this may be worsening your anxiety symptoms. I recommend that you follow-up with your primary care doctor and they can refer you to a counselor, therapist or psychiatrist for further evaluation. You can take Atarax every 8-12 hours as needed for symptoms your evaluation in the Emergency Department did not reveal any acute reason for admission. However, I want to emphasize that you may be early in the course of a disease process or illness even if it is not present. For this reason you should follow-up within 24 hours for reevaluation with either your primary care physician or if necessary back here in the Emergency Department. You should return to the Emergency Department immediately if your symptoms worsen or new symptoms develop. Print Language: Bangladeshi Disposition Disposition: Home, Self Care Discharge Date/Time: 05/08/25 18:38
[2025-05-08 16:00] VITALS: O2SAT 99
--- NOTE | 2025-05-08 16:09 | EKG12_ITS ---
Test Reason : general Blood Pressure : */* mmHG Vent. Rate : 72 BPM Atrial Rate : 72 BPM P-R Int : 160 ms QRS Dur : 88 ms QT Int : 362 ms P-R-T Axes : 64 27 34 degrees QTcB Int : 396 ms Normal sinus rhythm with sinus arrhythmia Normal ECG Confirmed by ALESIA FANG ([id number]), news copy editor TIFFANIE FREITAS ([id number]) on 05/13/2025 6:30:49 AM Referred By: Confirmed By: ALESIA FANG
--- NOTE | 2025-05-08 16:21 | RAD_ITS ---
PROCEDURE: CHEST PA AND LATERAL 05/08/2025 REASON FOR EXAM: SOB INTERMITTENT TECHNIQUE: Procedure Code: RADCXR Modality: DX Procedure: Three-view CHEST PA AND LATERAL COMPARISON: Actually passed time study and with specifically RAD/Chest PA and Lateral IMPRESSION: Lungs are moderately hyperinflated. Question of underlying chronic lung diseas e. No focal infiltrate is seen. No evidence of pulmonary edema. No pleural effusion or pneumothorax is noted. The cardiomediastinal silhouette is within the normal range. Mild thoracic spine degenerative changes are seen, along with the mild gentle t horacic dextroscoliosis. Reading Location: [id number]
--- NOTE | 2025-05-08 16:43 | ED.RN ---
Visual acuity not done. Patient is not having any visual changes at this time.
[2025-05-08 16:54] LABS: Hematocrit 41.6 % (40-54); Hemoglobin 14.9 g/dL (13.0-16.5); Immature Granulocytes Count 0.020 X10^3/uL (0.0-0.0); Mean Corp Hgb Conc 35.8 g/dL (32-36); Mean Corpuscular Volume 83.9 fL (80-94); Mean Platelet Vol. 10.3 fl (6.2-12.0); NRBC Flagged by Analyzer 0 % (0-5); Platelet Count 225 K/mm3 (150-450); RBC Distribution Width CV 12.0 % (11.6-14.6); RBC Distribution Width SD 36.4 fl (35.1-43.9); Red Blood Count 4.96 M/mm3 (4.6-6.2); White Blood Count 6.8 K/mm3 (4.4-11.0)
--- OUTSIDE RECORDS SUMMARY | 2025-05-08 16:58 | XMS RPT_ITS | CCD ---
Author Organization [facility] Care Team Providers Care Scheduling Manager Name Role Phone PHYSICIAN, NOT RECORDED Primary Care Physician U rand PEOPLES MD., DR. COLBY Attending Unavaila ble PHYSICIAN, NOT RECORDED Primary Care Unavaila ble PHYSICIAN, NOT RECORDED Primary Care Unavaila ble PAUL THOMPSON Attending Unavailable Michael HERANNDEZ, Tejinder Leone Primary Care Provider Dany Ash MD Primary Care Provider DANY ASH Referring Unavailable DANY ASH Primary Care Unavailable Dr. Dany Ash MD Primary Care Provider [phone] Yousuf HERNANDEZ, Dr. Dany Basurto Referring Provider Mendez HERNANDEZ, Dr. Sutton Attending Provider Mendez HERNANDEZ, Dr. Sutton Referring Provider [phone] Mendez HERNANDEZ, Dr. Sutton Other Provider Yousuf HERNANDEZ, Dr. Dany Basurto Primary Care Physician Mendez HERNANDEZ, Dr. Sutton Attending Physician Dr. Mason Smiley MD Attending Physician Mendez HERNANDEZ, Dr. Sutton Nurse Practitioner Nicky Ward PA-C Attending Physician Nicky Ward PA-C Referring Provider Radha HERNANDEZ, Dr. Falcon Attending Physician [phone] Radha HERNANDEZ, Dr. Falcon Referring Provider Herman Simms Attending Unavailable Dany Ash Primary Care Unavailable Dany Ash Referring Unavailable Dany Ash Primary Care Unavailable Herman Simms Attending Unavailable Schinner, Dany E Referring Unavailable Nicky Martinez Attending Unavailable Schinner, Dany E Referring Unavailable Schinner, Dany E Primary Care Unavailable Schinner, Dany E Primary Care Unavailable Herman Simms Attending Unavailable Herman Simms Referring Unavailable Terrie Garcia Attending Unavailable Terrie Garcia Referring Unavailable Schinner, Dany E Primary Care Unavailable Herman Simms Attending Unavailable Herman Simms Referring Unavailable Schinner, Dany E Primary Care Unavailable Nicky Martinez Attending Unavailable Nicky Martinez Referring Unavailable Schinner, Dany E Primary Care Unavailable Herman Simms Attending Unavailable Schinner, Dany E Referring Unavailable Schinner, Dany E Primary Care Unavailable Schinner, Dany E Primary Care Unavailable Herman Simms Attending Unavailable Dany Ash E Referring Unavailable Herman Simms Consulting Unavailable Schinner, Dany E Primary Care Unavailable Herman Simms Attending Unavailable Dany Ash E Referring Unavailable SchDany gaxiola E Primary Care Unavailable Herman Simms Attending Unavailable Herman Simms Referring Unavailable Herman Simms Consulting Unavailable Allergies Allergy Classification Reported Allergen(s) Allergy Type Date of Onset Reaction(s) Facility (5 sources) Seasonal allergy; Translations: [SEASONAL ALLERGIES] Propensity to adverse reactions 01-27-2010 [facility] Medications Current Medications Medication Drug Class(es) Dates Sig (Normalized) Sig (Original) escitalopram 10 mg oral tablet (4 sources) Serotonin Reuptake Inhibitor Start: 09-14-2019 take 1 tablet by mouth once daily escitalopram oxalate (LEXAPRO) 10 mg tablet Indications: Mixed anxiety and depressive disorder Take 1 tablet by mouth once daily. 30 tablet 5 09/14/2019 Active Comment on above: Take [address] [facility] once daily. omeprazole 40 mg delayed release oral capsule (14 sources) Proton Pump Inhibitor Start: 03-08-2025 take 1 capsule by mouth once daily Start: 04-18-2024 End: 02-15-2025 take 1 capsule by mouth once daily Omeprazole 20 mg capsule,delayed release(DR/EC) Discontinued 20 mg PO daily April 18, 2024 1:00am February 15, 2025 1:05pm Start: 03-22-2022 take 1 capsule by [facility] once daily omeprazole (PRILOSEC) 40 mg capsule Take 40 mg by mouth once daily. 03/22/2022 Active Comment on above: Take 40 mg by mouth once daily. sertraline 100 mg oral tablet (11 sources) Serotonin Reuptake Inhibitor Start: 03-26-2022 sertraline [...] (Original) hydrOXYzine hydrochloride 50 mg oral tablet (7 sources) Antihistamine Start: 06-03-2021 End: 04-18-2024 take [...] 18, 2024 1:00am February 15, 2025 1:05pm oxyCODONE hydrochloride 5 mg oral tablet (16 sources) Opioid Agonist Start: 02-28-2025 End: 02-28-2025 take 5-10 mg by mouth every four hours as needed for pain Oxycodone 5 mg tablet Discontinued 5 - 10 mg PO EVERY 4 HOURS NEEDED as needed for Pain Score 4-10 14 5 0 February 28, 2025 February 28, 2025 9:42am Sludge in gallbladder Other specified diseases of gallbladder Start: 02-28-2025 End: 03-07-2025 take 5-10 mg by mouth every four hours as needed for pain Oxycodone 5 mg tablet Discontinued 5 - 10 mg PO EVERY 4 HOURS NEEDED as needed for Pain Score 4-10 14 5 0 February 28, 2025 March 07, 2025 3:18pm Sludge in gallbladder Other specified diseases of gallbladder Start: 02-25-2025 End: 03-07-2025 take 5-10 mg by mouth every four hours as needed for pain Oxycodone 5 mg tablet Discontinued 5 - 10 mg PO EVERY 4 HOURS NEEDED as needed for Pain Score 4-10 14 5 0 February 28, 2025 March 07, 2025 3:18pm Sludge in gallbladder Other specified diseases of gallbladder Problems Active Problems Problem Classification Problem Date Documented Date Episodic/Chronic Abdominal pain (20 sources) Right lower quadrant pain; Translations: [Right lower quadrant pain] Onset: 07-28-2016 Resolved: 07-28-2016 07-28-2016 Episodic Alcohol-related disorders (16 sources) Moderate alcohol dependence; Translations: [Alcohol abuse] 11-11-2020 Chronic Alcohol-related disorders (7 sources) Alcohol intoxication; Translations: [Alcohol use, unspecified with intoxication, unspecified] 04-17-2021 Episodic Anxiety disorders (6 sources) Generalized anxiety disorder; Translations: [Mixed anxiety and depressive disorder] Onset: 01-27-2010 11-11-2020 Chronic Biliary tract disease (13 sources) Gallbladder problem; Translations: [Disease of gallbladder, unspecified] 02-15-2025 Episodic Complications of surgical procedures or medical care (7 sources) Drug therapy finding; Translations: [Unspecified adverse effect of drug or medicament, initial encounter] 09-19-2019 Episodic Esophageal disorders (7 sources) Gastroesophageal reflux disease; Translations: [Gastro-esophageal reflux disease without esophagitis] 04-18-2024 Chronic Gastritis and duodenitis (1 source) Gastritis; Translations: [Gastritis, unspecified, without bleeding] Onset: 03-03-2022 Episodic Genitourinary symptoms and ill-defined conditions (2 sources) Blood in urine; Translations: [Hematuria, unspecified] Onset: 04-30-2021 Episodic Hemorrhoids (7 sources) Hemorrhoids; Translations: [Unspecified hemorrhoids] 04-18-2024 Episodic Immunizations and screening for infectious disease (1 source) Suspected disease caused by 2019-nCoV; Translations: [Suspected COVID-19 virus infection] Episodic Mood disorders (2 sources) Recurrent major depressive episodes, moderate 11-11-2020 Chronic Other liver diseases (8 sources) Elevated liver enzymes level; Translations: [Abnormal levels of other serum enzymes] 03-13-2025 Episodic Other liver diseases (1 source) Abnormal levels of other serum enzymes; Translations: [Abnormal levels of other serum enzymes] Onset: 03-13-2025 Episodic Other upper respiratory disease (4 sources) Allergic rhinitis; Translations: [Allergic rhinitis, unspecified] Onset: 12-25-2010 12-25-2010 Chronic Residual codes; unclassified (1 source) Problem situation; Translations: [Other problems related to lifestyle] Onset: 03-03-2022 Episodic Residual codes; unclassified (1 source) Acquired absence of other specified parts of digestive tract; Translations: [Acquired absence of other specified parts of digestive tract] Onset: 03-13-2025 Episodic Syncope (7 sources) Near syncope; Translations: [Syncope and collapse] 09-19-2019 Episodic Past or Other Problems Problem Classification Problem Date Documented Da te Episodic/Chronic Gastrointestinal hemorrhage (2 sources) Gastrointestinal hemorrhage; Translations: [Hemorrhage of anus and rectum] Onset: 7 Resolved: 7 07-28-2016 Episodic Spondylosis; intervertebral disc disorders; other back problems (4 sources) Neck pain; Translations: [Cervicalgia] Onset: 2 03-03-2012 Episodic Unclassified (7 sources) Readiness finding 06-29-2021 Unclassified (7 sources) Admitted to alcohol detoxification center 06-29-2021 Results Test Name Value Interpretation Reference Range Facility Bilirubin directOrdered By: Herman Simms on 03-13-2025 Bilirubin.direct [Mass/Vol] 0.32 mg/dL High 0.00-0.30 [facility] Bilirubin, totalOrdered By: Herman Simms on 03-13-2025 Bilirubin [Mass/Vol] 0.99 mg/dL 0.00-1.30 [facility] - Chemistry and C hemistry - challengeOrdered By: Herman Simms on 03-13-2025 AST [Catalytic activity/Vol] 26 U/L <38 [facility] Liver Profileon 03-13-2025 Albumin [Mass/Vol] 4.8 g/dL Normal 3.5-5.0 [facility] Comment on above: Performed By: #### L 500.3400 #### [facility] [address] [place], [address] ALK PHOS 94 U/L Normal 40-129 [facility] Comment on above: Performed By: #### L 500.3400 #### [facility] [address] [place], [address] ALT [Catalytic activity/Vol] 77 U/L High <=46 [facility] Comment on above: Performed By: #### L 500.3400 #### [facility] [address] [place], [address] AST [Catalytic activity/Vol] 26 U/L Normal <=37 [facility] Comment on above: Performed By: #### L 500.3400 #### [facility] [address] [place], [address] Bilirubin [Mass/Vol] 0.99 mg/dL Normal 0.00-1.30 [facility] Comment on above: Performed By: #### L 500.3400 #### [facility] [address] [place], [address] Bilirubin.direct [Mass/Vol] 0.32 mg/dL High 0.00-0.30 [facility] Comment on above: Performed By: #### L 500.3400 #### [facility] [address] [place], [address] Globulin (S) [Mass/Vol] 3.0 g/dL Normal 2.2-4.2 [facility] Comment on above: Performed By: #### L 500.3400 #### [facility] [address] [place], [address] T PROT 7.8 g/dL Normal 5.9-8.4 [facility] Comment on above: Performed By: #### L 500.3400 #### [facility] [address] [place], [address] Serum globulin measurementOr dered By: Herman Simms on 03-13-2025 Globulin (S) [Mass/Vol] 3.0 g/dL 2.2-4.2 [facility] Serum or plasma alanine roy otransferase (ALT) measurementOrdered By: Herman Simms on 03-13-2025 ALT [Catalytic activity/Vol] 77 U/L High <47 [facility] Serum or plasma albumin torrie urement (mass/volume)Ordered By: Herman Simms on 03-13-2025 Albumin [Mass/Vol] 4.8 g/dL 3.5-5.0 [facility] Serum or plasma alkaline julianna sphatase measurementOrdered By: Herman Simms on 03-13-2025 ALP [Catalytic activity/Vol] 94 U/L 40-129 [facility] Surgery Visit Reporton 03-13 Surgery Visit Report [facility] [address] [place] [address] OFFICE VISIT Date of Service: 03/13/25 MR#: [id number] Acct: [id number] Name: ISRA MENG Rep #: [id number] : 1980 Provider: Dr. Herman finley MD Age/Sex: 44/M Location: [facility] Status: Signed Intake Vital Signs 02/25/25 11:14 03/07/25 15:19 Height 5 ft 10 in 5 ft 10 in Intake Visit Reasons: Gallbladder 02/25 Chief Complaint: c/o pain after cholecystectomy [employer] Solution [employer] Required: No Is patient in pain?: No Allergies No Known Allergies Allergy (Verified 03/13/25 08:29) Medications ???Medication ???Instructions ???Recorded ???Confirmed ???Type omeprazole 40 mg capsule,delayed 40 mg PO QDAY #30 caps 03/08/25 Rx release Have you fallen in the past year?: No Subjective Details: Patient reports the omeprazole is helping and his pain is decreasing. He says that today is his best day yet since surgery. Objective Details: Abdomen is soft and nondistended Coding Level of Care Code Global Post Op Diagnoses Elevated liver enzymes R74.8 S/P cholecystectomy Z90.49 [facility] Medical History (Updated 03/13/25 @ 08:30 by Ella France) Elevated liver enzymes Back pain Smoker Hemorrhoids Acid reflux Abdominal pain Chronic pain Kidney stones Former smoker Asthma Irregular heart beat Former tobacco use Alcohol abuse Panic attacks Depression Anxiety Surgical History (Updated 03/07/25 @ 15:20 by Ni De Paz) S/P cholecystectomy History of facial surgery Family History Mother Anxiety and depression Father Diabetes Social History household members: spouse and family Smoking Status: Current every day smoker tobacco type: smokeless tobacco how long ago did patient quit smoking: Smoked 3-5 years in his 30s, 1 ppd. alcohol intake: former year quit: 1 details: 3-6, 25 ounce beers daily. substance use type: does not use Assessment and Plan (No Qualifiers) Assessment and Plan (1) Elevated liver enzymes: Status: Acute (2) S/P cholecystectomy: Status: Acute Plan Patient had some mildly elevated liver enzymes during last visit and I will repeat these to check that they have returned to normal. Patient reports that the omeprazole is helping and he is says he feels the best he has since surgery. I continued to encourage him and I told him that it might take a few more weeks before he fully heals. He will come back in 2 weeks for follow-up. Herman Simms MD Pager: [facility] [address] [place] [address] Office: 03/13/25 0900 Date [facility] Sim[facility] Date (if applicable) CC: Normal [facility] Total proteinOrdered By: Perfecto Simms on 03-13-2025 Protein [Mass/Vol] 7.8 g/dL 5.9-8.4 [facility] Abdomen/Pelvis WITH Contrast on 03-08-2025 Abdomen/Pelvis WITH Contrast [facility] Imaging Services [address] [place], [place] [address] Abdomen/Pelvis WITH Contrast MR#: [id number] Acct: [id number] Name: ISRA MENG Rep #: [id number] : 1980 M 44 From: Siomara Paniagua MD PCP: Dr. Dany Ash MD Status: REG CLI Study: Abdomen/Pelvis WITH Contrast Date of Exam: Exam# [id number] Ordering Dr: Terrie Garcia MD PROCEDURE: ABDOMEN/PELVIS WITH CONTRAST 03/08/2025 REASON FOR EXAM: ABDOMINAL PAIN/ELEVATED LABS TECHNIQUE: Procedure Code: CTABDPELW Modality: CT Procedure: ABDOMEN/PELVIS WITH CONTRAST Coronal and Sagittal reconstruction series were provided. CONTRAST: Isovue 370 VOLUME: 100 mL One or more dose reduction techniques were used (e.g., Automated exposure control, adjustment of the mA and/or kV according to patient size, use of iterative reconstruction technique. RADIATION DOSE SUMMARY: CTDlvol: 9.97, 16.13 mGy DLP: 830.93 mGycm COMPARISON: US Abdomen Limited, 03/06/2024 FINDINGS: LUNG BASES: No basilar airspace consolidation or pleural effusion. LIVER: Unremarkable. GALLBLADDER: Status post cholecystectomy with mildly hyperdense ill-defined fluid in the gallbladder fossa. BILE DUCTS: No ductal dilation. PANCREAS: Unremarkable. SPLEEN: Unremarkable. ADRENAL GLANDS: Unremarkable. KIDNEYS: Unremarkable. The kidneys enhance symmetrically. No hydronephrosis or hydroureter. STOMACH AND BOWEL: Oral contrast has progressed to the sigmoid colon. No obstruction or perforation. No wall thickening. No CT evidence of colitis or acute diverticulitis. APPENDIX: Normal-appearing appendix. No CT evidence for appendicitis. RETRO/PERITONEUM: No free fluid. No free air. LYMPH NODES: No lymphadenopathy. PELVIC ORGANS: Unremarkable as visualized. VASCULATURE: No aortic aneurysm. ABDOMINAL WALL AND SOFT TISSUES: Tiny fat containing umbilical hernia. BONES: No fracture or suspicious osseous abnormality. Moderately severe L5-S1 degenerative disc disease. CT/Abdomen/Pelvis WITH Contrast IMPRESSION: Small volume of ill-defined complex fluid in the gallbladder fossa, likely postoperative hematoma or seroma. Reading Location: [facility] CC: Dr. Dany Ash MD; Dr. 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 Normal [facility] Absolute lymphocyte countOrd ered By: Nicky Ward on 03-07-2025 Lymphocytes Auto (Unsp spec) [#/Vol] 1.91 10*3/uL 0.83-4.51 [facility] Absolute neutrophil countOrd ered By: Nickycedric Ward on 03-07-2025 Neutrophils (Bld) [#/Vol] 5.4 10*3/uL 2.0-7.7 [facility] Anion gap in Serum or Plasma Ordered By: Nicky Ward on 03-07-2025 Anion gap [Moles/Vol] 11 mmol/L 5- [facility] Automated lymphocyte count a s percentage of total leukocytesOrdered By: Nicky Ward on 03-07-2025 Lymphocytes/100 WBC Auto (Unsp spec) 22.7 % - [facility] BUN/creatinine ratioOrdered By: Nicky Ward on 03-07-2025 Urea nitrogen/Creatinine [Mass ratio] 20.2 mg/mg High 10- [facility] Basophil percentageOrdered B y: Nicky Ward on 03-07-2025 Basophils/100 WBC (Bld) 0.7 % 0-1 [facility] Bilirubin, totalOrdered By: Nicky Ward on 03-07-2025 Bilirubin [Mass/Vol] 0.43 mg/dL 0.00-1.30 [facility] CBC W/Diff, Automatedon 02-12 Absolute Lymph 1.91 X10 3/uL Normal 0.83-4.51 [facility] Comment on above: Performed By: #### L 100.0100, L500.4050, L501.2450 ####[facility] [address] [place], [address] Absolute Neut 5.4 X10 3/uL Normal 2.0-7.7 [facility] Comment on above: Performed By: #### L 100.0100, L500.4050, L501.2450 ####[facility] [address] [place], [address] Basophils/100 WBC (Bld) 0.7 % Normal 0-1 [facility] Comment on above: Performed By: #### L 100.0100, L500.4050, L501.2450 ####[facility] [address] [place], [address] Eosinophils/100 WBC (Bld) 4.6 % Normal 0-5 [facility] Comment on above: Performed By: #### L 100.0100, L500.4050, L501.2450 ####[facility] [address] [place], [address] Erythrocyte distribution width (RBC) [Ratio] 11.9 % Normal 11.6-14.6 [facility] Comment on above: Performed By: #### L 100.0100, L500.4050, L501.2450 ####[facility] [address] [place], [address] Hematocrit (Bld) [Volume fraction] 42.0 % Normal 40-54 [facility] Comment on above: Performed By: #### L 100.0100, L500.4050, L501.2450 ####[facility] [address] [place], [address] Hemoglobin (Bld) [Mass/Vol] 15.1 g/dL Normal 13.0-16.5 [facility] Comment on above: Performed By: #### L 100.0100, L500.4050, L501.2450 ####[facility] [address] [place], [address] IG% 0.200 Normal 0.0-0.9 [facility] Comment on above: Result Comment: IG% - Immature Granulocytes (promyelocytes, myelocytes and metamyelocytes) > 1% indicates that a LEFT SHIFT is Present. Performed By: #### L 100.0100, L500.4050, L501.2450 ####[facility] [address] [place], [address] Lymphocytes/100 WBC (Bld) 22.7 % Normal 19-41 [facility] Comment on above: Performed By: #### L 100.0100, L500.4050, L501.2450 ####[facility] [address] [place], [address] MCH (RBC) [Entitic mass] 30.5 pg Normal 27.0-32.0 [facility] Comment on above: Performed By: #### L 100.0100, L500.4050, L501.2450 ####[facility] [address] [place], [address] MCHC (RBC) [Mass/Vol] 36.0 g/dL Normal 32-36 [facility] Comment on above: Performed By: #### L 100.0100, L500.4050, L501.2450 ####[facility] [address] [place], [address] MCV (RBC) [Entitic vol] 84.8 fL Normal 80-94 [facility] Comment on above: Performed By: #### L 100.0100, L500.4050, L501.2450 ####[facility] [address] [place], [address] Monocytes/100 WBC (Bld) 7.8 % Normal 0-10 [facility] Comment on above: Performed By: #### L 100.0100, L500.4050, L501.2450 ####[facility] [address] [place], [address] Neutrophils/100 WBC (Bld) 64.0 % Normal 47-70 [facility] Comment on above: Performed By: #### L 100.0100, L500.4050, L501.2450 ####[facility] [address] [place], [address] Nucleated RBC (Bld) [#/Vol] 0 10*3/uL Normal 0-5 [facility] Comment on above: Performed By: #### L 100.0100, L500.4050, L501.2450 ####[facility] [address] [place], [address] Platelet mean volume (Bld) [Entitic vol] 9.9 fL Normal 6.2-12.0 [facility] Comment on above: Performed By: #### L 100.0100, L500.4050, L501.2450 ####[facility] [address] [place], [address] Platelets (Bld) [#/Vol] 205 10*3/uL Normal 150-450 [facility] Comment on above: Performed By: #### L 100.0100, L500.4050, L501.2450 ####[facility] [address] [place], [address] RBC (Bld) [#/Vol] 4.95 10*6/uL Normal 4.6-6.2 [facility] Comment on above: Performed By: #### L 100.0100, L500.4050, L501.2450 ####[facility] [address] [place], [address] RDW SD 36.5 fl Normal 35.1-43.9 [facility] Comment on above: Performed By: #### L 100.0100, L500.4050, L501.2450 ####[facility] [address] [place], [address] WBC (Bld) [#/Vol] 8.4 10*3/uL Normal 4.4-11.0 [facility] Comment on above: Performed By: #### L 100.0100, L500.4050, L501.2450 ####[facility] [address] [place], [address] Carbon dioxide, total [Moles /volume] in Central venous bloodOrdered By: Nicky Ward on 03-07-2025 CO2 [Moles/Vol] 22.5 mmol/L 21.0-32.0 [facility] Chloride assayOrdered By: Argentina Ward on 03-07-2025 Chloride [Moles/Vol] 106 mmol/L 98-108 [facility] Comprehensive Metabolic Prof ilon 03-07-2025 Albumin [Mass/Vol] 4.7 g/dL Normal 3.5-5.0 [facility] Comment on above: Performed By: #### L 100.0100, L500.4050, L501.2450 ####[facility] [address] [place], [address] Albumin/Globulin [Mass ratio] 1.7 {ratio} Normal 0.9-2.4 [facility] Comment on above: Performed By: #### L 100.0100, L500.4050, L501.2450 ####[facility] [address] [place], [address] ALK PHOS 119 U/L Normal 40-129 [facility] Comment on above: Performed By: #### L 100.0100, L500.4050, L501.2450 ####[facility] [address] [place], [address] ALT [Catalytic activity/Vol] 213 U/L High <=46 [facility] Comment on above: Performed By: #### L 100.0100, L500.4050, L501.2450 ####[facility] [address] [place], [address] AST [Catalytic activity/Vol] 39 U/L High <=37 [facility] Comment on above: Performed By: #### L 100.0100, L500.4050, L501.2450 ####[facility] [address] [place], [address] Bilirubin [Mass/Vol] 0.43 mg/dL Normal 0.00-1.30 [facility] Comment on above: Performed By: #### L 100.0100, L500.4050, L501.2450 ####[facility] [address] [place], [address] BUN/CRE 20.2 RATIO High 10-20 [facility] Comment on above: Performed By: #### L 100.0100, L500.4050, L501.2450 ####[facility] [address] [place], [address] Calcium [Mass/Vol] 9.3 mg/dL Normal 7.6-11.0 [facility] Comment on above: Performed By: #### L 100.0100, L500.4050, L501.2450 ####[facility] [facility] [address] [place], [address] Chloride [Moles/Vol] 106 mmol/L Normal 98-108 [facility] Comment on above: Performed By: #### L 100.0100, L500.4050, L501.2450 ####[facility] [address] [place], [address] CO2 [Moles/Vol] 22.5 mmol/L Normal 21.0-32.0 [facility] Comment on above: Performed By: #### L 100.0100, L500.4050, L501.2450 ####[facility] [address] [place], [address] Creatinine [Mass/Vol] 0.86 mg/dL Normal 0.70-1.20 [facility] [place] [facility] Comment on above: Performed By: #### L 100.0100, L500.4050, L501.2450 ####[facility] [address] [place], [address] GAP 11 Normal 5-15 [facility] Comment on above: Performed By: #### L 100.0100, L500.4050, L501.2450 ####[facility] [address] [place], [address] GFR/1.73 sq M.predicted among non-blacks MDRD (S/P/Bld) [Vol rate/Area] 111 mL/min/{1.73_m2} Normal >60 [facility] Comment on above: Result Comment: mL/m in/1.73m2 CKD-EPI Creatinine Equation (2020) Performed By: #### L 100.0100, L500.4050, L501.2450 ####[facility] [address] [place], [address] Globulin (S) [Mass/Vol] 2.7 g/dL Normal 2.2-4.2 [facility] [place] [facility] Comment on above: Performed By: #### L 100.0100, L500.4050, L501.2450 ####[facility] [address] [place], [address] Glucose [Mass/Vol] 87 mg/dL Normal 70-99 [facility] Comment on above: Performed By: #### L 100.0100, L500.4050, L501.2450 ####[facility] [address] [place], [address] Potassium [Moles/Vol] 4.0 mmol/L Normal 3.3-5.1 [facility] [place] [facility] Comment on above: Performed By: #### L 100.0100, L500.4050, L501.2450 ####[facility] [address] [place], [address] Sodium [Moles/Vol] 139 mmol/L Normal 133-145 [facility] Comment on above: Performed By: #### L 100.0100, L500.4050, L501.2450 ####[facility] [address] [place], [address] T PROT 7.4 g/dL Normal 5.9-8.4 [facility] Comment on above: Performed By: #### L 100.0100, L500.4050, L501.2450 ####[facility] [address] [place], [address] Urea nitrogen [Mass/Vol] 17 mg/dL Normal 4-19 [facility] Comment on above: Performed By: #### L 100.0100, L500.4050, L501.2450 ####[facility] [address] [place], [address] Eosinophil percentageOrdered By: Nicky Ward on 03-07-2025 Eosinophils/100 WBC (Bld) 4.6 % 0-5 [facility] Erythrocyte distribution wid th ratioOrdered By: Nicky Ward on 03-07-2025 Erythrocyte distribution width (RBC) [Ratio] 11.9 % 11.6-14.6 [facility] Erythrocyte distribution wid th standard deviationOrdered By: Nicky Ward on 03-07-2025 Erythrocyte distribution width (RBC) [Ratio] 36.5 fl 35.1-43.9 [facility] Glomerular filtration rate ( GFR) estimation/1.73 sq m using serum, plasma, or whole bOrdered By: Nicky Ward on 03-07-2025 GFR/1.73 sq M.predicted among non-blacks MDRD (S/P/Bld) [Vol rate/Area] 111 mL/min/{1.73_m2} >60 [facility] Comment on above: mL/min/1.73m2 CKD-EP I Creatinine Equation (2020) Hematocrit Auto (Bld) [Volum e fraction]Ordered By: Nicky Ward on 03-07-2025 Hematocrit (Bld) [Volume fraction] 42.0 % 40-54 [facility] Hemoglobin measurementOrdere d By: Nicky Ward on 03-07-2025 Hemoglobin (Bld) [Mass/Vol] 15.1 g/dL 13.0-16.5 [facility] Immature granulocytes/100 WB C Auto (Bld)Ordered By: Nicky Ward on 03-07-2025 Immature granulocytes/100 WBC (Bld) 0.200 % 0.0-0.9 [facility] Comment on above: IG% - Immature Granu locytes (promyelocytes, myelocytes and metamyelocytes) > 1% indicates that a LEFT SHIFT is Present. Laboratory - Chemistry and C hemistry - challengeOrdered By: Nicky Ward on 03-07-2025 AST [Catalytic activity/Vol] 39 U/L High <38 [facility] Lipaseon 03-07-2025 Lipase [Catalytic activity/Vol] 106 U/L High 13-75 [facility] Comment on above: Result Comment: Heri yusuf note: LIPASE revised reference range effective 22. New Lipase methodology. Expected to produce lower values than the previous assay method. NEW Reference Range: 13 - 75 U/L Performed By: #### L 100.0100, L500.4050, L501.2450 ####[facility] [address] [place], [place], [address] Lipase measurementOrdered By : Nicky Ward on 03-07-2025 Lipase [Catalytic activity/Vol] 106 U/L High 13-75 [facility] Comment on above: Please note:LIPASE r evised reference range effective 22. New Lipase methodology. Expected to produce lower values than the previous assay method. NEW Reference Range: 13 - 75 U/L MCV (mean corpuscular volume ) determinationOrdered By: Nicky Ward on 03-07-2025 MCV (RBC) [Entitic vol] 84.8 fL 80-94 [facility] Mean corpuscular hemoglobin (MCH) determinationOrdered By: Nicky Ward on 03-07-2025 MCH (RBC) [Entitic mass] 30.5 pg 27.0-32.0 [facility] Mean corpuscular hemoglobin concentration (MCHC) determinationOrdered By: Nicky Ward on 03-07-2025 MCHC (RBC) [Mass/Vol] 36.0 g/dL 32-36 [facility] [place] [facility] Mean platelet volume determi nationOrdered By: Nicky Ward on 03-07-2025 Platelet mean volume (Bld) [Entitic vol] 9.9 fL 6.2-12.0 [facility] Monocyte percentageOrdered B y: Nicky Ward on 03-07-2025 Monocytes/100 WBC (Bld) 7.8 % 0-10 [facility] Neutrophil percentageOrdered By: Nicky Ward on 03-07-2025 Neutrophils/100 WBC (Bld) 64.0 % 47-70 [facility] Nucleated red blood cell per centageOrdered By: Nicky Ward on 03-07-2025 Nucleated RBC/100 WBC (Bld) [Ratio] 0 % 0-5 [facility] Platelet countOrdered By: Argentina Ward on 03-07-2025 Platelets (Bld) [#/Vol] 205 10*3/uL 150-450 [facility] Potassium measurement (mass/ volume)Ordered By: Nicky Ward on 03-07-2025 Potassium (Unsp spec) [Mass/Vol] 4.0 mmol/L 3.3-5.1 [facility] RBC Auto (Bld) [#/Vol]Ordere d By: Nicky Ward on 03-07-2025 RBC (Bld) [#/Vol] 4.95 10*6/uL 4.6-6.2 [facility] Serum creatinine measurement (mass/volume)Ordered By: Nicky Ward on 03-07-2025 Creatinine [Mass/Vol] 0.86 mg/dL 0.70-1.20 [facility] [place] [facility] Serum globulin measurementOr dered By: Nicky Ward on 03-07-2025 Globulin (S) [Mass/Vol] 2.7 g/dL 2.2-4.2 [facility] Serum glucose measurement (m ass/volume)Ordered By: Nicky Ward on 03-07-2025 Glucose [Mass/Vol] 87 mg/dL 70-99 [facility] Serum or plasma alanine roy otransferase (ALT) measurementOrdered By: Nicky Ward on 03-07-2025 ALT [Catalytic activity/Vol] 213 U/L High <47 [facility] Serum or plasma albumin torrie urement (mass/volume)Ordered By: Nicky Ward on 03-07-2025 Albumin [Mass/Vol] 4.7 g/dL 3.5-5.0 [facility] Serum or plasma albumin/glob ulin mass ratioOrdered By: Nicky Ward on 03-07-2025 Albumin/Globulin [Mass ratio] 1.7 {ratio} 0.9-2.4 [facility] Serum or plasma alkaline julianna sphatase measurementOrdered By: Nicky Ward on 03-07-2025 ALP [Catalytic activity/Vol] 119 U/L 40-129 [facility] Serum or plasma calcium torrie urement (mass/volume)Ordered By: Nicky Ward on 03-07-2025 Calcium [Mass/Vol] 9.3 mg/dL 7.6-11.0 [facility] Serum or plasma urea nitroge n measurement (mass/volume)Ordered By: Nicky Ward on 03-07-2025 Urea nitrogen [Mass/Vol] 17 mg/dL 4-19 [facility] Sodium levelOrdered By: Mateo Hwang on 03-07-2025 Sodium [Moles/Vol] 139 mmol/L 133-145 [facility] Surgery Visit Reporton 03-07 Surgery Visit Report [facility] [address] [place] [address] OFFICE VISIT Date of Service: 03/07/25 MR#: [id number] Acct: [id number] Name: ISRA MENG Rep #: [id number] : 1980 Provider: FRANK hampton Age/Sex: 44/M Location: [facility] Status: Signed Intake Vital Signs 02/25/25 11:14 03/07/25 15:19 Height 5 ft 10 in 5 ft 10 in Weight: 197 lb BMI 28.3 BP 138/94 H Blood Pressure Location Rt brachial Position Sitting Respiration 17 Pulse 72 Pulse Source Monitor Intake Visit Reasons: c/o pain Chief Complaint: c/o pain after cholecystectomy Is patient in pain?: Yes (c/o right sided pain/aches more at night) Allergies No Known Allergies Allergy (Verified 03/07/25 15:18) Subjective Details: Patient is a 44 y/o M I am following s/p robotic assisted laparoscopic cholecystectomy by Dr. Simms on 02/25/25. Patient tolerated the procedure well. Patient notes initially after the procedure he had right upper shoulder pain. He states approximately 3-4 days later the pain moved to the left shoulder blade. He states he feels as though there is a gas bubble in the epigastric region that does not go away. Patient states this may be similar to the pre-op symptoms he was experiencing with the gallbladder. He states however the gallbladder pain was more sharp and in the right upper quadrant. He has had 2 refills of oxycodone form Dr. Simms. He does not like to take medication. He states he does not like taking Tylenol or Ibuprofen. He denies reflux symptoms, nausea, vomiting. He notes appetite is slow to return. He states bowel habits have returned to his normal. He voices he is an overthinker and worrier. He notes he is also under a lot of stress. Objective Details: Abdomen- soft, positive bowel sounds. Incisions c/d/i. NO erythema or infection noted. Pressure sensation with palpation of the epigastric region and left upper quadrant. Very slight tenderness to the RUQ (appropriate tenderness for being post-op). No guarding or rebound tenderness. Coding Level of Care Code Global Post Op Diagnoses S/P cholecystectomy Z90.49 Epigastric abdominal pain R10.13 [facility] Medical History (Updated 03/07/25 @ 15:47 by Nicky DUDLEY, PA-C) Back pain Smoker Hemorrhoids Acid reflux Abdominal pain Chronic pain Kidney stones Former smoker Asthma Irregular heart beat Former tobacco use Alcohol abuse Panic attacks Depression Anxiety Surgical History (Updated 03/07/25 @ 15:20 by Ni De Paz) S/P cholecystectomy History of facial surgery Family History Mother Anxiety and depression Father Diabetes Social History household members: spouse and family Smoking Status: Current every day smoker tobacco type: smokeless tobacco how long ago did patient quit smoking: Smoked 3-5 years in his 30s, 1 ppd. alcohol intake: former year quit: 1 details: 3-6, 25 ounce beers daily. substance use type: does not use Assessment and Plan (No Qualifiers) Assessment and Plan (1) S/P cholecystectomy: Status: Acute (2) Epigastric abdominal pain: Status: Acute Plan Recommend obtaining STAT CBC, CMP and Lipase Our office will contact patient with results If liver enzymes are elevated, did discuss with the patient obtaining a CT scan versus HIDA scan to r/o bile leak versus pancreatitis versus hematoma versus normal post-operative changes Patient has had the opportunity to ask and have questions answered. Patient verbally agrees with the plan and is agreeable to obtain lab work today Encouraged patient to ambulate outside and he may do some light lifting up to 15 pounds to start back to a work out regimen Patient to continue to keep follow-up appointment for next week 03/07/25 3009 Date Nicky Fernandez Signature: Date (if applicable) CC: Normal [facility] Total proteinOrdered By: Stella Ward on 03-07-2025 Protein [Mass/Vol] 7.4 g/dL 5.9-8.4 [facility] White blood cell (WBC) count Ordered By: Nicky Ward on 03-07-2025 WBC (Bld) [#/Vol] 8.4 10*3/uL 4.4-11.0 [facility] 12 Lead EKGon 02-25-2025 12 Lead EKG [facility] Services [address] [place] [address] 12 Lead EKG 02/25/25 1109 MR#: [id number] Acct: [id number] Name: ISRA MENG Rep #: [id number] : 1980 44 From: Mason Smiley MD Attending Dr: Dr. Herman Simms MD Status: DEP [facility] Ordering Dr: Medhat Luciano MD Date: 02/25/25 Location: [facility] Sex: M C Admitted: Test Reason : [...] was found Confirmed by Mason Smiley ([id number]), index editor NICKY ACHARYA ([id number]) on 02/26/2025 5:48:55 AM Referred By: Herman Simms Confirmed By: Mason Smiley 02/26/25 0548 Date Mason Smiley MD CC: Dr. Herman Simms MD; Dr. Medhat Luciano MD; Dr. Dany Ash MD Signed Normal [facility] Discharge Instructionon 02-11 Discharge Instruction [facility] Medical Records Department [address] [place] [address] Instructions for Home/Discharge Instructions 02/25/25 1338 MR#: [id number] Acct: [id number] Name: ISRA MENG Rep #: [id number] : 1980 44 From: Herman Simms MD PCP: Dr. Dany Ash MD Status:REG [facility] Discharge Instructions Procedure Gallbladder Diet Discharge Diet: [...] to schedule 2 week follow up appointment. [phone] Test Results: Test results from this visit will be discussed in further detail at your follow-up appointment, if applicable. Discharge Plan Admission Attending Provider: Herman Simms Primary Care Provider: Dany Ash Instructions Print Language: [place] Discharge Orders/Prescriptions Prescriptions: New oxycodone 5 mg Tablet 5 - 10 mg PO Q4H PRN PRN (Reason: Pain Score 4-10) 5 Days Qty: 14 0RF Referrals / Follow Up: Dany Ash MD [Primary Care Provider] - Disposition Disposition (needs filled in before D/C Order can be placed): Home, Self Care 02/25/25 1340 Herman Simms MD CC: Dr. Dany Ash MD Signed Normal [facility] MR/POSTOP.Rina 02-25-2025 MR/POSTOP.[facility] Medical Records Department [address] [place] [address] Anesthesia Postop Eval I 02/25/25 1421 MR#: [id number] Acct: [id number] Name: ISRA MENG Rep #: [id number] : 1980 44 From: Sunita Rivero CRNA PCP: Dr. Dany Ash MD Status:REG SDC Y Race: C Location: [place] [address] Anesthesia: Postop Eval I Current Vital Signs [...] Postop Eval 1 completed: Yes 02/25/25 1423 Date Sunita Dobos ELECTRICIAN Cosigner Signature: Date CC: Signed Normal [facility] MR/CMQEGIJQ5ng 02-25-2025 [facility] Medical Records Department [address] [place] [address] Anesthesia Postop Eval II 02/25/25 1450 MR#: [id number] Acct: [id number] Name: ISRA MENG Erendira Rep #: [id number] : 1980 44 From: Medhat Luciano MD PCP: Dr. Dany Ash MD Status:REG [facility] Y Race: C Location: [place] [address] Anesthesia Postop Eval I Sum Postop Eval Completion status Anesthesia document: Postop Eval 1 completed: Yes Anesthesia Postop Eval I Summary Anesthesia Postop Eval I Summary: Anesthesia Postop Eval I: Assessment Summary Airway patent Yes 02/25/25 14:23 ELECTRICIAN.TDOB Spontaneous unlabored Yes 02/25/25 14:23 ELECTRICIAN.TDOB respirations Mental status Awake 02/25/25 14:23 ELECTRICIAN.TDOB nausea No 02/25/25 14:23 ELECTRICIAN.TDOB Vomiting No 02/25/25 14:23 ELECTRICIAN.TDOB Anesthesia Postop Eval I: Fluid Summary Crystalloid volume administer 900 02/25/25 14:23 ELECTRICIAN.TDOB (ml) Colloids volume administered ( ml) Blood Product volume administered (ml) Total IV fluid infused 900 02/25/25 14:23 ELECTRICIAN.TDOB Anesthesia Postop Eval I: Summary Notes Anesthesia Complication No 02/25/25 14:23 ELECTRICIAN.TDOB Anesthesia Complication Comment: Post-operative progress note Anesthesia: Postop Eval II Evaluation Mental status: Awake Pain Level: 2 nausea: Yes Vomiting: No 02/25/25 1451 Date Medhat Fernandez Signature: Date CC: Signed Normal [facility] Operative Reporton 5 Operative Report [facility] Medical Records Department [address] [place] [address] Operative Report 02/25/25 1335 MR#: [id number] Acct: [id number] Name: ISRA MENG Rep #: [id number] : 1980 44 From: Herman Simms MD PCP: Dr. Dany Ash MD Status:[facility] Location: [place] [address] Operative Report (Standard) Operative Information Date of Procedure: 02/25/25 Pre-Operative Diagnosis: Gallbladder sludge Post-Operative Diagnosis: Same Surgery/Procedure Performed: Robotic assisted laparoscopic cholecystectomy bench worker apprentice: Yes Crystallography Teacher: Stacy Tesfaye Tasks completed by print shop assistant: Opening closing Type of Anesthesia: General/Regional [...] Documentation VTE Mechan Device Prophylaxis: SCD's 02/25/25 2275 Cosigner Signature (if applicable): CC: Dr. Herman Simms MD; Dr. Dany Ash MD Signed Normal [facility] Surgery Specimen Level IIIon 02-25-2025 Surgery Specimen Level III Patient Age/Sex Location Account Attending Physician ISRA MENG 44/M [facility] [id number] Dr. Herman Simms MD Specimen: [id number] Received: 02/25/25 Status: JULEE Atkins Num: [id number] Spec Type: ELOY Schaffer Dr: Dr. Herman Simms MD HEADER OPERATION: Laparoscopic robotic cholecystectomy PRE-OP DIAGNOSIS: Gallbladder sludge, abdominal pain TISSUE SUBMITTED: A- Gallbladder MICROSCOPIC DIAGNOSIS A. Gallbladder, laparoscopic robotic cholecystectomy: - Polypoid cholesterolosis. MICROSCOPIC DESCRIPTION Slides are reviewed. GROSS DESCRIPTION A. Received in formalin labeled with the patient's name and date of . Designated as "gallbladder" is a 7.9 x 3.0 x 2.9 [...] cm to 0.2 cm. Cholesterolosis is present. Mechanical Technologist sections are submitted in 1 cassette. IA 02/26/2025 CPT:82760 Patient Age/Sex Location Account Attending Physician ISRA MENG 44/M [facility] [id number] Dr. Herman Simms MD Signed (signature on file) Dr. Valorie Pena MD 02/28/25 1651 [facility] Comment on above: Performed By: #### P SUIII ####[facility] [address] [place], [address] MR/PATROSEMARYariane 02-19-2025 MR/PAT.GILBERT [facility] Medical Records Department [address] [place] [address] PAT - Anesthesia 02/19/25 1626 MR#: [id number] Acct: [id number] Name: ISRA MENG Rep #: [id number] : 1980 44 From: Babar Watkins MD PCP: Dr. 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 Hx Hospitalization No 02/19/25 14:10 Any Problems [...] take am of surgery PONV PONV - automatic car wash attendant: PONV - automatic car wash attendant Female No 02/19/25 14:10 HX of Motion [...] 02/15/25 13:05 Respiratory Assessment Respiratory Assessment - automatic car wash attendant: Respiratory Tract Infection Hx - automatic car wash attendant Hx Respiratory Tract Infection No 02/19/25 14:10 STOP Sleep Apnea STOP Sleep Apnea - automatic car wash attendant: STOP Sleep Apnea - automatic car wash attendant Hx Hypertension No 02/19/25 14:10 Hx Sleep [...] Tobacco Use History Tobacco Use History - automatic car wash attendant: Tobacco Use History - 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 car wash 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 Tobacco Use Smoking Status Current every day smoker 02/19/25 14:10 Hx Tobacco Use Yes 02/19/25 14:10 Years Smoking Packs Smoked per Day Smoking Cessation Date was within the last 15 years Hx Smoking Cessation Date Hx Smoking Cessation Counseling Hematologic Medial History Hematologic Hx - automatic car wash 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: Hematologic Medical Hx - senior customer service representative Hx of Blood Transfusion No 02/19/25 14:10 [...] confused, unrespo /Reproduction History /Reproductive History - automatic car wash attendant: /Reproductive Hx- automatic car wash attendant Hx Now Gestational Age (in weeks): EDC: Hx Hx Para Hx Section SAB Active Medications Active Medications: Current Medications Generic Name Dose Route Start Last Admin Trade Name Freq PRN Reason Stop Dose Admin Indocyanine Green 3.75 mg/ N/A 1.5 mls @ 999 mls/hr 02/25/25 12:00 IV 02/25/25 12:01 PREOP ONE PFSH Medical History Back pain Smoker Hemorrhoids [...] History Hi (more content not included)... Normal [facility] Surgery Visit Reporton 02-15 Surgery Visit Report [facility] [address] [place] [address]. [address] [place] [address] OFFICE VISIT Date of Service: 02/15/25 MR#: [id number] Acct: [id number] Name: ISRA MENG Rep #: [id number] : 1980 Provider: Dr. Herman finley MD Age/Sex: 44/M Location: [facility] Status: Signed Intake Vital Signs 05/22/24 07:24 02/15/25 13:05 Height 5 ft 10 in 5 ft 10 in Weight: 198 lb BMI 28.4 BP 138/84 H Blood Pressure Location Rt brachial Position Sitting Respiration 18 Intake Visit Reasons: Gallbladder problems Chief Complaint: gallbladder problems [employer] Solution Architect Required: No Is patient in pain?: No [...] necessitate further (more content not included)... Normal [facility] Bacteria Ur Culton 5 Bacteria identified Cx Nom (U) ORGANISM ID: 1 <10,000 CFU/ml Normal urogenital beny Normal [facility] Comment on above: Performed By: #### 6 30-4 #### [facility] CLIA [id number] [address] [place] [address] [place] CNOVon 08-16-2024 CNOV Office Visit (UCWSTR ) YUSRAISRA DUNAWAY ([id number]) 1980 M Date Time Provider Department 08/16/24 4:00 PM ANTHONY TSAI [facility] During your visit today, we recorded the following information about you: Temperature Pulse Respiration Blood pressure 97.5 degrees 70/minute 20/minute 131/73 Weight 91 kg Anthony Tsai APRN.CNP 08/16/2024 4:12 PM Signed [facility] Subjective Isra Meng is a 43 [...] of care. This note was generated using [employer] software. It may contain errors in wording, punctuation, or spelling. Anthony Tsai APRN.LICENSED MORTICIAN MDM Procedures Referring Provider: DANY ASH [[id number]] Allergies As of Date: 08/16/2024 Noted Allergy Reaction SEASONAL ALLERGIES 01/27/2010 Date Reviewed: 08/16/2024 Reviewed by: Anthony Tsai APRN.LICENSED MORTICIAN - Fully Assessed Reason for Visit: MRSA concerns [Other] Cmt: States his , had polyp removed which had mrsa on it, he is concerned for possible, mrsa, Primary Visit Diagnosis:Urinary freq (more content not included)... Normal [facility] UA DIP, URINE (POC)on 2024 BILIRUBIN UA (POCT) Negative Negative [facility] CLARITY UA (POCT) Clear [facility] COLOR UA (POCT) Yellow [facility] GLUCOSE UA (POCT) Negative Negative mg/dL [facility] Hemoglobin Ql (U) Negative Negative [facility] KETONE UA (POCT) Negative Negative mg/dL [facility] LEUKOCYTES U[facility] (POCT) Negative [facility]) Negative Negative [facility] PH UA (POCT) 5.5 4.5 - 8.0 [facility] Protein Ql (U) Negative Negative mg/dL [facility] SPECIFIC GRAVITY UA (POCT) 1.01 1.005 - 1.030 [facility] UROBILINOGEN UA (POCT) 0.2 Bridgett l E.U./dL [facility] Location:[facility], [address] [place] [address], [id number] [place] [address] POINT OF CARE [facility] EGD Reporton 05-22-2024 EGD Report [facility] Medical Records Department [address] [place] [address] EGD Report MR#: [id number] Acct: [id number] Name: ISRA MENG Rep #: [id number] : 1980 43 From: Herman Simms MD PCP: Dr. Dany Ash MD Status:[facility] Patient Name: Isra Meng Procedure Date: 05/22/2024 [...] be scheduled. Procedure Code(s): --- Professional --- 79473, Esophagogastroduodenosc opy, flexible, transoral; with biopsy, single or multiple Diagnosis Code(s): --- Professional --- R10.13, Epigastric pain CPT copyright 2021 [employer]. All rights reserved. The codes documented in this report are preliminary and upon banana room cutter review may be revised to meet current compliance requirements. Herman Simms MD 05/22/2024 8:29:11 AM This report has been signed electronically. Number of Addenda: 0 Note Initiated On: 05/22/2024 8:15 AM 05/22/2429 Date Herman Simms MD Cosigner Signature: Date (if indicated) CC: Dr. Herman Simms MD; Dr. Dany Ash MD Date Dictated: 05/22/2415 Date Transcribed: Chrome Tanning Drum Operator: AC Signed Normal [facility] H Pylori (initial)on 024 H Pylori (initial) --- Patient Age/Sex Location Account Attending Physician ISRA MENG 43/M EN [id number] Dr. Herman Simms MD Specimen: [id number] Received: 05/22/24 Status: JULEE Baezasingh Num: [id number] Spec Type: IMMUNO Subm Dr: Dr. Herman Simms MD PHYSICIAN INSTITUTION [place] [address] SPECIMEN INFORMATION: Tissue Source: Gastric antrum biopsy Clinical Info: Abdominal pain Specimen Number: [id number] CPT code: 73813 METHODOLOGY: Deparaffinized sections of prefer/formalin-fixed tissue or PAP/DQ stained slides are incubated with monoclonal/polyclonal antibodies/oligonucleot chasity probes. Localization is made via biotin free immunoperoxidase method. Appropriate controls are performed and reacted as expected. Results on target cell population are indicated in the following table: RESULTS: ANTIBODY / CLONE RESULT H Pylori (polyclonal) negative These tests were developed and their performance characteristics determined by [facility]. They may not have been cleared or approved by the U.S. Food and Drug Administration. The FDA has determined that such clearance or approval is not necessary. The above immunohistochemical/ochoa Zaid markers are ordered and reviewed by the Pathologist. INTERPRETATION: Gastric antrum, biopsy: Negative for Helicobacter pylori organisms. AM.mr 05/23/2024 Signed (signature on file) Dr. Denny Prado, 05/23/24 1334 Normal [facility] Comment on above: Performed By: #### P H.PYLORI #### [facility] [address] [place], [address] MR/POSTOP.GILBERT 05-22-2024 MR/POSTOP.[facility] Medical Records Department [address] [place] [address] Anesthesia Postop Eval I 05/22/24913 MR#: [id number] Acct: [id number] Name: ISRA MENG Rep #: [id number] : 1980 43 From: Medhat Luciano MD PCP: Dr. Dany Ash MD Status:[facility] Race: C Location: EN Anesthesia: Postop [...] MD Cosigner Signature: Date CC: Signed Normal [facility] MR/[id number] 05-22-2024 MR/POSTOPAN2 [facility] Medical Records Department [address] [place] [address] Anesthesia Postop Eval II 05/22/24914 MR#: [id number] Acct: [id number] Name: ISRA MENG Rep #: [id number] : 1980 43 From: Medhat Luciano MD PCP: Dr. Dany Ash MD Status:[facility] Race: C Location: EN Anesthesia Postop [...] nausea: No Vomiting: No 05/22/24914 Date Medhat Luciano MD Cosigner Signature: CC: Signed Normal [facility] Surgery Specimen Level Josemanuel 05-22-2024 Surgery Specimen Level IV Patient Age/Sex Location Account Attending Physician ISRA MENG 43/M EN [id number] Dr. Herman Simms MD Specimen: [id number] Received: 05/22/24 Status: JULEE Atkins Num: [id number] Spec Type: EGD BIOPSY Karime Dr: Dr. Herman Simms MD HEADER OPERATION: EGD biopsy PRE-OP DIAGNOSIS: Abdominal pain TISSUE SUBMITTED: Gastric antrum biopsy MICROSCOPIC DIAGNOSIS Gastric antrum, biopsy: Chronic gastritis. See comment. AM. 05/23/2024 COMMENT The results of immunohistochemistry for Helicobacter pylori will be reported separately ([id number]). MICROSCOPIC DESCRIPTION Slides are reviewed. GROSS DESCRIPTION Received in fixative is one container labeled with the patient's name and designated Gastric antrum biopsy." The specimen consists of two irregular fragments of light jenkins soft tissue that in aggregate measure 0.6 x 0.3 x 0.1 cm. The specimen is totally submitted in one cassette. AM. 05/22/2024 TC:3 [facility]:[id number] Patient Age/Sex Location Account Attending Physician ISRA MENG/M EN [id number] Dr. Herman Simms MD Signed (signature on file) Dr. Denny Prado DO 05/23/24 1257 Normal [facility] Comment on above: Performed By: #### P SUIV #### [facility] [address] [place], [place], [address] Surgery Visit Reporton 04-18 Surgery Visit Report [facility] [address] [place] [address] OFFICE VISIT Date of Service: 04/18/24 MR#: [id number] Acct: [id number] Name: ISRA MENG Rep #: [id number] : 1980 Provider: Dr. Herman finley MD Age/Sex: 43/M Location: [facility] Status: Signed Intake Vital Signs 06/17/21 [...] mg PO QDAY 04/18/24 04/18/24 History release [facility] Medical History (Updated 04/18/24 @ 15:26 by [...] anesthesia, perf (more content not included)... Normal [facility] XR Knee - left 4 Viewson IMPRESSION: No radiographic evidence of acute osseous injury Chrome Tanning Drum Operator: VIKAS Transcribe Date/Time: Jun 30 2022 11:06A Dictated by : BRAD MEMBRENO MD This examination was interpreted and the report reviewed and electronically signed by: BRAD MEMBRENO MD on Jun 30 2022 11:07AM [facility] DIVISION OF RADIOLOGY * * *Final Report* [...] Joint spaces preserved. DIVISION OF RADIOLOGY Provider, [facility] - 06/30/2022 * * *Final Report* [...] No radiographic evidence of acute osseous injury Chrome Tanning Drum Operator: [facility] Transcribe Date/Time: Jun 30 2022 11:06A Dictated by : BRAD MEMBRENO MD This examination was interpreted and the report reviewed and electronically signed by: BRAD MEMBRENO MD on Jun 30 2022 11:07AM EST [facility] Radiology Study observation (narrative) [facility] XR Knee - left 4 ViewsOrdere d By: [facility] Provider on 06-30-2022 [facility] .Auto Diffon 03-03-2022 Basophil, Absolute 0.1 10 3/mcL Normal 0.0-0.2 [facility] ([place]) Comment on above: Performed By: #### L IP, CMP, GFR #### [address] [address] Basophils/100 WBC (Bld) 0.6 % Normal 0.0-2.5 A [facility] ([place]) Comment on above: Performed By: #### L IP, CMP, GFR #### [address] [address] Eosinophil, Absolute 0.3 10 3/mcL Normal 0.0-0.4 [facility] ([place]) Comment on above: Performed By: #### L IP, CMP, GFR #### [address] [address] Eosinophils/100 WBC (Bld) 3.2 % Normal 0.0-7.0 [facility] ([place]) Comment on above: Performed By: #### L IP, CMP, GFR #### [address] [place] [address] Lymphocyte, Absolute 1.6 10 3/mcL Normal 0.8-3.9 [facility] ([place]) Comment on above: Performed By: #### L IP, CMP, GFR #### [address] [address] Lymphocytes/100 WBC (Bld) 19.8 % Normal 10.0-50.0 [facility] ([place]) Comment on above: Performed By: #### L IP, CMP, GFR #### [address] [address] Monocyte, Absolute 0.5 10 3/mcL Normal 0.2-1.0 [facility] ([place]) Comment on above: Performed By: #### L IP, CMP, GFR #### [address] [address] Monocytes/100 WBC (Bld) 6.1 % Normal 1.7-13.0 [facility] ([place]) Comment on above: Performed By: #### L IP, CMP, GFR #### [address] [address] Neutrophils/100 WBC (Bld) 70.3 % Normal 37.0-80.0 [facility] ([place]) Comment on above: Performed By: #### L IP, CMP, GFR #### [address] [address] .GFRon 03-03-2022 GFR Non- 95 ml/min/1.73sqm Normal [facility] ([place]) Comment on above: Result Comment: GFR Population [...] By: #### L IP, CMP, GFR #### [address] [address] GFR 115 ml/min/1.73sqm Normal [facility] ([place]) Comment on above: Result Comment: GFR Population [...] By: #### L IP, CMP, GFR #### [address] [address] .MDWon 03-03-2022 Monocyte Distribution Width 15.07 Normal 0.00-20.00 [facility] ([place]) Comment on above: Result Comment: For ED adult patients suspected of sepsis, MDW<=20.0 does not rule out sepsis or risk of sepsis Performed By: #### L IP, CMP, GFR #### [address] [address] .NEUABSon 03-03-2022 Neutrophil, Absolute 5.8 10 3/mcL Normal 2.9-6.2 [facility] ([place]) Comment on above: Performed By: #### L IP, CMP, GFR #### [address] [address] CBCon 03-03-2022 Erythrocyte distribution width (RBC) [Ratio] 13.4 % Normal 11.5-14.5 [facility] ([place]) Comment on above: Performed By: #### L IP, CMP, GFR #### [address] [address] Hematocrit (Bld) [Volume fraction] 42.3 % Normal 42.0-52.0 [facility] ([place]) Comment on above: Performed By: #### L IP, CMP, GFR #### [address] [address] Hgb 15.0 G/dL Normal 14.0-18.0 [facility] ([place]) Comment on above: Performed By: #### L IP, CMP, GFR #### [address] [address] MCH (RBC) [Entitic mass] 30.9 pg Normal 27.0-31.2 [facility] ([place]) Comment on above: Performed By: #### L IP, CMP, GFR #### [address] [address] MCHC 35.5 G/dL High 31.8-35.4 [facility] ([place]) Comment on above: Performed By: #### L IP, CMP, GFR #### [address] [address] MCV (RBC) [Entitic vol] 87.2 fL Normal 80.0-94.0 A [facility] ([place]) Comment on above: Performed By: #### L IP, CMP, GFR #### [address] [address] Platelet 193 10 3/mcL Normal 130-400 [facility] ([place]) Comment on above: Performed By: #### L IP, CMP, GFR #### [address] [address] Platelet mean volume (Bld) [Entitic vol] 7.8 fL Normal 7.4-10.4 [facility] ([place]) Comment on above: Performed By: #### L IP, CMP, GFR #### [address] [address] RBC 4.85 10 6/mcL Normal 4.04-6.13 [facility] ([place]) Comment on above: Performed By: #### L IP, CMP, GFR #### [address] [address] WBC 8.2 10 3/mcL Normal 4.6-10.8 [facility] ([place]) Comment on above: Performed By: #### L IP, CMP, GFR #### [address] [address] CMPon 03-03-2022 Albumin Level 4.2 G/dL Normal 3.5-5.0 [facility] ([place]) Comment on above: Performed By: #### L IP, CMP, GFR #### [address] [address] Albumin/Globulin [Mass ratio] 1.3 {ratio} Normal 1.1-2.5 [facility] ([place]) Comment on above: Performed By: #### L IP, CMP, GFR #### [address] [address] ALP [Catalytic activity/Vol] 67 U/L Normal 40-135 [facility] ([place]) Comment on above: Performed By: #### L IP, CMP, GFR #### [address] [address] ALT [Catalytic activity/Vol] 32 U/L Normal 16-63 [facility] ([place] Comment on above: Performed By: #### L IP, CMP, GFR #### [address] [address] AST [Catalytic activity/Vol] 21 U/L Normal 10-40 [facility] ([place] Comment on above: Performed By: #### L IP, CMP, GFR #### [address] [address] Bili Total 0.4 mg/dL Normal 0.2-1.0 [facility] ([place]) Comment on above: Result Comment: Use of this assay is not recommended for patients undergoing treatment with eltrombopag due to the potential for falsely elevated results. Performed By: #### L IP, CMP, GFR #### [address] [address] BUN/Creatinine Ratio 11 ratio Normal 7-27 [facility] ([place]) Comment on above: Performed By: #### L IP, CMP, GFR #### [place] [id number] Calcium [Mass/Vol] 8.6 mg/dL Normal 8.4-10.2 [facility] ([place]) Comment on above: Performed By: #### L IP, CMP, GFR #### [place] [id number] Chloride [Moles/Vol] 101 mmol/L Normal 98-107 [facility] ([place]) Comment on above: Performed By: #### L IP, CMP, GFR #### [place] [address] CO2 [Moles/Vol] 25 mmol/L Normal 22-29 [facility] ([place]) Comment on above: Performed By: #### L IP, CMP, GFR #### [place] [id number] Creatinine [Mass/Vol] 0.89 mg/dL Normal 0.70-1.30 [facility] ([place]) Comment on above: Performed By: #### L IP, CMP, GFR #### [place] [id number] Electrolyte Balance 12.0 mEq/L Normal 4.0-15.0 [facility] ([place]) Comment on above: Performed By: #### L IP, CMP, GFR #### [place] [id number] Globulin 3.2 G/dL Normal [facility] ([place] Comment on above: Performed By: #### L IP, CMP, GFR #### [place] [id number] Glucose [Mass/Vol] 84 mg/dL Normal 70-105 [facility] ([place]) Comment on above: Performed By: #### L IP, CMP, GFR #### [place] [address] Potassium [Moles/Vol] 3.8 mmol/L Normal 3.5-5.1 [facility] [place] Comment on above: Performed By: #### L IP, CMP, GFR #### [place] [address] [place], [place] [address] Sodium [Moles/Vol] 138 mmol/L Normal 136-145 [facility] ([place]) Comment on above: Performed By: #### L IP, CMP, GFR #### [place] [address] [place], [place] [address] Total Protein 7.4 G/dL Normal 6.4-8.2 [facility] ([place]) Comment on above: Performed By: #### L IP, CMP, GFR #### [place] [address] [place], [place] [address] Urea nitrogen [Mass/Vol] 10 mg/dL Normal 7-18 [facility] ([place] Comment on above: Performed By: #### L IP, CMP, GFR #### [address] [address] LABORATORYOrdered By: Wade Rodrigues on 03-03-2022 Albumin [...] 03-03-2022 Lipase Level 144 U/L Normal 73-393 [facility] ([place]) Comment on above: Performed By: #### L IP, CMP, GFR #### [place] [address] .Urinalysis Microscopic (AO) on 04-30-2021 UA RBC 5-10 Abnormal None Seen [facility] ([place]) Comment on above: Performed By: #### U A, UAMICAO #### [place] [address] [place], [place] [address] UA Squam Epithelial None Seen Normal None Seen [facility] ([place]) Comment on above: Performed By: #### U A, UAMICAO #### [place] [address] [place], [place] [address] UA WBC None Seen Normal None Seen [facility] ([place] Comment on above: Performed By: #### U A, UAMICAO #### [place] [address] [place], [place] [address] LABORATORYOrdered By: Liv Wan on 04-30-2021 Appearance (U) Clear (04/30/21 5:53 PM) Invalid Interpretation Code Clear AO Auto Urine SS Bilirubin Ql (U) Negative (04/30/21 5:53 PM) Invalid Interpretation Code Negative AO Auto Urine SS Color (U) Yellow (04/30/21 5:53 PM) Invalid Interpretation Code AO Auto Urine SS Glucose Test strip (U) [Mass/Vol] Negative Invalid Interpretation Code Negativemg/ dL AO Auto Urine SS Hemoglobin Auto test strip (U) [Mass/Vol] Moderate *ABN* (04/30/21 5:53 PM) Invalid Interpretation Code Negative AO Auto Urine SS Ketones Ql (U) Negative Invalid Interpretation Code Negativemg/ dL AO Auto Urine SS UA Leuk Est Negative (04/30/21 5:53 PM) Invalid Interpretation Code Negative AO Auto Urine SS UA Nitrite Negative (04/30/21 5:53 PM) Invalid Interpretation Code Negative AO Auto Urine SS UA pH 5.5 (04/30/21 5:53 PM) Invalid Interpretation Code 5.0 - 8.0 AO Auto Urine SS UA Protein Negative Invalid Interpretation Code Negativemg/ dL AO Auto Urine SS UA RBC 5-10 [...] UA Urobilinogen 0.2 E.U./dL Invalid Interpretation Code 0.2-1.0E.U. /dL AO Auto Urine SS WBC LM.HPF (Urine sed) [#/Area] None Seen /HPF Invalid Interpretation Code None Seen/HPF AO Auto Urine SS UAon 04-30-2021 Color (U) Yellow Normal [facility] ([place]) Comment on above: Performed By: #### U A, UAMICAO #### [place] [address] Glucose (U) [Mass/Vol] Negative Normal Negative [facility] ([place]) Comment on above: Performed By: #### U A, UAMICAO #### [place] [address] Ketones Ql (U) Negative Normal Negative [facility] ([place] Comment on above: Performed By: #### U A, UAMICAO #### [place] [address] UA Appear Clear Normal Clear [facility] ([place] Comment on above: Performed By: #### U A, UAMICAO #### [place] [address] UA Blood Moderate Abnormal Negative [facility] ([place] Comment on above: Performed By: #### U A, UAMICAO #### [place] [address] UA Leuk Est Negative Normal Negative [facility] ([place] Comment on above: Performed By: #### U A, UAMICAO #### [place] [address] UA Nitrite Negative Normal Negative [facility] ([place] Comment on above: Performed By: #### U A, UAMICAO #### [place] [address] UA pH 5.5 Normal 5.0 - 8.0 [facility] ([place]) Comment on above: Performed By: #### U A, UAMICAO #### [address] [place] [address] UA Protein Negative Normal Negative [facility] ([place] Comment on above: Performed By: #### U A, UAMICAO #### [address] [address] UA Spec Grav 1.015 Normal 1.015-1.025 [facility] ([place]) Comment on above: Performed By: #### U A, UAMICAO #### [address] [address] UA Specimen Type Clean Catch Normal [facility] ([place] Comment on above: Performed By: #### U A, UAMICAO #### [place] [id number] UA Urobilinogen 0.2 E.U./dL Normal 0.2-1.0 [facility] ([place]) Comment on above: Performed By: #### U A, UAMICAO #### [place] [id number] Urobilinogen (U) [Mass/Vol] Negative Normal Negative [facility] ([place]) Comment on above: Performed By: #### U A, UAMICAO #### [place] [id number] Vital Signs Date Time Vital Sign Value Performing Clinician Facility 03-07-2025 15:19040 Body height 177.[address] Dany Ash MD Work Phone: [facility] 03-07-2025 15:19-0400 Body mass index (BMI) [Ratio] 28.3 kg/m2 Dr. Dany Ash MD Work Phone: [facility] 03-07-2025 15:19-0400 Body weight 89.[address] Dany Ash MD Work Phone: [facility] 03-07-2025 15:190400 Diastolic blood pressure 94 mm[Hg] Dr. Dany Ash MD Work Phone: [facility] 03-07-2025 15:19-0400 Heart rate 72 /min Dr. Dany Ash MD Work Phone: [facility] 03-07-2025 15:19-0400 Respiratory rate 17 /min Dr. Dany Ash MD Work Phone: 4(119)089-788525 [place] [address] 03-07-2025 15:19-0400 Systolic blood pressure 138 mm[Hg] Dr. Dany Ash MD Work Phone: 8(986)629-722167 [place] [address] 02-25-2025 15:26-0400 Body temperature 97.9 [degF] Dr. Dany Ash MD Work Phone: 0(357)774-001067 [place] [address] 02-25-2025 15:26-0400 Diastolic blood pressure 77 mm[Hg] Dr. Dany Ash MD Work Phone: 2(061)123-697167 [place] [address] 02-25-2025 15:26-0400 Heart rate 56 /min Dr. Dany Ash MD Work Phone: 1(393)153-246667 [place] [address] 02-25-2025 15:26-0400 Respiratory rate 16 /min Dr. Dany Ash MD Work Phone: 8(204)688-336667 [place] [address] 02-25-2025 15:26-0400 SaO2% (BldA) [Mass fraction] 100 % Dr. Dany Ash MD Work Phone: 2(014)456-491667 [place] [address] 02-25-2025 15:26-0400 Systolic blood pressure 116 mm[Hg] Dr. Dany Ash MD Work Phone: 8(073)617-309667 [place] [address] 02-25-2025 11:14-0400 Body height 177.[address] Dany Ash MD Work Phone: 5(998)001-010567 [place] [address] 02-25-2025 11:14-0400 Body mass index (BMI) [Ratio] 27.8 kg/m2 Dr. Dany Ash MD Work Phone: 8(471)335-709267 [place] [address] 02-25-2025 11:14-0400 Body weight 87.[address] Dany Ash MD Work Phone: 6(966)484-258567 [place] [address] 02-15-2025 13:05-0400 Body height 177.[address] Dany Ash MD Work Phone: [facility] 02-15-2025 13:05-0400 Body mass index (BMI) [Ratio] 28.4 kg/m2 Dr. Dany Ash MD Work Phone: [facility] 02-15-2025 13:05-0400 Body weight 89.[address] Dany Ash MD Work Phone: [facility] 02-15-2025 13:05-0400 Diastolic blood pressure 84 mm[Hg] Dr. Dany Ash MD Work Phone: [facility] 02-15-2025 13:05-0400 Respiratory rate 18 /min Dr. Dany Ash MD Work Phone: [facility] 02-15-2025 13:05-0400 Systolic blood pressure 138 mm[Hg] Dr. Dany Ash MD Work Phone: [facility] 08-16-2024 15:53-0500 Body mass index (BMI) [Ratio] 28.79 kg/m2 [facility] [employer]ICENSED MORTICIAN Work Phone: [facility] 08-16-2024 15:53-0500 Body temperature 97.5 [degF] [facility] [employer]ICENSED MORTICIAN Work Phone: [facility] 08-16-2024 15:53-0500 Body weight 91 kg [facility] [employer]ICENSED MORTICIAN Work Phone: [facility] 08-16-2024 15:53-0500 Diastolic blood pressure 73 mm[Hg] [facility] [employer].LICENSED MORTICIAN Work Phone: [facility] 08-16-2024 15:53-0500 Heart rate 70 /min Anthonydwight Bullsamuel [employer]ICENSED MORTICIAN Work Phone: [facility] 08-16-2024 15:53-0500 Respiratory rate 20 /min Anthony Jorgitosamuel [employer]ICENSED M[employer]ICIAN Work Phone: [facility] 08-16-2024 15:53-0500 SaO2% (BldA) [Mass fraction] 99 % Anthony Easleysamuel [employer]ICENSED MORTICIAN Work Phone: [facility] 08-16-2024 15:53-0500 Systolic blood pressure 131 mm[Hg] Anthony Tsai [employer]IC[employer]ED M[employer]ICIAN Work Phone: [facility] 04-10-2022 12:24-0400 Body temperature 98.29 [degF] Josse Jordin [employer]IC[employer]ED M[employer]ICIAN Work Phone: [facility] 04-10-2022 12:24-0400 Body weight 98.7 kg Josse Jordin [employer]ICENSED M[employer]ICIAN Work Phone: [facility] 04-10-2022 12:24-0400 Diastolic blood pressure 82 mm[Hg] Josse Brenner [employer]ICENSED M[employer]ICIAN Work Phone: [facility] 04-10-2022 12:24-0400 Heart rate 92 /min Josse Brenner [employer]ICENSED M[employer]ICIAN Work Phone: [facility] 04-10-2022 12:24-0400 Respiratory rate 16 /min Josse Jordin [employer]ICENSED MORTICIAN Work Phone: [facility] 04-10-2022 12:24-0400 SaO2% (BldA) [Mass fraction] 97 % Josse Jordin [employer]ICENSED MORTICIAN Work Phone: [facility] 04-10-2022 12:24-0400 Systolic blood pressure 124 mm[Hg] Josse Jordin [employer]ICENSED M[employer]ICIAN Work Phone: [facility] 03-03-2022 17:55-0400 Body height 177.8 cm PAUL THOMPSON DO [facility] 03-03-2022 17:55-0400 Body temperature 98.78 [degF] PAUL THOMPSON DO [facility] 03-03-2022 17:55-0400 Body weight 95.5 kg PAUL THOMPSON DO [facility] 03-03-2022 17:55-0400 Diastolic blood pressure 86 mm[Hg] PAUL FROMMICHAELT DO [facility] 03-03-2022 17:55-0400 Heart rate 108 /min PAUL FROMMELT DO [facility] 03-03-2022 17:55-0400 Mean blood pressure 100 mm[Hg] PAUL FROMMICHAELT DO [facility] 03-03-2022 17:55-0400 Respiratory rate 22 /min PAUL RICHARDST DO [facility] 03-03-2022 17:55-0400 Systolic blood pressure 129 mm[Hg] PAUL RICHARDST DO [facility] 04-30-2021 17:48-0500 Body temperature 98.42 [degF] DR EARNESTINE PEOPLES MD [facility] 04-30-2021 17:48-0500 Diastolic blood pressure 83 mm[Hg] DR EARNESTINE PEOPLES MD [facility] 04-30-2021 17:48-0500 Heart rate 99 /min DR EARNESTINE PEOPLES MD [facility] 04-30-2021 17:48-0500 Mean blood pressure 98 mm[Hg] DR EARNESTINE PEOPLES MD [facility] 04-30-2021 17:48-0500 Respiratory rate 16 /min DR EARNESTINE PEOPLES MD [facility] 04-30-2021 17:48-0500 Systolic blood pressure 129 mm[Hg] DR EARNESTINE PEOPLES MD [facility] Encounters Encounter Date Encounter Type Care Provider Facility Start: 03-13-2025 End: 03-13-[address] Herman Simms MD -[facility] Work Phone: Start: 03-13-2025 End: 03-13-[address] Dany Ash MD Work Phone: -[facility] Start: 03-13-2025 End: 03-13-2025 ambulatory Herman Simms Facility:[facility] Start: 03-08-2025 End: 03-08-[address] Dany Ash MD Work Phone: -[facility] Start: 03-08-2025 End: 03-08-[address] Terrie Garcia MD -[facility] Work Phone: Start: 03-07-2025 End: 03-07-2025 Patient encounter procedure Nicky Ward PA-C -[facility] Work Phone: Start: 03-07-2025 End: 03-08-[address] Dany Ash MD Work Phone: [facility] Start: 03-07-2025 End: 03-07-2025 ambulatory Nicky DUDLEY Facility:[facility] Start: 02-25-2025 ambulatory Dany Pimentel y:BMS Start: 02-25-2025 Non-patient / Non-visit Dr. Karol Simms MD -[facility] Start: 02-25-2025 End: 02-25-2025 Admission to same day surgery center Dr. Herman Simms MD [facility] Start: 02-25-2025 End: 02-25-[address] Dany Ash MD Work Phone: [facility] Start: 02-15-2025 End: 02-15-[address] Herman Simms MD -[facility] Work Phone: Start: 02-15-2025 End: 02-15-[address] Dany Ash MD Work Phone: -[facility] Start: 08-16-2024 End: 08-16-2024 ambulatory DANY ASH Facility:[facility] Start: 08-16-2024 End: 08-16-2024 Office outpatient visit 15 minutes Anthony Tsai APRN.LICENSED MORTICIAN Work Phone: [facility] Comment on above: Urinary frequency (P rimary Dx) Start: 05-22-2024 ambulatory Herman Domingo lity:BMS Start: 05-22-2024 End: 05-22-2024 ambulatory Dany Ash Facility:[facility] Start: 04-18-2024 End: 04-18-2024 ambulatory Herman Simms Facility:[facility] Start: 06-30-2022 End: 06-30-2022 Subsequent hospital visit by physician Xr [facility] Work Phone: Radiology Comment on above: Knee injuries, left, initial encounter [S89.92XA] Start: 04-11-2022 Telephone encounter Hermelinda Boudreaux APRN.LICENSED MORTICIAN Work Phone: [facility] Comment on above: Results Start: 04-10-2022 End: 04-10-2022 Patient encounter procedure Josse Brenner APRN.LICENSED MORTICIAN Work Phone: [facility] Comment on above: Suspected COVID-19 v irus infection (Primary Dx) Start: 03-03-2022 End: 03-03-2022 Emergency department patient visit NOT RECORDED PHYSICIAN Facility:B Start: 03-03-2022 End: 03-03-2022 Emergency department patient visit PAUL MAURICEKrystian CHAPARRO [facility] Start: 04-30-2021 End: 04-30-2021 Emergency department patient visit DR. EARNESTINE PEOPLES MD. Facility:[facility] Start: 04-30-2021 End: 04-30-2021 Emergency department patient visit DR EARNESTINE PEOPLES MD [facility] Procedures Date Procedure Procedure Detail Performing Clinician Start: 03-08-2025 Computed tomography of abdomen and pelvis with contrast Dr. Dany Ash MD Work Phone: Start: 02-25-[address] Dany Ash MD Work Phone: Start: 08-16-2024 Urnls dip stick/tablet rgnt auto w/o microscopy Anthony Tsai KNOCK UP ASSEMBLER.LICENSED MORTICIAN Work Phone: Start: 06-30-2022 Radiologic exam knee complete 4/more views Josse Brenner KNOCK UP ASSEMBLER.LICENSED MORTICIAN Work Phone: Start: 07-28-2016 Colonoscopy Josse Brenner KNOCK UP ASSEMBLER.C GRIDCAP MACHINE OPERATOR Work Phone: Start: 05-28-2011 Lipid 1996 panel - Serum or Plasma Xr [facility] Work Phone: Face structure (body structure) DR EARNESTINE PEOPLES MD History of cholecystectomy S/P cholecyste ctomy Nicky Ward PA-C History of cholecystectomy S/P cholecyste ctomy Dr. Herman Simms MD Plan of Treatment Date Care Activity Detail Author Start: 09-16-2027 FECAL OCCULT BLOOD FECAL OCCULT BLOO D [facility] Start: 09-16-2027 Screening for malign ant neoplasm of colon Fecal Occult Blood [facility] Start: 07-28-2026 Colonoscopy COLONOSCOPY [facility] Start: 07-28-2026 COLORECTAL CANCER SCREENING COLORECTAL CANCER SCREENING [facility] Start: 07-28-2026 Screening for malign ant neoplasm of colon [facility] Start: 06-30-2026 Urine microalbumin profile [facility] Start: 02-25-2025 Anes intraperitoneal upper abdomen w/laps nos ANES IPER UPR ABD NOS [facility] Start: 02-25-2025 Laparoscopic cholecystectomy LAPAROSCOPIC CHOLECYSTECTOMY [facility] Start: 02-25-2025 Patient discharge [facility] Start: 02-12-2024 Covid-19 Vaccine ( season) Covid-19 Vaccine (2023- season) [facility] Start: 02-12-2024 Influenza vaccination Influenza Vacc ine (#1) [facility] Start: 02-11-2022 Influenza vaccination INFLUENZA (#1) [facility] Start: 04-25-2021 COVID-19 VACCINE (3 - Booster for Moderna series) COVID-19 VACCINE (3 - Booster for Moderna series) [facility] Start: 2017 Lipid panel Lipid Screening [facility] Start: 2017 LIPID SCREEN LIPID SCREEN [facility] Start: 2001 Hepatitis B Vaccine (1 of 3 - 19+ 3-dose series) Hepatitis B Vaccine (1 of 3 - 19+ 3-dose series) [facility] Start: 2000 HEPATITIS C SCREENING HEPATITIS C [facility] Start: 2000 Hepatitis C screening Hepatitis C [facility] Start: 2000 HIV SCREENING HIV SCREENING [facility] Start: 2000 HIV screening HIV Screening [facility] Start: 1982 HEPATITIS B (1 of 3 - 3-dose series) HEPATITIS B (1 of 3 - 3-dose series) [facility] Bacteria identified in Urine by Culture BACTERIAL CULTURE, URINE Microbiology Routine Urinary frequency Ordered: 08/16/2024 [facility] Work Phone: Comment on above: Ordered: 08/16/2024 Influenza virus A an d B RNA and SARS-CoV-2 (COVID-19) N gene panel - Respiratory specimen by DANIEL with probe detection COVID WITH FLUA+B, ROUTINE Microbiology Routine Suspected COVID-19 virus infection Ordered: 04/10/2022 [facility] Work Phone: Comment on above: Ordered: 04/10/2022 Immunizations Immunization Date Immunization Notes Care Provider Fa cility 02-26-2021 Covid (Moderna) Dr. Dany gaxiola MD Work Phone: [facility] 01-25-2021 Covid (Moderna) Dr. Dany gaxiola MD Work Phone: [facility] 06-30-2016 pneumococcal polysaccharide vaccine, 23 valent Josse Brenner APRN.LICENSED MORTICIAN Work Phone: [facility] 06-30-2016 tetanus toxoid, redu jacqui diphtheria toxoid, and acellular pertussis vaccine, adsorbed Josse Brenenr KNOCK UP ASSEMBLER.LICENSED MORTICIAN Work Phone: [facility] 06-30-2016 influenza virus vacc ine, unspecified formulation Xr [facility] Work Phone: [facility] 05-25-2011 influenza virus vacc ine, unspecified formulation Josse Jordin KNOCK UP ASSEMBLER.LICENSED MORTICIAN Work Phone: [facility] Work Phone: 03-16-2006 diphtheria and tetan us toxoids, adsorbed for pediatric use Josse Jordin KNOCK UP ASSEMBLER.LICENSED MORTICIAN Work Phone: [facility] Work Phone: Payers Date Payer Category Payer Private Health Insurance [facility] [id number] 2024 Private Health Insurance [id number] 2024 Self-pay 2024 Unknown [id number] 2021 Unknown [employer] PPO [id number] 2021-Present [phone] [address] [place] [address] PPO [id number] 2021 Unknown [id number] 1980 Unknown [id number] .[id number] 1982 Unknown [id number] .[id number] Unknown [id number] Unknown [id number] .[id number] Unknown [id number] .2.462 Unknown [id number] .2.462 Unknown [id number] [id number] .2.462 Unknown [id number] [id number] .2.462 Unknown [id number] [id number] .2.462 Unknown [id number] [id number] .2.462 Unknown [id number] [id number] .2.462 Unknown [id number] [id number] .2.462 Unknown [id number] .2.462 Unknown [id number] [id number] .2.462 Social History Date Type Detail Facility Start: 10-16-2020 End: 02-15-2025 Ex-smoker (finding) [facility] Start: 1980 Sex Assigned At Male A [facility] History of tobacco use Current smoker [facility] Start: 04-10-2022 Tobacco use and exposure Former smokeless tobacco user [facility] History of tobacco use Chews Tobacco [facility] Start: 04-10-2022 End: 08-16-2024 Alcohol intake Current drinker of alcohol (finding) [facility] Start: 1980 Sex Assigned At Not on file [facility] Start: 05-18-2020 End: 06-30-2022 History of Social function [facility] Start: 05-18-2020 End: 06-30-2022 Tobacco use panel [facility] National Score (1-100), lower number is lower risk Not on file [facility] Start: 10-06-2020 Alcohol Alcohol [facility] Start: 10-06-2020 Drugs Drugs [facility] Start: 10-06-2020 Lives Lives [facility] Start: 09-18-2019 Tobacco Use Tobacco Use [facility] Start: 02-19-2025 Tobacco smoking stat [facility] Smokes tobacco daily (finding) [facility] Medical Equipment Procedure Code Equipment Code Equipment Original Text Equipment Identifier Dates Robot-assisted laparoscopic cholecystectomy without cholangiography Ligation clip, synthetic polymer, non-bioabsorbable [id number] FDA Start: 02-25-2025 Robot-assisted laparoscopic cholecystectomy without cholangiography Ligation clip, synthetic polymer, non-bioabsorbable [id number] FDA Start: 02-25-2025 Goals Date Patient Goal Desired Activity /State Functional Status Date Assessment Result Facility 03-03-2022 Functional Status Assistive Device None [facility] 03-03-2022 Functional Status Room check performed [facility] 10-30-2014 Are you deaf, or do you have serious difficulty hearing No 10/30/2014 3:18 PM Madelyn Marsh Ma No [facility] 10-30-2014 Are you blind, or do you have serious difficulty seeing, even when wearing glasses No 10/30/2014 3:18 PM Madelyn Marsh Ma No [facility] 10-30-2014 Do you have serious difficulty walking or climbing stairs No 10/30/2014 3:18 PM Madelyn Marsh Ma No [facility] 10-30-2014 Do you have difficul ty dressing or bathing No 10/30/2014 3:18 PM Madelyn Marsh Ma No [facility] 10-30-2014 Because of a physica l, mental, or emotional condition, do you have difficulty doing errands alone such as visiting a physician's office or shopping No 10/30/2014 3:18 PM EDT Aniceto PurcellMadelyn [facility] Mental Status Date Assessment Result Facility 02-25-2025 Cognitive function Level Of Cons ciousness Follows Commands;Drowsy [facility] Work Phone: 02-25-2025 Cognitive function Voice/Name [facility] Work Phone: 03-03-2022 Mental Status Orientation Oriented x 4 [facility] 03-03-2022 Mental Status [facility] 10-30-2014 Because of a physica l, mental, or emotional condition, do you have serious difficulty concentrating, remembering, or making decisions No 10/30/2014 3:18 PM EDT Aniceto PurcellMadelyn [facility] Clinical Notes 07-28-2016 to 03-13-2025 Note Date & Type Note Facility 03-13-2025 Progress note [facility] 03-08-2025 Radiology Diagnostic study note [facility] Imaging Services [address] [place], [place] [address] Abdomen/Pelvis WITH Contrast MR#: [id number] Acct: [id number] Name: ISRA MENG Rep #: [id number] : 1980 M 44 From: Delano Paniagua MD PCP: Dr. Dany Ash MD Status: RE G CLI Study:Abdomen/Pelvis WITH Contrast Date of Ex am: 03/08/25 Exam# [id number] Ordering Dr: Terrie Garcia MD PROCEDURE: ABDOMEN/PELVIS WITH CONTRAST 03/08/2025 REASON FOR EXAM: ABDOMINAL PAIN/ELEVATED LABS TECHNIQUE: Procedure Code: CTABDPELW Modality: CT Procedure: ABDOMEN/PELVIS WITH CONTRAST Coronal and Sagittal reconstruction series were provided. CONTRAST: Isovue 370 VOLUME: 100 mL One or more dose reduction techniques were used (e.g., Automated exposure control, adjustment of the mA and/or kV according to patient size, use of iterative reconstruction technique. RADIATION DOSE SUMMARY: CTDlvol: 9.97, 16.13 mGy DLP: 830.93 mGycm COMPARISON: US Abdomen Limited, 03/06/2024 FINDINGS: LUNG BASES: No basilar airspace consolidation or pleural effusion. LIVER: Unremarkable. GALLBLADDER: Status post cholecystectomy with mildly hyperdense ill-defined fluid in the gallbladder fossa. BILE DUCTS: No ductal dilation. PANCREAS: Unremarkable. SPLEEN: Unremarkable. ADRENAL GLANDS: Unremarkable. KIDNEYS: Unremarkable. The kidneys enhance symmetrically. No hydronephrosis or hydroureter. STOMACH AND BOWEL: Oral contrast has progressed to the sigmoid colon. No obstruction or perforation. No wall thickening. No CT evidence of colitis or acute diverticulitis. APPENDIX: Normal-appearing appendix. No CT evidence for appendicitis. RETRO/PERITONEUM: No free fluid. No free air. LYMPH NODES: No lymphadenopathy. PELVIC ORGANS: Unremarkable as visualized. VASCULATURE: No aortic aneurysm. ABDOMINAL WALL AND SOFT TISSUES: Tiny fat containing umbilical hernia. BONES: No fracture or suspicious osseous abnormality. Moderately severe L5-S1 degenerative disc disease. CT/Abdomen/Pelvis WITH Contrast IMPRESSION: Small volume of ill-defined complex fluid in the gallbladder fossa, likely postoperative hematoma or seroma. Reading Location: [id number] CC: Dr. Dany Ash MD; Dr. Terrie Garcia MD ~ Chrome Tanning Drum Operator: Signed [facility] 03-07-2025 Progress note [facility] 03-07-2025 Progress note Note Date/Time March 07, 2025 3:31pm [facility] [address] [place] [address]. [address] [place] [address] OFFICE VISIT Date of Service: 03/07/25 MR#: [id number] Acct: [id number] Name: ISRA MENG Erendira Rep #: [id number] : 1980 Provider: FRANK Ward Age/Sex: 44/M Location: [facility] Status: Signed Intake Vital Signs 02/25/25 11:14 03/07/25 15:19 Height 5 ft 10 in 5 ft 10 in Weight: 197 lb BMI 28.3 BP 138/94 H Blood Pressure Location Rt brachial Position Sitting Respiration 17 Pulse 72 Pulse Source Monitor Intake Visit Reasons: c/o pain Chief Complaint: c/o pain after cholecystectomy Is patient in pain?: Yes (c/o right sided pain/aches more at night) Allergies No Known Allergies Allergy (Verified 03/07/25 15:18) Subjective Details: Patient is a 44 y/o M I am following s/p robotic assisted laparoscopic cholecystectomy by Dr. Simms on 02/25/25. Patient tolerated the procedure well. Patient notes initially after the procedure he had right upper shoulder pain. He states approximately 3-4 days later the pain moved to the left shoulderblade. He states he feels as though there is a gas bubble in the epigastric region that does not go away. Patient states this may be similar to the pre-op symptoms he was experiencing with the gallbladder. He states however the gallbladder pain was more sharp and in the right upper quadrant. He has had 2 refills of oxycodone form Dr. Simms. He does not like to take medication. He states he does not like taking Tylenol or Ibuprofen. He denies reflux symptoms, nausea, vomiting. He notes appetite is slow to return. He states bowelhabits have returned to his normal. He voices he is an overthinker and worrier. He notes he is also under a lot of stress. Objective Details: Abdomen- soft, positive bowel sounds. Incisions c/d/i. NO erythema or infection noted. Pressure sensation with palpation of the epigastric region and left upperquadrant. Very slight tenderness to the RUQ (appropriate tenderness for being post-op). No guarding or rebound tenderness. Coding Level of Care Code Global Post Op Diagnoses S/P cholecystectomy Z90.49 Epigastric abdominal pain R10.13 [facility] Medical History (Updated 03/07/25 @ 15:47 by Nicky DUDLEY, PA-C) Back pain Smoker Hemorrhoids Acid reflux Abdominal pain Chronic pain Kidney stones Former smoker Asthma Irregular heart beat Former tobacco use Alcohol abuse Panic attacks Depression Anxiety Surgical History (Updated 03/07/25 @ 15:20 by Ni De Paz) S/P cholecystectomy History of facial surgery Family History Mother Anxiety and depression Father Diabetes Social History household members: spouse and family Smoking Status: Current every day smoker tobacco type: smokeless tobacco how long ago did patient quit smoking: Smoked 3-5 years in his 30s, 1 ppd. alcohol intake: former year quit: 1 details: 3-6, 25 ounce beers daily. substance use type: does not use Assessment and Plan (No Qualifiers) Assessment and Plan (1) S/P cholecystectomy: Status: Acute (2) Epigastric abdominal pain: Status: Acute Plan Recommend obtaining STAT CBC, CMP and Lipase Our office will contact patient with results If liver enzymes are elevated, did discuss with the patient obtaining a CT scan versus HIDA scan to r/o bile leak versus pancreatitis versus hematoma versus normal post-operative changes Patient has had the opportunity to ask and have questions answered. Patient verbally agrees with the plan and is agreeable to obtain lab work today Encouraged patient to ambulate outside and he may do some light lifting up to 15pounds to start back to a work out regimen Patient to continue to keep follow-up appointment for next week 03/07/25 3565 <Electronically signed by Nicky DUDLEY PA-C> Date _ Nicky DUDLEY PA-C Cosigner Signature: Date (if applicable) CC: ~ [facility] Work Phone: 1(324) 983-395209-15-2025 Consult note [facility] Medical Records Department [address] [place] [address] Pre-Anesthesia Evaluation 02/25/25 1125 MR#: [id number] Acct: [id number] Name: ISRA MENG Rep #:[id number] : 1980 44 From: Medhat Luciano MD PCP: Dr. 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..] than talking or can be heard through closeddoors)? 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 02/25/25 1125 > Date _ Medhat Luciano MD Cosigner Signature: Date CC: ~ Signed [facility]2025 Discharge summary Author Herman Simms [facility] Note Date/Time February 25, 2025 1:40pm [facility] Medical Records Department [address] [place] [address] Instructions for Home/Discharge Instructions 02/25/25 1338 MR#: [id number] Acct: [id number] Name: ISRA MENG Rep #:[id number] : 1980 44 From: Herman garcia MD PCP: Dr. Dany Ash MD Status:[facility] Discharge Instructions Procedure Gallbladder Diet Discharge Diet: [...] to schedule 2 week follow up appointment. [phone] Test Results: Test results from this visit will be discussed in further detail at your follow- up appointment, if applicable. Discharge Plan Admission Attending Provider: Herman Simms Primary Care Provider: Dany Ash Instructions Print Language: [place] Discharge Orders/Prescriptions Prescriptions: New oxycodone 5 mg [...] CC: Dr. Dany Ash MD ~ Signed [facility] Work Phone: 1(855) 413-449609-15-2025 History and physical note [facility] Medical Records Department [address] [place] [address] History & Physical Exam 02/25/25 1154 MR#: [id number] Acct: [id number] Name: ISRA MENG Rep #:[id number] : 1980 44 From: Herman garcai MD PCP: Dr. Dany Ash MD Status: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 Herman Simms MD Pager: [facility] [address] [facility], [address] [place] [address] Office: I have examined the patient and the H&P has been reviewed. There are no clinicalchanges since date of exam. 02/25/25 1154 Cosigner Signature (if applicable): CC: Dr. Herman Simms MD; Dr. Dany Ash MD~ Signed [facility]2025 Consult note [facility] Medical Records Department [address] [place] [id number] Anesthesia Postop Eval II 02/25/25 1450 MR#: [id number] Acct: [id number] Name: ISRA MENG Rep #:[id number] : 1980 44 From: Medhat Luciano MD PCP: Dr. Dany Ash MD Status:[facility] Race: C Location: [place] [address] Anesthesia Postop Eval I Sum Postop Eval Completion status Anesthesia document: Postop Eval 1 completed: Yes Anesthesia Postop Eval I Summary Anesthesia Postop Eval I Summary: Anesthesia Postop Eval I: Assessment Summary Airway patent Yes 02/25/25 14:23 ELECTRICIAN.TDOB Spontaneous unlabored Yes 02/25/25 14:23 ELECTRICIAN.TDOB respirations Mental status Awake 02/25/25 14:23 ELECTRICIAN.TDOB nausea No 02/25/25 14:23 ELECTRICIAN.TDOB Vomiting No 02/25/25 14:23 ELECTRICIAN.TDOB Anesthesia Postop Eval I: Fluid Summary Crystalloid volume administer 900 02/25/25 14:23 ELECTRICIAN.TDOB (ml) Colloids volume administered ( ml) Blood Product volume administered (ml) Total IV fluid infused 900 02/25/25 14:23 ELECTRICIAN.TDOB Anesthesia Postop Eval I: Summary Notes Anesthesia Complication No 02/25/25 14:23 ELECTRICIAN.TDOB Anesthesia Complication Comment: Post-operative progress note Anesthesia: Postop Eval II Evaluation Mental status: Awake Pain Level: 2 nausea: Yes Vomiting: No 02/25/25 1451 > Date _ Medhat Luciano MD Cosigner Signature: CC: ~ Signed [facility]2025 Consult note [facility] Medical Records Department [address] [place] [address] Anesthesia Postop Eval I 02/25/25 1421 MR#: [id number] Acct: [id number] Name: ISRA MENG Rep #:[id number] : 1980 44 From: Sunita Weaver PCP: Dr. Dany Ash MD Status:[facility] [place] Race: C Location: [place] [address] Anesthesia: Postop Eval I Current Vital Signs [...] Yes 02/25/25 1423 RNA> Date _ Sunita Rivero ELECTRICIAN Cosigner Signature: Date CC: ~ Signed [facility]2025 History and physical note Author Herman Simms [facility] Note Date/Time February 25, 2025 3:40pm [facility] Medical Records Department [address] [place] [address] History & Physical Exam 02/25/25 1154 MR#: [id number] Acct: [id number] Name: ISRA MENG Rep #:[id number] : 1980 44 From: Herman garcia MD PCP: Dr. Dany Ash MD Status: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 Herman Simms MD Pager: [facility] [address] [place] [address] Office: I have examined the patient and the H&P has been reviewed. There are no clinicalchanges since date of exam. 02/25/25 1154 <Electronically signed by Herman Simms MD> Cosigner Signature (if applicable): CC: Dr. Herman Simms MD; Dr. Dany Ash MD~ Signed [facility] Work Phone: 1(825) 986-707109-15-2025 Discharge summary [facility] Medical Records Department [address] [place] [address] Instructions for Home/Discharge Instructions 02/25/25 1338 MR#: [id number] Acct: [id number] Name: ISRA MENG Rep #:[id number] : 1980 44 From: Herman garcia MD PCP: Dr. Dany Ash MD [place] Discharge Instructions Procedure Gallbladder Diet Discharge Diet: [...] to schedule 2 week follow up appointment. [phone] Test Results: Test results from this visit will be discussed in further detail at your follow- up appointment, if applicable. Discharge Plan Admission Attending Provider: Herman Simms Primary Care Provider: Dany Ash Instructions Print Language: [place] Discharge Orders/Prescriptions Prescriptions: New oxycodone 5 mg Tablet 5 - 10 mg PO Q4H PRN PRN (Reason: Pain Score 4-10) 5 Days Qty: 14 0RF Referrals / Follow Up: Dany Ash MD [Primary Care Provider] - Disposition Disposition (needs filled in before D/C Order can be placed): Home, Self Care 02/25/25 1340Herman Simms MD CC: Dr. Dany Ash MD ~ Signed [facility]2025 Procedure note [facility] Medical Records Department [address] [place] [address] Operative Report 02/25/25 1335 MR#: [id number] Acct: [id number] Name: ISRA MENG Rep #:[id number] : 1980 44 From: Herman garcia MD PCP: Dr. Dany Ash MD Status:[facility] Location: [place] [address] Operative Report (Standard) Operative Information Date of Procedure: 02/25/25 Pre-Operative Diagnosis: Gallbladder sludge Post-Operative Diagnosis: Same Surgery/Procedure Performed: Robotic assisted laparoscopic cholecystectomy bench worker apprentice: Yes Crystallography Teacher: Stacy Tesfaye Tasks completed by print shop assistant: Opening & closing Type of Anesthesia: [...] Simms MD; Dr. Dany Ash MD~ Signed [facility]2025 Consult note Author Medaht Luciano [facility] Note Date/Time February 25, 2025 3:40pm [facility] Medical Records Department [address] [place] [address] Pre-Anesthesia Evaluation 02/25/25 1125 MR#: [id number] Acct: [id number] Name: ISRA MENG Rep #:[id number] : 1980 44 From: Medhat Luciano MD PCP: Dr. 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: Anesthesia History - automatic car wash attendant Hx Hospitalization No 02/19/25 14:10 Any Problems [...] take am of surgery PONV PONV - automatic car wash attendant: PONV - automatic car wash attendant Female No 02/19/25 14:10 HX of Motion [...] 02/25/25 11:14 Respiratory Assessment Respiratory Assessment - automatic car wash attendant: Respiratory Tract Infection Hx - automatic car wash attendant Hx Respiratory Tract Infection No 02/19/25 14:10 STOP Sleep Apnea STOP Sleep Apnea - automatic car wash attendant: STOP Sleep Apnea - automatic car wash attendant Hx Hypertension No 02/19/25 14:10 Hx Sleep [...] Tobacco Use History Tobacco Use History - automatic car wash attendant: Tobacco Use History - automatic car wash attendant Tobacco Use Smoking Status Current every day smoker 02/19/25 14:10 Hx Tobacco Use Yes 02/19/25 14:10 Years Smoking Packs Smoked per Day Smoking Cessation Date was within the last 15 years Hx Smoking Cessation Date Hx Smoking Cessation Counseling Hematologic Medial History Hematologic Hx - automatic car wash attendant: Hematologic Medical Hx - senior customer service representative Hx of Blood Transfusion No 02/19/25 14:10 [...] confused, unrespo /Reproduction History /Reproductive History - automatic car wash attendant: /Reproductive Hx- automatic car wash attendant Hx Now Gestational Age (in weeks): EDC: [...] MD Cosigner Signature: Date CC: ~ Signed [facility] Work Phone: 1(691) 666-176909-15-2025 [facility] Medical Records Department [address] [place] [address] History Physical Exam 02/25/25 1154 MR#: [id number] Acct: [id number] Name: IRSA MENG Rep #: [id number] : 1980 44 From: Herman Simms MD PCP: Dr. 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 Required: No Is patient in pain?: No Allergies No Known Allergies Allergy (Verified 02/15/25 13:05) Have you fallen in the past year?: No [facility] Medical History Back pain Smoker Hemorrhoids Acid [...] General: cooperative Orientation: alert and oriented x3 HENAR Head: normal to inspection Neck Neck: normal [...] occurred this may n (more content not included)...[facility]09-05-2025 Evaluation note* Diagnosis Onset Date Resolution Status Admit Date Abdominal pain acute February 15, 2025 12:49pm Gallbladder sludge acute Septem 2024 12:49pm [facility] Work Phone: 1(966) 662-345209-05-2025 Evaluation note* Diagnosis Onset Date Resolution Status Admit Date Abdominal pain acute February 15, 2025 12:49pm Gallbladder sludge acute Septem 2024 12:49pm Epigastric abdominal pain acute March 07, 2025 3:09pm S/P cholecystectomy acute Septe mber 2024 3:09pm [facility] Work Phone: 1(341) 768-687309-05-2025 Evaluation note* Diagnosis Onset Date Resolution Status Admit Date Abdominal pain acute February 15, 2025 12:49pm Gallbladder sludge acute Septem 2024 12:49pm Epigastric abdominal pain acute March 07, 2025 3:09pm S/P cholecystectomy acute Septe mber 2024 3:09pm Elevated liver enzymes acute Oc tober 2024 8:22am S/P cholecystectomy acute Octob er 2024 8:22am [facility] Work Phone: 1(376) 116-928303-06-2025 NoteHNO ID: [id number] Author: ANTHONY TSAI APRN.LICENSED MORTICIAN Service: ? Author Type: Nurse Practitioner Type: Progress Notes Filed: 08/16/2024 16:12 Note Text: [facility] Subjective Isra Meng is a 43 [...] of care. This note was generated using [employer] software. It may contain errors in wording, punctuation, or spelling. Anthony Tsai APRN.LICENSED MORTICIAN [facility] History of Present illness Narrative* Anthony Tsai [...] of care. This note was generated using [employer] software. It may contain errors in wording, punctuation, or spelling. Anthony Tsai APRN.KIKO MDM Procedures documented in [facility]12-10-2024 [facility] Medical Records Department [address] [place] [address] History Physical Exam 05/22/24811 MR#: [id number] Acct: [id number] Name: ISRA MENG Rep #: [id number] : 1980 43 From: Herman Simms MD PCP: Dr. Dnay Ash MD Status:[facility] Location: [place] [address] History and Physical Date of Admission: 05/22/24 [...] mg PO QDAY 04/18/24 04/18/24 History release [facility] Medical History (Updated 04/18/24 @ 15:26 by [...] or heart attack wit (more content not included)...[facility]01-18-2023 History of Present illness Narrative* Uma [...] 30, 2022 10:52 AM documented in [facility] encounterMer[facility]10-30-2022 Miscellaneous Notes* Telephone Encounter - Latasha [...] follow-up with primary care. documented in this encounterMer[facility]10-29-2022 History of Present illness Narrative* Josse Brenner APRN.KIKO - 04/10/2022 12:46 PM EDT Subjective HPI [...] avs Josse Brenner APRN.KIKO documented in this encounterMer[facility]09-21-2022 Hospital Discharge instructions Patient Education 03/03/2022 [...] Do you prefer work to being home? [phone] [employer]. [address] [place] [address]. All rights reserved. This information is not intended as a substitute for professional medical care. Always follow yourohio valley surgical hospitalcare professional's instructions. 03/03/2022 19:08:59 Gastritis (Adult) [...] or as directed by your healthcare provider [phone] [employer]. [address] [place] [address]. All rights reserved. This information is not intended as a substitute for professional medical care. Always follow yourhealthcare professional's instructions. Follow Up Care 03/03/2022 17:45:13 With:PHYSICIAN, NOT RECORDED Address:Unknown When:2-4 days [facility] 09-21-2022 Note Discharge Instructions Thank you for allowing [facility] to assist you with your healthcare needs. [...] Do you prefer work to being home? [phone] [employer]. [address] [place] [address], [place] [address]. All rights reserved. This information is not [...] or as directed by your healthcare provider [phone] [employer]. [address] [place] [address]. All rights reserved. This information is not intended as a substitute for professional medical care. Always follow yourhealthcare professional's instructions. Additional Information VACCINATE! IT SAVES LIVES! Members of the community who have not yet received the COVID-19 vaccine and would like to receive it can visit one of [facility] vaccine clinics. There are many vaccine clinic locations within the [facility]. For locations and available times, please visit [email or web address]. It is important to note that some COVID mobile vaccine clinics are held outdoors and may be canceled in rainy orstormy conditions. To learn more about pediatric vaccinations (ages 5-11), we invite you to visit the [facility] webpage. [email or web address]://[email or web address]/pages/[email or web address]-Nztyp-Yeexohmqpmp-Ehtxmqucdh-Lsfer-Zuk stions.htmlTo learn more about the COVID-19 vaccine, we invite you to visit the [facility] website for a list of frequently asked questions. [email or web address]/Khcabiat-exe-Llcehkfu/uupoe-Quklpzo-Usqsoleome _[email or web address]-Questions.pdf [facility] Patient Portal Access Instructions: Stay connected with your healthcare team and access your personal medical information anytime with the [facility] Patient Portal. If you would like a full copy of your medical records please contact the [facility] Medical Records Department Tuesday through Tuesday between 8a.m. and 4:30p.m. Please follow the directions below to access the portal: 1.Access the email account you provided upon registration to the hospital.2.Look for an invitation email from [facility].3.Open the email and access the invitation link: Accept Invitation to [facility]4.Fill in the required chambers to create your account. Sign into www.[facility] [employer] [facility] with your username and password that you [...] you will allow to register on the [facility] Patient Portal for access to your information. You can also access the [facility] Patient Portal on the [employer] zee. Simply click on "Health Records" under "[employer]" and then click on the [facility] logo. HOW TO SAFELY DISPOSE OF PRESCRIPTION [...] Call your local pharmacy or go to http://LearnUp.Bio/8C5Es8j to find one close to you.3.Make use of household items: Use cat litter or old coffee grounds to dispose medications if other options arenot available. Mix your drugs with these household products, seal them in an airtight container andthrow it into the garbage. Call [facility]: [phone] to be sure your drugs can be [...] been reviewed and explained to me and I,ISAR MENG understand my current condition and have read and understand these discharge instructions. I have received a written copy of the plan/instructions. If I have questions, I am aware that I should contact my doctor. 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 [address] [place] [address]. All rights reserved. This information is not intended as a substitute for professional medical care. Always follow yourhealthcare professional's instructions. Follow Up Care 04/30/2021 17:01:31 With:NITESH ROJAS Address: [address] [place] [address] [facility] (1) When:2-4 days Comments:Drink plenty of fluids, return if severe pain fever or other concerning symptoms. If bleeding persists follow-up with urology. [facility] 02-15-2017 History of Past illness Narrative* Problem Noted Date Resolved Date Bright red rectal bleeding 07/28/201607/28 RLQ abdominal pain 07/28/2016 07/28/2016 documented as of this encounter (statuses as of 04/10/2022) [facility] History of Past illness Narrative* Problem Noted Date Resolved Date Bright red rectal bleeding 07/28/201607/28 RLQ abdominal pain 07/28/2016 07/28/2016 documented as of this encounter (statuses as of 04/11/2022) [facility] note Author Sunita Rivero [facility] Note Date/Time February 25, 2025 2:23pm [facility] Medical Records Department [address] [place] [address] Anesthesia Postop Eval I 02/25/25 1421 MR#: [id number] Acct: [id number] Name: ISRA MENG Rep #:[id number] : 1980 44 From: Sunita Weaver PCP: Dr. Dany Ash MD [facility] [facility] [place] Race: C Location: [place] [address] Anesthesia: Postop Eval I Current Vital Signs [...] by Sunita KWAN> Date _ Sunita Rivero ELECTRICIAN Cosigner Signature: Date CC: ~ Signed [facility] Work Phone: Consult note Author Medhat Luciano [facility] Note Date/Time February 25, 2025 2:51pm [facility] Medical Records Department [address] [place] [address] Anesthesia Postop Eval II 02/25/25 1450 MR#: [id number] Acct: [id number] Name: ISRA MENG Rep #:[id number] : 1980 44 From: Medhat Luciano MD PCP: Dr. Dany Ash MD Status:RE G [facility] Y Race: C Location: [place] [address] Anesthesia Postop Eval I Sum Postop Eval Completion status Anesthesia document: Postop Eval 1 completed: Yes Anesthesia Postop Eval I Summary Anesthesia Postop Eval I Summary: Anesthesia Postop Eval I: Assessment Summary Airway patent Yes 02/25/25 14:23 ELECTRICIAN.TDOB Spontaneous unlabored Yes 02/25/25 14:23 ELECTRICIAN.TDOB respirations Mental status Awake 02/25/25 14:23 ELECTRICIAN.TDOB nausea No 02/25/25 14:23 ELECTRICIAN.TDOB Vomiting No 02/25/25 14:23 ELECTRICIAN.TDOB Anesthesia Postop Eval I: Fluid Summary Crystalloid volume administer 900 02/25/25 14:23 ELECTRICIAN.TDOB (ml) Colloids volume administered ( ml) Blood Product volume administered (ml) Total IV fluid infused 900 02/25/25 14:23 ELECTRICIAN.TDOB Anesthesia Postop Eval I: Summary Notes Anesthesia Complication No 02/25/25 14:23 ELECTRICIAN.TDOB Anesthesia Complication Comment: Post-operative progress note Anesthesia: Postop Eval II Evaluation Mental status: Awake Pain Level: 2 nausea: Yes Vomiting: No 02/25/25 1451 <Electronically signed by Medhat Luciano MD > Date _ Medhat Luciano MD Cosigner Signature: Date CC: ~ Signed [facility] Work Phone: Evaluation + Plan note No data available for this section [facility] Evaluation note* Diagnosis Suspected COVID-19 virus infection- Primary documented in this encounter [facility]* Diagnosis Urinary frequency- Primary documented in this encounter [facility]* Diagnosis Onset Date Resolution Status Admit Date Gallbladder Problem noneactive Septe mb2024 12:49pm [facility] Work Phone: Progress note Author Hemran Simms [facility] Note Date/Time March 13, 2025 8: 36am [facility] ealt System [facility] [address] [place] [address] OFFICE VISIT Date of Service: 03/13/25 MR#: [id number] Acct: [id number] Name: ISRA MENG Rep #: [id number] : 1980 Provider: Dr. 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 He says that today is his best day yet since surgery. Objective Details: Abdomen is soft and nondistended Coding Level of Care Code Global Post Op Diagnoses Elevated liver enzymes R74.8 S/P cholecystectomy Z90.49 [facility] Medical History (Updated 03/13/25 @ 08:30 by Ella Franec) Elevated liver enzymes Back pain Smoker Hemorrhoids Acid reflux Abdominal pain Chronic pain Kidney stones Former smoker Asthma Irregular heart beat Former tobacco use Alcohol abuse Panic attacks Depression Anxiety Surgical History (Updated 03/07/25 @ 15:20 by Ni De Paz) S/P cholecystectomy History of facial surgery Family History Mother Anxiety and depression Father Diabetes Social History household members: spouse and family Smoking Status: Current every day smoker tobacco type: smokeless tobacco how long ago did patient quit smoking: Smoked 3-5 years in his 30s, 1 ppd. alcohol intake: former year quit: 1 details: 3-6, 25 ounce beers daily. substance use type: does not use Assessment and Plan (No Qualifiers) Assessment and Plan (1) Elevated liver enzymes: Status: Acute (2) S/P cholecystectomy: Status: Acute Plan Patient had some mildly elevated liver enzymes during last visit and I will repeat these to check that they have returned to normal. Patient reports that the omeprazole is helping and he is says he feels the best he has since surgery. I continued to encourage him and I told him that it might take a few more weeksbefore he fully heals. He will come back in 2 weeks for follow-up. Herman Simms MD Pager: [facility] [address] [place] [address] Office: 03/13/25 0900 <Electronically signed by Herman santos MD> Date _ Herman Simms MD Cosigner Signature: Date (if applicable) CC: ~ [facility] Work Phone: Reason for referral (narrative)No reason for referral information availableSutter Amador Hospital Work Phone: Summary Purpose Family History No Family History Records Found Relationship Condition Age at Onset Recorded Date/T monique mother Anxiety and depression Unknown father Diabetes mellitus Unknown Advance Directives No Advanced Directives Records Found Advance Directive Response Recorded Date/ Time Do you have a Healthcare Power of Bee Worker? No February 19, 2025 2:10pm Health Concerns [...] 12:49pm Gallbladder sludge February 15, 2025 12:49pm Chief Complaint Admit Date Gallbladder problems February 15, 2025 12:49pm Robotic Cholecystectomy February 25, 2025 10:34am PREOP February 25, 2025 11:09am Robotic Cholecystectomy February 25, 2025 11:54am c/o pain March 07, 2025 3:09pm ABD PAIN R10.9 March 08, 2025 5:15pm Reason for Visit Admit Date Abdominal pain February 15, 2025 12:49pm Gallbladder sludge February 15, 2025 12:49pm Epigastric abdominal pain February 3:09pm S/P cholecystectomy March 07, 2025 3:09pm Chief Complaint Admit Date Gallbladder problems February 15, 2025 12:49pm Robotic Cholecystectomy February 25, 2025 10:34am PREOP February 25, 2025 11:09am Robotic Cholecystectomy February 25, 2025 11:54am c/o pain March 07, 2025 3:09pm ABD PAIN R10.9 March 08, 2025 5:15pm Gallbladder 02/25March 13, 2025 8: 22am Reason for Visit Admit Date Abdominal pain February 15, 2025 12:49pm Gallbladder sludge February 15, 2025 12:49pm Epigastric abdominal pain February 3:09pm S/P cholecystectomy March 07, 2025 3:09pm Elevated liver enzymes March 13, 2025 8:22am S/P cholecystectomy March 13, 2025 8: 22am Additional Source Comments Care Team (unrecognized sect ion and content) Care Team Personnel Name: PHYSICIAN, NOT RECORDED Member Role: Primary Care Physician (unrecognized sect ion and content) No Status Records FoundNo Status Records FoundNo Status Records Found INFORMATION SOURCE (unrecogn ized section and content) DATE CREATED AUTHOR 03/22/[address] [place] [address] [place] ([place]) DATE CREATED AUTHOR AUTHOR'S ORGANIZ ATION 08/18/2024 [facility] DATE CREATED AUTHOR AUTHOR'S ORGANIZ ATION 03/22/2025 [facility] Source Comments (unrecognize d section and content) In the event this informatio n is protected by the Federal Confidentiality of Alcohol and Drug Abuse Patient Records regulations: The Federal rules restrict any use of the information to criminally investigate or prosecute any alcohol or drug abuse patient.[facility] HospitalIn the event this information is protected by the Federal Confidentiality of Alcohol and Drug Abuse Patient Records regulations: The Federal rules restrict any use of the information to criminally investigate or prosecute any alcohol or drug abuse patient.[facility] HospitalIn the event this information is protected by the Federal Confidentiality of Alcohol and Drug Abuse Patient Records regulations: The Federal rules restrict any use of the information to criminally investigate or prosecute any alcohol or drug abuse patient.[facility] HospitalIn the event this information is protected by the Federal Confidentiality of Alcohol and Drug Abuse Patient Records regulations: The Federal rules restrict any use of the information to criminally investigate or prosecute any alcohol or drug abuse patient.[facility] Reason for Visit (unrecogniz ed section and content) Reason Comments Nasal Congestion Congestion, runny no se, MONTIEL and fatigue x 4 days-exposed Reason Comments Results Specialty Diagnoses / Procedures Referred By Contac t Referred To Contact XR IMAGING Diagnoses Knee injuries, left, initial encounter Procedures XR KNEE GENERAL 4V AP BOTH/PA BOTH/LAT/MERC LEFT RADIOLOGIC EXAM KNEE COMPLETE 4/MORE VIEWS Josse Brenner APRN.LICENSED MORTICIAN [address] [place] [address] [place] [address] Referral ID Status Reason Start Date Expiration Date V isits Requested Visits Authorized [id number] Closed Auto-Generate d Referral 06/30/2022 06/12/2023 1 1 Reason Comments MRSA concerns States his , had polyp removed which had mrsa on it, he is concerned for possible, mrsa, Specialty Diagnoses / Procedures Referred By Contac t Referred To Contact Internal Medicine / [facility] Diagnoses wants tested for MRSA Procedures EST SAME DAY Dany Ash MD [address] [facility] [address] [place] [address] Phone: tel: fax: [facility] [address] [place] [address] Phone: tel: Referral ID Status Reason Start Date Expiration Date V isits Requested Visits Authorized [id number] Pending Review 08/16/2024 11/14/2024 1 1 Care Teams (unrecognized sec tion and content) Scheduling Manager Relationship Specialty Start Date End Date Tejinder Rodriguez MD [address] [place] [address] PCP - General Family Medicine 12/25/10 Scheduling Manager Relationship Specialty Start Date End Date Tejinder Rodriguez MD [address] [place] [address] PCP - General Family Medicine 12/25/10 Scheduling Manager Relationship Specialty Start Date End Date Dany Ash MD [address] [facility] [address] [place] [address] PCP - General Family Medicine 06/30/22 Scheduling Manager Relationship Specialty Start Date End Date Dany Ash MD [address] [facility] [address] [place] [address] PCP - General Family Medicine 06/30/22 Team [...] Other Provider Active Start: February 25, 2025 Team Status: Active Member Role/Relationship Status Dates Dr. Dany Ash MD Primary care physician Active Team Status: Inactive Member Role/Relationship Status Dates Dr. Dany Ash MD Primary care physician Active Start: February 15, 2025 End: February 15, 2025 Dr. Dany Ash MD Referring Provider Active Start: February 15, 2025 End: February 15, 2025 Dr. Herman Simms MD Attending physician Active Start: February 15, 2025 End: February 15, 2025 Team Status: Inactive Member Role/Relationship Status Dates Dr. Dany Ash MD Primary care physician Active Start: February 25, 2025 End: February 25, 2025 Dr. Herman Simms MD Attending physician Active Start: February 25, 2025 End: February 25, 2025 Dr. Herman Simms MD Referring Provider Active Start: February 25, 2025 End: February 25, 2025 Team Status: Active Member Role/Relationship Status Dates Dr. Dany Ash MD Primary care physician Active Start: February 25, 2025 Dr. Mason Smiley MD Attending physician Active Start: February 25, 2025 Dr. Herman Simms MD Referring Provider Active Start: February 25, 2025 Team Status: Active Member Role/Relationship Status Dates Dr. Dany Ash MD Primary care physician Active Start: February 25, 2025 Dr. Herman Simms MD Attending physician Active Start: February 25, 2025 Dr. Herman Simms MD Referring Provider Active Start: February 25, 2025 Dr. Herman Simms MD Nurse Practitioner Active Start: February 25, 2025 Team Status: Inactive Member Role/Relationship Status Dates Dr. Dany Ash MD Primary care physician Active Start: March 07, 2025 End: March 07, 2025 Dr. Dany Ash MD Referring Provider Active Start: March 07, 2025 End: March 07, 2025 Nicky DUDLEY PA-C Attending physician Active Start: March 07, 2025 End: March 07, 2025 Team Status: Inactive Member Role/Relationship Status Dates Dr. Dany Ash MD Primary care physician Active Start: March 07, 2025 End: March 07, 2025 Nicky DUDLEY PA-C Attending physician Active Start: March 07, 2025 End: March 07, 2025 Nicky Ward PA, PA-C Referring Provider Active Start: March 07, 2025 End: March 07, 2025 Team Status: Active Member Role/Relationship Status Dates Dr. Dany Ash MD Primary care physician Active Start: March 08, 2025 Dr. Terrie Garcia MD Attending physician Active Start: March 08, 2025 Dr. Terrie Garcia MD Referring Provider Active Start: March 08, 2025 Team Status: Inactive Member Role/Relationship Status Dates Dr. Dany Ash MD Primary care physician Active Start: March 08, 2025 End: March 08, 2025 Dr. Terrie Garcia MD Attending physician Active Start: March 08, 2025 End: March 08, 2025 Dr. Terrie Garcia MD Referring Provider Active Start: March 08, 2025 End: March 08, 2025 Team Status: Inactive Member Role/Relationship Status Dates Dr. Dany Ash MD Primary care physician Active Start: March 13, 2025 End: March 13, 2025 Dr. Dany Ash MD Referring Provider Active Start: March 13, 2025 End: March 13, 2025 Dr. Herman Simms MD Attending physician Active Start: March 13, 2025 End: March 13, 2025 Team Status: Active Member Role/Relationship Status Dates Dr. Dany Ash MD Primary care physician Active Start: March 13, 2025 Dr. Herman Simms MD Attending physician Active Start: March 13, 2025 Dr. Herman Simms MD Referring Provider Active Start: March 13, 2025 Team Status: Inactive Member Role/Relationship Status Dates Dr. Dany Ash MD Primary care physician Active Start: March 13, 2025 End: March 13, 2025 Dr. Herman Simms MD Attending physician Active Start: March 13, 2025 End: March 13, 2025 Dr. Herman Simms MD Referring Provider Active Start: March 13, 2025 End: March 13, 2025 Goals (unrecognized section and content) Goals [...] BE BASED ON THE PRIMARY CLINICAL RECORDS. [employer] [facility]. provides no warranty or guarantee of the accuracy or completeness of information in this document.
[2025-05-08 17:46] VITALS: BP 133/79; PULSE 80; RESP 16; O2SAT 100
[2025-05-08 17:56] LABS: Anion Gap 12 (5-15); BUN 18 mg/dL (4-19); BUN/Creat Ratio 17.7 RATIO (10-20); Calcium,Total 9.6 mg/dL (7.6-11.0); Carbon Dioxide 23.4 mmol/L (21.0-32.0); Chloride 103 mmol/L (98-108); Estimated Creatinine Clearance 98.38 ml/min (50-250); Glucose 96 mg/dL (70-99); Magnesium 2.2 mg/dL (1.5-2.2); Potassium 3.9 mmol/L (3.3-5.1); Troponin T High Sensitivity < 6 ng/L (<=22)
[2025-05-08 18:28] VITALS: BP 133/79; PULSE 80; RESP 16; TEMP 36.6; O2SAT 100
== END 2025-05-08 18:38 | disposition home or self-care (01) ==
PROVIDERS: Emergency Provider Student in an Organized Health Care Education/Training Program; PCP Family Medicine; Visit Provider Student in an Organized Health Care Education/Training Program
DX: R00.2 Palpitations (principal); K21.9 Gastro-esophageal reflux disease without esophagitis; F17.220 Nicotine dependence, chewing tobacco, uncomplicated; R06.02 Shortness of breath; F41.9 Anxiety disorder, unspecified; Z79.899 Other long term (current) drug therapy
CPT/HCPCS: 71046; 80048; 83735; 84443; 84484; 85025; 93005; 99284; A4216